=== PATIENT | male | born 1935 | race Caucasian/White ===

== ENCOUNTER 2017-12-16 18:15 | Emergency (ER) | payer MEDICARE, BC, SELFPAY ==
[2017-12-16 18:24] VITALS: BP 157/94; PULSE 76; RESP 20; TEMP 36.4; O2SAT 96
[2017-12-16 20:15] VITALS: BP 140/72; PULSE 54; RESP 10; O2SAT 100
[2017-12-16 22:24] VITALS: BP 151/73; PULSE 66; RESP 20; O2SAT 97
[2017-12-16] MEDS: IBUPROFEN 400 MG TABLET PO (22:24)
--- NOTE | 2017-12-17 04:07 | ED_ITS ---
HPI - Extremity Injury (Lower) General Chief Complaint: Extremity Injury, Lower Stated Complaint: HIP PAIN Time Seen by Provider: 12/16/17 18:38 Source: patient and family Mode of arrival: ambulatory Limitations: no limitations History of Present Illness HPI Narrative: Patient presents to the emergency department today with a chief complaint of some left flank pain since an aggressive workout session a few days ago. He is very active at home and with physical therapy in the aftermath of a stroke about a year ago. The patient says he over did it a few days ago and rather than resting he has continued to push through it. He did not tell his physical therapist of his pain and had a very intense workout which seems to potentially worsen things. He denies any fall or direct trauma. He denies any fever or chills. He denies nausea, vomiting or diarrhea. He denies dysuria. His left posterior ribs and musculature her with range of motion and improves with rest. He denies any history of the same. He has been taking muscle relaxers as prescribed by his primary care provider and has not been able to take anti-inflammatories given his use of Coumadin Related Data Home Medications Medication Instructions Recorded Confirmed clotrimazole 1 gm TOPICAL #0 12/14/16 Previous Rx's Medication Instructions Recorded amiodarone 1 tab PO AMCC #30 tab 01/04/17 atorvastatin 40 mg PO HS #30 tab 01/04/17 cholecalciferol (vitamin D3) 1 tab PO QDAY #30 tab 01/04/17 [Vitamin D3] baclofen 1 tab PO QHS #90 tab 01/12/17 diclofenac sodium [Voltaren] 1 jose alejandro TOPICAL QID #100 gm 03/13/17 Disabled Parking Permit ea #1 05/11/17 sertraline 50 mg PO QDAY #30 tab 08/02/17 warfarin [Coumadin] 0 PO SEE INSTRUCTIONS #250 tab 08/14/17 tamsulosin [Flomax] 0.4 mg PO QDAY #30 cap 09/04/17 tizanidine 2 - 4 mg PO HS #60 tab 09/04/17 lidocaine 1 patch TOP Q24H #15 each 12/16/17 Allergies Allergy/AdvReac Type Severity Reaction Status Date / Time No Known Drug Allergies Allergy Verified 12/16/17 18:24 Review of Systems Review of Systems All systems reviewed & are unremarkable except as noted in HPI and below Constitutional Denies chills, Denies fever(s), Denies lethargy and Denies weakness Eyes Denies change in vision, Denies eye discharge, Denies irritation and Denies loss of vision ENT Ears, Nose, Mouth, and Throat: Denies change in voice, Denies neck pain and Denies sore throat Cardiovascular Denies chest pain, Denies irregular heart rhythm, Denies lightheadedness, Denies palpitations, Denies dyspnea, Denies dyspnea on exertion and Denies orthopnea Respiratory Denies cough, Denies dyspnea, Denies dyspnea on exertion and Denies wheezing Gastrointestinal Gastrointestinal: Denies abdominal pain, Denies change in bowel habits, Denies diarrhea, Denies nausea and Denies vomiting Genitourinary Denies hematuria, Denies flank pain, Denies urinary incontinence and Denies urinary urgency Musculoskeletal Reports limited range of motion, Reports muscle cramps, Denies neck pain and Reports stiffness Integumentary/Breasts Denies pruritus, Denies erythema, Denies rash and Denies wounds Neurologic Denies confusion, Denies loss of vision and Denies weakness Psychiatric Denies anxiety, Denies confusion, Denies depression, Denies homicidal ideation and Denies suicidal ideation Endocrine Denies palpitations Hematologic/Lymphatic Denies easy bruising Allergic/Immunologic Denies wheezing PFSH Family History Father Family history of diabetes mellitus (DM) Family hx of lung cancer Mother Colon cancer Exam Narrative Exam Narrative: Pleasant 82-year-old male obviously uncomfortable the sitting in a wheelchair with his at his side Initial Vital Signs Initial Vital Signs: Vital Signs Temperature 97.6 F 12/16/17 18:24 Pulse Rate 76 12/16/17 18:24 Respiratory Rate 20 12/16/17 18:24 Blood Pressure 157/94 H 12/16/17 18:24 Pulse Oximetry 96 12/16/17 18:24 Const General: cooperative and well developed Nutritional Appearance: well nourished Orientation: alert, awake, oriented x3 and not confused HENMT Head: normocephalic and atraumatic Ears: external ears normal and TM's normal bilaterally Nose: external nose normal and No nasal discharge Face and sinus: sinuses nontender, face symmetric, no sinus tenderness and No dry mucous membranes Mouth: oral mucosae normal and moist mucous membranes Teeth and gingiva: dentition normal Throat: tonsils normal and uvula midline Eyes General: appearance normal, both eyes and all related structures Eyelids: eyelids normal Conjunctivae: conjunctivae normal Sclera: sclerae normal Pupils: PERRL EOM: EOM intact bilaterally Neck Neck: normal visual inspection, trachea midline, No lymphadenopathy, No midline deformity and No JVD Lymphatic: No lymphedema Resp Effort & Inspection: normal respiratory effort, able to speak in complete sentences, no respiratory distress and no use of accessory muscles Auscultation: clear to auscultation bilaterally, no rales, no rhonchi and no wheezes Cardio Rate: regular rate Rhythm: regular rhythm Heart Sounds: no click, no gallops, no murmurs and no rubs Pulses: normal peripheral pulses Back/Spine/Pelvis Back: back tenderness, CVA tenderness, No Gaines-He sign present and No warmth Thoracic/Lumbar Spine: No thoracic and lumbar spine normal to inspection, No thoraco-lumbar ROM normal, thoraco-lumbar ROM limited and thoraco-lumbar spasm Skin General: no rashes or lesions noted, No jaundice and No petechiae Extrem General: full ROM, no clubbing, cyanosis or edema, no pedal edema and no calf tenderness Other: weakness of LUE is chronic since stroke Course Orders Ordered: Discontinued Medications Ibuprofen (Advil) 400 mg PO NOW ONE Stop: 12/16/17 21:52 Last Admin: 12/16/17 22:24 Dose: 400 mg Vital Signs - 8 hr 12/16/17 20:15 12/16/17 22:24 Pulse Rate 54 L 66 Respiratory Rate 10 L 20 Blood Pressure 151/73 H Blood Pressure [Right Arm] 140/72 H Pulse Oximetry 100 97 MDM - Extremity Injury (Lower) MDM Narrative Medical decision making narrative: Discharge Plan Departure Patient Disposition: Home, Self-Care Clinical Impression: Back pain Discharge Date/Time: 12/16/17 22:25 Interventions: ED Discharge Assessment Last Done: 12/16/17 22:24 Instructions: Back Pain (Alternative Therapy) Activity Restrictions/Additional Instructions: *You have been diagnosed with [ bank pain ] *What to do: *Take medications as directed, prescriptions have been electronically transmitted to [facility] in [place] as requested. Take over the counter Motrin 400mg by mouth every 8 hours for the next 5 days *Follow up with your primary care provider, call for an appointment. Motrin can affect your Pro Times, please ask Dr. Xiong to set up more frequent lab draws while taking motrin. *Return to ER if you should have [such as] [or] any new, worsening or concerning symptoms Prescriptions: New lidocaine 5 % adhesive patch,medicated 1 patch TOP Q24H Qty: 15 RF: 0 No Action clotrimazole 1 % cream 1 gm Topical Qty: 0 RF: 0 atorvastatin 40 MG tablet 40 mg PO HS Qty: 30 RF: 11 amiodarone 200 MG tablet 1 tab PO AMCC Qty: 30 RF: 11 cholecalciferol (vitamin D3) [Vitamin D3] 1,000 UNIT tablet 1 tab PO QDAY Qty: 30 RF: 11 baclofen 10 MG tablet 1 tab PO QHS Qty: 90 RF: 3 diclofenac sodium [Voltaren] 1 % gel 1 jose alejandro Topical QID Qty: 100 RF: 3 Disabled Parking Permit Qty: 1 RF: 0 sertraline 50 MG tablet 50 mg PO QDAY Qty: 30 RF: 6 warfarin [Coumadin] 1 MG tablet PO SEE INSTRUCTIONS Qty: 250 RF: 1 tamsulosin [Flomax] 0.4 MG capsule,extended release 24hr 0.4 mg PO QDAY Qty: 30 RF: 3 tizanidine 2 MG tablet 2 - 4 mg PO HS Qty: 60 RF: 3
== END 2017-12-16 22:25 | disposition home or self-care (01) ==
PROVIDERS: Emergency Provider Emergency Medicine; Family Provider Internal Medicine; PCP Internal Medicine
DX: M54.9 Dorsalgia, unspecified (principal)
CPT/HCPCS: 81003; 99282; 99283

== ENCOUNTER → 2018-02-15 12:18 | Outpatient (CLI) | payer MEDICARE, BC, SELFPAY ==
[2018-02-15 13:21] LABS: Add Manual Diff / Slide Review NO; Basophils Percent Auto 0.5 % (0-2); Eosinophils Percent Auto 1.9 % (2-4); Hematocrit 43.7 % (41-53); Hemoglobin 15.1 g/dL (13.5-17.5); Lymphocytes Percent Auto 35.4 % (25-40); Mean Corpuscular HGB Conc 34.5 % (30-36); Mean Corpuscular Hemoglobin 32.5 PG (26-34); Mean Corpuscular Volume 94.4 fL (80-100); Monocytes Percent Auto 12.3 % (3-14); Neutrophils Absolute Auto 2800 /uL (3000-5900); Neutrophils Percent Auto 49.9 % (50-75); Platelet Count 181 X10^3/uL (150-400); Red Blood Cell Count 4.63 X10^6/uL (4.5-5.9); Red Cell Distribution Width 14.1 % (11.6-14.8); White Blood Cell Count 5.6 X10^3/uL (4.5-11.0)
[2018-02-15 14:08] LABS: Alanine Aminotransferase 47 IU/L (21-72); Albumin 4.3 g/dL (3.5-5.0); Albumin Globulin Ratio 1.7 (1.0-2.8); Alkaline Phosphatase 65 U/L (38-126); Aspartate Aminotransferase 40 IU/L (17-59); BUN Creatinine Ratio 18.2 (6-22); Bilirubin Total 0.6 mg/dL (0.2-1.3); Blood Urea Nitrogen 20 mg/dL (9-20); Carbon Dioxide 31 mmol/L (22-32); Chloride 102 mmol/L (98-107); Estimated Glomerular Filt Rate > 60.0 mL/min (>60); Globulin 2.6 g/dL (1.7-4.1); Glucose 86 mg/dL (80-110); HEMOLYSIS < 15 (0-50); Potassium 4.3 mmol/L (3.4-5.1); Sodium 142 mmol/L (137-145); Total Protein 6.9 g/dL (6.3-8.2)
[2018-02-15 14:41] LABS: TSH w/ Reflex to FT4 1.31 uIU/mL (0.47-4.68)
== END ==
PROVIDERS: Family Provider Internal Medicine; PCP Internal Medicine; Visit Provider Internal Medicine
DX: I48.0 Paroxysmal atrial fibrillation (principal); I69.30 Unspecified sequelae of cerebral infarction; Z79.01 Long term (current) use of anticoagulants
CPT/HCPCS: 36415; 80053; 84443; 85025

== ENCOUNTER 2018-02-18 10:57 | Emergency (ER) | payer MEDICARE, BC, SELFPAY ==
--- NOTE | 2018-02-18 11:03 | DI.CT.S_ITS ---
PROCEDURE: CT HEAD/BRAIN WO CON INDICATIONS: Fall, hit head on coumadin. TECHNIQUE: Noncontrast 4.5 mm thick angled axial sections acquired from the foramen magnum to the vertex, with coronal and sagittal reformats. For radiation dose reduction, the following was used: automated exposure control, adjustment of mA and/or kV according to patient size. COMPARISON: [facility], CT, HEAD WITHOUT CONTRAST, 11/03/2016, 14:51. FINDINGS: Image quality: Excellent. CSF spaces: Basal cisterns are patent. No extra-axial fluid collections. The ventricles are symmetric in size and shape. Brain: No intracranial bleeds or masses. There is a new chronic infarct within the right posterior vargas radiata. Small chronic left medial occipital lobe infarct is unchanged. Small chronic infarct within the anterior limb of the left internal capsule is unchanged. There is cerebral volume loss for age, with resultant ventricular and sulcal prominence. There are periventricular and deep white matter chronic small vessel ischemic changes. There is intracranial internal carotid artery atherosclerosis. Skull and face: Calvarium and visualized facial bones appear intact, without suspicious lesions. Sinuses: Visualized sinuses and mastoids are clear. IMPRESSION: 1. No acute intracranial abnormality. 2. Volume loss and small vessels disease. 3. Multifocal chronic infarcts as above. Dictated by: eCcilia Kidd M.D. on 02/18/2018 at 11:25 Approved by: Cecilia Kidd M.D. on 02/18/2018 at 11:26
[2018-02-18 11:06] VITALS: BP 146/68; PULSE 65; RESP 16; TEMP 36.8; O2SAT 96
--- NOTE | 2018-02-18 11:08 | DI.RAD.S_ITS ---
PROCEDURE: XR HIP W PEL IF DONE LT 2V INDICATIONS: ground level fall with left hip pain TECHNIQUE: AP pelvis with lateral view(s) of the left hip(s). COMPARISON: None. FINDINGS: Bones: No fractures or dislocations. Pelvic ring appears intact. No suspicious bony lesions. Moderate hip joint narrowing and periarticular osteophyte formation bilaterally. Soft tissues: The visualized bowel gas pattern is normal. No suspicious soft tissue calcifications. IMPRESSION: Bilateral hip osteoarthritis. No acute fracture. No osseous lesion. If symptoms and/or clinical suspicion for pathology persist, further assessment with repeat, or advanced imaging (e.g., CT, MRI, or bone scan) may be helpful for further assessment. Dictated by: Cecilia Kidd M.D. on 02/18/2018 at 11:24 Approved by: Cecilia Kidd M.D. on 02/18/2018 at 11:24
[2018-02-18 11:14] VITALS: BP 146/68; PULSE 65; RESP 16; TEMP 36.8; O2SAT 96
[2018-02-18 11:26] LABS: Hemoglobin 14.6 g/dL (13.5-17.5); Mean Corpuscular HGB Conc 33.9 % (30-36); Mean Corpuscular Hemoglobin 32.2 PG (26-34); Mean Corpuscular Volume 95.1 fL (80-100); Platelet Count 177 X10^3/uL (150-400); Red Blood Cell Count 4.52 X10^6/uL (4.5-5.9); White Blood Cell Count 5.1 X10^3/uL (4.5-11.0)
--- NOTE | 2018-02-18 11:26 | PC.NURSE ---
patient back from CT and hooked back up to the monitor.
[2018-02-18 11:28] LABS: INR 2.4 (0.9-1.3); Prothrombin Time 26.5 SECONDS (10.1-12.7)
[2018-02-18 11:39] LABS: Alanine Aminotransferase 43 IU/L (21-72); Albumin Globulin Ratio 1.7 (1.0-2.8); Alkaline Phosphatase 58 U/L (38-126); Aspartate Aminotransferase 29 IU/L (17-59); BUN Creatinine Ratio 21.1 (6-22); Bilirubin Total 0.8 mg/dL (0.2-1.3); Blood Urea Nitrogen 19 mg/dL (9-20); Calcium 8.8 mg/dL (8.4-10.2); Carbon Dioxide 32 mmol/L (22-32); Chloride 104 mmol/L (98-107); Estimated Glomerular Filt Rate > 60.0 mL/min (>60); Globulin 2.4 g/dL (1.7-4.1); Glucose 105 mg/dL (80-110); HEMOLYSIS < 15 (0-50); Sodium 141 mmol/L (137-145); Total Protein 6.4 g/dL (6.3-8.2)
[2018-02-18 11:49] LABS: Neutrophils Absolute Manual 2499 /uL (3000-5900); RBC Morphology Normal Morphology; Total Cells Counted 100
--- NOTE | 2018-02-18 12:15 | ED_ITS ---
HPI - Fall General Chief Complaint: Fall Stated Complaint: Fell Time Seen by Provider: 02/18/18 11:08 History of Present Illness HPI Narrative: HPI 82-year-old male with a CVA with left side deficit and paroxysmal atrial fibrillation on warfarin presents for evaluation after apparently losing his balance and falling onto his left side, patient struck his head on the step without LOC and struck his left hip on the ground. Patient denied preceding chest pain, shortness breath, abdominal pain, believes he lost his balance but is not entirely sure. Patient denies further injuries. M/S/F/SocHx notable for: Paroxysmal atrial fibrillation, CVA, or lung nodule, long-term use of warfarin; remainder reviewed with patient and in chart. ROS: Negative constitutional, eye, cardiovascular, pulmonary, GI, , MSK, skin , neurologic, psychiatric, endocrine unless noted in the HPI. Exam General: Pleasant, non-toxic appearing, resting comfortably. HENT: superficial abrasion on right superior occiput, otherwise no evidence of facial or head trauma, TTP of orbits, TTP of midface, malocclusion, or septal hematoma. OP clear and moist, dentition intact. Eyes: EOMI, PERRL. Neck: Tracheal midline. No visible skin defects, no step-offs, c-spine TTP, stridor, or JVD. Cardiac: RRR with no M/R/G. Chest: No crepitus, visual evidence of trauma, equal chest rise, TTP. Pulm: CTAB effort WNL w/o accessory muscle usage. Abd: Soft, NT, ND, no guarding or visual evidence of trauma. Back: No spinous process TTP, no step-offs or visible injury. Pelvis: Stable, no TTP. 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 LUE: extremity contracted with decreased RM, hand warm and well perfused with sensation intact to touch, no visible injuries. RLE: Dorsiflexion 5/5, foot warm and well perfused with sensation intact to touch, no visible injuries. LLE: extremity contracted with decreased RM, foot warm and well perfused with sensation intact to touch, no visible injuries. Orthostatics: negative symptomatic orthostatics upon sitting up rapidly. Neuro: AOx3, CN VII intact Skin: Warm and dry (focal injuries noted above). Psych: Normal affect and judgement. Labs / Imaging (pertinent): WBC 5.1, HB 14.6, PT/INR 2.4, sodium 141, potassium 4.0 XR L hip with pelvis: bilateral hip osteoarthritis. No acute fracture. No osseous lesion. CT head: no acute intracranial abnormality. EK BPM, NSR with no ST-segment elevations or depressions, T-wave inversions or new LBBB. ND interval 118 msec, QTc 475 msec, no delta waves, epsilon waves, coved or saddle ST-segment changes in leads V1-3, preseptal or inferior lead Q-waves, biphasic P-waves, or T-wave inversions; no LVH. MDM Previous chart, nursing note, and vitals reviewed. A: 82-year-old male with a CVA with left side deficit and paroxysmal atrial fibrillation on warfarin presents for evaluation after apparently losing his balance and falling onto his left side, patient struck his head on the step without LOC and struck his left hip on the ground. DDx and evaluation: Trauma - no clinically significant traumatic abnormalities appreciated on history, exam, or imaging. Fall Etiology: * Anemia - H&H clinically WNL. * Hypotension (hypovolemia vs vasovagal vs autonomic instability) - SBP clinically WNL. No symptomatic changes with orthostatic maneuvers. * Cardiac - EKG, labs, and history without evidence of AV-block, history highly atypical for ACS, further evaluation presently indicated. Heart sounds WNL on exam, no evidence of clinically significant valvular abnormalities by history or auscultation. * Obstructive - doubt PE, tamponade, and pulmonary hypertension based upon lack of risk factors on history and exam. * Vertebrobasilar insufficiency - No identifiable risk factors on history ( injury risk factors, vertiginous symptoms, diplopia, vision changes, TIA risk factors or prior similar events). * Electrolyte - electrolytes clinically WNL. * Mechanical - suspect mechanical as the patient fell leftwards, has chronic left sided weakness, and the relative exclusion of alternate etiologies. Disposition: discharge with PCP follow-up as needed. Impression: fall (please reference below for remainder of encounter information) Related Data Home Medications Medication Instructions Recorded Confirmed clotrimazole 1 gm TOPICAL #0 12/14/16 02/14/18 Disabled Parking Permit 1 ea MISCELLANEOUS DIRECTED 02/18/18 02/18/18 Previous Rx's Medication Instructions Recorded cholecalciferol (vitamin D3) 1 tab PO QDAY #30 tab 01/04/17 [Vitamin D3] diclofenac sodium [Voltaren] 1 jose alejandro TOPICAL QID #100 gm 03/13/17 warfarin [Coumadin] 0 PO SEE INSTRUCTIONS #250 tab 08/14/17 lidocaine 1 patch TOP Q24H #15 each 12/16/17 amiodarone 1 tab PO AMCC #30 tab 12/28/17 atorvastatin 40 mg PO HS #30 tab 12/31/17 tamsulosin [Flomax] 0.4 mg PO QDAY #30 cap 12/31/17 baclofen 10 mg tablet 5 mg PO TID PRN #90 tab 01/15/18 sertraline 50 mg PO QDAY #30 tab 02/18/18 Allergies Allergy/AdvReac Type Severity Reaction Status Date / Time No Known Drug Allergies Allergy Verified 02/18/18 11:10 Exam Initial Vital Signs Initial Vital Signs: Vital Signs Temperature 98.3 F 02/18/18 11:06 Pulse Rate 65 02/18/18 11:06 Respiratory Rate 16 02/18/18 11:06 Blood Pressure 146/68 H 02/18/18 11:06 Pulse Oximetry 96 02/18/18 11:06 PFSH Medical History Paroxysmal atrial fibrillation (Chronic 04/13/15) History of cerebrovascular accident (CVA) with residual deficit (Chronic ) Lung nodule (Chronic 11/27/13) [facility] current use of anticoagulant therapy (Chronic 12/14/16) Atrial fibrillation (Resolved) Pulmonary nodule (Resolved) Stroke (Resolved 10/2016) Family History Father Family history of diabetes mellitus (DM) Family hx of lung cancer Mother Colon cancer Social History marital status: number of children: 2 household members: spouse lives independently: Yes caregiver/support person: Yes housing: house pets and animals: No education level: other (PhD) 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 leisure activities: sports, fishing and other (Spending time with .) Smoking Status: Current every day smoker Tobacco: How many years used: 10 quit status: quit date established (1963) second hand exposure: No alcohol intake: current (A glass of wine at night.) substance use type: does not use Course Orders Ordered: ED Orders 02/18/18 11:03 CT head/brain wo con Stat 02/18/18 11:08 XR hip w pel if done LT 2V Stat 02/18/18 11:09 Complete Blood Count MAN DIFF Stat Comprehensive Metabolic Panel Stat Prothrombin Time INR Stat 02/18/18 11:33 EKG-12 Lead Stat Vital Signs - 8 hr 02/18/18 11:06 02/18/18 11:14 Temperature 98.3 F 98.3 F Pulse Rate 65 65 Respiratory Rate 16 16 Blood Pressure 146/68 H 146/68 H Pulse Oximetry 96 96 MDM - Fall Lab Data Result diagrams: 02/18/18 11:09 02/18/18 11:09 Lab Results 02/18/18 02/18/18 02/18/18 Range/Units 11:09 11:09 11:09 WBC 5.1 (4.5-11.0) X10^3/uL RBC 4.52 (4.5-5.9) X10^6/uL Hgb 14.6 (13.5-17.5) g/dL Hct 43.0 (41-53) % MCV 95.1 (80-100) fL MCH 32.2 (26-34) PG MCHC 33.9 (30-36) % RDW 14.0 (11.6-14.8) % Plt Count 177 (150-400) X10^3/uL Total Counted 100 Seg Neutrophils % 48.0 (38-70) % Band Neutrophils % 1.0 L (3-7) % Lymphocytes % (Manual) 36.0 (25-45) % Atypical Lymphs % 3.0 H ( - 0) % Monocytes % (Manual) 10.0 (2-11) % Eosinophils % (Manual) 2.0 (2-4) % Neutrophils # (Manual) 2499 L (4065-4852) /uL RBC Morphology Normal morphology PT 26.5 H (10.1-12.7) SECONDS INR 2.4 H (0.9-1.3) Sodium 141 (137-145) mmol/L Potassium 4.0 (3.4-5.1) mmol/L Chloride 104 (98-107) mmol/L Carbon Dioxide 32 (22-32) mmol/L BUN 19 (9-20) mg/dL Creatinine 0.90 (0.66-1.25) mg/dL Estimated GFR > 60.0 (>60) mL/min BUN/Creatinine Ratio 21.1 (6-22) Glucose 105 (80-110) mg/dL Calcium 8.8 (8.4-10.2) mg/dL Total Bilirubin 0.8 (0.2-1.3) mg/dL AST 29 (17-59) IU/L ALT 43 (21-72) IU/L Alkaline Phosphatase 58 (38-126) U/L Total Protein 6.4 (6.3-8.2) g/dL Albumin 4.0 (3.5-5.0) g/dL Globulin 2.4 (1.7-4.1) g/dL Albumin/Globulin Ratio 1.7 (1.0-2.8) Discharge Plan Departure Prescriptions: No Action clotrimazole 1 % cream 1 gm Topical Qty: 0 RF: 0 cholecalciferol (vitamin D3) [Vitamin D3] 1,000 UNIT tablet 1 tab PO QDAY Qty: 30 RF: 11 diclofenac sodium [Voltaren] 1 % gel 1 jose alejandro Topical QID Qty: 100 RF: 3 warfarin [Coumadin] 1 MG tablet PO SEE INSTRUCTIONS Qty: 250 RF: 1 amiodarone 200 mg tablet 1 tab PO AMCC Qty: 30 RF: 11 tamsulosin [Flomax] 0.4 mg capsule,extended release 24hr 0.4 mg PO QDAY Qty: 30 RF: 3 atorvastatin 40 mg tablet 40 mg PO HS Qty: 30 RF: 6 sertraline 50 mg tablet 50 mg PO QDAY Qty: 30 RF: 6 baclofen 10 mg tablet 5 mg PO TID PRN (Reason: spasm) Qty: 90 RF: 3 lidocaine 5 % adhesive patch,medicated 1 patch TOP Q24H Qty: 15 RF: 0 Disabled Parking Permit 1 ea miscellaneous DIRECTED RF: 0
[2018-02-18 12:43] VITALS: BP 137/69; PULSE 56; RESP 17; O2SAT 98
== END 2018-02-18 12:45 | disposition home or self-care (01) ==
PROVIDERS: Emergency Provider Emergency Medicine; Family Provider Internal Medicine; PCP Internal Medicine
DX: S09.90XA Unspecified injury of head, initial encounter (principal); W18.30XA Fall on same level, unspecified, initial encounter; I48.0 Paroxysmal atrial fibrillation
CPT/HCPCS: 36591; 70450; 73502; 80053; 85025; 85610; 93005; 93010; 99282; 99285; 99291; 99292

== ENCOUNTER 2018-05-22 12:30 | Outpatient (RCR) | payer MEDICARE, BC, SELFPAY ==
--- NOTE | 2017-11-15 11:21 | OT.OPPN ---
On November 13, 2017 our therapy services consisting of Speech, Occupational, and Physical therapy transitioned from [employer] electronic documentation system to a new [employer] electronic system. All documentation prior to November 13 can be found under [employer] saved data. From November 13 forward, all medical record documentation will be in [employer].
--- NOTE | 2017-11-30 11:46 | OT.OP.REEVAL ---
Visit Care Team Role Provider Type Mane Xiong MD Attending Provider Physician Family Provider Primary Care Provider Address: [address] [place] [address], [id number] Email: [email or web address] Outpatient OT Outpatient Treatment Note - Adult Start: 11/15/17 15:53 Freq: Status: Active Protocol: Document 11/29/17 03:30 AMS (Rec: 11/30/17 11:45 AMS [id number]) OT Outpatient Adult Treatment Note Session Time Visit Start Time 02:30 Visit Stop Time 03:18 Total Visit Minutes 48 Visit Information Visit Number 07/25 Plan of Care Dates 11/15/17-02/07/18 Insurance Information Medicare - G-codes Required Setting Treatment Setting Outpatient Care Visit Type Note Type Re-Evaluation General Information General Information 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 Pt is presenting w/ increasing tremors of the left upper extremity which is influencing balance and functional use of the left UE (e.g., object manipulation). - Subjective Identification Type Name Identification Reconciled With Medical Record Observations My called the neurologist after 6 weeks. He wanted to see me in 3 months but I think the tremors are getting worse per Javi. Patient/Caregiver Compliance with Home Good Exercise Program Comments w/ support. Tremors impacting functional use - Objective Objective Measurements (+) tremors noted of the left upper extremity. Discussed breaking down the motor plan to descrease tremors w/ effort against gravity. (+) frustration from tremors. Short Term Goals 1. Pt will demonstrate 0-20 degrees active left wrist ulnar deviation. *GOAL UPGRADED 2. Pt will demonstrate 0 to 120 degrees active left shoulder flexion. *GOAL UPGRADED 3. Pt will demonstrate 0 to 120 degrees active left shoulder abduction. *GOAL UPGRADED 4. Pt will be able to place 10 tokens through vertical slot of container positioned to left of body, w/ at least 45 degrees shoulder abduction, while seated w/ max verbal/ visual cues. 11/29/17= 25% of goal met. 5. Pt will be able to transfer 10 sticks from tabletop to vertically positioned container to the left of the body, utilizing the left hand, requiring max verbal/visual cues. 11/29/17= 25% of goal met . 6. Pt will be able to throw tennis ball towards therapist x 10 trials w/ left hand while seated at EOM, without use of compensatory strategies, requiring mod verbal/visual cues. 11/29/17= 25% of goal met . 7. Pt will be able to place 10 get-a-aircraft maintenance engineer clothespins on vertical board w/ left hand, w / thumb on bottom of clothespin, w/ min verbal/ visual cues. 11/29/17= 25% of goal met. *GOAL MET Pt demonstrated 0- 110 degrees active left shoulder flexion. *MET 11/15/17 *GOAL MET Pt demonstrated 0-15 degrees active left wrist radial deviation. *MET 11/29/17 *GOAL MET Pt demonstrated 0- 110 degrees active left shoulder abduction. *MET *GOAL MET Pt demonstrated 0-15 degrees active left wrist ulnar deviation. *MET 11/29/17 Penitentiary Goals 1. Based on verbal self-report , pt will be able to manage zipper w/ left upper extremity , w/ mod I w/ increased time on daily basis. 11/29/17= unable 2. Pt will average 40# of force w/ left aircraft maintenance engineer dynamometer II testing. 11/15/17= 25# of force avg 3. Pt will be mod I w/ HEP utilizing provided written and visual instructions. 11/29/17= initiated use of wrist weight - Treatment 2 Descriptor Motor Planning Complexity Reduced 1 Descriptor Object manipulation Trialed use of weight w/ functional task completion (+) influence on balance w/ gait (w/ use of wrist weight) Education completed for proximal stabilization and support Complexity Reduced Exercises 2 Descriptor Functional AROM Shoulder flexion Shoulder abduction Functional reach Side Left Body Position Seated/Standing Sets 1 (per exercise) Repetitions 10 (per exercise) 1 Descriptor Tone Management Body Position Sitting; Standing - Assessment Patient Response to Treatment Fair Rehab Potential Fair Impairments Identified ADLs Attention Balance Coordination/Dexterity Functional Activities Motor Function Weakness Posture Range of Motion Recreational Activities Meaningful Activities Spasticity Stiffness Tremors Motor Planning Eye-Hand Coordination Comment Declining in functional progress due to tremors. Improving ROM. Assessment of Overall Progress Declining Assessment of Improvement Declining due to increasing intensity and frequency of tremors with functional task completion. Decreased spontaneous use of left UE in daily life. Education completed to encourage maintaining available ROM and using the hand for stabilizing in all functional mobility positions. Provided education on use of wrist weight ( between 1 to 2# w/ PT support) for ambulation in the home due to impact of tremors on balance; provided education on use of wrist weight w/ functional tasks. Negatively impacted performance w/ wall ( light) manipulation; however, would likely positively influence seated work w/ arm supported. Education re: need to increase strength of UE to support use of wrist weight. It is important to note however, pt is demonstrating improving active range of motion of left upper extremity (wrist and shoulder). This is evidenced by pt meeting goals in this area. By improving active range of motion, functional activities will likely maintain and/or decrease effort required from caregiver, as well as maintain pt's current g/h functional independence (ruthy garcia). Home Exercise Program See above Reviewed with Patient/Caregiver Goals Progress Being Made Home Exercise Program Patient/Caregiver Understanding Good - Plan Therapy Recommendations Other Additional Therapy Recommendations Will adjust POC per neurologist's recommendations Comment 12 weeks; ongoing; change in medical presentation - increasing L UE tremors Comment 1 x every other week Treatment Emphasis Next Session Functional activities Therapeutic Contents Active Range of Motion Adaptive Equipment Education Client Education Cognitive Skills Development Functional Activities Home Exercise Program Manual Therapy Education Neuromuscular Re-Education Orthotic Fitting & Training Self-Care Stretching/Flexibility Activities Therapeutic Activities Therapeutic Exercises Modalities As Needed As Described Please Sign and Return: I have reviewed this Plan of Care and certify that the skilled therapy services above are required to meet the patient???s needs. Physician Signature Date Printed Name and Credentials
--- NOTE | 2017-12-14 09:23 | OT.OP.TRT ---
Visit Care Team Role Provider Type Mane Xiong MD Attending Provider Physician Family Provider Primary Care Provider Specialty: Internal Medicine Address: [address] [place] [address], [address] Email: [email or web address] Occupational Therapy Treatment Note OT Outpatient Treatment Note - Adult Start: 11/15/17 15:53 Freq: Status: Active Protocol: Document 12/13/17 15:28 AMS (Rec: 12/13/17 15:30 AMS [id number]) OT Outpatient Adult Treatment Note Session Time Visit Start Time 02:30 Visit Stop Time 03:20 Total Visit Minutes 50 Visit Information Visit Number 08/25 Plan of Care Dates 11/15/17-02/07/18 Insurance Information Medicare - G-codes Required Setting Treatment Setting Outpatient Care Visit Type Note Type Treatment Note General Information General Information 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 Pt is presenting w/ increasing tremors of the left upper extremity which is influencing balance and functional use of the left UE (e.g., object manipulation). - Subjective Identification Type Name Identification Reconciled With Medical Record Observations I think I am seeing the neurologist again in 2 weeks before I see you again. It is affecting my balance and my sleep. I wake up and this arm is shaking per Leeroy. Patient/Caregiver Compliance with Home Good Exercise Program Comments w/ support. Tremors impacting functional use - Objective Objective Measurements Declining due to increasing intensity and frequency of tremors with functional task completion. Decreased spontaneous use of left UE in daily life. Per pt, pt to follow-up w/ neurologist prior to next treatment session. Pt did demonstrate increased tolerance for weight bearing on vertical surface w/ left hand; thus, new HEP focused on isometric holds w/ intent on progressing to increased ER and sh abd. Pt also demonstrated increased tolerance for modified s-s w/ focus on decent w/ isometric hold. Therapist also re-initiated seated rowing use w/ (+) response from pt. Recommend continuing w/ exercise at time of next treatment session. Short Term Goals 1. Pt will demonstrate 0-20 degrees active left wrist ulnar deviation. *GOAL UPGRADED 2. Pt will demonstrate 0 to 120 degrees active left shoulder flexion. *GOAL UPGRADED 3. Pt will demonstrate 0 to 120 degrees active left shoulder abduction. *GOAL UPGRADED 4. Pt will be able to place 10 tokens through vertical slot of container positioned to left of body, w/ at least 45 degrees shoulder abduction, while seated w/ max verbal/ visual cues. 11/29/17= 25% of goal met. 5. Pt will be able to transfer 10 sticks from tabletop to vertically positioned container to the left of the body, utilizing the left hand, requiring max verbal/visual cues. 11/29/17= 25% of goal met . 6. Pt will be able to throw tennis ball towards therapist x 10 trials w/ left hand while seated at EOM, without use of compensatory strategies, requiring mod verbal/visual cues. 11/29/17= 25% of goal met . 7. Pt will be able to place 10 get-a-labor commissioner clothespins on vertical board w/ left hand, w / thumb on bottom of clothespin, w/ min verbal/ visual cues. 11/29/17= 25% of goal met. *GOAL MET Pt demonstrated 0- 110 degrees active left shoulder flexion. *MET 11/15/17 *GOAL MET Pt demonstrated 0-15 degrees active left wrist radial deviation. *MET 11/29/17 *GOAL MET Pt demonstrated 0- 110 degrees active left shoulder abduction. *MET *GOAL MET Pt demonstrated 0-15 degrees active left wrist ulnar deviation. *MET 11/29/17 Correction Goals 1. Based on verbal self-report , pt will be able to manage zipper w/ left upper extremity , w/ mod I w/ increased time on daily basis. 11/29/17= unable 2. Pt will average 40# of force w/ left labor commissioner dynamometer II testing. 11/15/17= 25# of force avg 3. Pt will be mod I w/ HEP utilizing provided written and visual instructions. 12/13/17= upgraded - Treatment 2 Descriptor Motor Planning Tolerance Fair Complexity No Change 1 Descriptor Object manipulation Complexity No Change Exercises 4 Descriptor Modified [id number] Hold w/ return to seat w/ weight bearing as tolerated - x 3 sec hold Sets 1 Repetitions 5 Tolerance Fair Modifications Required Yes Complexity Upgraded 3 Descriptor Rowing machine Body Position Sitting Resistance 1 Time 3 Tolerance Fair Modifications Required Yes Complexity Upgraded 2 Descriptor Functional AROM Shoulder flexion Shoulder abduction Functional reach Side Left Body Position Seated/Standing Sets 1 (per exercise) Repetitions 10 (per exercise) Tolerance Fair Modifications Required Yes Complexity No Change 1 Descriptor Tone Management Seated wall use (isometric hold for 3 seconds w/ sticky note x 5 reps in front and to the side) Body Position Sitting; Standing Tolerance Fair Modifications Required Yes Complexity Upgraded - Assessment Patient Response to Treatment Fair Rehab Potential Fair Impairments Identified ADLs Attention Balance Coordination/Dexterity Functional Activities Motor Function Weakness Posture Range of Motion Recreational Activities Meaningful Activities Spasticity Stiffness Tremors Motor Planning Eye-Hand Coordination Comment Tremors impacting function. Improving WB tolerance wall/s- s Assessment of Improvement Declining due to increasing intensity and frequency of tremors with functional task completion. Decreased spontaneous use of left UE in daily life. Per pt, pt to follow-up w/ neurologist prior to next treatment session. Pt did demonstrate increased tolerance for weight bearing on vertical surface w/ left hand; thus, new HEP focused on isometric holds w/ intent on progressing to increased ER and sh abd. Pt also demonstrated increased tolerance for modified s-s w/ focus on decent w/ isometric hold. Therapist also re-initiated seated rowing use w/ (+) response from pt. Recommend continuing w/ exercise at time of next treatment session. Home Exercise Program Please see above. Reviewed with Patient/Caregiver Goals Progress Being Made Home Exercise Program Patient/Caregiver Understanding Good - Plan Therapy Recommendations Continue with Current Program Advance per Rehabilitation Protocol Additional Therapy Recommendations Consult w/ PT Please Sign and Return: I have reviewed this Plan of Care and certify that the skilled therapy services above are required to meet the patient?s needs. Physician Signature Date Printed Name and Credentials Clinical Instructor Signature Printed Name and Credentials
--- NOTE | 2017-12-27 15:36 | OT.OP.TRT ---
Visit Care Team Role Provider Type Mane Xiong MD Attending Provider Physician Family Provider Primary Care Provider Specialty: Internal Medicine Address: [address] [place] [address], [id number] Email: [email or web address] Occupational Therapy Treatment Note OT Outpatient Treatment Note - Adult Start: 11/15/17 15:53 Freq: Status: Active Protocol: Document 12/27/17 15:25 AMS (Rec: 12/27/17 15:36 AMS [id number]) OT Outpatient Adult Treatment Note Session Time Visit Start Time 02:30 Visit Stop Time 03:15 Total Visit Minutes 45 Visit Information Visit Number 09/22 Plan of Care Dates 11/15/17-02/07/18 Insurance Information Medicare - G-codes Required Setting Treatment Setting Outpatient Care Visit Type Note Type Treatment Note General Information General Information 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 Pt is presenting w/ increasing tremors of the left upper extremity which is influencing balance and functional use of the left UE (e.g., object manipulation). - Subjective Identification Type Name Identification Reconciled With Medical Record Observations The neurologist took me off the muscle relaxer. I had to go into the ER about 10 days ago because of the pain. He said I have a muscle spasm going on this side per patient. Patient/Caregiver Compliance with Home Fair Exercise Program Comments w/ support. Tremors impacting functional use - Objective Objective Measurements Decreased tolerance for treatment. (+) modifications to exercises/activities to prevent pain symptoms related to right side of trunk. Discussed methods to modify current HEP. Short Term Goals 1. Pt will demonstrate 0-20 degrees active left wrist ulnar deviation. *GOAL UPGRADED 2. Pt will demonstrate 0 to 120 degrees active left shoulder flexion. *GOAL UPGRADED 3. Pt will demonstrate 0 to 120 degrees active left shoulder abduction. *GOAL UPGRADED 4. Pt will be able to place 10 tokens through vertical slot of container positioned to left of body, w/ at least 45 degrees shoulder abduction, while seated w/ max verbal/ visual cues. 11/29/17= 25% of goal met. 5. Pt will be able to transfer 10 sticks from tabletop to vertically positioned container to the left of the body, utilizing the left hand, requiring max verbal/visual cues. 11/29/17= 25% of goal met . 6. Pt will be able to throw tennis ball towards therapist x 10 trials w/ left hand while seated at EOM, without use of compensatory strategies, requiring mod verbal/visual cues. 11/29/17= 25% of goal met . 7. Pt will be able to place 10 get-a-script developer clothespins on vertical board w/ left hand, w / thumb on bottom of clothespin, w/ min verbal/ visual cues. 11/29/17= 25% of goal met. *GOAL MET Pt demonstrated 0- 110 degrees active left shoulder flexion. *MET 11/15/17 *GOAL MET Pt demonstrated 0-15 degrees active left wrist radial deviation. *MET 11/29/17 *GOAL MET Pt demonstrated 0- 110 degrees active left shoulder abduction. *MET *GOAL MET Pt demonstrated 0-15 degrees active left wrist ulnar deviation. *MET 11/29/17 [facility] Goals 1. Based on verbal self-report , pt will be able to manage zipper w/ left upper extremity , w/ mod I w/ increased time on daily basis. 11/29/17= unable 2. Pt will average 40# of force w/ left script developer dynamometer II testing. 11/15/17= 25# of force avg 3. Pt will be mod I w/ HEP utilizing provided written and visual instructions. 12/13/17= upgraded - Treatment 2 Descriptor Motor Planning Symmetrical motor planning of UEs w/ object manipulation Tolerance Fair Complexity Upgraded Exercises 5 Descriptor Home Exercise Program Modified due to new pain symptoms 4 Descriptor Modified [id number] Hold w/ return to seat w/ weight bearing as tolerated - x 3 sec hold Sets 1 Repetitions 5 Tolerance Fair Modifications Required Yes Complexity Upgraded 2 Descriptor ALL EXERCISES MODIFIED Functional AROM Shoulder flexion Shoulder abduction Functional reach Side Left Body Position Seated Sets 1 (per exercise) Repetitions 10 (per exercise) Tolerance Fair Modifications Required Yes Complexity No Change - Assessment Patient Response to Treatment Fair Rehab Potential Fair Impairments Identified ADLs Attention Balance Coordination/Dexterity Functional Activities Motor Function Weakness Posture Range of Motion Recreational Activities Meaningful Activities Spasticity Stiffness Tremors Motor Planning Eye-Hand Coordination Comment Tremors impacting function. Improving WB tolerance wall/s- s Assessment of Improvement Declining due to increasing intensity and frequency of tremors with functional task completion. Decreased spontaneous use of left UE in daily life. Decline since previous treatment session secondary to 'muscle spasm' and 'inability to use the arm' without having pain. All exercises/activities modified to prevent exacerbation of pain symptoms. Home Exercise Program Modifications to HEP w/ focus on symmetrical functional motor planning Reviewed with Patient/Caregiver Goals Progress Being Made Home Exercise Program Patient/Caregiver Understanding Good - Plan Therapy Recommendations Other Additional Therapy Recommendations Consult w/ PT Please Sign and Return: I have reviewed this Plan of Care and certify that the skilled therapy services above are required to meet the patient?s needs. Physician Signature Date Printed Name and Credentials Clinical Instructor Signature Printed Name and Credentials
--- NOTE | 2018-01-11 11:29 | OT.OP.TRT ---
Visit Care Team Role Provider Type Mane Xiong MD Attending Provider Physician Family Provider Primary Care Provider Specialty: Internal Medicine Address: [address] [place] [address], [address] Email: [email or web address] Occupational Therapy Treatment Note OT Outpatient Treatment Note - Adult Start: 11/15/17 15:53 Freq: Status: Active Protocol: Document 01/10/18 03:30 [facility] (Rec: 01/11/18 11:29 [facility] [id number]) OT Outpatient Adult Treatment Note Session Time Visit Start Time 02:40 Visit Stop Time 03:23 Total Visit Minutes 43 Visit Information Visit Number 10/23 Plan of Care Dates 11/15/17-02/07/18 Insurance Information Medicare - G-codes Required Setting Treatment Setting Outpatient Care Visit Type Note Type Treatment Note General Information General Information 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 Pt is presenting w/ increasing tremors of the left upper extremity which is influencing balance and functional use of the left UE (e.g., object manipulation). - Subjective Identification Type Name Identification Reconciled With Medical Record Observations My back is still not a 100%. I have to be careful with everything I do. I am going to see Mane Xiong, my doctor, in a few days about my back just to make sure nothing else is going on. Patient/Caregiver Compliance with Home Fair Exercise Program Comments w/ support. Tremors impacting pt's perception of functional use of UE - Objective Objective Measurements Decreased activity tolerance. (+) guarding of UE movement due to concern re: exacerbating back pain symptoms. Increased concentration w/ UE ROM and strengthening. Impaired sitting posture w/ L-sided shoulder depression at rest. Recommend resuming isometric UE exercises as patient is able. Short Term Goals 1. Pt will demonstrate 0-20 degrees active left wrist ulnar deviation. 01/10/18= 25% met 2. Pt will demonstrate 0 to 120 degrees active left shoulder flexion. 01/10/18= 25% met 3. Pt will demonstrate 0 to 120 degrees active left shoulder abduction. 01/10/18= 25% met 4. Pt will be able to place 10 tokens through vertical slot of container positioned to left of body, w/ at least 45 degrees shoulder abduction, while seated w/ max verbal/ visual cues. 01/10/18= 25% of goal met. 5. Pt will be able to transfer 10 sticks from tabletop to vertically positioned container to the left of the body, utilizing the left hand, requiring max verbal/visual cues. 01/10/18= 25% of goal met . 6. Pt will be able to throw tennis ball towards therapist x 10 trials w/ left hand while seated at EOM, without use of compensatory strategies, requiring mod verbal/visual cues. 01/10/18= 25% of goal met . 7. Pt will be able to place 10 get-a-equipment sterilizer clothespins on vertical board w/ left hand, w / thumb on bottom of clothespin, w/ min verbal/ visual cues. 01/10/18= 25% of goal met. *GOALS MET Pt demonstrated 0-110 degrees active left shoulder flexion. *MET 11/15/17 Pt demonstrated 0-15 degrees active left wrist radial deviation. *MET 11/29/17 Pt demonstrated 0-110 degrees active left shoulder abduction . *MET 11/29/17 Pt demonstrated 0-15 degrees active left wrist ulnar deviation. *MET 11/29/17 Business Analyst Manager Goals 1. Based on verbal self-report , pt will be able to manage zipper w/ left upper extremity , w/ mod I w/ increased time on daily basis. 01/10/18= unable 2. Pt will average 40# of force w/ left equipment sterilizer dynamometer II testing. 01/10/18= 25# of force avg 3. Pt will be mod I w/ HEP utilizing provided written and visual instructions. 01/10/18= modifications - Treatment 2 Descriptor Motor Planning Rowing machine (modified) Tolerance Fair Complexity No Change Exercises 6 Descriptor UE strengthening Shoulder flex Shoulder abd Punches Side Left Body Position Sitting Sets 1 Repetitions 10 Resistance 2# DB 5 Descriptor Home Exercise Program Modifications 2 Descriptor Functional AROM Shoulder flexion Shoulder abduction Functional reach Side Left Body Position Seated Sets 1 (per exercise) Repetitions 10 (per exercise) Tolerance Fair Modifications Required Yes Complexity No Change - Assessment Patient Response to Treatment Fair Rehab Potential Fair Impairments Identified ADLs Attention Balance Coordination/Dexterity Functional Activities Motor Function Weakness Posture Range of Motion Recreational Activities Meaningful Activities Spasticity Stiffness Tremors Motor Planning Eye-Hand Coordination Comment Tremors impacting pt's perceived fxn use of UE Assessment of Improvement Decreased spontaneous use of left UE in daily life. Decreased activity tolerance; guarding of left upper extremity movement due to ongoing back pain. Re- initiated dumbbell use in movement patterns that did not increase back pain symptoms. Home Exercise Program Modifications to HEP based on continued presentation of pain /discomfort in back. Reviewed with Patient/Caregiver Goals Progress Being Made Home Exercise Program Patient/Caregiver Understanding Good - Plan Therapy Recommendations Continue with Current Program Advance per Rehabilitation Protocol Other Additional Therapy Recommendations Consult w/ PT
--- NOTE | 2018-01-24 10:18 | OT.OP.TRT ---
Visit Care Team Role Provider Type Mane Xiong MD Attending Provider Physician Family Provider Primary Care Provider Specialty: Internal Medicine Address: [address] [place] [address], [id number] Email: [email or web address] Occupational Therapy Treatment Note OT Outpatient Treatment Note - Adult Start: 11/15/17 15:53 Freq: Status: Active Protocol: Document 01/23/18 15:30 AMS (Rec: 01/24/18 10:18 AMS [id number]) OT Outpatient Adult Treatment Note Session Time Visit Start Time 02:38 Visit Stop Time 15:18 Total Visit Minutes 40 Visit Information Visit Number 11/22 Plan of Care Dates 11/15/17-02/07/18 Insurance Information Medicare - G-codes Required Setting Treatment Setting Outpatient Care Visit Type Note Type Treatment Note General Information General Information 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 Pt is presenting w/ increasing tremors of the left upper extremity which is influencing balance and functional use of the left UE (e.g., object manipulation). - Subjective Identification Type Name Identification Reconciled With Medical Record Observations I feel that my back is still not a 100%. I can tell that I am favoring this side. Brenda used heat and ultrasound on my back last week and it felt good for 3 days after that. I am hoping that she will do it again today. Mey doesn't think my tremors are getting worse but I think they are in this arm. Patient/Caregiver Compliance with Home Fair Exercise Program Comments w/ support. Tremors impacting pt's perception of functional use of UE - Objective Objective Measurements Decreased activity tolerance. (+) guarding of UE movement due to concern re: exacerbating back pain symptoms. Decreased sitting and standing posture. Increased ability to motor plan w/ left hand w/ opposition utilizing compensatory patterns; able to touch all finger pads x 5 trials w/ forearm supination and wrist in flexion w/ visual feedback and forearm resting on surface. Unable to replicate w/ active wrist extension and/or supported wrist ext by contralateral hand w/ forearm supported on TT. Upgraded resistance. Max difficulty executing shoulder elevation and backwards shoulder shrugs in sitting; consulted w/ PT. Short Term Goals 1. Pt will demonstrate 0-20 degrees active left wrist ulnar deviation. 01/10/18= 25% met 2. Pt will demonstrate 0 to 120 degrees active left shoulder flexion. 01/10/18= 25% met 3. Pt will demonstrate 0 to 120 degrees active left shoulder abduction. 01/10/18= 25% met 4. Pt will be able to place 10 tokens through vertical slot of container positioned to left of body, w/ at least 45 degrees shoulder abduction, while seated w/ max verbal/ visual cues. 01/10/18= 25% of goal met. 5. Pt will be able to transfer 10 sticks from tabletop to vertically positioned container to the left of the body, utilizing the left hand, requiring max verbal/visual cues. 01/10/18= 25% of goal met . 6. Pt will be able to throw tennis ball towards therapist x 10 trials w/ left hand while seated at EOM, without use of compensatory strategies, requiring mod verbal/visual cues. 01/10/18= 25% of goal met . 7. Pt will be able to place 10 get-a-coverage analyst clothespins on vertical board w/ left hand, w / thumb on bottom of clothespin, w/ min verbal/ visual cues. 01/10/18= 25% of goal met. 8. Pt will be able to execute opposition x 5 cycles with the left hand with active wrist extension and forearm supported on tabletop requiring contact guard physical assistance, and maximum verbal and visual cues . 01/23/18= 25% met *GOALS MET Pt demonstrated 0-110 degrees active left shoulder flexion. *MET 11/15/17 Pt demonstrated 0-15 degrees active left wrist radial deviation. *MET 11/29/17 Pt demonstrated 0-110 degrees active left shoulder abduction . *MET 11/29/17 Pt demonstrated 0-15 degrees active left wrist ulnar deviation. *MET 11/29/17 [facility] Goals 1. Based on verbal self-report , pt will be able to manage zipper w/ left upper extremity , w/ mod I w/ increased time on daily basis. 01/10/18= unable 2. Pt will average 40# of force w/ left coverage analyst dynamometer II testing. 01/10/18= 25# of force avg 3. Pt will be mod I w/ HEP utilizing provided written and visual instructions. 01/10/18= modifications - Treatment 3 Descriptor Tone management Complexity No Change 1 Descriptor Motor planning - Hand/wrist Complexity Upgraded Exercises 7 Descriptor Elbow strengthening Elbow extension Forearm supination - elbow supported/elbow extended by side Side Left Body Position Sitting Sets 1 Repetitions 10 Complexity Upgraded 6 Descriptor Shoulder strengthening Shoulder flex Shoulder abd Shoulder ext ER Seated row Side Left Body Position Sitting Sets 1 Repetitions 10 Resistance 3# DB Complexity Upgraded 5 Descriptor Home Exercise Program Upgraded - wrist ext with finger opposition; passive wrist extension with forearm in different positions 2 Descriptor Functional AROM Functional reach PNF UE patterns Horizontal ab Shoulder circles Side Left Body Position Seated Sets 1 Repetitions 10 Tolerance Fair Modifications Required Yes Complexity No Change - Assessment Patient Response to Treatment Fair Rehab Potential Fair Impairments Identified ADLs Attention Balance Coordination/Dexterity Functional Activities Motor Function Weakness Posture Range of Motion Recreational Activities Meaningful Activities Spasticity Stiffness Tremors Motor Planning Eye-Hand Coordination Comment Tremors impacting pt's perceived fxn use of UE Assessment of Improvement Decreased spontaneous use of left UE in daily life. Decreased activity tolerance. Continued guarding of UE movement due to concern re: exacerbating back pain symptoms. Decreased sitting and standing posture. Increased ability to motor plan w/ left hand w/ opposition utilizing compensatory patterns. Maximum difficulty executing shoulder elevation and backwards shoulder shrugs in sitting. Upgraded resistance on this date/HEP. Home Exercise Program Upgraded. Recommended focus on wrist ext with finger opposition due to ability to touch all digit pads with the left thumb w/ wrist in flexion and forearm supination. Recommended passive wrist extension with forearm in different positions, including forearm pronation due to decreased tolerance for WB at wall at this time. Reviewed with Patient/Caregiver Goals Progress Being Made Home Exercise Program Patient/Caregiver Understanding Good - Plan Therapy Recommendations Continue with Current Program Advance per Rehabilitation Protocol Other Additional Therapy Recommendations Consult w/ PT
--- NOTE | 2018-02-08 12:49 | OT.OP.REEVAL ---
Visit Care Team Role Provider Type Mane Xiong MD Attending Provider Physician Family Provider Primary Care Provider Address: [address] [place] [address], [id number] Email: [email or web address] Outpatient OT Outpatient Treatment Note - Adult Start: 11/15/17 15:53 Freq: Status: Active Protocol: Document 02/07/18 15:35 AMS (Rec: 02/08/18 12:49 AMS [id number]) OT Outpatient Adult Treatment Note Session Time Visit Start Time 02:42 Visit Stop Time 03:15 Total Visit Minutes 33 Visit Information Visit Number 07/25 Plan of Care Dates 02/07/18-04/04/18 Insurance Information Medicare - G-codes Required Setting Treatment Setting Outpatient Care Visit Type Note Type Re-Evaluation General Information General Information 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 Pt is presenting w/ increasing tremors of the left upper extremity which is influencing balance and functional use of the left UE (e.g., object manipulation). - Subjective Identification Type Name Identification Reconciled With Medical Record Observations I re-injured my back again. I need for my back to get together per Javi. Patient/Caregiver Compliance with Home Fair Exercise Program Comments w/ support. Tremors impacting pt's perception of functional use of UE - Objective Objective Measurements Decreased activity tolerance. (+) guarding of UE movement due to concern re: exacerbating back pain symptoms; reported recent exacerbation of back pain/ discomfort. Impaired sitting and standing posture. Decreased rotation and movement. Short Term Goals 1. Pt will demonstrate 0-20 degrees active left wrist ulnar deviation. 02/07/18= 25% met 2. Pt will demonstrate 0 to 120 degrees active left shoulder flexion. 02/07/18= 25% met 3. Pt will demonstrate 0 to 120 degrees active left shoulder abduction. 02/07/18= 25% met 4. Pt will be able to place 10 tokens through vertical slot of container positioned to left of body, w/ at least 45 degrees shoulder abduction, while seated w/ max verbal/ visual cues. 02/07/18= 25% of goal met. 5. Pt will be able to transfer 10 sticks from tabletop to vertically positioned container to the left of the body, utilizing the left hand, requiring max verbal/visual cues. 02/07/18= 25% of goal met . 6. Pt will be able to throw tennis ball towards therapist x 10 trials w/ left hand while seated at EOM, without use of compensatory strategies, requiring mod verbal/visual cues. 02/07/18= 25% of goal met . 7. Pt will be able to place 10 get-a-surveillance operator clothespins on vertical board w/ left hand, w / thumb on bottom of clothespin, w/ min verbal/ visual cues. 02/07/18= 25% of goal met. 8. Pt will be able to execute opposition x 5 cycles with the left hand with active wrist extension and forearm supported on tabletop requiring contact guard physical assistance, and maximum verbal and visual cues . 02/07/18= 25% met *GOALS MET Pt demonstrated 0-110 degrees active left shoulder flexion. *MET 11/15/17 Pt demonstrated 0-15 degrees active left wrist radial deviation. *MET 11/29/17 Pt demonstrated 0-110 degrees active left shoulder abduction . *MET 11/29/17 Pt demonstrated 0-15 degrees active left wrist ulnar deviation. *MET 11/29/17 Trench Digger Goals 1. Based on verbal self-report , pt will be able to manage zipper w/ left upper extremity , w/ mod I w/ increased time on daily basis. 02/07/18= unable 2. Pt will average 40# of force w/ left surveillance operator dynamometer II testing. 01/10/18= 25# of force avg 3. Pt will be mod I w/ HEP utilizing provided written and visual instructions. 02/07/18= 25% met - Treatment 3 Descriptor Tone management Complexity No Change 1 Descriptor Motor planning - Hand/wrist Complexity No Change Exercises 7 Descriptor *Not completed 02/07/18 Elbow strengthening Elbow extension Forearm supination - elbow supported/elbow extended by side Side Left Body Position Sitting Sets 1 Repetitions 10 Time 3# DB Complexity No Change 6 Descriptor *Not completed 02/07/18 Shoulder strengthening Shoulder flex Shoulder abd Shoulder ext ER Seated row Side Left Body Position Sitting Sets 1 Repetitions 10 Resistance 3# DB Complexity No Change 5 Descriptor Home Exercise Program 2 Descriptor Functional AROM Functional reach PNF UE patterns Horizontal ab Shoulder circles Side Left Body Position Seated Sets 1 Repetitions 10 Tolerance Fair Modifications Required Yes Complexity No Change - Assessment Patient Response to Treatment Fair Rehab Potential Fair Impairments Identified ADLs Attention Balance Coordination/Dexterity Functional Activities Motor Function Weakness Posture Range of Motion Recreational Activities Meaningful Activities Spasticity Stiffness Tremors Motor Planning Eye-Hand Coordination Comment Tremors impacting pt's perceived fxn use of UE Assessment of Improvement Decreased spontaneous use of left UE in daily life. Decreased activity tolerance. Guarding of UE movement due to recent reinjuring of 'back'. Impaired sitting and standing posture. Upper extremity function has been impacted over this last certification period by patient injurying and then re-injurying his back . Patient is demonstrating decreased rotation and orientation to midline due to 'protecting' back. Recommend re-transitioning to supine and /or sidelying UE exercises to attempt to improve willingness to actively move UE through available ROM. Home Exercise Program No changes given that Javi has recently re-injured his back. Reviewed importance of moving L UE to maintain available AROM. Reviewed with Patient/Caregiver Goals Progress Being Made Home Exercise Program Patient/Caregiver Understanding Good - Plan Therapy Recommendations Continue with Current Program Advance per Rehabilitation Protocol Other Additional Therapy Recommendations Consult w/ PT Comment 12 weeks; ongoing; change in medical presentation - increasing L UE tremors Comment 1 x every other week Treatment Emphasis Next Session Functional activities Therapeutic Contents Active Range of Motion Adaptive Equipment Education Client Education Cognitive Skills Development Functional Activities Home Exercise Program Manual Therapy Education Neuromuscular Re-Education Orthotic Fitting & Training Self-Care Stretching/Flexibility Activities Therapeutic Activities Therapeutic Exercises Modalities As Needed As Prescribed
--- NOTE | 2018-03-22 14:14 | OT.OP.TRT ---
Visit Care Team Role Provider Type Mane Xiong MD Attending Provider Physician Family Provider Primary Care Provider Specialty: Internal Medicine Address: [address] [place] [address], [id number] Email: [email or web address] Occupational Therapy Treatment Note OT Outpatient Treatment Note - Adult Start: 11/15/17 15:53 Freq: Status: Active Protocol: Document 03/21/18 03:30 AMS (Rec: 03/22/18 14:13 AMS [id number]) OT Outpatient Adult Treatment Note Session Time Visit Start Time 13:45 Visit Stop Time 14:30 Total Visit Minutes 45 Visit Information Visit Number 08/25 Plan of Care Dates 02/07/18-04/04/18 Insurance Information Medicare - G-codes Required Setting Treatment Setting Outpatient Care Visit Type Note Type Treatment Note General Information General Information 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 Pt is presenting w/ increasing tremors of the left upper extremity which is influencing balance and functional use of the left UE (e.g., object manipulation). - Subjective Identification Type Name Identification Reconciled With Medical Record Observations My back is starting to feel better. It is a little bit better. I am still not back to the exercises I was doing though. This arm is really stiff per Javi. Patient/Caregiver Compliance with Home Fair Exercise Program Comments w/ support. Tremors impacting pt's perception of functional use of UE - Objective Objective Measurements Decreased activity tolerance. (+) guarding of UE movement due to concern re: exacerbating back pain symptoms. Impaired sitting and standing posture. Decreased rotation with movement. Initiated use of heat; increased manual and passive treatment on this date. (+) pt response; decreased guarding of UE, improved scapular mobility, decreased L sh elevation, and improved active range of motion following treatment. Recommend continued use of this approach to treatment at this time given back pain/fear of falls impacting spontaneous movement of UE and trunk rotation. Short Term Goals 1. Pt will demonstrate 0-20 degrees active left wrist ulnar deviation. 02/07/18= 25% met 2. Pt will demonstrate 0 to 120 degrees active left shoulder flexion. 02/07/18= 25% met 3. Pt will demonstrate 0 to 120 degrees active left shoulder abduction. 02/07/18= 25% met 4. Pt will be able to place 10 tokens through vertical slot of container positioned to left of body, w/ at least 45 degrees shoulder abduction, while seated w/ max verbal/ visual cues. 02/07/18= 25% of goal met. 5. Pt will be able to transfer 10 sticks from tabletop to vertically positioned container to the left of the body, utilizing the left hand, requiring max verbal/visual cues. 02/07/18= 25% of goal met . 6. Pt will be able to throw tennis ball towards therapist x 10 trials w/ left hand while seated at EOM, without use of compensatory strategies, requiring mod verbal/visual cues. 02/07/18= 25% of goal met . 7. Pt will be able to place 10 get-a-multiskill operator clothespins on vertical board w/ left hand, w / thumb on bottom of clothespin, w/ min verbal/ visual cues. 02/07/18= 25% of goal met. 8. Pt will be able to execute opposition x 5 cycles with the left hand with active wrist extension and forearm supported on tabletop requiring contact guard physical assistance, and maximum verbal and visual cues . 02/07/18= 25% met *GOALS MET Pt demonstrated 0-110 degrees active left shoulder flexion. *MET 11/15/17 Pt demonstrated 0-15 degrees active left wrist radial deviation. *MET 11/29/17 Pt demonstrated 0-110 degrees active left shoulder abduction . *MET 11/29/17 Pt demonstrated 0-15 degrees active left wrist ulnar deviation. *MET 11/29/17 Retirement Goals 1. Based on verbal self-report , pt will be able to manage zipper w/ left upper extremity , w/ mod I w/ increased time on daily basis. 02/07/18= unable 2. Pt will average 40# of force w/ left multiskill operator dynamometer II testing. 01/10/18= 25# of force avg 3. Pt will be mod I w/ HEP utilizing provided written and visual instructions. 02/07/18= 25% met - Treatment 3 Descriptor Tone management Complexity No Change Exercises 5 Descriptor Home Exercise Program Modified Manual Therapy Manual Therapy Manual therapy while seated in chair. Heat applied to posterior left shoulder/upper back and lower back. Skin intact pre- and post- treatment. Scapular mobility. Sh depression. Sh flex, abd, elbow extension, wrist ext/ flex/RD/UD. - Assessment Patient Response to Treatment Fair Rehab Potential Fair Impairments Identified ADLs Attention Balance Coordination/Dexterity Functional Activities Motor Function Weakness Posture Range of Motion Recreational Activities Meaningful Activities Spasticity Stiffness Tremors Motor Planning Eye-Hand Coordination Assessment of Improvement Decreased spontaneous use of left UE in daily life. Decreased activity tolerance. Guarding of UE movement. Decreased activity tolerance. (+) guarding of UE movement due to concern re: exacerbating back pain symptoms. Impaired sitting and standing posture. Decreased rotation with movement. Initiated use of heat; increased manual and passive treatment on this date. (+) pt response; decreased guarding of UE, improved scapular mobility, decreased L sh elevation, and improved active range of motion following treatment. Recommend continued use of this approach to treatment at this time given back pain/fear of falls impacting spontaneous movement of UE and trunk rotation. Home Exercise Program Education re: use of heat prior to completion of exercises. Reviewed with Patient/Caregiver Goals Progress Being Made Home Exercise Program Patient/Caregiver Understanding Good - Plan Therapy Recommendations Continue with Current Program Advance per Rehabilitation Protocol Other Additional Therapy Recommendations Consult w/ PT
--- NOTE | 2018-04-25 12:07 | OT.OP.REEVAL ---
Visit Care Team Role Provider Type Mane Xiong MD Attending Provider Physician Family Provider Primary Care Provider Address: [address] [place] [address], [id number] Email: [email or web address] Outpatient OT Outpatient Treatment Note - Adult Start: 11/15/17 15:53 Freq: Status: Active Protocol: Document 04/24/18 13:30 [facility] (Rec: 04/25/18 11:44 [facility] [email or web address]) OT Outpatient Adult Treatment Note Session Time Visit Start Time 12:30 Visit Stop Time 13:18 Total Visit Minutes 48 Visit Information Visit Number 07/25 Plan of Care Dates 04/04/18-06/27/18 Insurance Information Medicare - G-codes Required Setting Treatment Setting Outpatient Care Visit Type Note Type Re-Evaluation General Information General Information 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 Pt is presenting w/ increasing tremors of the left upper extremity which is influencing balance and functional use of the left UE (e.g., object manipulation). - Subjective Identification Type Name Identification Reconciled With Medical Record Observations I have been to the same neuro doctor 2 times. He hasn't been able to tell me anything . The tremors seem to be getting worse. Patient/Caregiver Compliance with Home Fair Exercise Program Comments w/ support. Tremors impacting pt's perception of functional use of UE - Objective Objective Measurements Decreased activity tolerance. Impaired sitting and standing posture. (+) use of heat to L UE (shoulder, distal UE w/ ranging out of typical noelle pattern). Positive patient response to manual range of motion and tone management; decreased guarding of UE, improved scapular mobility, decreased L sh elevation, and improved active range of motion following treatment. Increasing tremors observed in UE w/ movement; (+) loss of balance w/ support to self- correct w/ use of SPC. Pt reported tremors impacting balance. Decreased tremors noted when UE positioned away from body out of elbow flexion ; (+) tremors w/ volitional elbow extension in preparation for motor planning and/or functional object manipulation w/ the L hand. No improvement w/ use of weights; PT recommended FWW use. Recommend focusing on maintaining elbow ext to support AE use. Short Term Goals 1. Pt will demonstrate 0-20 degrees active left wrist ulnar deviation. 04/24/18= 25% met 2. Pt will demonstrate 0 to 120 degrees active left shoulder flexion. 04/24/18= 25 % met 3. Pt will demonstrate 0 to 120 degrees active left shoulder abduction. 04/24/18= 25% met 4. Pt will be able to place 10 tokens through vertical slot of container positioned to left of body, w/ at least 45 degrees shoulder abduction, while seated w/ max verbal/ visual cues. 04/24/18= 25% met . NOT A FOCUS 5. Pt will be able to transfer 10 sticks from tabletop to vertically positioned container to the left of the body, utilizing the left hand, requiring max verbal/visual cues. 04/24/18= 25% met; NOT A FOCUS 6. Pt will be able to throw tennis ball towards therapist x 10 trials w/ left hand while seated at EOM, without use of compensatory strategies, requiring mod verbal/visual cues. 04/24/18= 25% met; NOT A FOCUS 7. 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 04/24/18= 25% met . NOT A FOCUS 8. Pt will be able to execute opposition x 5 cycles with the left hand with active wrist extension and forearm supported on tabletop requiring contact guard physical assistance, and maximum verbal and visual cues . 04/24/18= 25% met NOT A FOCUS *GOALS MET Pt demonstrated 0-110 degrees active left shoulder flexion. *MET 11/15/17 Pt demonstrated 0-15 degrees active left wrist radial deviation. *MET 11/29/17 Pt demonstrated 0-110 degrees active left shoulder abduction . *MET 11/29/17 Pt demonstrated 0-15 degrees active left wrist ulnar deviation. *MET 11/29/17 Care Home Goals 1. Based on verbal self-report , pt will be able to manage zipper w/ left upper extremity , w/ mod I w/ increased time on daily basis. 04/24/18= unable; NOT A FOCUS 2. Pt will average 40# of force w/ left wool hat sanding machine operator dynamometer II testing. 01/10/18= 25# of force avg 3. Pt will be mod I w/ HEP utilizing provided written and visual instructions. 04/24/18 = 25% met; diff focus - Treatment 3 Descriptor Tone management Complexity No Change Exercises 5 Descriptor Home Exercise Program Modified Manual Therapy Manual Therapy Manual therapy while seated in chair. Heat applied to L shoulder; distal L UE. Skin intact pre- and post- treatment. Scapular mobility. Sh depression. Sh flex, abd, elbow extension, wrist ext/ flex/RD/UD. - Assessment Patient Response to Treatment Fair Rehab Potential Fair Impairments Identified ADLs Attention Balance Coordination/Dexterity Functional Activities Motor Function Weakness Posture Range of Motion Recreational Activities Meaningful Activities Spasticity Stiffness Tremors Motor Planning Eye-Hand Coordination Assessment of Improvement Decreased spontaneous use of left UE in daily life. Decreased activity tolerance. Guarding of UE movement. Decreased activity tolerance. Impaired sitting and standing posture. Decreased rotation with movement. Decreased progress towards meeting established OT goals likely due to break between treatment sessions and reported increasing severity of tremors of L UE which are impacting balance w/ functional gait. Patient demonstrates increased tremors in L UE when actively attempting to extend elbow away from body; patient has denied reduction of tremors w/ use of weight, positioning of UE at side/on stomach, and/or w/ object in hand. Patient has decreased ability maintaining elbow extension w/ movement; continued outpatient OT is recommended to address ability to maintain elbow extension to support success w/ use of mobility AE (FWW). Home Exercise Program Education re: use of heat prior to completion of exercises. Recommended daily movement of UE to maintain available ROM and address stiffness of UE. Reviewed with Patient/Caregiver Goals Progress Being Made Home Exercise Program Patient/Caregiver Understanding Good - Plan Therapy Recommendations Continue with Current Program Advance per Rehabilitation Protocol Other Additional Therapy Recommendations Consult w/ PT Comment 12 weeks Comment 1 x every other week Treatment Emphasis Next Session Functional activities Therapeutic Contents Active Range of Motion Adaptive Equipment Education Client Education Cognitive Skills Development Functional Activities Home Exercise Program Manual Therapy Education Neuromuscular Re-Education Orthotic Fitting & Training Self-Care Stretching/Flexibility Activities Therapeutic Activities Therapeutic Exercises Modalities As Needed As Prescribed Types of Modalities E-Stim T.E.N. Stimulation Ultrasound Additional Types of Modalities Heat/Ice
--- NOTE | 2018-05-08 14:15 | OT.OP.TRT ---
Visit Care Team Role Provider Type Mane Xiong MD Attending Provider Physician Family Provider Primary Care Provider Specialty: Internal Medicine Address: [address] [place] [address], [id number] Email: [email or web address] Occupational Therapy Treatment Note OT Outpatient Treatment Note - Adult Start: 11/15/17 15:53 Freq: Status: Active Protocol: Document 05/08/18 14:05 AMS (Rec: 05/08/18 14:14 AMS [id number]) OT Outpatient Adult Treatment Note Session Time Visit Start Time 12:30 Visit Stop Time 13:18 Total Visit Minutes 48 Visit Information Visit Number 08/25 Plan of Care Dates 04/04/18-06/27/18 Insurance Information Medicare - G-codes Required Setting Treatment Setting Outpatient Care Visit Type Note Type Treatment Note General Information General Information 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 Pt is presenting w/ increasing tremors of the left upper extremity which is influencing balance and functional use of the left UE (e.g., object manipulation). - Subjective Identification Type Name Identification Reconciled With Medical Record Observations I try and balance out the PT and OT exercises at home per Javi. Patient/Caregiver Compliance with Home Fair Exercise Program Comments w/ support. Tremors impacting pt's perception of functional use of UE - Objective Objective Measurements Decreased activity tolerance. Impaired sitting and standing posture. (+) use of heat to L UE (shoulder, distal UE w/ ranging out of typical noelle pattern). (+) patient response to manual range of motion and tone management; decreased guarding of UE, improved scapular mobility, decreased L sh elevation, and improved active range of motion following treatment. Decreased trunk rotation. Short Term Goals 1. Pt will demonstrate 0-20 degrees active left wrist ulnar deviation. 04/24/18= 25% met 2. Pt will demonstrate 0 to 120 degrees active left shoulder flexion. 04/24/18= 25 % met 3. Pt will demonstrate 0 to 120 degrees active left shoulder abduction. 04/24/18= 25% met 4. Pt will be able to place 10 tokens through vertical slot of container positioned to left of body, w/ at least 45 degrees shoulder abduction, while seated w/ max verbal/ visual cues. 04/24/18= 25% met . NOT A FOCUS 5. Pt will be able to transfer 10 sticks from tabletop to vertically positioned container to the left of the body, utilizing the left hand, requiring max verbal/visual cues. 04/24/18= 25% met; NOT A FOCUS 6. Pt will be able to throw tennis ball towards therapist x 10 trials w/ left hand while seated at EOM, without use of compensatory strategies, requiring mod verbal/visual cues. 04/24/18= 25% met; NOT A FOCUS 7. Pt will be able to place 10 get-a-graduation coach clothespins on vertical board w/ left hand, w / thumb on bottom of clothespin, w/ min verbal/ visual cues. 04/24/18= 25% met . NOT A FOCUS 8. Pt will be able to execute opposition x 5 cycles with the left hand with active wrist extension and forearm supported on tabletop requiring contact guard physical assistance, and maximum verbal and visual cues . 04/24/18= 25% met NOT A FOCUS *GOALS MET Pt demonstrated 0-110 degrees active left shoulder flexion. *MET 11/15/17 Pt demonstrated 0-15 degrees active left wrist radial deviation. *MET 11/29/17 Pt demonstrated 0-110 degrees active left shoulder abduction . *MET 11/29/17 Pt demonstrated 0-15 degrees active left wrist ulnar deviation. *MET 11/29/17 Jail Goals 1. Based on verbal self-report , pt will be able to manage zipper w/ left upper extremity , w/ mod I w/ increased time on daily basis. 04/24/18= unable; NOT A FOCUS 2. Pt will average 40# of force w/ left graduation coach dynamometer II testing. 01/10/18= 25# of force avg 3. Pt will be mod I w/ HEP utilizing provided written and visual instructions. 04/24/18 = 25% met; diff focus - Treatment 3 Descriptor Tone management Horizontal bar - L hand WB -> s-s; trunk rotation EOM Complexity Upgraded Exercises 6 Descriptor Scapular retraction, B sh extension Complexity Upgraded 5 Descriptor Home Exercise Program Modified - use of bar - stretch, s-s, opening of chest Manual Therapy Manual Therapy Manual therapy while seated in chair. Heat applied to L shoulder; distal L UE. Skin intact pre- and post- treatment. Scapular mobility. Sh depression. Sh flex, abd, elbow extension, wrist ext/ flex/RD/UD. - Assessment Patient Response to Treatment Fair Rehab Potential Fair Impairments Identified ADLs Attention Balance Coordination/Dexterity Functional Activities Motor Function Weakness Posture Range of Motion Recreational Activities Meaningful Activities Spasticity Stiffness Tremors Motor Planning Eye-Hand Coordination Assessment of Improvement Impaired sitting/standing posture. Decreased self- directed tone management; increased tone of the UE w/ functional mobility due to increased focus. Decreased spontaneous functional incorporation of UE in daily life. (+) frustration re: abilities of UE d/t presentation of tremors. Home Exercise Program Please refer to treatment section of note for specific details. Reviewed with Patient/Caregiver Goals Progress Being Made Home Exercise Program Patient/Caregiver Understanding Good - Plan Therapy Recommendations Continue with Current Program Advance per Rehabilitation Protocol Other Additional Therapy Recommendations Consult w/ PT
--- NOTE | 2018-05-27 14:23 | OT.OP.TRT ---
Visit Care Team Role Provider Type Mane Xiong MD Attending Provider Physician Family Provider Primary Care Provider Specialty: Internal Medicine Address: [address] [place] [address], [id number] Email: [email or web address] Occupational Therapy Treatment Note OT Outpatient Treatment Note - Adult Start: 11/15/17 15:53 Freq: Status: Active Protocol: Document 05/22/18 14:15 AMS (Rec: 05/27/18 14:23 [facility] [email or web address]) OT Outpatient Adult Treatment Note Session Time Visit Start Time 12:30 Visit Stop Time 13:18 Total Visit Minutes 48 Visit Information Visit Number 09/22 Plan of Care Dates 04/04/18-06/27/18 Insurance Information Medicare - G-codes Required Setting Treatment Setting Outpatient Care Visit Type Note Type Treatment Note General Information General Information 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 Pt is presenting w/ increasing tremors of the left upper extremity which is influencing balance and functional use of the left UE (e.g., object manipulation). - Subjective Identification Type Name Identification Reconciled With Medical Record Observations I am going to be getting a second opinion per Javi in re: L UE function. Patient/Caregiver Compliance with Home Fair Exercise Program Comments w/ support. Tremors impacting pt's perception of functional use of UE - Objective Objective Measurements Decreased activity tolerance. Impaired sitting and standing posture. (+) use of heat to L UE (shoulder, distal UE w/ ranging out of typical noelle pattern). (+) patient response to manual range of motion and tone management; decreased guarding of UE, improved scapular mobility, decreased L sh elevation, and improved active range of motion following treatment. Decreased trunk rotation. Decreased UB/ LB dissociation. Short Term Goals 1. Pt will demonstrate 0-20 degrees active left wrist ulnar deviation. 04/24/18= 25% met 2. Pt will demonstrate 0 to 120 degrees active left shoulder flexion. 04/24/18= 25 % met 3. Pt will demonstrate 0 to 120 degrees active left shoulder abduction. 04/24/18= 25% met 4. Pt will be able to place 10 tokens through vertical slot of container positioned to left of body, w/ at least 45 degrees shoulder abduction, while seated w/ max verbal/ visual cues. 04/24/18= 25% met . NOT A FOCUS 5. Pt will be able to transfer 10 sticks from tabletop to vertically positioned container to the left of the body, utilizing the left hand, requiring max verbal/visual cues. 04/24/18= 25% met; NOT A FOCUS 6. Pt will be able to throw tennis ball towards therapist x 10 trials w/ left hand while seated at EOM, without use of compensatory strategies, requiring mod verbal/visual cues. 04/24/18= 25% met; NOT A FOCUS 7. Pt will be able to place 10 get-a-brewmaster clothespins on vertical board w/ left hand, w / thumb on bottom of clothespin, w/ min verbal/ visual cues. 04/24/18= 25% met . NOT A FOCUS 8. Pt will be able to execute opposition x 5 cycles with the left hand with active wrist extension and forearm supported on tabletop requiring contact guard physical assistance, and maximum verbal and visual cues . 04/24/18= 25% met NOT A FOCUS *GOALS MET Pt demonstrated 0-110 degrees active left shoulder flexion. *MET 11/15/17 Pt demonstrated 0-15 degrees active left wrist radial deviation. *MET 11/29/17 Pt demonstrated 0-110 degrees active left shoulder abduction . *MET 11/29/17 Pt demonstrated 0-15 degrees active left wrist ulnar deviation. *MET 11/29/17 Snf Goals 1. Based on verbal self-report , pt will be able to manage zipper w/ left upper extremity , w/ mod I w/ increased time on daily basis. 04/24/18= unable; NOT A FOCUS 2. Pt will average 40# of force w/ left brewmaster dynamometer II testing. 01/10/18= 25# of force avg 3. Pt will be mod I w/ HEP utilizing provided written and visual instructions. 04/24/18 = 25% met; diff focus - Treatment 3 Descriptor Tone management Complexity Upgraded 2 Descriptor UB/LB dissociation WB at TT w/ movement Complexity Upgraded Exercises 6 Descriptor Scapular retraction, B sh extension Complexity No Change 5 Descriptor HEP. TT weight bearing w/ marches; address UB/LB dissociation w/ movement in standing. Practiced in treatment session; patient denied questions. Complexity Upgraded Manual Therapy Manual Therapy Manual therapy while seated in chair. Heat applied to L shoulder; distal L UE. Skin intact pre- and post- treatment. Scapular mobility. Sh depression. Sh flex, abd, elbow extension, wrist ext/ flex/RD/UD. - Assessment Patient Response to Treatment Fair Rehab Potential Fair Impairments Identified ADLs Attention Balance Coordination/Dexterity Functional Activities Motor Function Weakness Posture Range of Motion Recreational Activities Meaningful Activities Spasticity Stiffness Tremors Motor Planning Eye-Hand Coordination Assessment of Improvement Impaired sitting/standing posture. Impaired dissociation between upper and lower body; difficulty maintaining L hand w/ near full elbow extension on TT w/ marching activity. Compensatory patterns w/ movement observed w/ posturing of the L UE. Impaired orientation to midline w/ impaired balance w/ movement. Decreased functional abilities of the L UE/hand. Recommend adjusting POC as needed/as appropriate based on recommendations from neuro; recommend working on dissociation w/ movement as tolerated. Home Exercise Program Please refer to treatment section of note for specific details. Reviewed with Patient/Caregiver Goals Progress Being Made Home Exercise Program Patient/Caregiver Understanding Good - Plan Therapy Recommendations Continue with Current Program Advance per Rehabilitation Protocol Other Additional Therapy Recommendations Consult w/ PT
--- NOTE | 2018-07-15 07:47 | OT.OP.DC ---
Visit Care Team Role Provider Type Mane Xiong MD Attending Provider Physician Family Provider Primary Care Provider Address: [address] [place] [address], [id number] Email: [email or web address] Outpatient OT Outpatient Treatment Note - Adult Start: 11/15/17 15:53 Freq: Status: Active Protocol: Document 07/15/18 07:45 AMS (Rec: 07/15/18 07:47 AMS [id number]) OT Outpatient Adult Treatment Note Visit Information Visit Number 3 Plan of Care Dates 04/04/18-06/27/18 Insurance Information Medicare - G-codes Required Setting Treatment Setting Outpatient Care Visit Type Note Type Treatment Note General Information General Information 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 Pt is presenting w/ increasing tremors of the left upper extremity which is influencing balance and functional use of the left UE (e.g., object manipulation). - Subjective Observations Patient has not been seen by outpatient OT since 05/22/18. Thus, patient to be discharged at this time. Therapist to re -evaluate as deemed appropriate by PCP w/ new orders. - Objective Short Term Goals ALL GOALS DISCHARGED OF 1. Pt will demonstrate 0-20 degrees active left wrist ulnar deviation. 04/24/18= 25% met 2. Pt will demonstrate 0 to 120 degrees active left shoulder flexion. 04/24/18= 25 % met 3. Pt will demonstrate 0 to 120 degrees active left shoulder abduction. 04/24/18= 25% met 4. Pt will be able to place 10 tokens through vertical slot of container positioned to left of body, w/ at least 45 degrees shoulder abduction, while seated w/ max verbal/ visual cues. 04/24/18= 25% met . NOT A FOCUS 5. Pt will be able to transfer 10 sticks from tabletop to vertically positioned container to the left of the body, utilizing the left hand, requiring max verbal/visual cues. 04/24/18= 25% met; NOT A FOCUS 6. Pt will be able to throw tennis ball towards therapist x 10 trials w/ left hand while seated at EOM, without use of compensatory strategies, requiring mod verbal/visual cues. 04/24/18= 25% met; NOT A FOCUS 7. Pt will be able to place 10 get-a-canal boat operator clothespins on vertical board w/ left hand, w / thumb on bottom of clothespin, w/ min verbal/ visual cues. 04/24/18= 25% met . NOT A FOCUS 8. Pt will be able to execute opposition x 5 cycles with the left hand with active wrist extension and forearm supported on tabletop requiring contact guard physical assistance, and maximum verbal and visual cues . 04/24/18= 25% met NOT A FOCUS *GOALS MET Pt demonstrated 0-110 degrees active left shoulder flexion. *MET 11/15/17 Pt demonstrated 0-15 degrees active left wrist radial deviation. *MET 11/29/17 Pt demonstrated 0-110 degrees active left shoulder abduction . *MET 11/29/17 Pt demonstrated 0-15 degrees active left wrist ulnar deviation. *MET 11/29/17 Tellers Supervisor Goals ALL GOALS DISCHARGED OF 1. Based on verbal self-report , pt will be able to manage zipper w/ left upper extremity , w/ mod I w/ increased time on daily basis. 04/24/18= unable; NOT A FOCUS 2. Pt will average 40# of force w/ left canal boat operator dynamometer II testing. 01/10/18= 25# of force avg 3. Pt will be mod I w/ HEP utilizing provided written and visual instructions. 04/24/18 = 25% met; diff focus - - Assessment Patient Response to Treatment Fair Rehab Potential Fair Impairments Identified ADLs Attention Balance Coordination/Dexterity Functional Activities Motor Function Weakness Posture Range of Motion Recreational Activities Meaningful Activities Spasticity Stiffness Tremors Motor Planning Eye-Hand Coordination Assessment of Improvement Patient has not been seen by outpatient OT since 05/22/18. Thus, patient to be discharged at this time. Therapist to re -evaluate as deemed appropriate by PCP w/ new orders. - Plan Therapy Recommendations Discharge from Occupational Therapy
== END 2018-09-11 12:27 ==
LOC: OT 12:30
PROVIDERS: Family Provider Internal Medicine; PCP Internal Medicine; Visit Provider Internal Medicine
DX: I63.511 Cerebral infarction due to unspecified occlusion or stenosis of right middle cerebral artery (principal); G81.90 Hemiplegia, unspecified affecting unspecified side; Z74.1 Need for assistance with personal care; R53.1 Weakness; R27.8 Other lack of coordination
CPT/HCPCS: 97110; 97112; 97140; 97530

== ENCOUNTER → 2018-09-04 14:03 | Outpatient (CLI) | payer MEDICARE, BC, SELFPAY ==
[2018-09-04 15:00] LABS: Alanine Aminotransferase 44 IU/L (21-72); Albumin 3.9 g/dL (3.5-5.0); Albumin Globulin Ratio 1.6 (1.0-2.8); Alkaline Phosphatase 66 U/L (38-126); Aspartate Aminotransferase 33 IU/L (17-59); Bilirubin Total 0.5 mg/dL (0.2-1.3); Blood Urea Nitrogen 17 mg/dL (9-20); Calcium 8.6 mg/dL (8.4-10.2); Carbon Dioxide 28 mmol/L (22-32); Chloride 104 mmol/L (98-107); Estimated Glomerular Filt Rate > 60.0 mL/min (>60); Globulin 2.5 g/dL (1.7-4.1); Glucose 103 mg/dL (80-110); HEMOLYSIS < 15 (0-50); Sodium 141 mmol/L (137-145); Total Protein 6.4 g/dL (6.3-8.2)
== END ==
PROVIDERS: PCP Internal Medicine; Visit Provider Psychiatry & Neurology Neurology
DX: Z51.81 Encounter for therapeutic drug level monitoring (principal)
CPT/HCPCS: 36415; 80053

== ENCOUNTER 2018-09-11 15:15 | Outpatient (RCR) | payer MEDICARE, BC, SELFPAY ==
--- NOTE | 2017-11-15 11:48 | PT.OTN ---
Current Diagnoses Hemiplegia, unspecified affecting unspecified side (11/15/17) Cerebral infarction due to unspecified occlusion or stenosis of right middle cerebral artery (11/15/17) Difficulty in walking, not elsewhere classified (11/15/17) Other abnormalities of gait and mobility (11/15/17) Weakness (11/15/17) Transition note: On November 13, 2017 our therapy services consisting of Speech, Occupational, and Physical Therapy transitioned from the [employer] electronic documentation system to a new [employer] electronic documentation system.?? All documentation prior to November 13 can be found under [employer] saved data. From November 13 forward all medical record documentation will be in [employer].
--- NOTE | 2017-11-18 17:39 | PT.OTRE ---
Current Diagnoses Hemiplegia, unspecified affecting unspecified side (11/15/17) Cerebral infarction due to unspecified occlusion or stenosis of right middle cerebral artery (11/15/17) Difficulty in walking, not elsewhere classified (11/15/17) Other abnormalities of gait and mobility (11/15/17) Weakness (11/15/17) Physical Therapy Re-Evaluation PT-OP-A Visit Information Start: 11/15/17 08:11 Freq: Status: Active Protocol: Activity Type Activity Date Activity User E-Sign Co-Sign Detail Recorded Client Recorded Date Recorded By Document 11/15/17 16:39 [facility] [id number] 11/15/17 17:14 [facility] 11/15/17 16:39 Out-Patient Physical Therapy Visit Information [Visit Information] -Visit Type Re-Evaluation -Visit Start Time 13:45 -Visit Stop Time 14:32 -Total Visit Minutes 47 -Visit Number 18 -Number of [employer] Visits 0 [Evaluation Information] -Evaluation Date 12/12/16 PT-OP-C Subjective Start: 11/15/17 08:11 Freq: Status: Active Protocol: Activity Type Activity Date Activity User E-Sign Co-Sign Detail Recorded Client Recorded Date Recorded By Document 11/15/17 16:39 [facility] [id number] 11/15/17 17:14 [facility] 11/15/17 16:39 OP-PT Subjective [Patient Comments] -Patient Comments Reports he fell backward at home while stepping backward and has some soreness but no injury. States he has lost confidence after falling. Patient Questionnaires [ABC- Activity Specific Balance Confidence Scale] -ABC Score 21 -ABC Functional Impairment 60 to <80% Impaired (Score 21-40) PT-OP-D Balance Start: 11/15/17 08:11 Freq: Status: Active Protocol: Activity Type Activity Date Activity User E-Sign Co-Sign Detail Recorded Client Recorded Date Recorded By Document 11/15/17 16:39 [facility] [id number] 11/15/17 17:14 [facility] 11/15/17 16:39 Brown Balance Assessment [Total Score] -Brown Impairment Rating 20 to 39% Impaired (Score 34-44) Tinetti Balance Assessment [Scoring and Interpretation] -Interpretation of Scores At risk for falls (19-24) -Tinetti Impairment Rating from 20 to <40% Composite Score Impaired (Score 17-22) PT-OP-E Functional Tests Start: 11/15/17 08:11 Freq: Status: Active Protocol: Activity Type Activity Date Activity User E-Sign Co-Sign Detail Recorded Client Recorded Date Recorded By Document 11/15/17 16:39 [facility] [id number] 11/15/17 17:14 [facility] 11/15/17 16:39 Functional Tests [Dynamic Gait Index (DGI)] -Score 13 -DGI Impairment Rating 40 to <60% Impaired (Score 10-14) [Five Times Sit to Stand Test] -Score 16 sec -Comments using hands [Timed Up and Go (TUG)] -Score 18 sec -Comments no cane -TUG Impairment Rating 80 to <100% Impaired (Score 18-19) [Tinetti Balance and Gait Assessment] -Balance Score 14 -Gait Score 6 -Composite Score Impairment Rating 20 to <40% Impaired (Score 17-22) PT-OP-G Mobility & Gait Start: 11/15/17 08:11 Freq: Status: Active Protocol: Activity Type Activity Date Activity User E-Sign Co-Sign Detail Recorded Client Recorded Date Recorded By Document 11/15/17 16:39 [facility] [id number] 11/15/17 17:14 [facility] 11/15/17 16:39 OP Gait Assessment [Gait] -Gait Assistance Required: Independent [Assistive Devices] -Assistive Device Straight Cane -Orthotic/Prosthetic Devices or Brace: No [Gait Deviations] -General Gait Pattern Decreased Stride Length Decreased Feet Clearance Wide Based Gait [Factors Limiting Gait Function] -Factors Limiting Gait Function Abnormal Tonal Influences Decreased Strength Poor Balance Stair Climbing Evaluation [Evaluation] -Level of Assist On Stairs Independent [Devices] -Stair Climbing Assistive Devices Right Railing [Technique/Endurance] -Stair Climbing Direction Ascend and Descend -Stair Climbing Technique Step Over Step Step to Step [Comments] -Stair Climbing Comments alternating pattern to ascend, step-to to descend PT-OP-Q Treatments Start: 11/15/17 08:11 Freq: Status: Active Protocol: Activity Type Activity Date Activity User E-Sign Co-Sign Detail Recorded Client Recorded Date Recorded By Document 11/15/17 16:39 [facility] [id number] 11/15/17 17:14 [facility] 11/15/17 16:39 Cardio Equipment [Recumbent Elliptical (Biodex)] -Duration (Minutes) 5 -Resistance 1 Therapeutic Activity [Therapeutic Activity] 1 -Name Reassessment of gait and balance -Reps/Minutes 47 -Comments entire treatment PT-OP-T Assessment and Plan Start: 11/15/17 16:38 Freq: Status: Active Protocol: Activity Type Activity Date Activity User E-Sign Co-Sign Detail Recorded Client Recorded Date Recorded By Document 11/15/17 16:39 [facility] [id number] 11/15/17 17:14 [facility] 11/15/17 16:39 Physical Therapy Assessment [Impairments] -Impairments Activity Tolerance Balance Functional Activities Functional Mobility Gait Strength Tone [Other Concerns] -Barriers to Rehabilitation abnormal tone and tremor left UE is large distraction for patient with his mobility. Patient had been making progress with his gait and mobility recently, though today's reassessment does not represent that due to fall a few days ago with patient exhibiting more guarded mobility and fear of falling which is reflected in his functional test scores. [Goals] Six -Impairment Gait and Balance -Student Assistant Goal (LTG) Improve Dynamic Gait Index score to 22 to improve safety of mobility in the home and community -LTG Duration 2 months Five -Impairment Balance -Student Assistant Goal (LTG) Imrpve Brown Balance Score to 42 to improve safety of mobility in the home and community -LTG Duration 2 months Four -Impairment Balance and gait -Assisted Goal (LTG) Improve Tinetti gait and balance score to 24/28 to improve safety of mobility at home and in the community -LTG Duration 2 months Three -Student Assistant Goal (LTG) Functional mobility: Five times sit to stand; improve to 12 seconds without UE use -LTG Duration 2 months Two -Impairment Strength -Assisted Goal (LTG) Improve left LE strength to 4/ 5 -LTG Duration 2 months One -Impairment gait; stair negotiation -Assisted Goal (LTG) Gait on stairs with unilateral rail safely and independently for safe household mobility -LTG Duration 2 months [Progress Towards Goals] -Progress Towards Goals Slow Progress - Other -Progress Comments Due to several falls, patient experienced a significant decrease in his confidence, with decreased comfort level in challenging his balance and overall decline in mobility. Aquatic therapy was tried, but at this time feel land-based PT for this patient is most beneficial. After a decline in his function related to the above issues, patient had started making progress toward his goals until another fall just a few days ago. He remains highly motivated and compliant with HEP. Recommend further PT. [Assessment Summary] -Assessment Patient is highly motivated and until fall earlier this week patient had been making progress toward goals. Feel he would benefit from further PT for progression of functional mobility and safety, balance and gait training, strengthening. Physical Therapy Plan [Frequency and Duration] -Frequency of Treatment 1x/Week -Duration of Treatment 2 months -Plan of Care Start Date 11/18/17 -Plan of Care End Date 01/13/18 [Therapeutic Interventions] -Therapeutic Interventions Balance Training Gait Training Home Exercise Program Neuromuscular Re-education Patient/ Caregiver Education Self-Care/Home Management Therapeutic Activities Therapeutic Exercises [Next Visit Focus/Plan] -Next Visit Plan continue to progress HEP, balance, gait, functional strength and mobility
--- NOTE | 2017-11-22 17:17 | PT.OTN ---
Current Diagnoses Hemiplegia, unspecified affecting unspecified side (11/22/17) Cerebral infarction due to unspecified occlusion or stenosis of right middle cerebral artery (11/22/17) Difficulty in walking, not elsewhere classified (11/22/17) Other abnormalities of gait and mobility (11/22/17) Weakness (11/22/17) Physical Therapy Treatment Note PT-OP-A Visit Information Start: 11/15/17 08:11 Freq: Status: Active Protocol: Document 11/22/17 17:09 [facility] (Rec: 11/22/17 17:17 [facility] [id number]) Out-Patient Physical Therapy Visit Information Visit Information Visit Type Treatment Note Visit Start Time 13:45 Visit Stop Time 14:35 Total Visit Minutes 50 Visit Number 19 Number of REGISTRY RN Visits 0 Evaluation Information Evaluation Date 12/12/16 PT-OP-C Subjective Start: 11/15/17 08:11 Freq: Status: Active Protocol: Document 11/22/17 17:09 [facility]AK (Rec: 11/22/17 17:17 [facility]AK [id number]) OP-PT Subjective Patient Comments Patient Comments No new c/o. Tremors in hand continue to be bothersome PT-OP-D Balance Start: 11/15/17 08:11 Freq: Status: Active Protocol: Document 11/15/17 16:39 [facility]AK (Rec: 11/15/17 17:14 SAK [id number]) Brown Balance Assessment Total Score Brown Impairment Rating 20 to 39% Impaired (Score 34- 44) Tinetti Balance Assessment Scoring and Interpretation Interpretation of Scores At risk for falls (19-24) Tinetti Impairment Rating from Composite 20 to <40% Impaired (Score 17- Score 22) PT-OP-E Functional Tests Start: 11/15/17 08:11 Freq: Status: Active Protocol: Document 11/15/17 16:39 [facility] (Rec: 11/15/17 17:14 [facility]AK [id number]) Functional Tests Dynamic Gait Index (DGI) Score 13 DGI Impairment Rating 40 to <60% Impaired (Score 10- 14) Five Times Sit to Stand Test Score 16 sec Comments using hands Timed Up and Go (TUG) Score 18 sec Comments no cane TUG Impairment Rating 80 to <100% Impaired (Score 18 -19) Tinetti Balance and Gait Assessment Balance Score 14 Gait Score 6 Composite Score Impairment Rating 20 to <40% Impaired (Score 17- 22) PT-OP-G Mobility & Gait Start: 11/15/17 08:11 Freq: Status: Active Protocol: Document 11/15/17 16:39 [facility] (Rec: 11/15/17 17:14 [facility] [id number]) OP Gait Assessment Gait Gait Assistance Required: Independent Assistive Devices Assistive Device Straight Cane Orthotic/Prosthetic Devices or Brace: No Gait Deviations General Gait Pattern Decreased Stride Length Decreased Feet Clearance Wide Based Gait Factors Limiting Gait Function Factors Limiting Gait Function Abnormal Tonal Influences Decreased Strength Poor Balance Stair Climbing Evaluation Evaluation Level of Assist On Stairs Independent Devices Stair Climbing Assistive Devices Right Railing Technique/Endurance Stair Climbing Direction Ascend and Descend Stair Climbing Technique Step Over Step Step to Step Comments Stair Climbing Comments alternating pattern to ascend, step-to to descend PT-OP-Q Treatments Start: 11/15/17 08:11 Freq: Status: Active Protocol: Document 11/22/17 17:09 [facility] (Rec: 11/22/17 17:17 [facility] [id number]) Gym Equipment Sport Cord 1 Exercise Details forward, backward, side Cord/Resistance 2 Reps/Duration 12 min Therapeutic Exercises Sitting Exercises 1 Sitting Exercise Name hamstring stretch Reps/Minutes 2x Gait Training Gait Activity 3 Description gait on stairs Device Used railing on right Level of Assistance CG to min assist Treatment Focus alternating pattern, decreased UE use 2 Description backward gait Device Used none Level of Assistance CG to mod assist for balance Treatment Focus balance while moving backward due to all falls occuring backward 1 Description Gait drills for increased step length Device Used none Level of Assistance CG to mod assist for balance, verbal cues PT-OP-T Assessment and Plan Start: 11/15/17 16:38 Freq: Status: Active Protocol: Document 11/22/17 17:09 [facility] (Rec: 11/22/17 17:17 [facility] [id number]) Physical Therapy Assessment Impairments Impairments Activity Tolerance Balance Functional Activities Functional Mobility Gait Strength Tone Other Concerns Fall Risk moderate fall risk Assessment Summary Assessment Patient has difficulty with ambulation backward and with distractions during gait causing him to lose his balance. left UE tremor is distracting and sometimes a cause of imbalance. Physical Therapy Plan Frequency and Duration Frequency of Treatment 1x/Week Duration of Treatment 2 months Plan of Care Start Date 11/18/17 Plan of Care End Date 01/13/18 Next Visit Focus/Plan Next Visit Plan Continue PT with emphasis on improving gait and balance safety for increased independence and quality of life.
--- NOTE | 2017-11-29 14:56 | PT.OTN ---
Current Diagnoses Hemiplegia, unspecified affecting unspecified side (11/29/17) Cerebral infarction due to unspecified occlusion or stenosis of right middle cerebral artery (11/29/17) Difficulty in walking, not elsewhere classified (11/29/17) Other abnormalities of gait and mobility (11/29/17) Weakness (11/29/17) Physical Therapy Treatment Note PT-OP-A Visit Information Start: 11/15/17 08:11 Freq: Status: Active Protocol: Document 11/29/17 13:40 [facility]AK (Rec: 11/29/17 14:45 [facility] [id number]) Out-Patient Physical Therapy Visit Information Visit Information Visit Type Treatment Note Visit Start Time 13:40 Visit Stop Time 14:25 Total Visit Minutes 50 Visit Number 20 Evaluation Information Evaluation Date 12/12/16 PT-OP-C Subjective Start: 11/15/17 08:11 Freq: Status: Active Protocol: Document 11/29/17 13:40 [facility] (Rec: 11/29/17 14:45 [facility] [id number]) OP-PT Subjective Patient Comments Patient Comments UE tremors worsening, states it distracts him with gait and balance PT-OP-D Balance Start: 11/15/17 08:11 Freq: Status: Active Protocol: Document 11/15/17 16:39 [facility] (Rec: 11/15/17 17:14 [facility]AK [id number]) Brown Balance Assessment Total Score Brown Impairment Rating 20 to 39% Impaired (Score 34- 44) Tinetti Balance Assessment Scoring and Interpretation Interpretation of Scores At risk for falls (19-24) Tinetti Impairment Rating from Composite 20 to <40% Impaired (Score 17- Score 22) PT-OP-E Functional Tests Start: 11/15/17 08:11 Freq: Status: Active Protocol: Document 11/15/17 16:39 [facility] (Rec: 11/15/17 17:14 [facility]AK [id number]) Functional Tests Dynamic Gait Index (DGI) Score 13 DGI Impairment Rating 40 to <60% Impaired (Score 10- 14) Five Times Sit to Stand Test Score 16 sec Comments using hands Timed Up and Go (TUG) Score 18 sec Comments no cane TUG Impairment Rating 80 to <100% Impaired (Score 18 -19) Tinetti Balance and Gait Assessment Balance Score 14 Gait Score 6 Composite Score Impairment Rating 20 to <40% Impaired (Score 17- 22) PT-OP-G Mobility & Gait Start: 11/15/17 08:11 Freq: Status: Active Protocol: Document 11/15/17 16:39 [facility] (Rec: 11/15/17 17:14 [facility] [id number]) OP Gait Assessment Gait Gait Assistance Required: Independent Assistive Devices Assistive Device Straight Cane Orthotic/Prosthetic Devices or Brace: No Gait Deviations General Gait Pattern Decreased Stride Length Decreased Feet Clearance Wide Based Gait Factors Limiting Gait Function Factors Limiting Gait Function Abnormal Tonal Influences Decreased Strength Poor Balance Stair Climbing Evaluation Evaluation Level of Assist On Stairs Independent Devices Stair Climbing Assistive Devices Right Railing Technique/Endurance Stair Climbing Direction Ascend and Descend Stair Climbing Technique Step Over Step Step to Step Comments Stair Climbing Comments alternating pattern to ascend, step-to to descend PT-OP-Q Treatments Start: 11/15/17 08:11 Freq: Status: Active Protocol: Document 11/29/17 13:40 [facility] (Rec: 11/29/17 14:45 [facility] [id number]) Therapeutic Exercises Sitting Exercises 1 Sitting Exercise Name hamstring stretch Reps/Minutes 2x Standing Exercises 2 Standing Exercise Name lateral step-outs, lunges Side bilateral Reps/Minutes 10 x each side 1 Standing Exercise Name SLS Side bilateral Reps/Minutes 4x Comments mod+ assist Other Exercises 1 Other Exercise Name walking, squat to continuous pickling line pickler cones Reps/Minutes 6 cones Gait Training Gait Activity 3 Description gait on stairs Device Used railing on right Level of Assistance CG to min assist Treatment Focus alternating pattern, decreased UE use 1 Description Gait drills for increased step length Device Used gait belt Level of Assistance CG to mod assist for balance, verbal cues PT-OP-T Assessment and Plan Start: 11/15/17 16:38 Freq: Status: Active Protocol: Document 11/29/17 13:40 [facility] (Rec: 11/29/17 14:54 [facility] [id number]) Physical Therapy Assessment Other Concerns Barriers to Rehabilitation tremor left UE distracts patient with all functional mobility skills, affects his balance, is very frustrating for him; sees neurologist in 6 wks. Assessment Summary Assessment Patient able to lengthen his stride with visual goal of decreasing step length in 10ft length of walking; throughout practice decreased from 18 steps to 13 to go 10ft. Also highly challenged withs step- ups/downs on 4 box without UE support needed mod assist of 2. Physical Therapy Plan Frequency and Duration Frequency of Treatment 1x/Week Duration of Treatment 2 months Plan of Care Start Date 11/18/17 Plan of Care End Date 01/13/18 Therapeutic Interventions Therapeutic Interventions Balance Training Gait Training Home Exercise Program Neuromuscular Re-education Patient/Caregiver Education Self-Care/Home Management Therapeutic Activities Therapeutic Exercises Next Visit Focus/Plan Next Visit Plan Increased balance and gait challenge to improve patients function in the home and community.
--- NOTE | 2017-12-06 16:25 | PT.OTN ---
Current Diagnoses Hemiplegia, unspecified affecting unspecified side (12/06/17) Cerebral infarction due to unspecified occlusion or stenosis of right middle cerebral artery (12/06/17) Difficulty in walking, not elsewhere classified (12/06/17) Other abnormalities of gait and mobility (12/06/17) Weakness (12/06/17) Physical Therapy Treatment Note PT-OP-A Visit Information Start: 11/15/17 08:11 Freq: Status: Active Protocol: Document 12/06/17 13:45 SAK (Rec: 12/06/17 16:25 SAK [id number]) Out-Patient Physical Therapy Visit Information Visit Information Visit Type Treatment Note Visit Start Time 13:40 Visit Stop Time 14:25 Total Visit Minutes 50 Visit Number 21 Evaluation Information Evaluation Date 12/12/16 PT-OP-C Subjective Start: 11/15/17 08:11 Freq: Status: Active Protocol: Document 12/06/17 13:45 SAK (Rec: 12/06/17 16:25 SAK [id number]) OP-PT Subjective Patient Comments Patient Comments No change in tremors, continues to distract patient with mobility and causes balance difficulty PT-OP-D Balance Start: 11/15/17 08:11 Freq: Status: Active Protocol: Document 11/15/17 16:39 SAK (Rec: 11/15/17 17:14 SAK [id number]) Brown Balance Assessment Total Score Brown Impairment Rating 20 to 39% Impaired (Score 34- 44) Tinetti Balance Assessment Scoring and Interpretation Interpretation of Scores At risk for falls (19-24) Tinetti Impairment Rating from Composite 20 to <40% Impaired (Score 17- Score 22) PT-OP-E Functional Tests Start: 11/15/17 08:11 Freq: Status: Active Protocol: Document 11/15/17 16:39 SAK (Rec: 11/15/17 17:14 SAK [id number]) Functional Tests Dynamic Gait Index (DGI) Score 13 DGI Impairment Rating 40 to <60% Impaired (Score 10- 14) Five Times Sit to Stand Test Score 16 sec Comments using hands Timed Up and Go (TUG) Score 18 sec Comments no cane TUG Impairment Rating 80 to <100% Impaired (Score 18 -19) Tinetti Balance and Gait Assessment Balance Score 14 Gait Score 6 Composite Score Impairment Rating 20 to <40% Impaired (Score 17- 22) PT-OP-G Mobility & Gait Start: 11/15/17 08:11 Freq: Status: Active Protocol: Document 11/15/17 16:39 [facility] (Rec: 11/15/17 17:14 [facility] [id number]) OP Gait Assessment Gait Gait Assistance Required: Independent Assistive Devices Assistive Device Straight Cane Orthotic/Prosthetic Devices or Brace: No Gait Deviations General Gait Pattern Decreased Stride Length Decreased Feet Clearance Wide Based Gait Factors Limiting Gait Function Factors Limiting Gait Function Abnormal Tonal Influences Decreased Strength Poor Balance Stair Climbing Evaluation Evaluation Level of Assist On Stairs Independent Devices Stair Climbing Assistive Devices Right Railing Technique/Endurance Stair Climbing Direction Ascend and Descend Stair Climbing Technique Step Over Step Step to Step Comments Stair Climbing Comments alternating pattern to ascend, step-to to descend PT-OP-Q Treatments Start: 11/15/17 08:11 Freq: Status: Active Protocol: Document 12/06/17 13:45 [facility] (Rec: 12/06/17 16:25 [facility] [id number]) Therapeutic Exercises Sitting Exercises 1 Sitting Exercise Name hamstring stretch Reps/Minutes 2x Standing Exercises 3 Standing Exercise Name step-up/down 4 box, no UE spport Reps/Minutes 2 x ascend/descend Comments mod+ assist for balance 2 Standing Exercise Name lateral step-outs, lunges, star lunges Side bilateral Reps/Minutes 15 min 1 Standing Exercise Name SLS Side bilateral Reps/Minutes 4x Comments mod+ assist Gait Training Gait Activity 3 Description gait on stairs Device Used railing on right Level of Assistance CG to min assist Treatment Focus alternating pattern, decreased UE use 2 Description backward gait Device Used none Level of Assistance CG to mod assist for balance Treatment Focus balance while moving backward due to all falls occuring backward 1 Description Gait drills for increased step length Device Used gait belt Level of Assistance CG to mod assist for balance, verbal cues PT-OP-T Assessment and Plan Start: 11/15/17 16:38 Freq: Status: Active Protocol: Document 12/06/17 13:45 [facility] (Rec: 12/06/17 16:25 [facility] [id number]) Physical Therapy Assessment Impairments Impairments Activity Tolerance Balance Functional Activities Functional Mobility Gait Strength Tone Other Concerns Fall Risk moderate fall risk Barriers to Rehabilitation tremor left UE distracts patient with all functional mobility skills, affects his balance, is very frustrating for him; sees neurologist in 5 wks. Assessment Summary Assessment With cues and encouragement patient able to lengthen his stride and challenge his balance more with all therapy activities but has high fear of falling. Tends to lean forward to offset his tendency to fall backwards. Will benefit from continued PT for strengthening, balance training, functional mobility challenges to decrease his fall risk and improve his safety with mobility. Physical Therapy Plan Frequency and Duration Frequency of Treatment 1x/Week Duration of Treatment 2 months Plan of Care Start Date 11/18/17 Plan of Care End Date 01/13/18 Therapeutic Interventions Therapeutic Interventions Balance Training Gait Training Home Exercise Program Neuromuscular Re-education Patient/Caregiver Education Self-Care/Home Management Therapeutic Activities Therapeutic Exercises Next Visit Focus/Plan Next Visit Plan Resume shuttle balance machine training, progress ther ex as tolerated. Please Sign and Return: I have reviewed this Plan of Care and certify that the skilled therapy services above are required to meet the patient???s needs. Physician Signature Date Printed Name and Credentials Clinical Instructor Signature Printed Name and Credentials
--- NOTE | 2017-12-14 14:43 | PT.OTN ---
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 (12/13/17) Difficulty in walking, not elsewhere classified (12/13/17) Other abnormalities of gait and mobility (12/13/17) Weakness (12/13/17) Physical Therapy Treatment Note PT-OP-A Visit Information Start: 11/15/17 08:11 Freq: Status: Active Protocol: Document 12/13/17 13:45 SAK (Rec: 12/14/17 14:43 SAK [id number]) Out-Patient Physical Therapy Visit Information Visit Information Visit Type Treatment Note Visit Start Time 13:45 Visit Stop Time 14:30 Total Visit Minutes 45 Visit Number 22 Number of EDGE WORKER Visits 0 Evaluation Information Evaluation Date 12/12/16 PT-OP-C Subjective Start: 11/15/17 08:11 Freq: Status: Active Protocol: Document 12/13/17 13:45 SAK (Rec: 12/14/17 14:43 SAK [id number]) OP-PT Subjective Patient Comments Patient Comments Sees neurologist about the tremors in his left UE. No recent falls. compliant with HEP PT-OP-D Balance Start: 11/15/17 08:11 Freq: Status: Active Protocol: Document 11/15/17 16:39 SAK (Rec: 11/15/17 17:14 SAK [id number]) Brown Balance Assessment Total Score Brown Impairment Rating 20 to 39% Impaired (Score 34- 44) Tinetti Balance Assessment Scoring and Interpretation Interpretation of Scores At risk for falls (19-24) Tinetti Impairment Rating from Composite 20 to <40% Impaired (Score 17- Score 22) PT-OP-E Functional Tests Start: 11/15/17 08:11 Freq: Status: Active Protocol: Document 11/15/17 16:39 SAK (Rec: 11/15/17 17:14 SAK [id number]) Functional Tests Dynamic Gait Index (DGI) Score 13 DGI Impairment Rating 40 to <60% Impaired (Score 10- 14) Five Times Sit to Stand Test Score 16 sec Comments using hands Timed Up and Go (TUG) Score 18 sec Comments no cane TUG Impairment Rating 80 to <100% Impaired (Score 18 -19) Tinetti Balance and Gait Assessment Balance Score 14 Gait Score 6 Composite Score Impairment Rating 20 to <40% Impaired (Score 17- 22) PT-OP-G Mobility & Gait Start: 11/15/17 08:11 Freq: Status: Active Protocol: Document 11/15/17 16:39 [facility] (Rec: 11/15/17 17:14 [facility] [id number]) OP Gait Assessment Gait Gait Assistance Required: Independent Assistive Devices Assistive Device Straight Cane Orthotic/Prosthetic Devices or Brace: No Gait Deviations General Gait Pattern Decreased Stride Length Decreased Feet Clearance Wide Based Gait Factors Limiting Gait Function Factors Limiting Gait Function Abnormal Tonal Influences Decreased Strength Poor Balance Stair Climbing Evaluation Evaluation Level of Assist On Stairs Independent Devices Stair Climbing Assistive Devices Right Railing Technique/Endurance Stair Climbing Direction Ascend and Descend Stair Climbing Technique Step Over Step Step to Step Comments Stair Climbing Comments alternating pattern to ascend, step-to to descend PT-OP-Q Treatments Start: 11/15/17 08:11 Freq: Status: Active Protocol: Document 12/13/17 13:45 [facility] (Rec: 12/14/17 14:43 [facility] [id number]) Gym Equipment Shuttle Balance 1 Details chains red; bal fwd/bck, side/ side Reps/Duration 10 min Therapeutic Exercises Sitting Exercises 1 Sitting Exercise Name hamstring stretch Reps/Minutes 2x Standing Exercises 3 Standing Exercise Name step-up/down 4 box, no UE spport Reps/Minutes 2 x ascend/descend Comments mod+ assist for balance 1 Standing Exercise Name SLS Side bilateral Reps/Minutes 4x Comments mod+ assist Gait Training Gait Activity 3 Description gait on stairs Device Used railing on right Level of Assistance CG to min assist Treatment Focus alternating pattern, decreased UE use 2 Description backward gait Device Used none Level of Assistance CG to mod assist for balance Treatment Focus balance while moving backward due to all falls occuring backward 1 Description Gait drills for increased step length Device Used gait belt Level of Assistance CG to mod assist for balance, verbal cues PT-OP-T Assessment and Plan Start: 11/15/17 16:38 Freq: Status: Active Protocol: Document 12/13/17 13:45 [facility] (Rec: 12/14/17 14:43 [facility] [id number]) Physical Therapy Assessment Impairments Impairments Activity Tolerance Balance Functional Activities Functional Mobility Gait Strength Tone Other Concerns Fall Risk moderate fall risk Barriers to Rehabilitation Patient continues to be distracted by tremors left UE, highly impacts his balance and gait ability. Assessment Summary Assessment Feel patient would benefit from actual recumbent exercise bike at home vs exercise machine that he has which is used on table for UE's and ground for LE's; an exercise bike would allow for reciprocal work on LE's with larger amplitude of movement. Physical Therapy Plan Frequency and Duration Frequency of Treatment 1x/Week Duration of Treatment 2 months Plan of Care Start Date 11/18/17 Plan of Care End Date 01/13/18 Therapeutic Interventions Therapeutic Interventions Balance Training Gait Training Home Exercise Program Neuromuscular Re-education Patient/Caregiver Education Self-Care/Home Management Therapeutic Activities Therapeutic Exercises Next Visit Focus/Plan Next Visit Plan continue to progress HEP, balance, gait, functional strength and mobility Please Sign and Return: I have reviewed this Plan of Care and certify that the skilled therapy services above are required to meet the patient?s needs. Physician Signature Date Printed Name and Credentials Clinical Instructor Signature Printed Name and Credentials
--- NOTE | 2017-12-27 16:38 | PT.OTN ---
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 (12/27/17) Difficulty in walking, not elsewhere classified (12/27/17) Other abnormalities of gait and mobility (12/27/17) Weakness (12/27/17) Physical Therapy Treatment Note PT-OP-A Visit Information Start: 11/15/17 08:11 Freq: Status: Active Protocol: Document 12/27/17 16:22 [facility] (Rec: 12/27/17 16:38 [facility] [id number]) Out-Patient Physical Therapy Visit Information Visit Information Visit Type Treatment Note Visit Note 09/22 G code Visit Start Time 15:15 Visit Stop Time 16:00 Total Visit Minutes 45 Visit Number 23 Number of NOTCHED BLADE LOADER Visits 0 PT-OP-C Subjective Start: 11/15/17 08:11 Freq: Status: Active Protocol: Document 12/27/17 16:22 [facility] (Rec: 12/27/17 16:38 [facility] [id number]) OP-PT Subjective Patient Comments Patient Comments Neurologist took him off his mm relaxors 2 days ago d/t concern re: falls and no change with tremors. Pt was encouraged to carry pen in L hand. Pt reports he went to the ER 6/6 d/t back/L side spasms. PT-OP-D Balance Start: 11/15/17 08:11 Freq: Status: Active Protocol: Document 11/15/17 16:39 [facility] (Rec: 11/15/17 17:14 [facility] [id number]) Brown Balance Assessment Total Score Borwn Impairment Rating 20 to 39% Impaired (Score 34- 44) Tinetti Balance Assessment Scoring and Interpretation Interpretation of Scores At risk for falls (19-24) Tinetti Impairment Rating from Composite 20 to <40% Impaired (Score 17- Score 22) PT-OP-E Functional Tests Start: 11/15/17 08:11 Freq: Status: Active Protocol: Document 11/15/17 16:39 [facility] (Rec: 11/15/17 17:14 [facility] [id number]) Functional Tests Dynamic Gait Index (DGI) Score 13 DGI Impairment Rating 40 to <60% Impaired (Score 10- 14) Five Times Sit to Stand Test Score 16 sec Comments using hands Timed Up and Go (TUG) Score 18 sec Comments no cane TUG Impairment Rating 80 to <100% Impaired (Score 18 -19) Tinetti Balance and Gait Assessment Balance Score 14 Gait Score 6 Composite Score Impairment Rating 20 to <40% Impaired (Score 17- 22) PT-OP-G Mobility & Gait Start: 11/15/17 08:11 Freq: Status: Active Protocol: Document 11/15/17 16:39 [facility] (Rec: 11/15/17 17:14 SAK [id number]) OP Gait Assessment Gait Gait Assistance Required: Independent Assistive Devices Assistive Device Straight Cane Orthotic/Prosthetic Devices or Brace: No Gait Deviations General Gait Pattern Decreased Stride Length Decreased Feet Clearance Wide Based Gait Factors Limiting Gait Function Factors Limiting Gait Function Abnormal Tonal Influences Decreased Strength Poor Balance Stair Climbing Evaluation Evaluation Level of Assist On Stairs Independent Devices Stair Climbing Assistive Devices Right Railing Technique/Endurance Stair Climbing Direction Ascend and Descend Stair Climbing Technique Step Over Step Step to Step Comments Stair Climbing Comments alternating pattern to ascend, step-to to descend PT-OP-Q Treatments Start: 11/15/17 08:11 Freq: Status: Active Protocol: Document 12/27/17 16:22 [facility] (Rec: 12/27/17 16:38 [facility] [id number]) Therapeutic Activity Therapeutic Activity 3 Name seated stretches to R 2 Name mod A for supine<>sit & rolling 1 Name posture edu & importance of neutral Gait Training Gait Activity 2 Description backward gait Device Used rail Level of Assistance CGA Treatment Focus balance while moving backward due to all falls occuring backward 1 Description Gait drills for increased step length Device Used gait belt Level of Assistance CGA at bar then with cane Manual Therapy Treatment Soft Tissue Mobilization 1 Body Location QL Mobilization Type Rolling Intensity/Depth Moderate PT-OP-T Assessment and Plan Start: 11/15/17 16:38 Freq: Status: Active Protocol: Document 12/27/17 16:22 [facility] (Rec: 12/27/17 16:38 [facility] [id number]) Physical Therapy Assessment Assessment Summary Assessment Pt felt better with STM & with gentle stretching & elogation exercises with gait. Encouraged to cont at home. Pt had significant tightness in L side and was able to amb with improved stride after STM Physical Therapy Plan Frequency and Duration Frequency of Treatment 1x/Week Duration of Treatment 2 months Plan of Care Start Date 11/18/17 Plan of Care End Date 01/13/18 Next Visit Focus/Plan Next Note Type Treatment Note Next Visit Plan Resume gait & balance drills and treat for L hip/back spasm Please Sign and Return: I have reviewed this Plan of Care and certify that the skilled therapy services above are required to meet the patient?s needs. Physician Signature Date Printed Name and Credentials Clinical Instructor Signature Printed Name and Credentials
--- NOTE | 2018-01-02 15:41 | PT.OTN ---
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 (12/27/17) Difficulty in walking, not elsewhere classified (12/27/17) Other abnormalities of gait and mobility (12/27/17) Weakness (12/27/17) Physical Therapy Treatment Note PT-OP-A Visit Information Start: 11/15/17 08:11 Freq: Status: Active Protocol: Document 01/02/18 13:49 [facility] (Rec: 01/02/18 15:41 [facility] [id number]) Out-Patient Physical Therapy Visit Information Visit Information Visit Type Treatment Note Visit Note 10/23 G code Visit Start Time 13:45 Visit Stop Time 14:30 Total Visit Minutes 45 Visit Number 24 Number of PICCOLO MECHANIC Visits 0 PT-OP-C Subjective Start: 11/15/17 08:11 Freq: Status: Active Protocol: Document 01/02/18 13:49 [facility] (Rec: 01/02/18 15:41 [facility] [id number]) OP-PT Subjective Patient Comments Patient Comments Reports feeling better with STM last session. Still pain in side and LB. PT-OP-D Balance Start: 11/15/17 08:11 Freq: Status: Active Protocol: Document 11/15/17 16:39 [facility] (Rec: 11/15/17 17:14 [facility] [id number]) Brown Balance Assessment Total Score Brown Impairment Rating 20 to 39% Impaired (Score 34- 44) Tinetti Balance Assessment Scoring and Interpretation Interpretation of Scores At risk for falls (19-24) Tinetti Impairment Rating from Composite 20 to <40% Impaired (Score 17- Score 22) PT-OP-E Functional Tests Start: 11/15/17 08:11 Freq: Status: Active Protocol: Document 11/15/17 16:39 [facility] (Rec: 11/15/17 17:14 [facility] [id number]) Functional Tests Dynamic Gait Index (DGI) Score 13 DGI Impairment Rating 40 to <60% Impaired (Score 10- 14) Five Times Sit to Stand Test Score 16 sec Comments using hands Timed Up and Go (TUG) Score 18 sec Comments no cane TUG Impairment Rating 80 to <100% Impaired (Score 18 -19) Tinetti Balance and Gait Assessment Balance Score 14 Gait Score 6 Composite Score Impairment Rating 20 to <40% Impaired (Score 17- 22) PT-OP-G Mobility & Gait Start: 11/15/17 08:11 Freq: Status: Active Protocol: Document 11/15/17 16:39 [facility] (Rec: 11/15/17 17:14 [facility] [id number]) OP Gait Assessment Gait Gait Assistance Required: Independent Assistive Devices Assistive Device Straight Cane Orthotic/Prosthetic Devices or Brace: No Gait Deviations General Gait Pattern Decreased Stride Length Decreased Feet Clearance Wide Based Gait Factors Limiting Gait Function Factors Limiting Gait Function Abnormal Tonal Influences Decreased Strength Poor Balance Stair Climbing Evaluation Evaluation Level of Assist On Stairs Independent Devices Stair Climbing Assistive Devices Right Railing Technique/Endurance Stair Climbing Direction Ascend and Descend Stair Climbing Technique Step Over Step Step to Step Comments Stair Climbing Comments alternating pattern to ascend, step-to to descend PT-OP-Q Treatments Start: 11/15/17 08:11 Freq: Status: Active Protocol: Document 01/02/18 13:49 [facility] (Rec: 01/02/18 15:41 [facility] [id number]) Therapeutic Exercises Supine Exercises 3 Supine Exercise Name bridge 2 Supine Exercise Name LTR 1 Supine Exercise Name SLR & knee ext Comments w/focus on core Standing Exercises 4 Standing Exercise Name hip abd & ext, knee flex, mini squats B Reps/Minutes 10 Comments focus on core & painfree range Gait Training Gait Activity 4 Description Amb w/cane Comments cueing to dec trunk lean & inc RLE step & extend L knee during stance 1 Description Gait drills for increased step length Device Used gait belt Level of Assistance CGA at bar then with cane Manual Therapy Treatment Soft Tissue Mobilization 1 Body Location QL Mobilization Type Rolling Intensity/Depth Moderate PT-OP-T Assessment and Plan Start: 11/15/17 16:38 Freq: Status: Active Protocol: Document 01/02/18 13:49 [facility] (Rec: 01/02/18 15:41 [facility] [id number]) Physical Therapy Assessment Assessment Summary Assessment Pt cont to improve with returning to improved gait pattern, but still has difficulty with step length w/ RLE. Cueing required for core during exercises. Can return to exercises except single leg squats and bridges. Physical Therapy Plan Frequency and Duration Frequency of Treatment 1x/Week Duration of Treatment 2 months Plan of Care Start Date 11/18/17 Plan of Care End Date 01/13/18 Next Visit Focus/Plan Next Note Type Treatment Note Next Visit Plan Resume gait & balance drills and treat for L hip/back spasm
--- NOTE | 2018-01-20 09:11 | PT.OTN ---
Current Diagnoses Hemiplegia, unspecified affecting unspecified side (01/17/18) Cerebral infarction due to unspecified occlusion or stenosis of right middle cerebral artery (01/17/18) Difficulty in walking, not elsewhere classified (01/17/18) Other abnormalities of gait and mobility (01/17/18) Weakness (01/17/18) Physical Therapy Treatment Note PT-OP-A Visit Information Start: 11/15/17 08:11 Freq: Status: Active Protocol: Document 01/17/18 13:45 [facility] (Rec: 01/17/18 16:36 [facility] [id number]) Out-Patient Physical Therapy Visit Information Visit Information Visit Type Treatment Note Visit Note 11/22 Visit Start Time 13:45 Visit Stop Time 14:30 Total Visit Minutes 45 Visit Number 25 Number of WELDING MACHINE OPERATOR ARC Visits 0 PT-OP-C Subjective Start: 11/15/17 08:11 Freq: Status: Active Protocol: Document 01/17/18 13:45 [facility] (Rec: 01/17/18 14:50 [facility] [id number]) OP-PT Subjective Patient Comments Patient Comments Back pain continues to limit his function severely; left lumbar spine and side. States the pain increases with all mobility, low tolerance for exercises, finds himself leaning more because of the pain. Patient Reported Progress Same OP-PT Pain Assessment Pain Behaviors Pain Behaviors Facial Grimacing Guarding Wincing PT-OP-D Balance Start: 11/15/17 08:11 Freq: Status: Active Protocol: Document 11/15/17 16:39 [facility] (Rec: 11/15/17 17:14 [facility] [id number]) Brown Balance Assessment Total Score Brown Impairment Rating 20 to 39% Impaired (Score 34- 44) Tinetti Balance Assessment Scoring and Interpretation Interpretation of Scores At risk for falls (19-24) Tinetti Impairment Rating from Composite 20 to <40% Impaired (Score 17- Score 22) PT-OP-E Functional Tests Start: 11/15/17 08:11 Freq: Status: Active Protocol: Document 11/15/17 16:39 [facility] (Rec: 11/15/17 17:14 [facility] [id number]) Functional Tests Dynamic Gait Index (DGI) Score 13 DGI Impairment Rating 40 to <60% Impaired (Score 10- 14) Five Times Sit to Stand Test Score 16 sec Comments using hands Timed Up and Go (TUG) Score 18 sec Comments no cane TUG Impairment Rating 80 to <100% Impaired (Score 18 -19) Tinetti Balance and Gait Assessment Balance Score 14 Gait Score 6 Composite Score Impairment Rating 20 to <40% Impaired (Score 17- 22) PT-OP-G Mobility & Gait Start: 11/15/17 08:11 Freq: Status: Active Protocol: Document 11/15/17 16:39 [facility] (Rec: 11/15/17 17:14 [facility] [id number]) OP Gait Assessment Gait Gait Assistance Required: Independent Assistive Devices Assistive Device Straight Cane Orthotic/Prosthetic Devices or Brace: No Gait Deviations General Gait Pattern Decreased Stride Length Decreased Feet Clearance Wide Based Gait Factors Limiting Gait Function Factors Limiting Gait Function Abnormal Tonal Influences Decreased Strength Poor Balance Stair Climbing Evaluation Evaluation Level of Assist On Stairs Independent Devices Stair Climbing Assistive Devices Right Railing Technique/Endurance Stair Climbing Direction Ascend and Descend Stair Climbing Technique Step Over Step Step to Step Comments Stair Climbing Comments alternating pattern to ascend, step-to to descend PT-OP-Q Treatments Start: 11/15/17 08:11 Freq: Status: Active Protocol: Document 01/17/18 13:45 [facility] (Rec: 01/17/18 16:36 [facility] [id number]) Therapeutic Exercises Supine Exercises 5 Supine Exercise Name shoulder extension Side bilateral Resistance wand, L1 TB Comments core emphasis 4 Supine Exercise Name TA with isometric hip add, hip ab/ER with L1 TB Side bilateral 3 Supine Exercise Name bridge Comments poorly tolerated 2 Supine Exercise Name LTR Comments poorly tolerated Therapeutic Activity Therapeutic Activity 3 Name bed mobility Comments core emphasis with logroll Gait Training Gait Activity 4 Description Amb w/cane Comments cueing to dec trunk lean & inc RLE step & extend L knee during stance Manual Therapy Treatment Soft Tissue Mobilization 1 Body Location QL, paraspinals left Mobilization Type Rolling Intensity/Depth Moderate Body Position Sidelying right Self-Care/Home Management Treatment Education Other Education use heat in AM for pain in l/s and side PT-OP-R Modalities Start: 11/15/17 08:11 Freq: Status: Active Protocol: Document 01/17/18 13:45 [facility] (Rec: 01/17/18 16:36 [facility] [id number]) Ultrasound Therapy Treatment Left Lower Back Treatment Duration (minutes) 8 Patient Position Sidelying Frequency Setting (mHz) 1 Duty Cycle 100% Intensity Setting (w/cm2) 1.5 PT-OP-T Assessment and Plan Start: 11/15/17 16:38 Freq: Status: Active Protocol: Document 01/17/18 13:45 [facility] (Rec: 01/17/18 16:36 [facility] [id number]) Physical Therapy Assessment Impairments Impairments Activity Tolerance Balance Functional Activities Functional Mobility Gait Pain Posture Strength Tone Other Concerns Barriers to Rehabilitation pain, tremors Goals Seven Impairment pain Gravity Flow Irrigator Goal (LTG) decrease pain to 1-2/10 to allow patient to return to usual activities LTG Duration 2 months Six Impairment Gait and Balance Gravity Flow Irrigator Goal (LTG) Improve Dynamic Gait Index score to 22 to improve safety of mobility in the home and community LTG Duration 2 months Five Impairment Balance Longterm Goal (LTG) Imrpve Brown Balance Score to 42 to improve safety of mobility in the home and community LTG Duration 2 months Four Impairment Balance and gait Longterm Goal (LTG) Improve Tinetti gait and balance score to 24/28 to improve safety of mobility at home and in the community LTG Duration 2 months Three Gravity Flow Irrigator Goal (LTG) Functional mobility: Five times sit to stand; improve to 12 seconds without UE use LTG Duration 2 months Two Impairment Strength Longterm Goal (LTG) Improve left LE strength to 4/ 5 LTG Duration 2 months One Impairment gait; stair negotiation Gravity Flow Irrigator Goal (LTG) Gait on stairs with unilateral rail safely and independently for safe household mobility LTG Duration 2 months Progress Towards Goals Progress Towards Goals Slow Progress due to Medical Issues Progress Comments Decline in progress recently due to persistent tremors left UE and pain in left low back and side limiting his activity tolerance including ability to do exercises at home and in the PT clinic. Patient is highly motivated but frustrated with these medical complications. Physical Therapy Plan Frequency and Duration Frequency of Treatment 1x/Week Duration of Treatment 2 months Plan of Care Start Date 01/17/18 Plan of Care End Date 03/20/18 Therapeutic Interventions Therapeutic Interventions Balance Training Gait Training Home Exercise Program Neuromuscular Re-education Patient/Caregiver Education Self-Care/Home Management Therapeutic Activities Therapeutic Exercises Modalities Cold Pack/Ice Massage Electric Stimulation Hot Packs Ultrasound Next Visit Focus/Plan Next Note Type Treatment Note Next Visit Plan Assess response to last treatment which had increased focus on pain management. Progress back to gait training and functional mobility, strengthening
--- NOTE | 2018-01-20 09:11 | PT.OPPOC ---
Current Diagnoses Hemiplegia, unspecified affecting unspecified side (01/17/18) Cerebral infarction due to unspecified occlusion or stenosis of right middle cerebral artery (01/17/18) Difficulty in walking, not elsewhere classified (01/17/18) Other abnormalities of gait and mobility (01/17/18) Weakness (01/17/18) Provider Visit Care Team Role Provider Type Mane Xiong MD Attending Provider Physician Family Provider Primary Care Provider Specialty: Internal Medicine Address: [address] [place] [address], [address] Email: [email or web address] Plan Of Care PT-OP-T Assessment and Plan Start: 11/15/17 16:38 Freq: Status: Active Protocol: Document 01/17/18 13:45 [facility] (Rec: 01/17/18 16:36 [facility] [id number]) Physical Therapy Assessment Impairments Impairments Activity Tolerance Balance Functional Activities Functional Mobility Gait Pain Posture Strength Tone Other Concerns Barriers to Rehabilitation pain, tremors Goals Seven Impairment pain Fuel Cell Builder Goal (LTG) decrease pain to 1-2/10 to allow patient to return to usual activities LTG Duration 2 months Six Impairment Gait and Balance Fuel Cell Builder Goal (LTG) Improve Dynamic Gait Index score to 22 to improve safety of mobility in the home and community LTG Duration 2 months Five Impairment Balance Fpc Goal (LTG) Imrpve Brown Balance Score to 42 to improve safety of mobility in the home and community LTG Duration 2 months Four Impairment Balance and gait Fpc Goal (LTG) Improve Tinetti gait and balance score to 24/28 to improve safety of mobility at home and in the community LTG Duration 2 months Three Fuel Cell Builder Goal (LTG) Functional mobility: Five times sit to stand; improve to 12 seconds without UE use LTG Duration 2 months Two Impairment Strength Fuel Cell Builder Goal (LTG) Improve left LE strength to 4/ 5 LTG Duration 2 months One Impairment gait; stair negotiation Fuel Cell Builder Goal (LTG) Gait on stairs with unilateral rail safely and independently for safe household mobility LTG Duration 2 months Progress Towards Goals Progress Towards Goals Slow Progress due to Medical Issues Progress Comments Decline in progress recently due to persistent tremors left UE and pain in left low back and side limiting his activity tolerance including ability to do exercises at home and in the PT clinic. Patient is highly motivated but frustrated with these medical complications. Physical Therapy Plan Frequency and Duration Frequency of Treatment 1x/Week Duration of Treatment 2 months Plan of Care Start Date 01/17/18 Plan of Care End Date 03/20/18 Therapeutic Interventions Therapeutic Interventions Balance Training Gait Training Home Exercise Program Neuromuscular Re-education Patient/Caregiver Education Self-Care/Home Management Therapeutic Activities Therapeutic Exercises Modalities Cold Pack/Ice Massage Electric Stimulation Hot Packs Ultrasound Next Visit Focus/Plan Next Note Type Treatment Note Next Visit Plan Assess response to last treatment which had increased focus on pain management. Progress back to gait training and functional mobility, strengthening Plan of Care Dates Plan of Care Start Date 01/17/18 Plan of Care End Date 03/20/18 Please Sign and Return: I have reviewed this Plan of Care and certify that the skilled therapy services above are required to meet the patient?s needs. Physician Signature Date Printed Name and Credentials Clinical Instructor Signature Printed Name and Credentials
--- NOTE | 2018-01-20 09:13 | PT.OPPOC ---
Current Diagnoses Hemiplegia, unspecified affecting unspecified side (01/17/18) Cerebral infarction due to unspecified occlusion or stenosis of right middle cerebral artery (01/17/18) Difficulty in walking, not elsewhere classified (01/17/18) Other abnormalities of gait and mobility (01/17/18) Weakness (01/17/18) Provider Visit Care Team Role Provider Type Mane Xiong MD Attending Provider Physician Family Provider Primary Care Provider Specialty: Internal Medicine Address: [address] [place] [address], [address] Email: [email or web address] Plan Of Care PT-OP-T Assessment and Plan Start: 11/15/17 16:38 Freq: Status: Active Protocol: Document 01/17/18 13:45 [facility] (Rec: 01/17/18 16:36 [facility] [id number]) Physical Therapy Assessment Impairments Impairments Activity Tolerance Balance Functional Activities Functional Mobility Gait Pain Posture Strength Tone Other Concerns Barriers to Rehabilitation pain, tremors Goals Seven Impairment pain Vacuum System Tester Goal (LTG) decrease pain to 1-2/10 to allow patient to return to usual activities LTG Duration 2 months Six Impairment Gait and Balance Vacuum System Tester Goal (LTG) Improve Dynamic Gait Index score to 22 to improve safety of mobility in the home and community LTG Duration 2 months Five Impairment Balance Correction Goal (LTG) Imrpve Brown Balance Score to 42 to improve safety of mobility in the home and community LTG Duration 2 months Four Impairment Balance and gait Correction Goal (LTG) Improve Tinetti gait and balance score to 24/28 to improve safety of mobility at home and in the community LTG Duration 2 months Three Vacuum System Tester Goal (LTG) Functional mobility: Five times sit to stand; improve to 12 seconds without UE use LTG Duration 2 months Two Impairment Strength Vacuum System Tester Goal (LTG) Improve left LE strength to 4/ 5 LTG Duration 2 months One Impairment gait; stair negotiation Vacuum System Tester Goal (LTG) Gait on stairs with unilateral rail safely and independently for safe household mobility LTG Duration 2 months Progress Towards Goals Progress Towards Goals Slow Progress due to Medical Issues Progress Comments Decline in progress recently due to persistent tremors left UE and pain in left low back and side limiting his activity tolerance including ability to do exercises at home and in the PT clinic. Patient is highly motivated but frustrated with these medical complications. Physical Therapy Plan Frequency and Duration Frequency of Treatment 1x/Week Duration of Treatment 2 months Plan of Care Start Date 01/17/18 Plan of Care End Date 03/20/18 Therapeutic Interventions Therapeutic Interventions Balance Training Gait Training Home Exercise Program Neuromuscular Re-education Patient/Caregiver Education Self-Care/Home Management Therapeutic Activities Therapeutic Exercises Modalities Cold Pack/Ice Massage Electric Stimulation Hot Packs Ultrasound Next Visit Focus/Plan Next Note Type Treatment Note Next Visit Plan Assess response to last treatment which had increased focus on pain management. Progress back to gait training and functional mobility, strengthening Plan of Care Dates Plan of Care Start Date 01/17/18 Plan of Care End Date 03/20/18 Please Sign and Return: I have reviewed this Plan of Care and certify that the skilled therapy services above are required to meet the patient?s needs. Physician Signature Date Printed Name and Credentials Clinical Instructor Signature Printed Name and Credentials
--- NOTE | 2018-01-23 16:34 | PT.OTN ---
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 (01/23/18) Difficulty in walking, not elsewhere classified (01/23/18) Other abnormalities of gait and mobility (01/23/18) Weakness (01/23/18) Physical Therapy Treatment Note PT-OP-A Visit Information Start: 11/15/17 08:11 Freq: Status: Active Protocol: Document 01/23/18 15:15 SAK (Rec: 01/23/18 16:33 [facility] [id number]) Out-Patient Physical Therapy Visit Information Visit Information Visit Type Treatment Note Visit Note 11/22 G code Visit Start Time 13:45 Visit Stop Time 14:30 Total Visit Minutes 60 Visit Number 26 Number of [employer] C DEVELOPER Visits 0 PT-OP-C Subjective Start: 11/15/17 08:11 Freq: Status: Active Protocol: Document 01/23/18 15:15 SAK (Rec: 01/23/18 16:33 SAK [id number]) OP-PT Subjective Patient Comments Patient Comments Reports decreased pain for at least 3 days after last treatment. OP-PT Pain Assessment Pain Behaviors Pain Behaviors Facial Grimacing Guarding Wincing PT-OP-D Balance Start: 11/15/17 08:11 Freq: Status: Active Protocol: Document 11/15/17 16:39 SAK (Rec: 11/15/17 17:14 SAK [id number]) Brown Balance Assessment Total Score Brown Impairment Rating 20 to 39% Impaired (Score 34- 44) Tinetti Balance Assessment Scoring and Interpretation Interpretation of Scores At risk for falls (19-24) Tinetti Impairment Rating from Composite 20 to <40% Impaired (Score 17- Score 22) PT-OP-E Functional Tests Start: 11/15/17 08:11 Freq: Status: Active Protocol: Document 11/15/17 16:39 SAK (Rec: 11/15/17 17:14 SAK [id number]) Functional Tests Dynamic Gait Index (DGI) Score 13 DGI Impairment Rating 40 to <60% Impaired (Score 10- 14) Five Times Sit to Stand Test Score 16 sec Comments using hands Timed Up and Go (TUG) Score 18 sec Comments no cane TUG Impairment Rating 80 to <100% Impaired (Score 18 -19) Tinetti Balance and Gait Assessment Balance Score 14 Gait Score 6 Composite Score Impairment Rating 20 to <40% Impaired (Score 17- 22) PT-OP-G Mobility & Gait Start: 11/15/17 08:11 Freq: Status: Active Protocol: Document 11/15/17 16:39 [facility] (Rec: 11/15/17 17:14 [facility] [id number]) OP Gait Assessment Gait Gait Assistance Required: Independent Assistive Devices Assistive Device Straight Cane Orthotic/Prosthetic Devices or Brace: No Gait Deviations General Gait Pattern Decreased Stride Length Decreased Feet Clearance Wide Based Gait Factors Limiting Gait Function Factors Limiting Gait Function Abnormal Tonal Influences Decreased Strength Poor Balance Stair Climbing Evaluation Evaluation Level of Assist On Stairs Independent Devices Stair Climbing Assistive Devices Right Railing Technique/Endurance Stair Climbing Direction Ascend and Descend Stair Climbing Technique Step Over Step Step to Step Comments Stair Climbing Comments alternating pattern to ascend, step-to to descend PT-OP-Q Treatments Start: 11/15/17 08:11 Freq: Status: Active Protocol: Document 01/23/18 15:15 [facility] (Rec: 01/23/18 16:33 [facility] [id number]) Gym Equipment Sport Cord 1 Exercise Details backward gait Cord/Resistance green Reps/Duration 10 Gait Training Gait Activity 4 Description Amb w/cane Comments cueing to dec trunk lean & inc RLE step & extend L knee during stance 1 Description Gait drills for increased step length Device Used gait belt Level of Assistance CG to min assist at mirror for visual feedback Manual Therapy Treatment Soft Tissue Mobilization 1 Body Location QL, paraspinals left Mobilization Type Rolling Intensity/Depth Moderate Body Position Sidelying right Self-Care/Home Management Treatment Activities Self-Care/Home Management Activities Consider use of scooter to allow for increased community mobility tolerance including walks with . PT-OP-R Modalities Start: 11/15/17 08:11 Freq: Status: Active Protocol: Document 01/23/18 15:15 [facility] (Rec: 01/23/18 16:33 [facility] [id number]) Ultrasound Therapy Treatment Left Lower Back Treatment Duration (minutes) 8 Patient Position Sidelying Frequency Setting (mHz) 1 Duty Cycle 100% Intensity Setting (w/cm2) 1.5 PT-OP-T Assessment and Plan Start: 11/15/17 16:38 Freq: Status: Active Protocol: Document 01/23/18 15:15 [facility] (Rec: 01/23/18 16:33 SAK [id number]) Physical Therapy Assessment Impairments Impairments Activity Tolerance Balance Functional Activities Functional Mobility Gait Pain Posture Strength Tone Other Concerns Fall Risk moderate fall risk Barriers to Rehabilitation pain, tremors Goals Seven Impairment pain Gas Welder Apprentice Goal (LTG) decrease pain to 1-2/10 to allow patient to return to usual activities LTG Duration 2 months Six Impairment Gait and Balance Shelter Goal (LTG) Improve Dynamic Gait Index score to 22 to improve safety of mobility in the home and community LTG Duration 2 months Five Impairment Balance Shelter Goal (LTG) Imrpve Brown Balance Score to 42 to improve safety of mobility in the home and community LTG Duration 2 months Four Impairment Balance and gait Shelter Goal (LTG) Improve Tinetti gait and balance score to 24/28 to improve safety of mobility at home and in the community LTG Duration 2 months Three Shelter Goal (LTG) Functional mobility: Five times sit to stand; improve to 12 seconds without UE use LTG Duration 2 months Two Impairment Strength Gas Welder Apprentice Goal (LTG) Improve left LE strength to 4/ 5 LTG Duration 2 months One Impairment gait; stair negotiation Shelter Goal (LTG) Gait on stairs with unilateral rail safely and independently for safe household mobility LTG Duration 2 months Progress Towards Goals Progress Towards Goals Slow Progress due to Medical Issues Assessment Summary Assessment Improved activity/ther ex tolerance. Benefits highly from modalities and manual therapy for pain management of left sided back pain. Physical Therapy Plan Frequency and Duration Frequency of Treatment 1x/Week Duration of Treatment 2 months Plan of Care Start Date 01/17/18 Plan of Care End Date 03/20/18 Therapeutic Interventions Therapeutic Interventions Balance Training Gait Training Home Exercise Program Neuromuscular Re-education Patient/Caregiver Education Self-Care/Home Management Therapeutic Activities Therapeutic Exercises Modalities Cold Pack/Ice Massage Electric Stimulation Hot Packs Ultrasound Next Visit Focus/Plan Next Note Type Treatment Note Next Visit Plan Pain management as needed, progress therapeutic exercise and activities for strengthening, balance, gait training, neur re-ed. Potential further discussion regarding benefits of scooter for community mobility.
--- NOTE | 2018-02-01 16:15 | PT.OTN ---
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 (Rec: 02/01/18 16:15 [facility] [id number]) Out-Patient Physical Therapy Visit Information Visit Information Visit Type Treatment Note Visit Note 12/23 G code Visit Start Time 13:00 Visit Stop Time 14:00 Total Visit Minutes 60 Visit Number 27 Number of EXPERT WITNESS Visits 0 PT-OP-C Subjective Start: 11/15/17 08:11 Freq: Status: Active Protocol: Document 02/01/18 16:10 [facility] (Rec: 02/01/18 16:15 [facility] [id number]) OP-PT Subjective Patient Comments Patient Comments Reports he felt like the US & heat really helped last session. He wants to work on his gait, because he feels like his stability has dec since his back started hurting & has noticed inc tone. PT-OP-D Balance Start: 11/15/17 08:11 Freq: Status: Active Protocol: Document 11/15/17 16:39 SAK (Rec: 11/15/17 17:14 [facility] [id number]) Brown Balance Assessment Total Score Brown Impairment Rating 20 to 39% Impaired (Score 34- 44) Tinetti Balance Assessment Scoring and Interpretation Interpretation of Scores At risk for falls (19-24) Tinetti Impairment Rating from Composite 20 to <40% Impaired (Score 17- Score 22) PT-OP-E Functional Tests Start: 11/15/17 08:11 Freq: Status: Active Protocol: Document 11/15/17 16:39 SAK (Rec: 11/15/17 17:14 SAK [id number]) Functional Tests Dynamic Gait Index (DGI) Score 13 DGI Impairment Rating 40 to <60% Impaired (Score 10- 14) Five Times Sit to Stand Test Score 16 sec Comments using hands Timed Up and Go (TUG) Score 18 sec Comments no cane TUG Impairment Rating 80 to <100% Impaired (Score 18 -19) Tinetti Balance and Gait Assessment Balance Score 14 Gait Score 6 Composite Score Impairment Rating 20 to <40% Impaired (Score 17- 22) PT-OP-G Mobility & Gait Start: 11/15/17 08:11 Freq: Status: Active Protocol: Document 11/15/17 16:39 [facility] (Rec: 11/15/17 17:14 [facility] [id number]) OP Gait Assessment Gait Gait Assistance Required: Independent Assistive Devices Assistive Device Straight Cane Orthotic/Prosthetic Devices or Brace: No Gait Deviations General Gait Pattern Decreased Stride Length Decreased Feet Clearance Wide Based Gait Factors Limiting Gait Function Factors Limiting Gait Function Abnormal Tonal Influences Decreased Strength Poor Balance Stair Climbing Evaluation Evaluation Level of Assist On Stairs Independent Devices Stair Climbing Assistive Devices Right Railing Technique/Endurance Stair Climbing Direction Ascend and Descend Stair Climbing Technique Step Over Step Step to Step Comments Stair Climbing Comments alternating pattern to ascend, step-to to descend PT-OP-Q Treatments Start: 11/15/17 08:11 Freq: Status: Active Protocol: Document 02/01/18 16:10 [facility] (Rec: 02/01/18 16:15 [facility] [id number]) Gait Training Gait Activity 4 Description Amb w/cane Comments cueing to dec trunk lean & inc RLE step & extend L knee during stance indoor & outdoor 3 Description up/down curb Device Used cane Level of Assistance min A 1 Description Gait drills for increased step length Device Used gait belt Level of Assistance CG to min assist at mirror for visual feedback PT-OP-R Modalities Start: 11/15/17 08:11 Freq: Status: Active Protocol: Document 02/01/18 16:10 [facility] (Rec: 02/01/18 16:15 [facility] [id number]) Hot Pack/Cold Pack Treatment Hot Pack Location Lumbar/L side Patient Position Sidelying Treatment Duration (minutes) 15 Ultrasound Therapy Treatment Left Lower Back Treatment Duration (minutes) 8 Patient Position Sidelying Frequency Setting (mHz) 1 Duty Cycle 100% Intensity Setting (w/cm2) 1.2 PT-OP-T Assessment and Plan Start: 11/15/17 16:38 Freq: Status: Active Protocol: Document 02/01/18 16:10 [facility] (Rec: 02/01/18 16:15 [facility] [id number]) Physical Therapy Assessment Goals Seven Impairment pain Shelter Goal (LTG) decrease pain to 1-2/10 to allow patient to return to usual activities LTG Duration 2 months Six Impairment Gait and Balance Auto Damage Trainee Goal (LTG) Improve Dynamic Gait Index score to 22 to improve safety of mobility in the home and community LTG Duration 2 months Five Impairment Balance Shelter Goal (LTG) Imrpve Brown Balance Score to 42 to improve safety of mobility in the home and community LTG Duration 2 months Four Impairment Balance and gait Shelter Goal (LTG) Improve Tinetti gait and balance score to 24/28 to improve safety of mobility at home and in the community LTG Duration 2 months Three Auto Damage Trainee Goal (LTG) Functional mobility: Five times sit to stand; improve to 12 seconds without UE use LTG Duration 2 months Two Impairment Strength Auto Damage Trainee Goal (LTG) Improve left LE strength to 4/ 5 LTG Duration 2 months One Impairment gait; stair negotiation Auto Damage Trainee Goal (LTG) Gait on stairs with unilateral rail safely and independently for safe household mobility LTG Duration 2 months Assessment Summary Assessment Pt is improving since mm spasm in L LB region,b ut cont to be limited by this pain. He does have good improvement with pain after US & MHP. Physical Therapy Plan Frequency and Duration Frequency of Treatment 1x/Week Duration of Treatment 2 months Plan of Care Start Date 01/17/18 Plan of Care End Date 03/20/18 Next Visit Focus/Plan Next Note Type Treatment Note Next Visit Plan Advance pain management & cont to progress amb & balance as tolerated
--- NOTE | 2018-02-10 12:08 | PT.OTN ---
Current Diagnoses Hemiplegia, unspecified affecting unspecified side (02/07/18) Cerebral infarction due to unspecified occlusion or stenosis of right middle cerebral artery (02/07/18) Difficulty in walking, not elsewhere classified (02/07/18) Other abnormalities of gait and mobility (02/07/18) Weakness (02/07/18) Physical Therapy Treatment Note PT-OP-A Visit Information Start: 11/15/17 08:11 Freq: Status: Active Protocol: Document 02/07/18 13:45 SAK (Rec: 02/10/18 12:08 [facility] [id number]) Out-Patient Physical Therapy Visit Information Visit Information Visit Type Treatment Note Visit Note 01/22 G code Visit Start Time 13:45 Visit Stop Time 14:45 Total Visit Minutes 60 Visit Number 28 Number of LAB COORDINATOR Visits 0 PT-OP-C Subjective Start: 11/15/17 08:11 Freq: Status: Active Protocol: Document 02/07/18 13:45 SAK (Rec: 02/10/18 12:08 [facility] [id number]) OP-PT Subjective Patient Comments Patient Comments Reports he felt better again after ultrasound and moist heat after last session, but then pain increased again especially with doing more because he was feeling better. OP-PT Pain Assessment Pain Behaviors Pain Behaviors Facial Grimacing Guarding Wincing PT-OP-D Balance Start: 11/15/17 08:11 Freq: Status: Active Protocol: Document 11/15/17 16:39 SAK (Rec: 11/15/17 17:14 [facility] [id number]) Brown Balance Assessment Total Score Brown Impairment Rating 20 to 39% Impaired (Score 34- 44) Tinetti Balance Assessment Scoring and Interpretation Interpretation of Scores At risk for falls (19-24) Tinetti Impairment Rating from Composite 20 to <40% Impaired (Score 17- Score 22) PT-OP-E Functional Tests Start: 11/15/17 08:11 Freq: Status: Active Protocol: Document 11/15/17 16:39 SAK (Rec: 11/15/17 17:14 [facility] [id number]) Functional Tests Dynamic Gait Index (DGI) Score 13 DGI Impairment Rating 40 to <60% Impaired (Score 10- 14) Five Times Sit to Stand Test Score 16 sec Comments using hands Timed Up and Go (TUG) Score 18 sec Comments no cane TUG Impairment Rating 80 to <100% Impaired (Score 18 -19) Tinetti Balance and Gait Assessment Balance Score 14 Gait Score 6 Composite Score Impairment Rating 20 to <40% Impaired (Score 17- 22) PT-OP-G Mobility & Gait Start: 11/15/17 08:11 Freq: Status: Active Protocol: Document 11/15/17 16:39 [facility] (Rec: 11/15/17 17:14 [facility] [id number]) OP Gait Assessment Gait Gait Assistance Required: Independent Assistive Devices Assistive Device Straight Cane Orthotic/Prosthetic Devices or Brace: No Gait Deviations General Gait Pattern Decreased Stride Length Decreased Feet Clearance Wide Based Gait Factors Limiting Gait Function Factors Limiting Gait Function Abnormal Tonal Influences Decreased Strength Poor Balance Stair Climbing Evaluation Evaluation Level of Assist On Stairs Independent Devices Stair Climbing Assistive Devices Right Railing Technique/Endurance Stair Climbing Direction Ascend and Descend Stair Climbing Technique Step Over Step Step to Step Comments Stair Climbing Comments alternating pattern to ascend, step-to to descend PT-OP-Q Treatments Start: 11/15/17 08:11 Freq: Status: Active Protocol: Document 02/07/18 13:45 [facility] (Rec: 02/10/18 12:08 [facility] [id number]) Cardio Equipment Recumbent Stepper (Sci-Fit) Duration (Minutes) 5 Resistance 1 Other for reciprocal LE and UE movement Therapeutic Exercises Supine Exercises 4 Supine Exercise Name TA with isometric hip add, hip ab/ER with L1 TB Side bilateral Gait Training Gait Activity 4 Description gait without device Surface SB to CGA, cues Comments cueing to dec trunk lean & inc RLE step & extend L knee during stance 1 Description Gait drills for increased step length Device Used gait belt Level of Assistance CG to min assist at mirror for visual feedback Manual Therapy Treatment Soft Tissue Mobilization 1 Body Location QL, paraspinals left Mobilization Type Rolling Intensity/Depth Moderate Body Position Sidelying right PT-OP-R Modalities Start: 11/15/17 08:11 Freq: Status: Active Protocol: Document 02/07/18 13:45 [facility] (Rec: 02/10/18 12:08 [facility] [id number]) Hot Pack/Cold Pack Treatment Hot Pack Location Lumbar/L side Patient Position Sidelying Treatment Duration (minutes) 15 PT-OP-T Assessment and Plan Start: 11/15/17 16:38 Freq: Status: Active Protocol: Document 02/07/18 13:45 NATHANIEL (Rec: 02/10/18 12:08 NATHANIEL [id number]) Physical Therapy Assessment Assessment Summary Assessment Patient continues to benefit from modalities and manual treatment for his pain but pain is easily exacerbated and patient is reluctanct to do much activity or exercise due to the pain resulting in a decline in his gait and balance Physical Therapy Plan Frequency and Duration Frequency of Treatment 1x/Week Duration of Treatment 2 months Plan of Care Start Date 01/17/18 Plan of Care End Date 03/20/18 Therapeutic Interventions Therapeutic Interventions Balance Training Gait Training Home Exercise Program Neuromuscular Re-education Patient/Caregiver Education Self-Care/Home Management Therapeutic Activities Therapeutic Exercises Modalities Cold Pack/Ice Massage Electric Stimulation Hot Packs Ultrasound Next Visit Focus/Plan Next Note Type Treatment Note Next Visit Plan Advance pain management & cont to progress amb & balance as tolerated
--- NOTE | 2018-02-27 14:04 | PT.OTN ---
Current Diagnoses Hemiplegia, unspecified affecting unspecified side (02/27/18) Cerebral infarction due to unspecified occlusion or stenosis of right middle cerebral artery (02/27/18) Difficulty in walking, not elsewhere classified (02/27/18) Other abnormalities of gait and mobility (02/27/18) Weakness (02/27/18) Physical Therapy Treatment Note PT-OP-A Visit Information Start: 11/15/17 08:11 Freq: Status: Active Protocol: Document 02/27/18 13:58 [facility] (Rec: 02/27/18 14:04 [facility] [id number]) Out-Patient Physical Therapy Visit Information Visit Information Visit Type Treatment Note Visit Note 29 total vists Visit Start Time 13:00 Visit Stop Time 13:55 Total Visit Minutes 55 Visit Number 02/22 Number of CAD DESIGN ENGINEER Visits 0 PT-OP-C Subjective Start: 11/15/17 08:11 Freq: Status: Active Protocol: Document 02/27/18 13:58 [facility] (Rec: 02/27/18 14:04 [facility] [id number]) OP-PT Subjective Patient Comments Patient Comments Pt reports he fell again last Sunday when stepping down into living room. thinks he did not get a proper base of support when he stepped down and he fell back and hit his head. He went to ER where they cleared him of head injury or back fx. PT-OP-D Balance Start: 11/15/17 08:11 Freq: Status: Active Protocol: Document 11/15/17 16:39 [facility] (Rec: 11/15/17 17:14 [facility] [id number]) Brown Balance Assessment Total Score Brown Impairment Rating 20 to 39% Impaired (Score 34- 44) Tinetti Balance Assessment Scoring and Interpretation Interpretation of Scores At risk for falls (19-24) Tinetti Impairment Rating from Composite 20 to <40% Impaired (Score 17- Score 22) PT-OP-E Functional Tests Start: 11/15/17 08:11 Freq: Status: Active Protocol: Document 11/15/17 16:39 [facility] (Rec: 11/15/17 17:14 [facility] [id number]) Functional Tests Dynamic Gait Index (DGI) Score 13 DGI Impairment Rating 40 to <60% Impaired (Score 10- 14) Five Times Sit to Stand Test Score 16 sec Comments using hands Timed Up and Go (TUG) Score 18 sec Comments no cane TUG Impairment Rating 80 to <100% Impaired (Score 18 -19) Tinetti Balance and Gait Assessment Balance Score 14 Gait Score 6 Composite Score Impairment Rating 20 to <40% Impaired (Score 17- 22) PT-OP-G Mobility & Gait Start: 11/15/17 08:11 Freq: Status: Active Protocol: Document 11/15/17 16:39 [facility] (Rec: 11/15/17 17:14 [facility] [id number]) OP Gait Assessment Gait Gait Assistance Required: Independent Assistive Devices Assistive Device Straight Cane Orthotic/Prosthetic Devices or Brace: No Gait Deviations General Gait Pattern Decreased Stride Length Decreased Feet Clearance Wide Based Gait Factors Limiting Gait Function Factors Limiting Gait Function Abnormal Tonal Influences Decreased Strength Poor Balance Stair Climbing Evaluation Evaluation Level of Assist On Stairs Independent Devices Stair Climbing Assistive Devices Right Railing Technique/Endurance Stair Climbing Direction Ascend and Descend Stair Climbing Technique Step Over Step Step to Step Comments Stair Climbing Comments alternating pattern to ascend, step-to to descend PT-OP-Q Treatments Start: 11/15/17 08:11 Freq: Status: Active Protocol: Document 02/27/18 13:58 [facility] (Rec: 02/27/18 14:04 [facility] [id number]) Gait Training Gait Activity 4 Description Amb w/cane Surface SB to CGA, cues Comments cueing to dec trunk lean & inc RLE step & extend L knee during stance indoor 2 Description fwd/back along rail Comments focus on large steps 1 Description Gait drills for increased step length Device Used gait belt Level of Assistance CG to min assist at mirror for visual feedback Manual Therapy Treatment Soft Tissue Mobilization 1 Body Location QL, paraspinals left Mobilization Type Rolling Intensity/Depth Moderate Body Position Sidelying right PT-OP-R Modalities Start: 11/15/17 08:11 Freq: Status: Active Protocol: Document 02/27/18 13:58 [facility] (Rec: 02/27/18 14:04 [facility] [id number]) Hot Pack/Cold Pack Treatment Hot Pack Location Lumbar/L side Patient Position Sidelying Treatment Duration (minutes) 5 Comments d/t time constraint PT-OP-T Assessment and Plan Start: 11/15/17 16:38 Freq: Status: Active Protocol: Document 02/27/18 13:58 [facility] (Rec: 02/27/18 14:04 [facility] [id number]) Physical Therapy Assessment Goals Seven Impairment pain Penitentiary Goal (LTG) decrease pain to 1-2/10 to allow patient to return to usual activities LTG Duration 2 months Six Impairment Gait and Balance Electric Utility Lineworker Goal (LTG) Improve Dynamic Gait Index score to 22 to improve safety of mobility in the home and community LTG Duration 2 months Five Impairment Balance Electric Utility Lineworker Goal (LTG) Imrpve Brown Balance Score to 42 to improve safety of mobility in the home and community LTG Duration 2 months Four Impairment Balance and gait Penitentiary Goal (LTG) Improve Tinetti gait and balance score to 24/28 to improve safety of mobility at home and in the community LTG Duration 2 months Two Impairment Strength Electric Utility Lineworker Goal (LTG) Improve left LE strength to 4/ 5 LTG Duration 2 months One Impairment gait; stair negotiation Electric Utility Lineworker Goal (LTG) Gait on stairs with unilateral rail safely and independently for safe household mobility LTG Duration 2 months Assessment Summary Assessment Pt had progressed further, but after fall, pt has had dec balance & dec stride length with gait d/t pain. Pain cont to be a larger limitor of his mobility at this time. Physical Therapy Plan Frequency and Duration Frequency of Treatment 1x/Week Duration of Treatment 2 months Plan of Care Start Date 01/17/18 Plan of Care End Date 03/20/18 Next Visit Focus/Plan Next Note Type Treatment Note Next Visit Plan Advance pain management & cont to progress amb & balance as tolerated
--- NOTE | 2018-03-07 16:02 | PT.OTN ---
Current Diagnoses Hemiplegia, unspecified affecting unspecified side (03/07/18) Cerebral infarction due to unspecified occlusion or stenosis of right middle cerebral artery (03/07/18) Difficulty in walking, not elsewhere classified (03/07/18) Other abnormalities of gait and mobility (03/07/18) Weakness (03/07/18) Physical Therapy Treatment Note PT-OP-A Visit Information Start: 11/15/17 08:11 Freq: Status: Active Protocol: Document 03/07/18 15:23 [facility] (Rec: 03/07/18 16:02 [facility] [id number]) Out-Patient Physical Therapy Visit Information Visit Information Visit Type Treatment Note Visit Note 30 total vists Visit Start Time 13:45 Visit Stop Time 14:40 Total Visit Minutes 55 Visit Number 03/25 Number of RESTAURANT SHIFT LEADER Visits 0 PT-OP-C Subjective Start: 11/15/17 08:11 Freq: Status: Active Protocol: Document 03/07/18 15:23 [facility] (Rec: 03/07/18 16:02 [facility] [id number]) OP-PT Subjective Patient Comments Patient Comments reports pt seems to be doing a little better. Pt reports he feels best right after therapy. PT-OP-D Balance Start: 11/15/17 08:11 Freq: Status: Active Protocol: Document 11/15/17 16:39 [facility] (Rec: 11/15/17 17:14 [facility] [id number]) Brown Balance Assessment Total Score Brown Impairment Rating 20 to 39% Impaired (Score 34- 44) Tinetti Balance Assessment Scoring and Interpretation Interpretation of Scores At risk for falls (19-24) Tinetti Impairment Rating from Composite 20 to <40% Impaired (Score 17- Score 22) PT-OP-E Functional Tests Start: 11/15/17 08:11 Freq: Status: Active Protocol: Document 11/15/17 16:39 [facility] (Rec: 11/15/17 17:14 [facility] [id number]) Functional Tests Dynamic Gait Index (DGI) Score 13 DGI Impairment Rating 40 to <60% Impaired (Score 10- 14) Five Times Sit to Stand Test Score 16 sec Comments using hands Timed Up and Go (TUG) Score 18 sec Comments no cane TUG Impairment Rating 80 to <100% Impaired (Score 18 -19) Tinetti Balance and Gait Assessment Balance Score 14 Gait Score 6 Composite Score Impairment Rating 20 to <40% Impaired (Score 17- 22) PT-OP-G Mobility & Gait Start: 11/15/17 08:11 Freq: Status: Active Protocol: Document 11/15/17 16:39 [facility] (Rec: 11/15/17 17:14 [facility] [id number]) OP Gait Assessment Gait Gait Assistance Required: Independent Assistive Devices Assistive Device Straight Cane Orthotic/Prosthetic Devices or Brace: No Gait Deviations General Gait Pattern Decreased Stride Length Decreased Feet Clearance Wide Based Gait Factors Limiting Gait Function Factors Limiting Gait Function Abnormal Tonal Influences Decreased Strength Poor Balance Stair Climbing Evaluation Evaluation Level of Assist On Stairs Independent Devices Stair Climbing Assistive Devices Right Railing Technique/Endurance Stair Climbing Direction Ascend and Descend Stair Climbing Technique Step Over Step Step to Step Comments Stair Climbing Comments alternating pattern to ascend, step-to to descend PT-OP-Q Treatments Start: 11/15/17 08:11 Freq: Status: Active Protocol: Document 03/07/18 15:23 [facility] (Rec: 03/07/18 16:02 [facility] [id number]) Gait Training Gait Activity 4 Description Amb w/cane Surface SB to CGA, cues Comments cueing to dec trunk lean & inc RLE step & extend L knee during stance indoor Neuro Re-Education Treatment Balance Activities 1 Details balance board Comments balancing fwd & side on board & wt shifting fwd/back & side/ side PT-OP-R Modalities Start: 11/15/17 08:11 Freq: Status: Active Protocol: Document 03/07/18 15:23 [facility] (Rec: 03/07/18 16:02 [facility] [id number]) Hot Pack/Cold Pack Treatment Hot Pack Location Lumbar/L side Patient Position Sidelying Treatment Duration (minutes) 15 Ultrasound Therapy Treatment Left Lower Back Treatment Duration (minutes) 8 Patient Position Sidelying Frequency Setting (mHz) 1 Duty Cycle 100% Intensity Setting (w/cm2) 1.2 PT-OP-T Assessment and Plan Start: 11/15/17 16:38 Freq: Status: Active Protocol: Document 03/07/18 15:23 [facility] (Rec: 03/07/18 16:02 [facility] [id number]) Physical Therapy Assessment Goals Seven Impairment pain Retirement Goal (LTG) decrease pain to 1-2/10 to allow patient to return to usual activities LTG Duration 2 months Six Impairment Gait and Balance Woodwind Reeds Cutter Goal (LTG) Improve Dynamic Gait Index score to 22 to improve safety of mobility in the home and community LTG Duration 2 months Five Impairment Balance Woodwind Reeds Cutter Goal (LTG) Imrpve Brown Balance Score to 42 to improve safety of mobility in the home and community LTG Duration 2 months Four Impairment Balance and gait Retirement Goal (LTG) Improve Tinetti gait and balance score to 24/28 to improve safety of mobility at home and in the community LTG Duration 2 months Two Impairment Strength Woodwind Reeds Cutter Goal (LTG) Improve left LE strength to 4/ 5 LTG Duration 2 months One Impairment gait; stair negotiation Retirement Goal (LTG) Gait on stairs with unilateral rail safely and independently for safe household mobility LTG Duration 2 months Assessment Summary Assessment Pt progressed with gait today and was able to tolerate more balance tasks today. Physical Therapy Plan Frequency and Duration Frequency of Treatment 1x/Week Duration of Treatment 2 months Plan of Care Start Date 01/17/18 Plan of Care End Date 03/20/18 Next Visit Focus/Plan Next Note Type Progress Note Next Visit Plan Advance pain management & cont to progress amb & balance as tolerated
--- NOTE | 2018-03-14 16:14 | PT.OTN ---
Current Diagnoses Hemiplegia, unspecified affecting unspecified side (03/14/18) Cerebral infarction due to unspecified occlusion or stenosis of right middle cerebral artery (03/14/18) Difficulty in walking, not elsewhere classified (03/14/18) Other abnormalities of gait and mobility (03/14/18) Weakness (03/14/18) Physical Therapy Treatment Note PT-OP-A Visit Information Start: 11/15/17 08:11 Freq: Status: Active Protocol: Document 03/14/18 15:57 [facility] (Rec: 03/14/18 16:14 [facility] [email or web address]) Out-Patient Physical Therapy Visit Information Visit Information Visit Type Treatment Note Visit Note 31 total vists Visit Start Time 13:45 Visit Stop Time 14:40 Total Visit Minutes 55 Visit Number 07/25 Number of CHIEF ACCOUNTANT Visits 0 PT-OP-C Subjective Start: 11/15/17 08:11 Freq: Status: Active Protocol: Document 03/14/18 15:57 [facility] (Rec: 03/14/18 16:14 [facility] [id number]) OP-PT Subjective Patient Comments Patient Comments Pain to 2-09/22 PT-OP-D Balance Start: 11/15/17 08:11 Freq: Status: Active Protocol: Document 03/14/18 15:57 [facility] (Rec: 03/14/18 16:14 [facility] [email or web address]) Balance Tests Brown Balance Test Brown Balance Test Score 42 Brown Impairment Rating 20 to 39% Impaired (Score 34- 44) PT-OP-E Functional Tests Start: 11/15/17 08:11 Freq: Status: Active Protocol: Document 03/14/18 15:57 [facility] (Rec: 03/14/18 16:14 [facility] [id number]) Functional Tests Timed Up and Go (TUG) Score 40 sec Tinetti Balance and Gait Assessment Balance Score 14 Gait Score 5 Composite Score 19 Composite Score Impairment Rating 20 to <40% Impaired (Score 17- 22) PT-OP-G Mobility & Gait Start: 11/15/17 08:11 Freq: Status: Active Protocol: Document 03/14/18 15:57 [facility] (Rec: 03/14/18 16:14 [facility] [id number]) OP Mobility Evaluation Bed Mobility Supine to and from Sit Supine to sit min A Sit to supine indep PT-OP-Q Treatments Start: 05/03/18 08:11 Freq: Status: Active Protocol: Document 03/14/18 15:57 [facility] (Rec: 03/14/18 16:14 [facility] [email or web address]) Gait Training Gait Activity 4 Description gait without device Surface SB to CGA, cues Comments cueing to dec trunk lean & inc RLE step & extend L knee during stance Neuro Re-Education Treatment Balance Activities 1 Details balance board Comments balancing fwd & side on board & wt shifting fwd/back & side/ side PT-OP-R Modalities Start: 11/15/17 08:11 Freq: Status: Active Protocol: Document 03/14/18 15:57 [facility] (Rec: 03/14/18 16:14 [facility] [email or web address]) Hot Pack/Cold Pack Treatment Hot Pack Location Lumbar/L side Patient Position Sidelying Treatment Duration (minutes) 15 Ultrasound Therapy Treatment Left Lower Back Treatment Duration (minutes) 8 Patient Position Sidelying Frequency Setting (mHz) 1 Duty Cycle 100% Intensity Setting (w/cm2) 1.2 PT-OP-T Assessment and Plan Start: 11/15/17 16:38 Freq: Status: Active Protocol: Document 03/14/18 15:57 [facility] (Rec: 03/14/18 16:14 [facility] [id number]) Physical Therapy Assessment Goals Seven Impairment pain Cushion Installer Goal (LTG) decrease pain to 1-2/10 to allow patient to return to usual activities LTG Duration 04/14/18-significant improvement Six Impairment Gait and Balance Cushion Installer Goal (LTG) Improve Dynamic Gait Index score to 22 to improve safety of mobility in the home and community LTG Duration 05/14/18 Five Impairment Balance Cushion Installer Goal (LTG) Imrpve Brown Balance Score to 42 to improve safety of mobility in the home and community LTG Duration achieved Four Impairment Balance and gait Cushion Installer Goal (LTG) Improve Tinetti gait and balance score to 24/28 to improve safety of mobility at home and in the community LTG Duration 05/14/18-improving since back pain Three Cushion Installer Goal (LTG) Functional mobility: Five times sit to stand; improve to 12 seconds without UE use LTG Duration 05/14/18-improving (18 sec without UE) Two Impairment Strength Retirement Goal (LTG) Improve left LE strength to 4/ 5 LTG Duration 05/14/18 One Impairment gait; stair negotiation Cushion Installer Goal (LTG) Gait on stairs with unilateral rail safely and independently for safe household mobility LTG Duration 05/14/18-SBA Assessment Summary Assessment Pt is improving with balance and strength tasks since his most recent fall that caused LBP, which has been limiting his mobility & ability to exercise. Pt is improving again with balance and pain is decreasing, allowing him to start to return to daily tasks . He was able to go from seated to s/l without assistance today, which in the past since LB injury, he has required min-mod A. Very min A required for s/l to sit. Pt would benefit from cont PT to cont to advance balance & dec LBP. Physical Therapy Plan Frequency and Duration Frequency of Treatment 1x/Week Duration of Treatment 2 months Plan of Care Start Date 03/14/18 Plan of Care End Date 05/14/18 Therapeutic Interventions Therapeutic Interventions Balance Training Gait Training Home Exercise Program Neuromuscular Re-education Patient/Caregiver Education Self-Care/Home Management Therapeutic Activities Therapeutic Exercises Modalities Cold Pack/Ice Massage Electric Stimulation Hot Packs Ultrasound Next Visit Focus/Plan Next Note Type Treatment Note Next Visit Plan Advance pain management & cont to progress amb & balance as tolerated
--- NOTE | 2018-03-14 16:14 | PT.OPPOC ---
Current Diagnoses Hemiplegia, unspecified affecting unspecified side (03/14/18) Cerebral infarction due to unspecified occlusion or stenosis of right middle cerebral artery (03/14/18) Difficulty in walking, not elsewhere classified (03/14/18) Other abnormalities of gait and mobility (03/14/18) Weakness (03/14/18) Provider Visit Care Team Role Provider Type Mane Xiong MD Attending Provider Physician Family Provider Primary Care Provider Specialty: Internal Medicine Address: [address] [place] [address], [id number] Email: [email or web address] Plan Of Care PT-OP-T Assessment and Plan Start: 11/15/17 16:38 Freq: Status: Active Protocol: Document 03/14/18 15:57 [facility] (Rec: 03/14/18 16:14 [facility] [id number]) Physical Therapy Assessment Goals Seven Impairment pain Accounts Officer Goal (LTG) decrease pain to 1-2/10 to allow patient to return to usual activities LTG Duration 04/14/18-significant improvement Six Impairment Gait and Balance Accounts Officer Goal (LTG) Improve Dynamic Gait Index score to 22 to improve safety of mobility in the home and community LTG Duration 05/14/18 Five Impairment Balance Accounts Officer Goal (LTG) Imrpve Brown Balance Score to 42 to improve safety of mobility in the home and community LTG Duration achieved Four Impairment Balance and gait Accounts Officer Goal (LTG) Improve Tinetti gait and balance score to 24/28 to improve safety of mobility at home and in the community LTG Duration 05/14/18-improving since back pain Three Accounts Officer Goal (LTG) Functional mobility: Five times sit to stand; improve to 12 seconds without UE use LTG Duration 05/14/18-improving (18 sec without UE) Two Impairment Strength Accounts Officer Goal (LTG) Improve left LE strength to 4/ 5 LTG Duration 05/14/18 One Impairment gait; stair negotiation Accounts Officer Goal (LTG) Gait on stairs with unilateral rail safely and independently for safe household mobility LTG Duration 05/14/18-SBA Assessment Summary Assessment Pt is improving with balance and strength tasks since his most recent fall that caused LBP, which has been limiting his mobility & ability to exercise. Pt is improving again with balance and pain is decreasing, allowing him to start to return to daily tasks . He was able to go from seated to s/l without assistance today, which in the past since LB injury, he has required min-mod A. Very min A required for s/l to sit. Pt would benefit from cont PT to cont to advance balance & dec LBP. Physical Therapy Plan Frequency and Duration Frequency of Treatment 1x/Week Duration of Treatment 2 months Plan of Care Start Date 03/14/18 Plan of Care End Date 05/14/18 Therapeutic Interventions Therapeutic Interventions Balance Training Gait Training Home Exercise Program Neuromuscular Re-education Patient/Caregiver Education Self-Care/Home Management Therapeutic Activities Therapeutic Exercises Modalities Cold Pack/Ice Massage Electric Stimulation Hot Packs Ultrasound Next Visit Focus/Plan Next Note Type Treatment Note Next Visit Plan Advance pain management & cont to progress amb & balance as tolerated Plan of Care Dates Plan of Care Start Date 03/14/18 Plan of Care End Date 05/14/18 Please Sign and Return: I have reviewed this Plan of Care and certify that the skilled therapy services above are required to meet the patient?s needs. Physician Signature Date Printed Name and Credentials Clinical Instructor Signature Printed Name and Credentials
--- NOTE | 2018-03-24 13:05 | PT.OTN ---
Current Diagnoses Hemiplegia, unspecified affecting unspecified side (03/21/18) Cerebral infarction due to unspecified occlusion or stenosis of right middle cerebral artery (03/21/18) Difficulty in walking, not elsewhere classified (03/21/18) Other abnormalities of gait and mobility (03/21/18) Weakness (03/21/18) Physical Therapy Treatment Note PT-OP-A Visit Information Start: 11/15/17 08:11 Freq: Status: Active Protocol: Document 03/21/18 14:30 SAK (Rec: 03/24/18 13:05 [facility] [id number]) Out-Patient Physical Therapy Visit Information Visit Information Visit Type Treatment Note Visit Note 32 total vists Visit Start Time 14:30 Visit Stop Time 15:23 Total Visit Minutes 53 Visit Number 08/25 Number of AUTOMOBILE BODY REPAIR CHIEF Visits 0 PT-OP-C Subjective Start: 11/15/17 08:11 Freq: Status: Active Protocol: Document 03/21/18 14:30 SAK (Rec: 03/24/18 13:05 SAK [id number]) OP-PT Subjective Patient Comments Patient Comments Reports PT treatments are helping to decrease his pain. Wants to get back to being more active and get his confidence back. PT-OP-D Balance Start: 11/15/17 08:11 Freq: Status: Active Protocol: Document 03/14/18 15:57 [facility] (Rec: 03/14/18 16:14 [facility] [id number]) Balance Tests Brown Balance Test Brown Balance Test Score 42 Brown Impairment Rating 20 to 39% Impaired (Score 34- 44) PT-OP-E Functional Tests Start: 11/15/17 08:11 Freq: Status: Active Protocol: Document 03/14/18 15:57 [facility] (Rec: 03/14/18 16:14 [facility] [id number]) Functional Tests Timed Up and Go (TUG) Score 40 sec Tinetti Balance and Gait Assessment Balance Score 14 Gait Score 5 Composite Score 19 Composite Score Impairment Rating 20 to <40% Impaired (Score 17- 22) PT-OP-G Mobility & Gait Start: 11/15/17 08:11 Freq: Status: Active Protocol: Document 03/14/18 15:57 [facility] (Rec: 03/14/18 16:14 [facility] [id number]) OP Mobility Evaluation Bed Mobility Supine to and from Sit Supine to sit min A Sit to supine indep PT-OP-Q Treatments Start: 11/15/17 08:11 Freq: Status: Active Protocol: Document 03/21/18 14:30 [facility] (Rec: 03/24/18 13:05 [facility] [id number]) Gait Training Gait Activity 4 Description gait without device Surface SB to CGA, cues Comments cueing to dec trunk lean & inc RLE step & extend L knee during stance 2 Description fwd/back along rail Comments focus on large steps 1 Description Gait drills for increased step length Device Used gait belt Level of Assistance CG to min assist at mirror for visual feedback Manual Therapy Treatment Soft Tissue Mobilization 1 Body Location QL, paraspinals left Mobilization Type Rolling Intensity/Depth Moderate Body Position Sidelying right Neuro Re-Education Treatment Balance Activities 1 Details balance board Comments balancing fwd & side on board & wt shifting fwd/back & side/ side PT-OP-R Modalities Start: 11/15/17 08:11 Freq: Status: Active Protocol: Document 03/21/18 14:30 [facility] (Rec: 03/24/18 13:05 [facility] [id number]) Hot Pack/Cold Pack Treatment Hot Pack Location Lumbar/L side Patient Position Sidelying Treatment Duration (minutes) 15 Ultrasound Therapy Treatment Left Lower Back Treatment Duration (minutes) 8 Patient Position Sidelying Frequency Setting (mHz) 1 Duty Cycle 100% Intensity Setting (w/cm2) 1.2 PT-OP-T Assessment and Plan Start: 11/15/17 16:38 Freq: Status: Active Protocol: Document 03/21/18 14:30 [facility] (Rec: 03/24/18 13:05 [facility] [id number]) Physical Therapy Assessment Goals Seven Impairment pain Jail Goal (LTG) decrease pain to 1-2/10 to allow patient to return to usual activities LTG Duration 04/14/18-significant improvement Six Impairment Gait and Balance Manufacturing Team Member Goal (LTG) Improve Dynamic Gait Index score to 22 to improve safety of mobility in the home and community LTG Duration 05/14/18 Five Impairment Balance Manufacturing Team Member Goal (LTG) Imrpve Brown Balance Score to 42 to improve safety of mobility in the home and community LTG Duration achieved Four Impairment Balance and gait Manufacturing Team Member Goal (LTG) Improve Tinetti gait and balance score to 24/28 to improve safety of mobility at home and in the community LTG Duration 05/14/18-improving since back pain Three Jail Goal (LTG) Functional mobility: Five times sit to stand; improve to 12 seconds without UE use LTG Duration 05/14/18-improving (18 sec without UE) Two Impairment Strength Manufacturing Team Member Goal (LTG) Improve left LE strength to 4/ 5 LTG Duration 05/14/18 One Impairment gait; stair negotiation Manufacturing Team Member Goal (LTG) Gait on stairs with unilateral rail safely and independently for safe household mobility LTG Duration 05/14/18-SBA Assessment Summary Assessment Decreased pain with treatment, needs much cuing and encouragement for challenging gait and balance activities due to high fear of falling. Physical Therapy Plan Frequency and Duration Frequency of Treatment 1x/Week Duration of Treatment 2 months Plan of Care Start Date 03/14/18 Plan of Care End Date 05/14/18 Therapeutic Interventions Therapeutic Interventions Balance Training Gait Training Home Exercise Program Neuromuscular Re-education Patient/Caregiver Education Self-Care/Home Management Therapeutic Activities Therapeutic Exercises Modalities Cold Pack/Ice Massage Electric Stimulation Hot Packs Ultrasound Next Visit Focus/Plan Next Note Type Treatment Note Next Visit Plan Continue to progress PT activities for balance, gait, strengthening, and pain management as indicated.
--- NOTE | 2018-03-27 16:25 | PT.OTN ---
Current Diagnoses Hemiplegia, unspecified affecting unspecified side (03/27/18) Cerebral infarction due to unspecified occlusion or stenosis of right middle cerebral artery (03/27/18) Difficulty in walking, not elsewhere classified (03/27/18) Other abnormalities of gait and mobility (03/27/18) Weakness (03/27/18) Physical Therapy Treatment Note PT-OP-A Visit Information Start: 11/15/17 08:11 Freq: Status: Active Protocol: Document 03/27/18 16:15 SAK (Rec: 03/27/18 16:25 SAK [id number]) Out-Patient Physical Therapy Visit Information Visit Information Visit Type Treatment Note Visit Note 33 total visits Visit Start Time 15:15 Visit Stop Time 16:10 Total Visit Minutes 58 Visit Number 09/22 PT-OP-C Subjective Start: 11/15/17 08:11 Freq: Status: Active Protocol: Document 03/27/18 16:15 SAK (Rec: 03/27/18 16:25 SAK [id number]) OP-PT Subjective Patient Comments Patient Comments Back pain improving with treatment. PT-OP-D Balance Start: 11/15/17 08:11 Freq: Status: Active Protocol: Document 03/14/18 15:57 [facility] (Rec: 03/14/18 16:14 [facility] [email or web address]) Balance Tests Brown Balance Test Brown Balance Test Score 42 Brown Impairment Rating 20 to 39% Impaired (Score 34- 44) PT-OP-E Functional Tests Start: 11/15/17 08:11 Freq: Status: Active Protocol: Document 03/14/18 15:57 [facility] (Rec: 03/14/18 16:14 [facility] [id number]) Functional Tests Timed Up and Go (TUG) Score 40 sec Tinetti Balance and Gait Assessment Balance Score 14 Gait Score 5 Composite Score 19 Composite Score Impairment Rating 20 to <40% Impaired (Score 17- 22) PT-OP-G Mobility & Gait Start: 11/15/17 08:11 Freq: Status: Active Protocol: Document 03/14/18 15:57 [facility] (Rec: 03/14/18 16:14 [facility] [id number]) OP Mobility Evaluation Bed Mobility Supine to and from Sit Supine to sit min A Sit to supine indep PT-OP-Q Treatments Start: 11/15/17 08:11 Freq: Status: Active Protocol: Document 03/27/18 16:15 [facility] (Rec: 03/27/18 16:25 [facility] [id number]) Cardio Equipment Recumbent Elliptical (Biodex) Duration (Minutes) 5 Resistance 1 Recumbent Stepper (Sci-Fit) Other for reciprocal LE and UE movement Gym Equipment Shuttle Balance 1 Details chains red; bal fwd/bck, side/ side Reps/Duration 10 min Comments bal and weight shifts; mod UE support Therapeutic Exercises Sitting Exercises hamstrsing stretch Comments manual hamstring stretch Standing Exercises 5 Standing Exercise Name hip ext Reps/Minutes 10x Comments UE support on bar Gait Training Gait Activity 4 Description gait without device Surface SB to CGA, cues Comments cueing to dec trunk lean & inc RLE step & extend L knee during stance 2 Description backward gait Distance/Duration 4 min Manual Therapy Treatment Soft Tissue Mobilization 1 Body Location QL, paraspinals left Mobilization Type Rolling Intensity/Depth Moderate Body Position Sidelying right PT-OP-R Modalities Start: 11/15/17 08:11 Freq: Status: Active Protocol: Document 03/27/18 16:15 [facility] (Rec: 03/27/18 16:25 [facility] [id number]) Hot Pack/Cold Pack Treatment Hot Pack Location Lumbar/L side Patient Position Sitting Treatment Duration (minutes) 15 Ultrasound Therapy Treatment Left Lower Back Treatment Duration (minutes) 8 Patient Position Sidelying Frequency Setting (mHz) 1 Duty Cycle 100% Intensity Setting (w/cm2) 1.2 PT-OP-T Assessment and Plan Start: 11/15/17 16:38 Freq: Status: Active Protocol: Document 03/27/18 16:15 [facility] (Rec: 03/27/18 16:25 [facility] [id number]) Physical Therapy Assessment Goals Seven Impairment pain Fpc Goal (LTG) decrease pain to 1-2/10 to allow patient to return to usual activities LTG Duration 04/14/18-significant improvement Six Impairment Gait and Balance Fpc Goal (LTG) Improve Dynamic Gait Index score to 22 to improve safety of mobility in the home and community LTG Duration 05/14/18 Five Impairment Balance Fpc Goal (LTG) Imrpve Brown Balance Score to 42 to improve safety of mobility in the home and community LTG Duration achieved Four Impairment Balance and gait Cloud Operations Engineer Goal (LTG) Improve Tinetti gait and balance score to 24/28 to improve safety of mobility at home and in the community LTG Duration 05/14/18-improving since back pain Three Cloud Operations Engineer Goal (LTG) Functional mobility: Five times sit to stand; improve to 12 seconds without UE use LTG Duration 05/14/18-improving (18 sec without UE) Two Impairment Strength Fpc Goal (LTG) Improve left LE strength to 4/ 5 LTG Duration 05/14/18 One Impairment gait; stair negotiation Cloud Operations Engineer Goal (LTG) Gait on stairs with unilateral rail safely and independently for safe household mobility LTG Duration 05/14/18-SBA Assessment Summary Assessment Improved tolerance for ther ex today, improved backward gait after standing hip extension ex. Physical Therapy Plan Frequency and Duration Frequency of Treatment 1x/Week Duration of Treatment 2 months Plan of Care Start Date 03/14/18 Plan of Care End Date 05/14/18 Therapeutic Interventions Therapeutic Interventions Balance Training Gait Training Home Exercise Program Neuromuscular Re-education Patient/Caregiver Education Self-Care/Home Management Therapeutic Activities Therapeutic Exercises Modalities Cold Pack/Ice Massage Electric Stimulation Hot Packs Ultrasound Next Visit Focus/Plan Next Note Type Treatment Note Next Visit Plan Continue to progress PT activities for balance, gait, strengthening, and pain management as indicated.
--- NOTE | 2018-04-02 15:50 | PT.OTN ---
Current Diagnoses Hemiplegia, unspecified affecting unspecified side (04/02/18) Cerebral infarction due to unspecified occlusion or stenosis of right middle cerebral artery (04/02/18) Difficulty in walking, not elsewhere classified (04/02/18) Other abnormalities of gait and mobility (04/02/18) Weakness (04/02/18) Physical Therapy Treatment Note PT-OP-A Visit Information Start: 11/15/17 08:11 Freq: Status: Active Protocol: Document 04/02/18 15:34 SAK (Rec: 04/02/18 15:50 SAK [id number]) Out-Patient Physical Therapy Visit Information Visit Information Total Visit Minutes 58 Evaluation Information Evaluation Date 12/12/16 PT-OP-C Subjective Start: 11/15/17 08:11 Freq: Status: Active Protocol: Document 04/02/18 15:34 SAK (Rec: 04/02/18 15:50 SAK [id number]) OP-PT Subjective Patient Comments Patient Comments Reports his back was feeling better then he tweaked it again getting out of bed OP-PT Pain Assessment Pain Behaviors Pain Behaviors Facial Grimacing Guarding Wincing PT-OP-D Balance Start: 11/15/17 08:11 Freq: Status: Active Protocol: Document 03/14/18 15:57 [facility] (Rec: 03/14/18 16:14 [facility] [email or web address]) Balance Tests Brown Balance Test Brown Balance Test Score 42 Brown Impairment Rating 20 to 39% Impaired (Score 34- 44) PT-OP-E Functional Tests Start: 11/15/17 08:11 Freq: Status: Active Protocol: Document 03/14/18 15:57 [facility] (Rec: 03/14/18 16:14 [facility] [email or web address]) Functional Tests Timed Up and Go (TUG) Score 40 sec Tinetti Balance and Gait Assessment Balance Score 14 Gait Score 5 Composite Score 19 Composite Score Impairment Rating 20 to <40% Impaired (Score 17- 22) PT-OP-G Mobility & Gait Start: 11/15/17 08:11 Freq: Status: Active Protocol: Document 03/14/18 15:57 [facility] (Rec: 03/14/18 16:14 [facility] [id number]) OP Mobility Evaluation Bed Mobility Supine to and from Sit Supine to sit min A Sit to supine indep PT-OP-Q Treatments Start: 11/15/17 08:11 Freq: Status: Active Protocol: Document 04/02/18 15:34 [facility] (Rec: 04/02/18 15:50 [facility] [id number]) Cardio Equipment Recumbent Elliptical (Biodex) Duration (Minutes) 5 Resistance 1 Recumbent Stepper (Sci-Fit) Duration (Minutes) 5 Resistance 1 Gym Equipment Shuttle Balance 1 Details chains red; bal fwd/bck, side/ side Reps/Duration 10 min Comments bal and weight shifts; mod UE support Therapeutic Exercises Supine Exercises 2 Supine Exercise Name LTR Reps/Minutes 10x Sitting Exercises hamstrsing stretch Comments manual hamstring stretch Therapeutic Activity Therapeutic Activity 3 Name bed mobility Comments core emphasis with logroll Gait Training Gait Activity 4 Description gait without device Surface SB to CGA, cues Comments cueing to dec trunk lean & inc RLE step & extend L knee during stance 2 Description backward gait Distance/Duration 4 min 1 Description Gait drills for increased step length Device Used gait belt Level of Assistance CG to min assist at mirror for visual feedback Manual Therapy Treatment Soft Tissue Mobilization 1 Body Location QL, paraspinals left Mobilization Type Rolling Intensity/Depth Moderate Body Position Sidelying right Self-Care/Home Management Treatment Activities Self-Care/Home Management Activities Consider use of 4WW for gait in community to decrease reliance on , increase confidence and independence PT-OP-R Modalities Start: 11/15/17 08:11 Freq: Status: Active Protocol: Document 04/02/18 15:34 [facility] (Rec: 04/02/18 15:50 [facility] [id number]) Hot Pack/Cold Pack Treatment Hot Pack Location Lumbar/L side Patient Position Sitting Treatment Duration (minutes) 15 Ultrasound Therapy Treatment Left Lower Back Treatment Duration (minutes) 8 Patient Position Sidelying Frequency Setting (mHz) 1 Duty Cycle 100% Intensity Setting (w/cm2) 1.2 PT-OP-T Assessment and Plan Start: 11/15/17 16:38 Freq: Status: Active Protocol: Document 04/02/18 15:34 [facility] (Rec: 04/02/18 15:50 [facility] [id number]) Physical Therapy Assessment Impairments Impairments Activity Tolerance Balance Functional Activities Functional Mobility Gait Pain Posture Strength Tone Other Concerns Fall Risk moderate fall risk Barriers to Rehabilitation pain, tremors Goals Seven Impairment pain Care Home Goal (LTG) decrease pain to 1-2/10 to allow patient to return to usual activities LTG Duration 04/14/18-significant improvement Six Impairment Gait and Balance Care Home Goal (LTG) Improve Dynamic Gait Index score to 22 to improve safety of mobility in the home and community LTG Duration 05/14/18 Five Impairment Balance Care Home Goal (LTG) Imrpve Brown Balance Score to 42 to improve safety of mobility in the home and community LTG Duration achieved Four Impairment Balance and gait Tape Cutting Machine Operator Goal (LTG) Improve Tinetti gait and balance score to 24/28 to improve safety of mobility at home and in the community LTG Duration 05/14/18-improving since back pain Three Tape Cutting Machine Operator Goal (LTG) Functional mobility: Five times sit to stand; improve to 12 seconds without UE use LTG Duration 05/14/18-improving (18 sec without UE) Two Impairment Strength Care Home Goal (LTG) Improve left LE strength to 4/ 5 LTG Duration 05/14/18 One Impairment gait; stair negotiation Care Home Goal (LTG) Gait on stairs with unilateral rail safely and independently for safe household mobility LTG Duration 05/14/18-SBA Progress Towards Goals Progress Towards Goals Slow Progress due to Medical Issues Assessment Summary Assessment Improved step length right LE after hamstring stretching, gait drills. Decreased back pain after treatment. Physical Therapy Plan Frequency and Duration Frequency of Treatment 1x/Week Duration of Treatment 2 months Plan of Care Start Date 03/14/18 Plan of Care End Date 05/14/18 Therapeutic Interventions Therapeutic Interventions Balance Training Gait Training Home Exercise Program Neuromuscular Re-education Patient/Caregiver Education Self-Care/Home Management Therapeutic Activities Therapeutic Exercises Modalities Cold Pack/Ice Massage Electric Stimulation Hot Packs Ultrasound Next Visit Focus/Plan Next Note Type Treatment Note Next Visit Plan Progression of ther ex and gait training as tolerated. Emphasis on core strengthening , flexibility. Gait training with 4WW.
--- NOTE | 2018-04-17 14:32 | PT.OTN ---
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 (04/17/18) Difficulty in walking, not elsewhere classified (04/17/18) Other abnormalities of gait and mobility (04/17/18) Weakness (04/17/18) Physical Therapy Treatment Note PT-OP-A Visit Information Start: 11/15/17 08:11 Freq: Status: Active Protocol: Document 04/17/18 14:02 [facility] (Rec: 04/17/18 14:30 [facility] [id number]) Out-Patient Physical Therapy Visit Information Visit Information Visit Type Treatment Note Visit Note 35 total visits Visit Start Time 13:00 Visit Stop Time 14:00 Total Visit Minutes 60 Visit Number 11/22 PT-OP-C Subjective Start: 11/15/17 08:11 Freq: Status: Active Protocol: Document 04/17/18 14:02 [facility] (Rec: 04/17/18 14:30 [facility] [id number]) OP-PT Subjective Patient Comments Patient Comments Reports back is feeling better PT-OP-D Balance Start: 11/15/17 08:11 Freq: Status: Active Protocol: Document 03/14/18 15:57 [facility] (Rec: 03/14/18 16:14 [facility] [email or web address]) Balance Tests Brown Balance Test Brown Balance Test Score 42 Brown Impairment Rating 20 to 39% Impaired (Score 34- 44) PT-OP-E Functional Tests Start: 11/15/17 08:11 Freq: Status: Active Protocol: Document 03/14/18 15:57 [facility] (Rec: 03/14/18 16:14 [facility] [email or web address]) Functional Tests Timed Up and Go (TUG) Score 40 sec Tinetti Balance and Gait Assessment Balance Score 14 Gait Score 5 Composite Score 19 Composite Score Impairment Rating 20 to <40% Impaired (Score 17- 22) PT-OP-G Mobility & Gait Start: 11/15/17 08:11 Freq: Status: Active Protocol: Document 03/14/18 15:57 [facility] (Rec: 03/14/18 16:14 [facility] [email or web address]) OP Mobility Evaluation Bed Mobility Supine to and from Sit Supine to sit min A Sit to supine indep PT-OP-Q Treatments Start: 11/15/17 08:11 Freq: Status: Active Protocol: Document 04/17/18 14:02 [facility] (Rec: 04/17/18 14:30 [facility] [id number]) Gym Equipment Shuttle Balance 1 Details chains red; bal fwd/bck, side/ side Reps/Duration 10 min Comments bal and weight shifts; mod UE support Gait Training Gait Activity 4 Description gait without device Surface SB to CGA, cues Comments cueing to dec trunk lean & inc RLE step & extend L knee during stance 3 Description gait w/FWW Level of Assistance SBA to CGA Comments cueing to dec trunk lean & inc RLE step & extend L knee during stance 1 Description Gait drills for increased step length Device Used gait belt Level of Assistance CG to min assist at mirror for visual feedback PT-OP-R Modalities Start: 11/15/17 08:11 Freq: Status: Active Protocol: Document 04/17/18 14:02 [facility] (Rec: 04/17/18 14:30 [facility] [id number]) Hot Pack/Cold Pack Treatment Hot Pack Location Lumbar/L side Patient Position Sitting Treatment Duration (minutes) 15 Ultrasound Therapy Treatment Left Lower Back Treatment Duration (minutes) 8 Patient Position Sidelying Frequency Setting (mHz) 1 Duty Cycle 100% Intensity Setting (w/cm2) 1.2 PT-OP-T Assessment and Plan Start: 11/15/17 16:38 Freq: Status: Active Protocol: Document 04/17/18 14:02 [facility] (Rec: 04/17/18 14:30 [facility] [id number]) Physical Therapy Assessment Goals Seven Impairment pain Fpc Goal (LTG) decrease pain to 1-2/10 to allow patient to return to usual activities LTG Duration 04/14/18-significant improvement Six Impairment Gait and Balance [employer] Goal (LTG) Improve Dynamic Gait Index score to 22 to improve safety of mobility in the home and community LTG Duration 05/14/18 Five Impairment Balance [employer] Goal (LTG) Imrpve Borwn Balance Score to 42 to improve safety of mobility in the home and community LTG Duration achieved Four Impairment Balance and gait Fpc Goal (LTG) Improve Tinetti gait and balance score to 24/28 to improve safety of mobility at home and in the community LTG Duration 05/14/18-improving since back pain Three [employer] Goal (LTG) Functional mobility: Five times sit to stand; improve to 12 seconds without UE use LTG Duration 05/14/18-improving (18 sec without UE) Two Impairment Strength [employer] Goal (LTG) Improve left LE strength to 4/ 5 LTG Duration 05/14/18 One Impairment gait; stair negotiation Fpc Goal (LTG) Gait on stairs with unilateral rail safely and independently for safe household mobility LTG Duration 05/14/18-SBA Assessment Summary Assessment Pt had improved step length after step length exercises. Improved gait mechanics with cueing and work on step length . Physical Therapy Plan Frequency and Duration Frequency of Treatment 1x/Week Duration of Treatment 2 months Plan of Care Start Date 03/14/18 Plan of Care End Date 05/14/18 Next Visit Focus/Plan Next Note Type Treatment Note Next Visit Plan Progression of ther ex and gait training as tolerated. Emphasis on core strengthening , flexibility. Gait training with FWW
--- NOTE | 2018-04-24 15:03 | PT.OTN ---
Current Diagnoses Hemiplegia, unspecified affecting unspecified side (04/24/18) Cerebral infarction due to unspecified occlusion or stenosis of right middle cerebral artery (04/24/18) Difficulty in walking, not elsewhere classified (04/24/18) Other abnormalities of gait and mobility (04/24/18) Weakness (04/24/18) Physical Therapy Treatment Note PT-OP-A Visit Information Start: 11/15/17 08:11 Freq: Status: Active Protocol: Document 04/24/18 14:41 [facility] (Rec: 04/24/18 15:03 [facility] [id number]) Out-Patient Physical Therapy Visit Information Visit Information Visit Type Treatment Note Visit Note 36 total visits Visit Start Time 13:45 Visit Stop Time 14:30 Total Visit Minutes 45 Visit Number 12/23 PT-OP-C Subjective Start: 11/15/17 08:11 Freq: Status: Active Protocol: Document 04/24/18 14:41 [facility] (Rec: 04/24/18 15:03 [facility] [email or web address]) OP-PT Subjective Patient Comments Patient Comments Pt reports he has pain with bridges (encouraged to stop that exercise). PT-OP-D Balance Start: 11/15/17 08:11 Freq: Status: Active Protocol: Document 03/14/18 15:57 [facility] (Rec: 03/14/18 16:14 [facility] [email or web address]) Balance Tests Brown Balance Test Brown Balance Test Score 42 Brown Impairment Rating 20 to 39% Impaired (Score 34- 44) PT-OP-E Functional Tests Start: 11/15/17 08:11 Freq: Status: Active Protocol: Document 03/14/18 15:57 [facility] (Rec: 03/14/18 16:14 [facility] [email or web address]) Functional Tests Timed Up and Go (TUG) Score 40 sec Tinetti Balance and Gait Assessment Balance Score 14 Gait Score 5 Composite Score 19 Composite Score Impairment Rating 20 to <40% Impaired (Score 17- 22) PT-OP-G Mobility & Gait Start: 11/15/17 08:11 Freq: Status: Active Protocol: Document 03/14/18 15:57 [facility] (Rec: 03/14/18 16:14 [facility] [email or web address]) OP Mobility Evaluation Bed Mobility Supine to and from Sit Supine to sit min A Sit to supine indep PT-OP-Q Treatments Start: 11/15/17 08:11 Freq: Status: Active Protocol: Document 04/24/18 14:41 [facility] (Rec: 04/24/18 15:03 [facility] [email or web address]) Gym Equipment Shuttle Balance 1 Details chains red; bal fwd/bck, side/ side Reps/Duration 5 min Comments bal and weight shifts; mod UE support Gait Training Gait Activity 5 Description up/down stairs Device Used rail & SBA Comments step to up/down stairs 4 Description gait without device & cane Surface SB to CGA, cues Comments cueing to dec trunk lean & inc RLE step & extend L knee during stance 3 Description gait w/FWW Level of Assistance SBA to CGA Comments cueing to dec trunk lean & inc RLE step & extend L knee during stance 1 Description Gait drills for increased step length Device Used gait belt & SPC then no device Level of Assistance CG to min assist at mirror for visual feedback Comments Stepping over lines 1 foot apart Neuro Re-Education Treatment Balance Activities 1 Details kicking ball RLE>LLE Self-Care/Home Management Treatment Activities Self-Care/Home Management Activities Discussed use of FWW for home to dec stumbles and chance of fall and to help with LUE tremor. PT-OP-R Modalities Start: 11/15/17 08:11 Freq: Status: Active Protocol: Document 04/17/18 14:02 [facility] (Rec: 04/17/18 14:30 [facility] [id number]) Hot Pack/Cold Pack Treatment Hot Pack Location Lumbar/L side Patient Position Sitting Treatment Duration (minutes) 15 Ultrasound Therapy Treatment Left Lower Back Treatment Duration (minutes) 8 Patient Position Sidelying Frequency Setting (mHz) 1 Duty Cycle 100% Intensity Setting (w/cm2) 1.2 PT-OP-T Assessment and Plan Start: 11/15/17 16:38 Freq: Status: Active Protocol: Document 04/24/18 14:41 [facility] (Rec: 04/24/18 15:03 [facility] [email or web address]) Physical Therapy Assessment Goals Seven Impairment pain Correction Goal (LTG) decrease pain to 1-2/10 to allow patient to return to usual activities LTG Duration 04/14/18-significant improvement Six Impairment Gait and Balance Correction Goal (LTG) Improve Dynamic Gait Index score to 22 to improve safety of mobility in the home and community LTG Duration 05/14/18 Five Impairment Balance Correction Goal (LTG) Imrpve Brown Balance Score to 42 to improve safety of mobility in the home and community LTG Duration achieved Four Impairment Balance and gait [employer] Goal (LTG) Improve Tinetti gait and balance score to 24/28 to improve safety of mobility at home and in the community LTG Duration 05/14/18-improving since back pain Three [employer] Goal (LTG) Functional mobility: Five times sit to stand; improve to 12 seconds without UE use LTG Duration 05/14/18-improving (18 sec without UE) Two Impairment Strength Correction Goal (LTG) Improve left LE strength to 4/ 5 LTG Duration 05/14/18 One Impairment gait; stair negotiation [employer] Goal (LTG) Gait on stairs with unilateral rail safely and independently for safe household mobility LTG Duration 05/14/18-SBA Assessment Summary Assessment Pt improves with step length with further drills and cueing and had improved stability with FWW today. Encouraged to use at home d/t LOB that occur daily at home and that had occured with OT today. Physical Therapy Plan Frequency and Duration Frequency of Treatment 1x/Week Duration of Treatment 2 months Plan of Care Start Date 03/14/18 Plan of Care End Date 05/14/18 Next Visit Focus/Plan Next Note Type Treatment Note Next Visit Plan Cont to emphasize LLE stability & core stability
--- NOTE | 2018-05-01 17:52 | PT.OTN ---
Current Diagnoses Hemiplegia, unspecified affecting unspecified side (05/01/18) Cerebral infarction due to unspecified occlusion or stenosis of right middle cerebral artery (05/01/18) Difficulty in walking, not elsewhere classified (05/01/18) Other abnormalities of gait and mobility (05/01/18) Weakness (05/01/18) Physical Therapy Treatment Note PT-OP-A Visit Information Start: 11/15/17 08:11 Freq: Status: Active Protocol: Document 05/01/18 16:18 [facility] (Rec: 05/01/18 17:52 [facility] [id number]) Out-Patient Physical Therapy Visit Information Visit Information Visit Type Treatment Note Visit Note 37 total visits Visit Start Time 13:45 Visit Stop Time 14:30 Total Visit Minutes 45 Visit Number 01/22 PT-OP-C Subjective Start: 11/15/17 08:11 Freq: Status: Active Protocol: Document 05/01/18 16:18 [facility] (Rec: 05/01/18 17:52 [facility] [id number]) OP-PT Subjective Patient Comments Patient Comments Pt reports he is did his supine exercises this AM. PT-OP-D Balance Start: 11/15/17 08:11 Freq: Status: Active Protocol: Document 03/14/18 15:57 [facility] (Rec: 03/14/18 16:14 [facility] [email or web address]) Balance Tests Brown Balance Test Brown Balance Test Score 42 Brown Impairment Rating 20 to 39% Impaired (Score 34- 44) PT-OP-E Functional Tests Start: 11/15/17 08:11 Freq: Status: Active Protocol: Document 03/14/18 15:57 [facility] (Rec: 03/14/18 16:14 [facility] [email or web address]) Functional Tests Timed Up and Go (TUG) Score 40 sec Tinetti Balance and Gait Assessment Balance Score 14 Gait Score 5 Composite Score 19 Composite Score Impairment Rating 20 to <40% Impaired (Score 17- 22) PT-OP-G Mobility & Gait Start: 11/15/17 08:11 Freq: Status: Active Protocol: Document 03/14/18 15:57 [facility] (Rec: 03/14/18 16:14 [facility] [email or web address]) OP Mobility Evaluation Bed Mobility Supine to and from Sit Supine to sit min A Sit to supine indep PT-OP-Q Treatments Start: 05/03/18 08:11 Freq: Status: Active Protocol: Document 05/01/18 16:18 [facility] (Rec: 05/01/18 17:52 [facility] [id number]) Gait Training Gait Activity 4 Description gait without device & cane Surface SB to CGA, cues Comments cueing to dec trunk lean & inc RLE step & extend L knee during stance 1 Description Gait drills for increased step length Device Used gait belt & SPC then no device Level of Assistance CG to min assist at mirror for visual feedback Comments Stepping over lines 1 foot apart Neuro Re-Education Treatment Balance Activities wt shifts Details balance board side to side 1 Details kicking ball RLE>LLE Other Activities ant elevation/post depression Details ant elevation/post depression COI Comments progressed to straight leg post depression throught LLE Self-Care/Home Management Treatment Activities Self-Care/Home Management Activities edu for trying ice in elbow straight position to dec tone PT-OP-R Modalities Start: 11/15/17 08:11 Freq: Status: Active Protocol: Document 04/17/18 14:02 [facility] (Rec: 04/17/18 14:30 [facility] [id number]) Hot Pack/Cold Pack Treatment Hot Pack Location Lumbar/L side Patient Position Sitting Treatment Duration (minutes) 15 Ultrasound Therapy Treatment Left Lower Back Treatment Duration (minutes) 8 Patient Position Sidelying Frequency Setting (mHz) 1 Duty Cycle 100% Intensity Setting (w/cm2) 1.2 PT-OP-T Assessment and Plan Start: 11/15/17 16:38 Freq: Status: Active Protocol: Document 05/01/18 16:18 [facility] (Rec: 05/01/18 17:52 [facility] [id number]) Physical Therapy Assessment Goals Seven Impairment pain Care Home Goal (LTG) decrease pain to 1-2/10 to allow patient to return to usual activities LTG Duration 04/14/18-significant improvement Six Impairment Gait and Balance Care Home Goal (LTG) Improve Dynamic Gait Index score to 22 to improve safety of mobility in the home and community LTG Duration 05/14/18 Five Impairment Balance Field Specialist Goal (LTG) Imrpve Brown Balance Score to 42 to improve safety of mobility in the home and community LTG Duration achieved Four Impairment Balance and gait Field Specialist Goal (LTG) Improve Tinetti gait and balance score to 24/28 to improve safety of mobility at home and in the community LTG Duration 05/14/18-improving since back pain Three Field Specialist Goal (LTG) Functional mobility: Five times sit to stand; improve to 12 seconds without UE use LTG Duration 05/14/18-improving (18 sec without UE) Two Impairment Strength Field Specialist Goal (LTG) Improve left LE strength to 4/ 5 LTG Duration 05/14/18 One Impairment gait; stair negotiation Field Specialist Goal (LTG) Gait on stairs with unilateral rail safely and independently for safe household mobility LTG Duration 05/14/18-SBA Assessment Summary Assessment Pt had significant improvement in gait and step length after s/l PNF work. Improved ability to weight shift on balance board. Physical Therapy Plan Frequency and Duration Frequency of Treatment 1x/Week Duration of Treatment 2 months Plan of Care Start Date 03/14/18 Plan of Care End Date 05/14/18 Next Visit Focus/Plan Next Note Type Progress Note Next Visit Plan Resisted gait & progress LLE stance
--- NOTE | 2018-05-08 18:25 | PT.OTN ---
Current Diagnoses Hemiplegia, unspecified affecting unspecified side (05/08/18) Cerebral infarction due to unspecified occlusion or stenosis of right middle cerebral artery (05/08/18) Difficulty in walking, not elsewhere classified (05/08/18) Other abnormalities of gait and mobility (05/08/18) Weakness (05/08/18) Physical Therapy Treatment Note PT-OP-A Visit Information Start: 11/15/17 08:11 Freq: Status: Active Protocol: Document 05/08/18 18:07 ML (Rec: 05/08/18 18:24 ML [id number]) Out-Patient Physical Therapy Visit Information Visit Information Visit Type Progress Note Visit Note 38 total visits Visit Start Time 13:45 Visit Stop Time 14:30 Total Visit Minutes 45 Visit Number 07/25 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 PT-OP-D Balance Start: 11/15/17 08:11 Freq: Status: Active Protocol: Document 05/08/18 18:07 ML (Rec: 05/08/18 18:24 ML [id number]) Balance Tests Chamberlain Balance Test Chamberlain Balance Test Score 46/56 Chamberlain Impairment Rating 1 to 19% Impaired (Score 45-55 ) Other Other Balance Tests Performed Tinetti / Chamberlain Balance Assessment Total Score Chamberlain Impairment Rating 1 to 19% Impaired (Score 45-55 ) Tinetti Balance Assessment Scoring and Interpretation Interpretation of Scores At risk for falls (19-24) Tinetti Impairment Rating from Composite 20 to <40% Impaired (Score 17- Score 22) PT-OP-E Functional Tests Start: 11/15/17 08:11 Freq: Status: Active Protocol: Document 03/14/18 15:57 [facility] (Rec: 03/14/18 16:14 [facility] [email or web address]) Functional Tests Timed Up and Go (TUG) Score 40 sec Tinetti Balance and Gait Assessment Balance Score 14 Gait Score 5 Composite Score 19 Composite Score Impairment Rating 20 to <40% Impaired (Score 17- 22) PT-OP-G Mobility & Gait Start: 11/15/17 08:11 Freq: Status: Active Protocol: Document 03/14/18 15:57 LR (Rec: 03/14/18 16:14 [facility] [email or web address]) OP Mobility Evaluation Bed Mobility Supine to and from Sit Supine to sit min A Sit to supine indep PT-OP-Q Treatments Start: 11/15/17 08:11 Freq: Status: Active Protocol: Document 05/08/18 18:07 ML (Rec: 05/08/18 18:24 ML [id number]) Neuro Re-Education Treatment Other Activities ant elevation/post depression Details ant elevation/post depression COI PT-OP-R Modalities Start: 11/15/17 08:11 Freq: Status: Active Protocol: Document 04/17/18 14:02 [facility] (Rec: 04/17/18 14:30 [facility] [id number]) Hot Pack/Cold Pack Treatment Hot Pack Location Lumbar/L side Patient Position Sitting Treatment Duration (minutes) 15 Ultrasound Therapy Treatment Left Lower Back Treatment Duration (minutes) 8 Patient Position Sidelying Frequency Setting (mHz) 1 Duty Cycle 100% Intensity Setting (w/cm2) 1.2 PT-OP-T Assessment and Plan Start: 11/15/17 16:38 Freq: Status: Active Protocol: Document 05/08/18 18:07 ML (Rec: 05/08/18 18:24 ML [id number]) Physical Therapy Assessment Goals Seven Impairment pain Edger Technician Goal (LTG) decrease pain to 1-2/10 to allow patient to return to usual activities LTG Duration 05/08/18 - Achieved; pt reported no pain Six Impairment Gait and Balance Edger Technician Goal (LTG) Improve Dynamic Gait Index score to 22 to improve safety of mobility in the home and community LTG Duration 07/08/18 Five Impairment Balance Senior Care Goal (LTG) Imrpve Chamberlain Balance Score to 42 to improve safety of mobility in the home and community LTG Duration achieved; 05/08/18 scored 46/ 56 Four Impairment Balance and gait Senior Care Goal (LTG) Improve Tinetti gait and balance score to 24/28 to improve safety of mobility at home and in the community LTG Duration 07/08/18-improving since back pain Three Edger Technician Goal (LTG) Functional mobility: Five times sit to stand; improve to 12 seconds without UE use LTG Duration 07/08/18-improving (18 sec without UE) Two Impairment Strength Edger Technician Goal (LTG) Improve left LE strength to 4/ 5 LTG Duration 07/08/18 One Impairment gait; stair negotiation Senior Care Goal (LTG) Gait on stairs with unilateral rail safely and independently for safe household mobility LTG Duration 07/08/18-SBA Assessment Summary Assessment Pt showed improvement on his CHAMBERLAIN balance test and has recovered from his lumbar strain which was causing pain achieving his goal of returning to functional activities without pain. Therapy will now be able to focus more on his balance to narrow in on achieving those other goals. Physical Therapy Plan Frequency and Duration Frequency of Treatment 1x/Week Duration of Treatment 2 months Plan of Care Start Date 05/08/18 Plan of Care End Date 07/08/18 Therapeutic Interventions Therapeutic Interventions Balance Training Gait Training Home Exercise Program Neuromuscular Re-education Patient/Caregiver Education Self-Care/Home Management Therapeutic Activities Therapeutic Exercises Modalities Cold Pack/Ice Massage Electric Stimulation Hot Packs Ultrasound Next Visit Focus/Plan Next Note Type Treatment Note Next Visit Plan balance; shuttle balance or hurdles; big walking; obstacle course (uneven surfaces, hurdles, steps, picking up object from ground); LE strength for Sit to stands
--- NOTE | 2018-05-08 18:25 | PT.OPPOC ---
Current Diagnoses Hemiplegia, unspecified affecting unspecified side (05/08/18) Cerebral infarction due to unspecified occlusion or stenosis of right middle cerebral artery (05/08/18) Difficulty in walking, not elsewhere classified (05/08/18) Other abnormalities of gait and mobility (05/08/18) Weakness (05/08/18) Provider Visit Care Team Role Provider Type Mane Xiong MD Attending Provider Physician Family Provider Primary Care Provider Specialty: Internal Medicine Address: [address] [place] [address], [address] Email: [email or web address] Plan Of Care PT-OP-T Assessment and Plan Start: 11/15/17 16:38 Freq: Status: Active Protocol: Document 05/08/18 18:07 ML (Rec: 05/08/18 18:24 ML [id number]) Physical Therapy Assessment Goals Seven Impairment pain Automotive Salesperson Goal (LTG) decrease pain to 1-2/10 to allow patient to return to usual activities LTG Duration 05/08/18 - Achieved; pt reported no pain Six Impairment Gait and Balance Automotive Salesperson Goal (LTG) Improve Dynamic Gait Index score to 22 to improve safety of mobility in the home and community LTG Duration 07/08/18 Five Impairment Balance Retirement Goal (LTG) Imrpve Chamberlain Balance Score to 42 to improve safety of mobility in the home and community LTG Duration achieved; 05/08/18 scored 46/ 56 Four Impairment Balance and gait Automotive Salesperson Goal (LTG) Improve Tinetti gait and balance score to 24/28 to improve safety of mobility at home and in the community LTG Duration 07/08/18-improving since back pain Three Retirement Goal (LTG) Functional mobility: Five times sit to stand; improve to 12 seconds without UE use LTG Duration 07/08/18-improving (18 sec without UE) Two Impairment Strength Automotive Salesperson Goal (LTG) Improve left LE strength to 4/ 5 LTG Duration 07/08/18 One Impairment gait; stair negotiation Automotive Salesperson Goal (LTG) Gait on stairs with unilateral rail safely and independently for safe household mobility LTG Duration 07/08/18-SBA Assessment Summary Assessment Pt showed improvement on his CHAMBERLAIN balance test and has recovered from his lumbar strain which was causing pain achieving his goal of returning to functional activities without pain. Therapy will now be able to focus more on his balance to narrow in on achieving those other goals. Physical Therapy Plan Frequency and Duration Frequency of Treatment 1x/Week Duration of Treatment 2 months Plan of Care Start Date 05/08/18 Plan of Care End Date 07/08/18 Therapeutic Interventions Therapeutic Interventions Balance Training Gait Training Home Exercise Program Neuromuscular Re-education Patient/Caregiver Education Self-Care/Home Management Therapeutic Activities Therapeutic Exercises Modalities Cold Pack/Ice Massage Electric Stimulation Hot Packs Ultrasound Next Visit Focus/Plan Next Note Type Treatment Note Next Visit Plan balance; shuttle balance or hurdles; big walking; obstacle course (uneven surfaces, hurdles, steps, picking up object from ground); LE strength for Sit to stands Plan of Care Dates Plan of Care Start Date 05/08/18 Plan of Care End Date 07/08/18 Please Sign and Return: I have reviewed this Plan of Care and certify that the skilled therapy services above are required to meet the patient?s needs. Physician Signature Date Printed Name and Credentials Clinical Instructor Signature Printed Name and Credentials
--- NOTE | 2018-05-14 17:13 | PT.OTN ---
Current Diagnoses Hemiplegia, unspecified affecting unspecified side (05/14/18) Cerebral infarction due to unspecified occlusion or stenosis of right middle cerebral artery (05/14/18) Difficulty in walking, not elsewhere classified (05/14/18) Other abnormalities of gait and mobility (05/14/18) Weakness (05/14/18) Physical Therapy Treatment Note PT-OP-A Visit Information Start: 11/15/17 08:11 Freq: Status: Active Protocol: Document 05/14/18 16:05 ML (Rec: 05/14/18 16:13 ML [email or web address]) Out-Patient Physical Therapy Visit Information Visit Information Visit Type Treatment Note Visit Note 39 total visits Visit Start Time 13:45 Visit Stop Time 14:30 Total Visit Minutes 45 Visit Number 08/25 PT-OP-C Subjective Start: 11/15/17 08:11 Freq: Status: Active Protocol: Document 05/14/18 16:05 ML (Rec: 05/14/18 16:13 ML [email or web address]) OP-PT Subjective Patient Comments Patient Comments Pt reports that he is doing well today and that the post pelvic depression treatment really seems to help him. PT-OP-D Balance Start: 11/15/17 08:11 Freq: Status: Active Protocol: Document 05/08/18 18:07 ML (Rec: 05/08/18 18:24 ML [id number]) Balance Tests Brown Balance Test Brown Balance Test Score 46/56 Brown Impairment Rating 1 to 19% Impaired (Score 45-55 ) Other Other Balance Tests Performed Tinetti 19/ Brown Balance Assessment Total Score Brown Impairment Rating 1 to 19% Impaired (Score 45-55 ) Tinetti Balance Assessment Scoring and Interpretation Interpretation of Scores At risk for falls (19-24) Tinetti Impairment Rating from Composite 20 to <40% Impaired (Score 17- Score 22) PT-OP-E Functional Tests Start: 11/15/17 08:11 Freq: Status: Active Protocol: Document 03/14/18 15:57 [facility] (Rec: 03/14/18 16:14 [facility] [email or web address]) Functional Tests Timed Up and Go (TUG) Score 40 sec Tinetti Balance and Gait Assessment Balance Score 14 Gait Score 5 Composite Score 19 Composite Score Impairment Rating 20 to <40% Impaired (Score 17- 22) PT-OP-G Mobility & Gait Start: 11/15/17 08:11 Freq: Status: Active Protocol: Document 03/14/18 15:57 LR (Rec: 03/14/18 16:14 [facility] [email or web address]) OP Mobility Evaluation Bed Mobility Supine to and from Sit Supine to sit min A Sit to supine indep PT-OP-Q Treatments Start: 11/15/17 08:11 Freq: Status: Active Protocol: Document 05/14/18 16:05 ML (Rec: 05/14/18 16:13 ML [email or web address]) Gym Equipment Shuttle Balance 1 Details chains red Reps/Duration 5 min Comments static; mod UE support Gait Training Gait Activity 4 Description gait without device & cane Surface SB to CGA, cues Comments cueing to inc RLE step length Neuro Re-Education Treatment Balance Activities 3 Details side stepping Equipment parallel bars 2 Details wt shift to SLS Equipment parallel bars Other Activities ant elevation/post depression Details ant elevation/post depression COI PT-OP-R Modalities Start: 11/15/17 08:11 Freq: Status: Active Protocol: Document 04/17/18 14:02 [facility] (Rec: 04/17/18 14:30 [facility] [id number]) Hot Pack/Cold Pack Treatment Hot Pack Location Lumbar/L side Patient Position Sitting Treatment Duration (minutes) 15 Ultrasound Therapy Treatment Left Lower Back Treatment Duration (minutes) 8 Patient Position Sidelying Frequency Setting (mHz) 1 Duty Cycle 100% Intensity Setting (w/cm2) 1.2 PT-OP-T Assessment and Plan Start: 11/15/17 16:38 Freq: Status: Active Protocol: Document 05/14/18 16:05 ML (Rec: 05/14/18 16:13 ML [email or web address]) Physical Therapy Assessment Goals Seven Impairment pain Check Grader Goal (LTG) decrease pain to 1-2/10 to allow patient to return to usual activities LTG Duration 05/08/18 - Achieved; pt reported no pain Six Impairment Gait and Balance Longterm Goal (LTG) Improve Dynamic Gait Index score to 22 to improve safety of mobility in the home and community LTG Duration 07/08/18 Five Impairment Balance Longterm Goal (LTG) Imrpve Brown Balance Score to 42 to improve safety of mobility in the home and community LTG Duration achieved; 05/08/18 scored 46/ 56 Four Impairment Balance and gait Longterm Goal (LTG) Improve Tinetti gait and balance score to 24/28 to improve safety of mobility at home and in the community LTG Duration 07/08/18-improving since back pain Three Check Grader Goal (LTG) Functional mobility: Five times sit to stand; improve to 12 seconds without UE use LTG Duration 07/08/18-improving (18 sec without UE) Two Impairment Strength Longterm Goal (LTG) Improve left LE strength to 4/ 5 LTG Duration 07/08/18 One Impairment gait; stair negotiation Check Grader Goal (LTG) Gait on stairs with unilateral rail safely and independently for safe household mobility LTG Duration 07/08/18-SBA Assessment Summary Assessment Pt has shown inc in his SLS through cueing and more repetition. Pt's gait has improved after post depression /ant elevation of pelvis. 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 Physical Therapy Plan Frequency and Duration Frequency of Treatment 1x/Week Duration of Treatment 2 months Plan of Care Start Date 05/08/18 Plan of Care End Date 07/08/18 Next Visit Focus/Plan Next Note Type Treatment Note Next Visit Plan balance, hurdles, marches, big walking, obstacle course ( uneven surfaces, hurdles, steps, picking up object from ground); LE strength for Sit to stands [ End ]
--- NOTE | 2018-05-22 14:39 | PT.OTN ---
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 (05/22/18) Difficulty in walking, not elsewhere classified (05/22/18) Other abnormalities of gait and mobility (05/22/18) Weakness (05/22/18) Physical Therapy Treatment Note PT-OP-A Visit Information Start: 11/15/17 08:11 Freq: Status: Active Protocol: Document 05/22/18 14:28 ML (Rec: 05/22/18 14:34 ML [id number]) Out-Patient Physical Therapy Visit Information Visit Information Visit Type Treatment Note Visit Note 40 total visits Visit Start Time 13:35 Visit Stop Time 14:20 Total Visit Minutes 45 Visit Number 3/ Number of DRUG ENFORCEMENT ADMINISTRATION AGENT Visits 0 PT-OP-C Subjective Start: 11/15/17 08:11 Freq: Status: Active Protocol: Document 05/22/18 14:28 ML (Rec: 05/22/18 14:34 ML [id number]) OP-PT Subjective Patient Comments Patient Comments Pt mentioned again that the re -education of his pelvis really feels good and helps him with his walking. PT-OP-D Balance Start: 11/15/17 08:11 Freq: Status: Active Protocol: Document 05/08/18 18:07 ML (Rec: 05/08/18 18:24 ML [id number]) Balance Tests Brown Balance Test Brown Balance Test Score 46/56 Brown Impairment Rating 1 to 19% Impaired (Score 45-55 ) Other Other Balance Tests Performed Tinetti Brown Balance Assessment Total Score Brown Impairment Rating 1 to 19% Impaired (Score 45-55 ) Tinetti Balance Assessment Scoring and Interpretation Interpretation of Scores At risk for falls (19-24) Tinetti Impairment Rating from Composite 20 to <40% Impaired (Score 17- Score 22) PT-OP-E Functional Tests Start: 11/15/17 08:11 Freq: Status: Active Protocol: Document 03/14/18 15:57 [facility] (Rec: 03/14/18 16:14 [facility] [email or web address]) Functional Tests Timed Up and Go (TUG) Score 40 sec Tinetti Balance and Gait Assessment Balance Score 14 Gait Score 5 Composite Score 19 Composite Score Impairment Rating 20 to <40% Impaired (Score 17- 22) PT-OP-G Mobility & Gait Start: 11/15/17 08:11 Freq: Status: Active Protocol: Document 03/14/18 15:57 [facility] (Rec: 03/14/18 16:14 [facility] [email or web address]) OP Mobility Evaluation Bed Mobility Supine to and from Sit Supine to sit min A Sit to supine indep PT-OP-Q Treatments Start: 11/15/17 08:11 Freq: Status: Active Protocol: Document 05/22/18 14:28 ML (Rec: 05/22/18 14:34 ML [id number]) Gait Training Gait Activity 6 Description gait w/device Comments verbal cues for big step with R Neuro Re-Education Treatment Balance Activities 4 Details obstacle course Comments bending down to picking supervisor cones, stepping up onto a stair, and hitting a balloon on uneven surfaces Other Activities ant elevation/post depression Details ant elevation/post depression COI Comments progressed to straight leg post depression throught LLE ( resisted hip ext and ER only) PT-OP-R Modalities Start: 11/15/17 08:11 Freq: Status: Active Protocol: Document 04/17/18 14:02 [facility] (Rec: 04/17/18 14:30 [facility] [id number]) Hot Pack/Cold Pack Treatment Hot Pack Location Lumbar/L side Patient Position Sitting Treatment Duration (minutes) 15 Ultrasound Therapy Treatment Left Lower Back Treatment Duration (minutes) 8 Patient Position Sidelying Frequency Setting (mHz) 1 Duty Cycle 100% Intensity Setting (w/cm2) 1.2 PT-OP-T Assessment and Plan Start: 11/15/17 16:38 Freq: Status: Active Protocol: Document 05/22/18 14:28 ML (Rec: 05/22/18 14:34 ML [id number]) Physical Therapy Assessment Goals Seven Impairment pain Shelter Goal (LTG) decrease pain to 1-2/10 to allow patient to return to usual activities LTG Duration 05/08/18 - Achieved; pt reported no pain Six Impairment Gait and Balance Care Coordination Manager Goal (LTG) Improve Dynamic Gait Index score to 22 to improve safety of mobility in the home and community LTG Duration 07/08/18 Five Impairment Balance Care Coordination Manager Goal (LTG) Imrpve Brown Balance Score to 42 to improve safety of mobility in the home and community LTG Duration achieved; 05/08/18 scored 46/ 56 Four Impairment Balance and gait Shelter Goal (LTG) Improve Tinetti gait and balance score to 24/28 to improve safety of mobility at home and in the community LTG Duration 07/08/18-improving since back pain Three Care Coordination Manager Goal (LTG) Functional mobility: Five times sit to stand; improve to 12 seconds without UE use LTG Duration 07/08/18-improving (18 sec without UE) Two Impairment Strength Care Coordination Manager Goal (LTG) Improve left LE strength to 4/ 5 LTG Duration 07/08/18 One Impairment gait; stair negotiation Care Coordination Manager Goal (LTG) Gait on stairs with unilateral rail safely and independently for safe household mobility LTG Duration 07/08/18-SBA Assessment Summary Assessment Pt improved in his step length through re-education of his pelvis. The pt was also able to improve his steps up onto object through cueing and repetition. The pt was able to achieve good wt bearing through his L LE when cued to picking supervisor object with L hand rather than R and it allowed him to perform a deeper squat. Physical Therapy Plan Frequency and Duration Frequency of Treatment 1x/Week Duration of Treatment 2 months Plan of Care Start Date 05/08/18 Plan of Care End Date 07/08/18 Next Visit Focus/Plan Next Note Type Treatment Note Next Visit Plan balance, hurdles, marches, big walking, PNF, obstacle course (uneven surfaces, hurdles, steps, picking up object from ground w/L hand); LE strength for Sit to stands [ End ]
--- NOTE | 2018-05-29 17:53 | PT.OTN ---
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 artery (05/29/18) Difficulty in walking, not elsewhere classified (05/29/18) Other abnormalities of gait and mobility (05/29/18) Weakness (05/29/18) Physical Therapy Treatment Note PT-OP-A Visit Information Start: 11/15/17 08:11 Freq: Status: Active Protocol: Document 05/29/18 13:50 ML (Rec: 05/29/18 14:39 ML [id number]) Out-Patient Physical Therapy Visit Information Visit Information Visit Type Treatment Note Visit Note 41 total visits Visit Start Time 13:47 Visit Stop Time 14:30 Total Visit Minutes 43 Visit Number 4 Number of PAN TANK WORKER Visits 0 PT-OP-C Subjective Start: 11/15/17 08:11 Freq: Status: Active Protocol: Document 05/29/18 13:50 ML (Rec: 05/29/18 14:39 ML [id number]) OP-PT Subjective Patient Comments Patient Comments Pt noted that he is walking better at home. PT-OP-D Balance Start: 11/15/17 08:11 Freq: Status: Active Protocol: Document 05/08/18 18:07 ML (Rec: 05/08/18 18:24 ML [id number]) Balance Tests Brown Balance Test Brown Balance Test Score 46/56 Brown Impairment Rating 1 to 19% Impaired (Score 45-55 ) Other Other Balance Tests Performed Tinetti 19/28 Brown Balance Assessment Total Score Brown Impairment Rating 1 to 19% Impaired (Score 45-55 ) Tinetti Balance Assessment Scoring and Interpretation Interpretation of Scores At risk for falls (19-24) Tinetti Impairment Rating from Composite 20 to <40% Impaired (Score 17- Score 22) PT-OP-E Functional Tests Start: 11/15/17 08:11 Freq: Status: Active Protocol: Document 03/14/18 15:57 [facility] (Rec: 03/14/18 16:14 [facility] [email or web address]) Functional Tests Timed Up and Go (TUG) Score 40 sec Tinetti Balance and Gait Assessment Balance Score 14 Gait Score 5 Composite Score 19 Composite Score Impairment Rating 20 to <40% Impaired (Score 17- 22) PT-OP-G Mobility & Gait Start: 11/15/17 08:11 Freq: Status: Active Protocol: Document 03/14/18 15:57 [facility] (Rec: 03/14/18 16:14 [facility] [id number]) OP Mobility Evaluation Bed Mobility Supine to and from Sit Supine to sit min A Sit to supine indep PT-OP-Q Treatments Start: 11/15/17 08:11 Freq: Status: Active Protocol: Document 05/29/18 13:50 ML (Rec: 05/29/18 14:39 ML [id number]) Therapeutic Exercises Standing Exercises 1 Standing Exercise Name squats at bar Equipment Used bar Comments cues for correct mechanics keeping knees behind toes Gait Training Gait Activity 3 Description gait with turns Device Used SPC Level of Assistance CGA w/gait belt Comments R and L turns with 90 and 180 degree turns; cues for foot position before stepping 2 Description big walking Device Used SPC Level of Assistance gait belt CGA Comments verbal cues for big step 1 Description Gait drills for increased step length Device Used gait belt & SPC then no device Level of Assistance CG to min assist at mirror for visual feedback Comments Stepping into 1 foot carpet squares Neuro Re-Education Treatment Other Activities ant elevation/post depression Details ant elevation/post depression COI Comments progressed to straight leg post depression throught LLE ( resisted hip ext and ER only) PT-OP-R Modalities Start: 11/15/17 08:11 Freq: Status: Active Protocol: Document 04/17/18 14:02 [facility] (Rec: 04/17/18 14:30 [facility] [id number]) Hot Pack/Cold Pack Treatment Hot Pack Location Lumbar/L side Patient Position Sitting Treatment Duration (minutes) 15 Ultrasound Therapy Treatment Left Lower Back Treatment Duration (minutes) 8 Patient Position Sidelying Frequency Setting (mHz) 1 Duty Cycle 100% Intensity Setting (w/cm2) 1.2 PT-OP-T Assessment and Plan Start: 11/15/17 16:38 Freq: Status: Active Protocol: Document 05/29/18 13:50 ML (Rec: 05/29/18 14:39 ML [id number]) Physical Therapy Assessment Goals Seven Impairment pain Gore Inserter Goal (LTG) decrease pain to 1-2/10 to allow patient to return to usual activities LTG Duration 05/08/18 - Achieved; pt reported no pain Six Impairment Gait and Balance Gore Inserter Goal (LTG) Improve Dynamic Gait Index score to 22 to improve safety of mobility in the home and community LTG Duration 07/08/18 Five Impairment Balance Skilled Nursing Goal (LTG) Imrpve Brown Balance Score to 42 to improve safety of mobility in the home and community LTG Duration achieved; 05/08/18 scored 46/ 56 Four Impairment Balance and gait Skilled Nursing Goal (LTG) Improve Tinetti gait and balance score to 24/28 to improve safety of mobility at home and in the community LTG Duration 07/08/18-improving since back pain Three Skilled Nursing Goal (LTG) Functional mobility: Five times sit to stand; improve to 12 seconds without UE use LTG Duration 07/08/18-improving (18 sec without UE) Two Impairment Strength Skilled Nursing Goal (LTG) Improve left LE strength to 4/ 5 LTG Duration 07/08/18 One Impairment gait; stair negotiation Gore Inserter Goal (LTG) Gait on stairs with unilateral rail safely and independently for safe household mobility LTG Duration 07/08/18-SBA Assessment Summary Assessment Pt really improved his step length through using the carpet squares as a reference. Pt is able to improve his gait after repetition and cueing, especially after neuro re-ed through his L pelvis. Pt is able to achieve a deep squat with correct mechanics after corrections. Physical Therapy Plan Frequency and Duration Frequency of Treatment 1x/Week Duration of Treatment 2 months Plan of Care Start Date 05/08/18 Plan of Care End Date 07/08/18 Next Visit Focus/Plan Next Note Type Treatment Note Next Visit Plan balance, hurdles, marches, big walking, PNF, obstacle course (uneven surfaces, hurdles, steps, picking up object from ground w/L hand); LE strength for Sit to stands [ End ]
--- NOTE | 2018-06-05 18:20 | PT.OTN ---
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 artery (06/05/18) Difficulty in walking, not elsewhere classified (06/05/18) Other abnormalities of gait and mobility (06/05/18) Weakness (06/05/18) Physical Therapy Treatment Note PT-OP-A Visit Information Start: 11/15/17 08:11 Freq: Status: Active Protocol: Document 06/05/18 15:19 ML (Rec: 06/05/18 15:21 ML [id number]) Out-Patient Physical Therapy Visit Information Visit Information Visit Type Treatment Note Visit Note 42 total visits Visit Start Time 13:45 Visit Stop Time 14:28 Total Visit Minutes 43 Visit Number 11/22 Number of DRAGLINE MECHANIC Visits 0 PT-OP-C Subjective Start: 11/15/17 08:11 Freq: Status: Active Protocol: Document 06/05/18 15:19 ML (Rec: 06/05/18 15:21 ML [id number]) OP-PT Subjective Patient Comments Patient Comments Pt mentioned that his L leg was a bit fatigued today. PT-OP-D Balance Start: 11/15/17 08:11 Freq: Status: Active Protocol: Document 05/08/18 18:07 ML (Rec: 05/08/18 18:24 ML [id number]) Balance Tests Brown Balance Test Brown Balance Test Score 46/56 Brown Impairment Rating 1 to 19% Impaired (Score 45-55 ) Other Other Balance Tests Performed Tinetti Brown Balance Assessment Total Score Brown Impairment Rating 1 to 19% Impaired (Score 45-55 ) Tinetti Balance Assessment Scoring and Interpretation Interpretation of Scores At risk for falls (19-24) Tinetti Impairment Rating from Composite 20 to <40% Impaired (Score 17- Score 22) PT-OP-E Functional Tests Start: 11/15/17 08:11 Freq: Status: Active Protocol: Document 03/14/18 15:57 [facility] (Rec: 03/14/18 16:14 [facility] [email or web address]) Functional Tests Timed Up and Go (TUG) Score 40 sec Tinetti Balance and Gait Assessment Balance Score 14 Gait Score 5 Composite Score 19 Composite Score Impairment Rating 20 to <40% Impaired (Score 17- 22) PT-OP-G Mobility & Gait Start: 11/15/17 08:11 Freq: Status: Active Protocol: Document 03/14/18 15:57 [facility] (Rec: 03/14/18 16:14 [facility] [email or web address]) OP Mobility Evaluation Bed Mobility Supine to and from Sit Supine to sit min A Sit to supine indep PT-OP-Q Treatments Start: 11/15/17 08:11 Freq: Status: Active Protocol: Document 06/05/18 15:19 ML (Rec: 06/05/18 15:21 ML [id number]) Gym Equipment Shuttle Balance 1 Details chains red Comments static; mod UE support; WBOS and NBOS Gait Training Gait Activity 4 Description gait without device & cane Surface SB to CGA, cues Comments cueing to inc RLE step length and to pull up each leg through pelvis motion Neuro Re-Education Treatment Balance Activities marching Details for gait pelvis mobility Equipment bar Comments training with tactile cueing and assistance for inc pevlis mobility through each step Other Activities ant elevation/post depression Details ant elevation/post depression COI Comments progressed to straight leg post depression throught LLE ( resisted hip ext and ER only) PT-OP-R Modalities Start: 11/15/17 08:11 Freq: Status: Active Protocol: Document 04/17/18 14:02 [facility] (Rec: 04/17/18 14:30 [facility] [id number]) Hot Pack/Cold Pack Treatment Hot Pack Location Lumbar/L side Patient Position Sitting Treatment Duration (minutes) 15 Ultrasound Therapy Treatment Left Lower Back Treatment Duration (minutes) 8 Patient Position Sidelying Frequency Setting (mHz) 1 Duty Cycle 100% Intensity Setting (w/cm2) 1.2 PT-OP-T Assessment and Plan Start: 11/15/17 16:38 Freq: Status: Active Protocol: Document 06/05/18 15:19 ML (Rec: 06/05/18 18:03 ML [id number]) Physical Therapy Assessment Goals Seven Impairment pain Plant Operator Control Room Operator Goal (LTG) decrease pain to 1-2/10 to allow patient to return to usual activities LTG Duration 05/08/18 - Achieved; pt reported no pain Six Impairment Gait and Balance Group Home Goal (LTG) Improve Dynamic Gait Index score to 22 to improve safety of mobility in the home and community LTG Duration 07/08/18 Five Impairment Balance Group Home Goal (LTG) Imrpve Brown Balance Score to 42 to improve safety of mobility in the home and community LTG Duration achieved; 05/08/18 scored 46/ 56 Four Impairment Balance and gait Group Home Goal (LTG) Improve Tinetti gait and balance score to 24 to improve safety of mobility at home and in the community LTG Duration 07/08/18-improving since back pain Three Plant Operator Control Room Operator Goal (LTG) Functional mobility: Five times sit to stand; improve to 12 seconds without UE use LTG Duration 07/08/18-improving (18 sec without UE) Two Impairment Strength Plant Operator Control Room Operator Goal (LTG) Improve left LE strength to 4/ 5 LTG Duration 07/08/18 One Impairment gait; stair negotiation Plant Operator Control Room Operator Goal (LTG) Gait on stairs with unilateral rail safely and independently for safe household mobility LTG Duration 07/08/18-SBA Assessment Summary Assessment Pt demonstrated inc post depression of pelvis on L through neuro re-ed for gait, although he cont to lack ant elevation despite improvement through each treatment. re-ed of R could also use improvement through future visits based on ability to tactile cue the mobility through exercises and gait. Pt showed improved mobility through gait after treatment and exercises. Pt was able to achieve NBOS balance today through activities which he has not been able to do much of in past treatments. Pt performed very well despite his L LE fatigue. Physical Therapy Plan Frequency and Duration Frequency of Treatment 1x/Week Duration of Treatment 2 months Plan of Care Start Date 05/08/18 Plan of Care End Date 07/08/18 Next Visit Focus/Plan Next Note Type Treatment Note Next Visit Plan balance, hurdles, marches, big walking, PNF bilat, obstacle course (uneven surfaces, hurdles, steps, picking up object from ground w/L hand); LE strength for Sit to stands [ End ]
--- NOTE | 2018-06-12 18:32 | PT.OTN ---
Current Diagnoses Hemiplegia, unspecified affecting unspecified side (06/12/18) Cerebral infarction due to unspecified occlusion or stenosis of right middle cerebral artery (06/12/18) Difficulty in walking, not elsewhere classified (06/12/18) Other abnormalities of gait and mobility (06/12/18) Weakness (06/12/18) Physical Therapy Treatment Note PT-OP-A Visit Information Start: 11/15/17 08:11 Freq: Status: Active Protocol: Document 06/12/18 18:26 ML (Rec: 06/12/18 18:31 ML [id number]) Out-Patient Physical Therapy Visit Information Visit Information Visit Type Treatment Note Visit Note 43 total visits Visit Start Time 13:45 Visit Stop Time 14:28 Total Visit Minutes 43 Visit Number 12/23 Number of TUBE BACKER Visits 0 PT-OP-C Subjective Start: 11/15/17 08:11 Freq: Status: Active Protocol: Document 06/12/18 18:26 ML (Rec: 06/12/18 18:31 ML [id number]) OP-PT Subjective Patient Comments Patient Comments Pt mentioned that after the pelvis mobility he feels like he can move so much better and that it really helps. PT-OP-D Balance Start: 11/15/17 08:11 Freq: Status: Active Protocol: Document 05/08/18 18:07 ML (Rec: 05/08/18 18:24 ML [id number]) Balance Tests Brown Balance Test Brown Balance Test Score 46/56 Brown Impairment Rating 1 to 19% Impaired (Score 45-55 ) Other Other Balance Tests Performed Tinetti Brown Balance Assessment Total Score Brown Impairment Rating 1 to 19% Impaired (Score 45-55 ) Tinetti Balance Assessment Scoring and Interpretation Interpretation of Scores At risk for falls (19-24) Tinetti Impairment Rating from Composite 20 to <40% Impaired (Score 17- Score 22) PT-OP-E Functional Tests Start: 11/15/17 08:11 Freq: Status: Active Protocol: Document 03/14/18 15:57 [facility] (Rec: 03/14/18 16:14 [facility] [email or web address]) Functional Tests Timed Up and Go (TUG) Score 40 sec Tinetti Balance and Gait Assessment Balance Score 14 Gait Score 5 Composite Score 19 Composite Score Impairment Rating 20 to <40% Impaired (Score 17- 22) PT-OP-G Mobility & Gait Start: 11/15/17 08:11 Freq: Status: Active Protocol: Document 03/14/18 15:57 [facility] (Rec: 03/14/18 16:14 [facility] [id number]) OP Mobility Evaluation Bed Mobility Supine to and from Sit Supine to sit min A Sit to supine indep PT-OP-Q Treatments Start: 11/15/17 08:11 Freq: Status: Active Protocol: Document 06/12/18 18:26 ML (Rec: 06/12/18 18:31 ML [id number]) Gait Training Gait Activity 2 Description big walking Level of Assistance gait belt CGA Comments verbal cues for big step Neuro Re-Education Treatment Balance Activities 4 Details obstacle course Comments w/ and w/o cane; bending down to lease picker cones,hurdles, stepping up onto a stair, uneven surfaces Other Activities ant elevation/post depression Details ant elevation/post depression COI Comments progressed to reciprocal holds PT-OP-R Modalities Start: 11/15/17 08:11 Freq: Status: Active Protocol: Document 04/17/18 14:02 [facility] (Rec: 04/17/18 14:30 [facility] [id number]) Hot Pack/Cold Pack Treatment Hot Pack Location Lumbar/L side Patient Position Sitting Treatment Duration (minutes) 15 Ultrasound Therapy Treatment Left Lower Back Treatment Duration (minutes) 8 Patient Position Sidelying Frequency Setting (mHz) 1 Duty Cycle 100% Intensity Setting (w/cm2) 1.2 PT-OP-T Assessment and Plan Start: 11/15/17 16:38 Freq: Status: Active Protocol: Document 06/12/18 18:26 ML (Rec: 06/12/18 18:31 ML [id number]) Physical Therapy Assessment Goals Seven Impairment pain Half-Way Goal (LTG) decrease pain to 1-2/10 to allow patient to return to usual activities LTG Duration 05/08/18 - Achieved; pt reported no pain Six Impairment Gait and Balance Half-Way Goal (LTG) Improve Dynamic Gait Index score to 22 to improve safety of mobility in the home and community LTG Duration 07/08/18 Five Impairment Balance Telegraph Service Rater Goal (LTG) Imrpve Brown Balance Score to 42 to improve safety of mobility in the home and community LTG Duration achieved; 05/08/18 scored 46/ 56 Four Impairment Balance and gait Telegraph Service Rater Goal (LTG) Improve Tinetti gait and balance score to 24/28 to improve safety of mobility at home and in the community LTG Duration 07/08/18-improving since back pain Three Telegraph Service Rater Goal (LTG) Functional mobility: Five times sit to stand; improve to 12 seconds without UE use LTG Duration 07/08/18-improving (18 sec without UE) Two Impairment Strength Telegraph Service Rater Goal (LTG) Improve left LE strength to 4/ 5 LTG Duration 07/08/18 One Impairment gait; stair negotiation Telegraph Service Rater Goal (LTG) Gait on stairs with unilateral rail safely and independently for safe household mobility LTG Duration 07/08/18-SBA Assessment Summary Assessment Pt demonstrated improvement of gait after pelvis PNF even more than usual, making his step length almost even between legs. Pt was really challenged on obstacle course and requried cueing for correct mechanics to acheive moving through obstacles safely and appropriately. Obstacle course was achieved with much greater ease with use of cane than without. Physical Therapy Plan Frequency and Duration Frequency of Treatment 1x/Week Duration of Treatment 2 months Plan of Care Start Date 05/08/18 Plan of Care End Date 07/08/18 Next Visit Focus/Plan Next Note Type Treatment Note Next Visit Plan balance, hurdles, marches, big walking, PNF bilat, obstacle course (uneven surfaces, hurdles, steps, picking up object from ground w/L hand); LE strength for Sit to stands [ End ]
--- NOTE | 2018-06-18 14:35 | PT.OTN ---
Current Diagnoses Hemiplegia, unspecified affecting unspecified side (06/18/18) Cerebral infarction due to unspecified occlusion or stenosis of right middle cerebral artery (06/18/18) Difficulty in walking, not elsewhere classified (06/18/18) Other abnormalities of gait and mobility (06/18/18) Weakness (06/18/18) Physical Therapy Treatment Note PT-OP-A Visit Information Start: 11/15/17 08:11 Freq: Status: Active Protocol: Document 06/18/18 14:30 [facility] (Rec: 06/18/18 14:32 [facility] [id number]) Out-Patient Physical Therapy Visit Information Visit Information Visit Type Treatment Note Visit Note 44 total visits Visit Start Time 13:45 Visit Stop Time 14:27 Total Visit Minutes 42 Visit Number 01/22 Number of DAIRY FEED WORKER Visits 0 PT-OP-C Subjective Start: 11/15/17 08:11 Freq: Status: Active Protocol: Document 06/18/18 14:30 [facility] (Rec: 06/18/18 14:32 [facility] [id number]) OP-PT Subjective Patient Comments Patient Comments feels like pt has been improving. PT-OP-D Balance Start: 11/15/17 08:11 Freq: Status: Active Protocol: Document 05/08/18 18:07 ML (Rec: 05/08/18 18:24 ML [id number]) Balance Tests Brown Balance Test Brown Balance Test Score 46/56 Brown Impairment Rating 1 to 19% Impaired (Score 45-55 ) Other Other Balance Tests Performed Tinetti / Brown Balance Assessment Total Score Brown Impairment Rating 1 to 19% Impaired (Score 45-55 ) Tinetti Balance Assessment Scoring and Interpretation Interpretation of Scores At risk for falls (19-24) Tinetti Impairment Rating from Composite 20 to <40% Impaired (Score 17- Score 22) PT-OP-E Functional Tests Start: 11/15/17 08:11 Freq: Status: Active Protocol: Document 03/14/18 15:57 [facility] (Rec: 03/14/18 16:14 [facility] [email or web address]) Functional Tests Timed Up and Go (TUG) Score 40 sec Tinetti Balance and Gait Assessment Balance Score 14 Gait Score 5 Composite Score 19 Composite Score Impairment Rating 20 to <40% Impaired (Score 17- 22) PT-OP-G Mobility & Gait Start: 11/15/17 08:11 Freq: Status: Active Protocol: Document 03/14/18 15:57 [facility] (Rec: 03/14/18 16:14 [facility] [id number]) OP Mobility Evaluation Bed Mobility Supine to and from Sit Supine to sit min A Sit to supine indep PT-OP-Q Treatments Start: 11/15/17 08:11 Freq: Status: Active Protocol: Document 06/18/18 14:30 [facility] (Rec: 06/19/18 08:01 [facility] [email or web address]) Gait Training Gait Activity 6 Description gait w/device Comments verbal cues for big step with R 4 Description gait without device & cane Surface SB to CGA, cues Comments cueing to inc RLE step length and to pull up each leg through pelvis motion 2 Description walking through 1 ft squares Device Used SPC & no device Level of Assistance gait belt CGA Comments verbal cues for big step Neuro Re-Education Treatment Balance Activities 3 Details hurdles Reps/Duration 6 Comments SPC use 2 Details kicking ball Comments w/BLEs -some out of FARRUKH Other Activities ant elevation/post depression Details ant elevation/post depression COI Comments reciprocal isotonics & post depression COI with LLE resistance PT-OP-R Modalities Start: 11/15/17 08:11 Freq: Status: Active Protocol: Document 04/17/18 14:02 [facility] (Rec: 04/17/18 14:30 [facility] [id number]) Hot Pack/Cold Pack Treatment Hot Pack Location Lumbar/L side Patient Position Sitting Treatment Duration (minutes) 15 Ultrasound Therapy Treatment Left Lower Back Treatment Duration (minutes) 8 Patient Position Sidelying Frequency Setting (mHz) 1 Duty Cycle 100% Intensity Setting (w/cm2) 1.2 PT-OP-T Assessment and Plan Start: 11/15/17 16:38 Freq: Status: Active Protocol: Document 06/18/18 14:30 [facility] (Rec: 06/18/18 14:32 [facility] [id number]) Physical Therapy Assessment Goals Six Impairment Gait and Balance Tube Builder Goal (LTG) Improve Dynamic Gait Index score to 22 to improve safety of mobility in the home and community LTG Duration 07/08/18 Five Impairment Balance Intermediate Goal (LTG) Imrpve Brown Balance Score to 42 to improve safety of mobility in the home and community LTG Duration achieved; 05/08/18 scored 46/ 56 Four Impairment Balance and gait Tube Builder Goal (LTG) Improve Tinetti gait and balance score to 24/ to improve safety of mobility at home and in the community LTG Duration 07/08/18-improving since back pain Three Intermediate Goal (LTG) Functional mobility: Five times sit to stand; improve to 12 seconds without UE use LTG Duration 07/08/18-improving (18 sec without UE) Two Impairment Strength Intermediate Goal (LTG) Improve left LE strength to 4/ 5 LTG Duration 07/08/18 One Impairment gait; stair negotiation Intermediate Goal (LTG) Gait on stairs with unilateral rail safely and independently for safe household mobility LTG Duration 07/08/18-SBA Assessment Summary Assessment Pt did an excellent job with gait today after post depression COI through LLE. He cont to improve with single leg balance with no major loss of balance with kicking a rolled ball. Cont difficulty with negoitiating hurdles. Physical Therapy Plan Frequency and Duration Frequency of Treatment 1x/Week Duration of Treatment 2 months Plan of Care Start Date 05/08/18 Plan of Care End Date 07/08/18 Next Visit Focus/Plan Next Note Type Treatment Note Next Visit Plan Cont to work LLE single leg balance
--- NOTE | 2018-06-28 15:43 | PT.OTN ---
Current Diagnoses Hemiplegia, unspecified affecting unspecified side (06/28/18) Cerebral infarction due to unspecified occlusion or stenosis of right middle cerebral artery (06/28/18) Difficulty in walking, not elsewhere classified (06/28/18) Other abnormalities of gait and mobility (06/28/18) Weakness (06/28/18) Physical Therapy Treatment Note PT-OP-A Visit Information Start: 11/15/17 08:11 Freq: Status: Active Protocol: Document 06/28/18 15:30 [facility] (Rec: 06/28/18 15:43 [facility] [id number]) Out-Patient Physical Therapy Visit Information Visit Information Visit Type Treatment Note Visit Note 45 total visits Visit Start Time 14:30 Visit Stop Time 15:12 Total Visit Minutes 42 Visit Number 02/22 Number of MUSIC INDUSTRY INTERNSHIP Visits 0 PT-OP-C Subjective Start: 11/15/17 08:11 Freq: Status: Active Protocol: Document 06/28/18 15:30 [facility] (Rec: 06/28/18 15:43 [facility] [id number]) OP-PT Subjective Patient Comments Patient Comments Reports trouble getting out of bed. PT-OP-D Balance Start: 11/15/17 08:11 Freq: Status: Active Protocol: Document 05/08/18 18:07 ML (Rec: 05/08/18 18:24 ML [id number]) Balance Tests Brown Balance Test Brown Balance Test Score 46/56 Brown Impairment Rating 1 to 19% Impaired (Score 45-55 ) Other Other Balance Tests Performed Tinetti 19/28 Brown Balance Assessment Total Score Brown Impairment Rating 1 to 19% Impaired (Score 45-55 ) Tinetti Balance Assessment Scoring and Interpretation Interpretation of Scores At risk for falls (19-24) Tinetti Impairment Rating from Composite 20 to <40% Impaired (Score 17- Score 22) PT-OP-E Functional Tests Start: 11/15/17 08:11 Freq: Status: Active Protocol: Document 03/14/18 15:57 [facility] (Rec: 03/14/18 16:14 [facility] [email or web address]) Functional Tests Timed Up and Go (TUG) Score 40 sec Tinetti Balance and Gait Assessment Balance Score 14 Gait Score 5 Composite Score 19 Composite Score Impairment Rating 20 to <40% Impaired (Score 17- 22) PT-OP-G Mobility & Gait Start: 11/15/17 08:11 Freq: Status: Active Protocol: Document 03/14/18 15:57 [facility] (Rec: 03/14/18 16:14 [facility] [email or web address]) OP Mobility Evaluation Bed Mobility Supine to and from Sit Supine to sit min A Sit to supine indep PT-OP-Q Treatments Start: 11/15/17 08:11 Freq: Status: Active Protocol: Document 06/28/18 15:30 [facility] (Rec: 06/28/18 15:43 [facility] [email or web address]) Therapeutic Activity Therapeutic Activity 3 Name supine to sit Comments cueing for UE use and rolling fwd further. Gait Training Gait Activity 6 Description gait w/device Comments verbal cues for big step with R 2 Description walking through 1 ft squares Device Used SPC & no device Level of Assistance gait belt CGA Comments verbal cues for big step Neuro Re-Education Treatment Other Activities ant elevation/post depression Details ant elevation/post depression COI Comments reciprocal isotonics & post depression COI with LLE resistance PT-OP-R Modalities Start: 11/15/17 08:11 Freq: Status: Active Protocol: Document 04/17/18 14:02 [facility] (Rec: 04/17/18 14:30 [facility] [id number]) Hot Pack/Cold Pack Treatment Hot Pack Location Lumbar/L side Patient Position Sitting Treatment Duration (minutes) 15 Ultrasound Therapy Treatment Left Lower Back Treatment Duration (minutes) 8 Patient Position Sidelying Frequency Setting (mHz) 1 Duty Cycle 100% Intensity Setting (w/cm2) 1.2 PT-OP-T Assessment and Plan Start: 11/15/17 16:38 Freq: Status: Active Protocol: Document 06/28/18 15:30 [facility] (Rec: 06/28/18 15:43 [facility] [email or web address]) Physical Therapy Assessment Goals Six Impairment Gait and Balance Long-Term Goal (LTG) Improve Dynamic Gait Index score to 22 to improve safety of mobility in the home and community LTG Duration 07/08/18 Five Impairment Balance Long-Term Goal (LTG) Imrpve Brown Balance Score to 42 to improve safety of mobility in the home and community LTG Duration achieved; 05/08/18 scored 46/ 56 Three Windows Architect Goal (LTG) Functional mobility: Five times sit to stand; improve to 12 seconds without UE use LTG Duration 07/08/18-improving (18 sec without UE) Two Impairment Strength Windows Architect Goal (LTG) Improve left LE strength to 4/ 5 LTG Duration 07/08/18 One Impairment gait; stair negotiation Long-Term Goal (LTG) Gait on stairs with unilateral rail safely and independently for safe household mobility LTG Duration 07/08/18-SBA Assessment Summary Assessment Pt was able to go from supine to s/l without difficulty and with cueing was able to go from R sidelying to seated without assistance about 6 times. Difficulty on last time after PNF. Physical Therapy Plan Frequency and Duration Frequency of Treatment 1x/Week Duration of Treatment 2 months Plan of Care Start Date 05/08/18 Plan of Care End Date 07/08/18 Next Visit Focus/Plan Next Note Type Treatment Note Next Visit Plan Cont to work LLE single leg balance & core control with supine to sit
--- NOTE | 2018-07-11 16:44 | PT.OTRE ---
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 (07/11/18) Difficulty in walking, not elsewhere classified (07/11/18) Other abnormalities of gait and mobility (07/11/18) Weakness (07/11/18) Past Medical History (Last Updated 01/15/18 @ 14:35 by Mane Xiong MD) Paroxysmal atrial fibrillation (Chronic 04/13/15) History of cerebrovascular accident (CVA) with residual deficit (Chronic 01/12/17) Lung nodule (Chronic 11/27/13) senior living current use of anticoagulant therapy (Chronic 12/14/16) Atrial fibrillation (Resolved) Pulmonary nodule (Resolved) Stroke (Resolved 10/2016) Provider Visit Care Team Role Provider Type Mane Xiong MD Attending Provider Physician Family Provider Primary Care Provider Specialty: Internal Medicine Address: [address] [place] [address] Email: [email or web address] Physical Therapy Re-Evaluation PT-OP-A Visit Information Start: 11/15/17 08:11 Freq: Status: Active Protocol: Document 07/11/18 15:15 [facility] (Rec: 07/11/18 16:44 [facility] [id number]) Out-Patient Physical Therapy Visit Information Visit Information Visit Type Treatment Note Visit Note 46 total visits Visit Start Time 15:15 Visit Stop Time 16:05 Total Visit Minutes 50 Visit Number 9/10 Number of CHILD WELFARE MANAGER Visits 0 PT-OP-C Subjective Start: 11/15/17 08:11 Freq: Status: Active Protocol: Document 07/11/18 15:15 [facility] (Rec: 07/11/18 16:44 [facility] [id number]) OP-PT Subjective Patient Comments Patient Comments Still having difficulty getting out of bed, reports mattress is very soft which makes mobility difficult, but his sleeps very well and he is reluctant to pursue getting a different mattress. PT-OP-D Balance Start: 11/15/17 08:11 Freq: Status: Active Protocol: Document 05/08/18 18:07 ML (Rec: 05/08/18 18:24 ML [id number]) Balance Tests Brown Balance Test Brown Balance Test Score 46/56 Brown Impairment Rating 1 to 19% Impaired (Score 45-55 ) Other Other Balance Tests Performed Tinetti 19/28 Brown Balance Assessment Total Score Brown Impairment Rating 1 to 19% Impaired (Score 45-55 ) Tinetti Balance Assessment Scoring and Interpretation Interpretation of Scores At risk for falls (19-24) Tinetti Impairment Rating from Composite 20 to <40% Impaired (Score 17- Score 22) PT-OP-E Functional Tests Start: 11/15/17 08:11 Freq: Status: Active Protocol: Document 03/14/18 15:57 [facility] (Rec: 03/14/18 16:14 [facility] [email or web address]) Functional Tests Timed Up and Go (TUG) Score 40 sec Tinetti Balance and Gait Assessment Balance Score 14 Gait Score 5 Composite Score 19 Composite Score Impairment Rating 20 to <40% Impaired (Score 17- 22) PT-OP-G Mobility & Gait Start: 11/15/17 08:11 Freq: Status: Active Protocol: Document 03/14/18 15:57 [facility] (Rec: 03/14/18 16:14 [facility] [id number]) OP Mobility Evaluation Bed Mobility Supine to and from Sit Supine to sit min A Sit to supine indep PT-OP-Q Treatments Start: 11/15/17 08:11 Freq: Status: Active Protocol: Document 07/11/18 15:15 [facility] (Rec: 07/11/18 16:44 [facility] [id number]) Therapeutic Exercises Supine Exercises 2 Supine Exercise Name LTR Resistance manual Reps/Minutes 10x Sidelying Exercises rhythmic stabilization for rolling Resistance manual Reps/Minutes 3 min Sitting Exercises seated crunch Reps/Minutes 6x Therapeutic Activity Therapeutic Activity 3 Name supine to sit Reps/Minutes 6x Comments cueing for UE use and rolling fwd further. Simulated softer mattress on mat by putting layer of pillows in middle of 4 yoga mats on hi-lo table. Gait Training Gait Activity 6 Description gait w/device Comments verbal cues for big step with R 2 Description walking through 1 ft squares Device Used SPC & no device Level of Assistance gait belt CGA Comments verbal cues for big step; fwd, sideways PT-OP-R Modalities Start: 11/15/17 08:11 Freq: Status: Active Protocol: Document 04/17/18 14:02 [facility] (Rec: 04/17/18 14:30 [facility] [id number]) Hot Pack/Cold Pack Treatment Hot Pack Location Lumbar/L side Patient Position Sitting Treatment Duration (minutes) 15 Ultrasound Therapy Treatment Left Lower Back Treatment Duration (minutes) 8 Patient Position Sidelying Frequency Setting (mHz) 1 Duty Cycle 100% Intensity Setting (w/cm2) 1.2 PT-OP-T Assessment and Plan Start: 11/15/17 16:38 Freq: Status: Active Protocol: Document 07/11/18 15:15 [facility] (Rec: 07/11/18 16:44 [facility] [id number]) Physical Therapy Assessment Goals Eight Impairment bed mobility Stripping Cutter And Winder Goal (LTG) Patient will be independent with all bed mobility to improve his functional independence and quality of life 07/11/18: requires min to mod assist LTG Duration 09/11/17 Six Impairment Gait and Balance Stripping Cutter And Winder Goal (LTG) Improve Dynamic Gait Index score to 22 to improve safety of mobility in the home and community 07/01/18: score 13/24 LTG Duration 09/11/18 Five Impairment Balance [facility]cf Goal (LTG) Imrpve Brown Balance Score to 42 to improve safety of mobility in the home and community. 07/11/18: 41/56 LTG Duration 09/11/18 Four Impairment Balance and gait Stripping Cutter And Winder Goal (LTG) Improve Tinetti gait and balance score to 24/28 to improve safety of mobility at home and in the community 07/11/18:18/20 LTG Duration 09/11/18 Three Stripping Cutter And Winder Goal (LTG) Functional mobility: Five times sit to stand; improve to 12 seconds without UE use 07/11/18: 18 sec without UE use LTG Duration 09/11/18 Two Impairment Strength Stripping Cutter And Winder Goal (LTG) Improve left LE strength to 4/ 5 LTG Duration 09/11/18 One Impairment gait; stair negotiation Stripping Cutter And Winder Goal (LTG) Gait on stairs with unilateral rail safely and independently for safe household mobility 07/11/18: SBA LTG Duration 09/11/18 Progress Towards Goals Progress Towards Goals Progressing Toward Goals Assessment Summary Assessment Pt. making progress toward goals after decline due to back pain. Would benefit from further PT to continue to progress his strengh, bed mobility, gait, balance,. Physical Therapy Plan Frequency and Duration Frequency of Treatment 1x/Week Duration of Treatment 2 months Plan of Care Start Date 07/11/18 Plan of Care End Date 09/11/18 Next Visit Focus/Plan Next Note Type Treatment Note Next Visit Plan Continue PT for gait, balance, bed mobility, strengthening
--- NOTE | 2018-07-11 16:45 | PT.OPPOC ---
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 (07/11/18) Difficulty in walking, not elsewhere classified (07/11/18) Other abnormalities of gait and mobility (07/11/18) Weakness (07/11/18) Provider Visit Care Team Role Provider Type Mane Xiong MD Attending Provider Physician Family Provider Primary Care Provider Specialty: Internal Medicine Address: [address] [place] [address], [facility] Email: [email or web address] Plan Of Care PT-OP-T Assessment and Plan Start: 11/15/17 16:38 Freq: Status: Active Protocol: Document 07/11/18 15:15 SAK (Rec: 07/11/18 16:44 SAK [id number]) Physical Therapy Assessment Goals Eight Impairment bed mobility Senior Living Goal (LTG) Patient will be independent with all bed mobility to improve his functional independence and quality of life 07/11/18: requires min to mod assist LTG Duration 09/11/17 Six Impairment Gait and Balance Application Integrator Goal (LTG) Improve Dynamic Gait Index score to 22 to improve safety of mobility in the home and community 07/01/18: score 13/24 LTG Duration 09/11/18 Five Impairment Balance Application Integrator Goal (LTG) Imrpve Brown Balance Score to 42 to improve safety of mobility in the home and community. 07/11/18: 41/56 LTG Duration 09/11/18 Four Impairment Balance and gait Application Integrator Goal (LTG) Improve Tinetti gait and balance score to 24/28 to improve safety of mobility at home and in the community 07/11/18:18/20 LTG Duration 09/11/18 Three Senior Living Goal (LTG) Functional mobility: Five times sit to stand; improve to 12 seconds without UE use 07/11/18: 18 sec without UE use LTG Duration 09/11/18 Two Impairment Strength Senior Living Goal (LTG) Improve left LE strength to 4/ 5 LTG Duration 09/11/18 One Impairment gait; stair negotiation Application Integrator Goal (LTG) Gait on stairs with unilateral rail safely and independently for safe household mobility 07/11/18: SBA LTG Duration 09/11/18 Progress Towards Goals Progress Towards Goals Progressing Toward Goals Assessment Summary Assessment Pt. making progress toward goals after decline due to back pain. Would benefit from further PT to continue to progress his strengh, bed mobility, gait, balance,. Physical Therapy Plan Frequency and Duration Frequency of Treatment 1x/Week Duration of Treatment 2 months Plan of Care Start Date 07/11/18 Plan of Care End Date 09/11/18 Next Visit Focus/Plan Next Note Type Treatment Note Next Visit Plan Continue PT for gait, balance, bed mobility, strengthening Plan of Care Dates Plan of Care Start Date 07/11/18 Plan of Care End Date 09/11/18 Please Sign and Return: I have reviewed this Plan of Care and certify that the skilled therapy services above are required to meet the patient?s needs. Physician Signature Date Printed Name and Credentials Clinical Instructor Signature Printed Name and Credentials
--- NOTE | 2018-07-17 15:14 | PT.OTN ---
Current Diagnoses Hemiplegia, unspecified affecting unspecified side (07/17/18) Cerebral infarction due to unspecified occlusion or stenosis of right middle cerebral artery (07/17/18) Difficulty in walking, not elsewhere classified (07/17/18) Other abnormalities of gait and mobility (07/17/18) Weakness (07/17/18) Physical Therapy Treatment Note PT-OP-A Visit Information Start: 11/15/17 08:11 Freq: Status: Active Protocol: Document 07/17/18 13:42 [facility] (Rec: 07/17/18 15:14 [facility] [id number]) Out-Patient Physical Therapy Visit Information Visit Information Visit Type Treatment Note Visit Note 1 visit 2019 Visit Start Time 13:45 Visit Stop Time 14:30 Total Visit Minutes 45 Visit Number 08/25 Number of DESIGN CHIEF Visits 0 PT-OP-C Subjective Start: 11/15/17 08:11 Freq: Status: Active Protocol: Document 07/17/18 13:42 [facility] (Rec: 07/17/18 15:14 [facility] [id number]) OP-PT Subjective Patient Comments Patient Comments Pt reports he has been doing his supine exercises. Reports he [place] [facility] [place] PT-OP-D Balance Start: 11/15/17 08:11 Freq: Status: Active Protocol: Document 05/08/18 18:07 ML (Rec: 05/08/18 18:24 ML [id number]) Balance Tests Brown Balance Test Brown Balance Test Score 46/56 Brown Impairment Rating 1 to 19% Impaired (Score 45-55 ) Other Other Balance Tests Performed Tinetti Brown Balance Assessment Total Score Brown Impairment Rating 1 to 19% Impaired (Score 45-55 ) Tinetti Balance Assessment Scoring and Interpretation Interpretation of Scores At risk for falls (19-24) Tinetti Impairment Rating from Composite 20 to <40% Impaired (Score 17- Score 22) PT-OP-E Functional Tests Start: 11/15/17 08:11 Freq: Status: Active Protocol: Document 03/14/18 15:57 [facility] (Rec: 03/14/18 16:14 [facility] [id number]) Functional Tests Timed Up and Go (TUG) Score 40 sec Tinetti Balance and Gait Assessment Balance Score 14 Gait Score 5 Composite Score 19 Composite Score Impairment Rating 20 to <40% Impaired (Score 17- 22) PT-OP-G Mobility & Gait Start: 11/15/17 08:11 Freq: Status: Active Protocol: Document 03/14/18 15:57 [facility] (Rec: 03/14/18 16:14 [facility] [id number]) OP Mobility Evaluation Bed Mobility Supine to and from Sit Supine to sit min A Sit to supine indep PT-OP-Q Treatments Start: 11/15/17 08:11 Freq: Status: Active Protocol: Document 07/17/18 13:42 [facility] (Rec: 07/17/18 15:14 [facility] [id number]) Therapeutic Exercises Supine Exercises 5 Supine Exercise Name SLR Comments focus on knee straight Sidelying Exercises abd Sidelying Exercise Name hip abd Therapeutic Activity Therapeutic Activity 3 Name supine to sit Reps/Minutes 6x Comments cueing for UE use and rolling fwd further. Gait Training Gait Activity 4 Description gait without device & cane Surface SB to CGA, cues Comments cueing to inc RLE step length and to pull up each leg through pelvis motion 2 Description walking through 1 ft squares Device Used SPC & no device Level of Assistance gait belt CGA Comments verbal cues for big step; fwd, sideways Neuro Re-Education Treatment Balance Activities 4 Details step outs Comments step into quadrants standing in middle of 4 squares. 3 Details hurdles Reps/Duration 6 Comments SPC use Other Activities ant elevation/post depression Details ant elevation/post depression COI Comments reciprocal isotonics & post depression COI with LLE resistance PT-OP-R Modalities Start: 11/15/17 08:11 Freq: Status: Active Protocol: Document 04/17/18 14:02 [facility] (Rec: 04/17/18 14:30 [facility] [id number]) Hot Pack/Cold Pack Treatment Hot Pack Location Lumbar/L side Patient Position Sitting Treatment Duration (minutes) 15 Ultrasound Therapy Treatment Left Lower Back Treatment Duration (minutes) 8 Patient Position Sidelying Frequency Setting (mHz) 1 Duty Cycle 100% Intensity Setting (w/cm2) 1.2 PT-OP-T Assessment and Plan Start: 11/15/17 16:38 Freq: Status: Active Protocol: Document 07/17/18 13:42 [facility] (Rec: 07/17/18 15:14 [facility] [id number]) Physical Therapy Assessment Goals Eight Impairment bed mobility Penitentiary Goal (LTG) Patient will be independent with all bed mobility to improve his functional independence and quality of life 07/11/18: requires min to mod assist LTG Duration 09/11/17 Six Impairment Gait and Balance Pantograph Machine Set Up Operator Goal (LTG) Improve Dynamic Gait Index score to 22 to improve safety of mobility in the home and community 07/01/18: score 13/24 LTG Duration 09/11/18 Five Impairment Balance Pantograph Machine Set Up Operator Goal (LTG) Imrpve Brown Balance Score to 42 to improve safety of mobility in the home and community. 07/11/18: 41/56 LTG Duration 09/11/18 Four Impairment Balance and gait Penitentiary Goal (LTG) Improve Tinetti gait and balance score to 24/28 to improve safety of mobility at home and in the community 07/11/18:18/20 LTG Duration 09/11/18 Three Pantograph Machine Set Up Operator Goal (LTG) Functional mobility: Five times sit to stand; improve to 12 seconds without UE use 07/11/18: 18 sec without UE use LTG Duration 09/11/18 Two Impairment Strength Penitentiary Goal (LTG) Improve left LE strength to 4/ 5 LTG Duration 09/11/18 One Impairment gait; stair negotiation Pantograph Machine Set Up Operator Goal (LTG) Gait on stairs with unilateral rail safely and independently for safe household mobility 07/11/18: SBA LTG Duration 09/11/18 Assessment Summary Assessment Pt was able to do supine<>sit with much greater ease today. Attempted to challenge him with uneven surfaces under his elbows and hand but he was able to do it well. Less LOB during gait today as compared to normal. Physical Therapy Plan Frequency and Duration Frequency of Treatment 1x/Week Duration of Treatment 2 months Plan of Care Start Date 07/11/18 Plan of Care End Date 09/11/18 Next Visit Focus/Plan Next Note Type Treatment Note Next Visit Plan cont to work on knee flex, work on balance & LLE wt acceptance
--- NOTE | 2018-07-24 15:59 | PT.OTN ---
Current Diagnoses Hemiplegia, unspecified affecting unspecified side (07/24/18) Cerebral infarction due to unspecified occlusion or stenosis of right middle cerebral artery (07/24/18) Difficulty in walking, not elsewhere classified (07/24/18) Other abnormalities of gait and mobility (07/24/18) Weakness (07/24/18) Physical Therapy Treatment Note PT-OP-A Visit Information Start: 11/15/17 08:11 Freq: Status: Active Protocol: Document 07/24/18 15:15 [facility] (Rec: 07/24/18 15:59 [facility] [id number]) Out-Patient Physical Therapy Visit Information Visit Information Visit Type Treatment Note Visit Note 2 visit 2019 Visit Start Time 15:15 Visit Stop Time 15:15 Total Visit Minutes 60 Visit Number 09/22 Number of CAR CHASER Visits 0 PT-OP-C Subjective Start: 11/15/17 08:11 Freq: Status: Active Protocol: Document 07/24/18 15:15 [facility] (Rec: 07/24/18 15:59 [facility] [id number]) OP-PT Subjective Patient Comments Patient Comments Reports botox injection is helping. Later in the night last sun he hurt his back when getting out of bed then did leg lifts which made it worse. PT-OP-D Balance Start: 11/15/17 08:11 Freq: Status: Active Protocol: Document 05/08/18 18:07 ML (Rec: 05/08/18 18:24 ML [id number]) Balance Tests Brown Balance Test Brown Balance Test Score 46/56 Brown Impairment Rating 1 to 19% Impaired (Score 45-55 ) Other Other Balance Tests Performed Tinetti Brown Balance Assessment Total Score Brown Impairment Rating 1 to 19% Impaired (Score 45-55 ) Tinetti Balance Assessment Scoring and Interpretation Interpretation of Scores At risk for falls (19-24) Tinetti Impairment Rating from Composite 20 to <40% Impaired (Score 17- Score 22) PT-OP-E Functional Tests Start: 11/15/17 08:11 Freq: Status: Active Protocol: Document 03/14/18 15:57 [facility] (Rec: 03/14/18 16:14 [facility] [id number]) Functional Tests Timed Up and Go (TUG) Score 40 sec Tinetti Balance and Gait Assessment Balance Score 14 Gait Score 5 Composite Score 19 Composite Score Impairment Rating 20 to <40% Impaired (Score 17- 22) PT-OP-G Mobility & Gait Start: 11/15/17 08:11 Freq: Status: Active Protocol: Document 03/14/18 15:57 [facility] (Rec: 03/14/18 16:14 [facility] [id number]) OP Mobility Evaluation Bed Mobility Supine to and from Sit Supine to sit min A Sit to supine indep PT-OP-Q Treatments Start: 11/15/17 08:11 Freq: Status: Active Protocol: Document 07/24/18 15:15 [facility] (Rec: 07/24/18 15:59 [facility] [id number]) Gait Training Gait Activity 6 Description gait w/device Comments verbal cues for big step with R 3 Description step drill for LLE in squares 2 Description walking through 1 ft squares Device Used SPC & no device Level of Assistance gait belt CGA Comments verbal cues for big step; fwd, sideways Manual Therapy Treatment Soft Tissue Mobilization 1 Body Location QL L Mobilization Type Rolling Neuro Re-Education Treatment Balance Activities marching Details toe taps on stairs Other Activities ant elevation/post depression Details ant elevation/post depression COI Comments reciprocal isotonics & post depression COI with LLE resistance PT-OP-R Modalities Start: 11/15/17 08:11 Freq: Status: Active Protocol: Document 07/24/18 15:15 [facility] (Rec: 07/24/18 15:59 [facility] [id number]) Hot Pack/Cold Pack Treatment Hot Pack Location Lumbar/L side Patient Position Sitting Treatment Duration (minutes) 15 PT-OP-T Assessment and Plan Start: 11/15/17 16:38 Freq: Status: Active Protocol: Document 07/24/18 15:15 [facility] (Rec: 07/24/18 15:59 [facility] [id number]) Physical Therapy Assessment Goals Eight Impairment bed mobility Voice Coach Goal (LTG) Patient will be independent with all bed mobility to improve his functional independence and quality of life 07/11/18: requires min to mod assist LTG Duration 09/11/17 Six Impairment Gait and Balance Voice Coach Goal (LTG) Improve Dynamic Gait Index score to 22 to improve safety of mobility in the home and community 07/01/18: score 13/24 LTG Duration 09/11/18 Five Impairment Balance Voice Coach Goal (LTG) Imrpve Brown Balance Score to 42 to improve safety of mobility in the home and community. 07/11/18: 41/56 LTG Duration 09/11/18 Four Impairment Balance and gait Voice Coach Goal (LTG) Improve Tinetti gait and balance score to 24/28 to improve safety of mobility at home and in the community 07/11/18:18/20 LTG Duration 09/11/18 Three Voice Coach Goal (LTG) Functional mobility: Five times sit to stand; improve to 12 seconds without UE use 07/11/18: 18 sec without UE use LTG Duration 09/11/18 Two Impairment Strength Voice Coach Goal (LTG) Improve left LE strength to 4/ 5 LTG Duration 09/11/18 One Impairment gait; stair negotiation Fpc Goal (LTG) Gait on stairs with unilateral rail safely and independently for safe household mobility 07/11/18: SBA LTG Duration 09/11/18 Assessment Summary Assessment Pt had difficulty with supine tosit again d/t paina nd not getting as close ot the edge of bed as needed. He improved steps with cueing and did better with step length into squares without cane today than last week. Physical Therapy Plan Frequency and Duration Frequency of Treatment 1x/Week Duration of Treatment 2 months Plan of Care Start Date 07/11/18 Plan of Care End Date 09/11/18 Next Visit Focus/Plan Next Note Type Treatment Note Next Visit Plan Work on elevation of LLE for step & post dep into L
--- NOTE | 2018-07-31 15:42 | PT.OTN ---
Current Diagnoses Hemiplegia, unspecified affecting unspecified side (07/31/18) Cerebral infarction due to unspecified occlusion or stenosis of right middle cerebral artery (07/31/18) Difficulty in walking, not elsewhere classified (07/31/18) Other abnormalities of gait and mobility (07/31/18) Weakness (07/31/18) Physical Therapy Treatment Note PT-OP-A Visit Information Start: 11/15/17 08:11 Freq: Status: Active Protocol: Document 07/31/18 15:34 [facility] (Rec: 07/31/18 15:42 [facility] [id number]) Out-Patient Physical Therapy Visit Information Visit Information Visit Type Treatment Note Visit Note 3 visit 2019 Visit Start Time 13:45 Visit Stop Time 14:25 Total Visit Minutes 40 Visit Number 4/ Number of BOTANY TEACHER Visits 0 PT-OP-C Subjective Start: 11/15/17 08:11 Freq: Status: Active Protocol: Document 07/31/18 15:34 [facility] (Rec: 07/31/18 15:42 [facility] [id number]) OP-PT Subjective Patient Comments Patient Comments Pt reports his L LB has been painful and limited his walking and ability to get in/ out of bed. PT-OP-D Balance Start: 11/15/17 08:11 Freq: Status: Active Protocol: Document 05/08/18 18:07 ML (Rec: 05/08/18 18:24 ML [id number]) Balance Tests Brown Balance Test Brown Balance Test Score 46/56 Brown Impairment Rating 1 to 19% Impaired (Score 45-55 ) Other Other Balance Tests Performed Tinetti Brown Balance Assessment Total Score Brown Impairment Rating 1 to 19% Impaired (Score 45-55 ) Tinetti Balance Assessment Scoring and Interpretation Interpretation of Scores At risk for falls (19-24) Tinetti Impairment Rating from Composite 20 to <40% Impaired (Score 17- Score 22) PT-OP-E Functional Tests Start: 11/15/17 08:11 Freq: Status: Active Protocol: Document 03/14/18 15:57 [facility] (Rec: 03/14/18 16:14 [facility] [email or web address]) Functional Tests Timed Up and Go (TUG) Score 40 sec Tinetti Balance and Gait Assessment Balance Score 14 Gait Score 5 Composite Score 19 Composite Score Impairment Rating 20 to <40% Impaired (Score 17- 22) PT-OP-G Mobility & Gait Start: 11/15/17 08:11 Freq: Status: Active Protocol: Document 03/14/18 15:57 [facility] (Rec: 03/14/18 16:14 [facility] [email or web address]) OP Mobility Evaluation Bed Mobility Supine to and from Sit Supine to sit min A Sit to supine indep PT-OP-Q Treatments Start: 11/15/17 08:11 Freq: Status: Active Protocol: Document 07/31/18 15:34 [facility] (Rec: 07/31/18 15:42 [facility] [email or web address]) Therapeutic Exercises Supine Exercises 1 Supine Exercise Name LTR Comments focus on slow controlled motion in painfree range Gait Training Gait Activity 6 Description gait w/device Comments verbal cues for big step with R 2 Description walking through 1 ft squares Device Used SPC & no device Level of Assistance gait belt CGA Comments verbal cues for big step; fwd Neuro Re-Education Treatment Other Activities UE ant depression Details ant depression LUE for irradiation to LE for rolling ant elevation/post depression Details ant elevation/post depression COI Comments rhythmic initiation PT-OP-R Modalities Start: 11/15/17 08:11 Freq: Status: Active Protocol: Document 07/31/18 15:34 [facility] (Rec: 07/31/18 15:42 [facility] [id number]) Ultrasound Therapy Treatment Left Lower Back Treatment Duration (minutes) 8 Patient Position Sidelying Coupling Medium Ultrasound Gel Applicator Size (cm2) 10 Mode Setting Continuous Duty Cycle 100% Intensity Setting (w/cm2) 1 PT-OP-T Assessment and Plan Start: 11/15/17 16:38 Freq: Status: Active Protocol: Document 07/31/18 15:34 [facility] (Rec: 07/31/18 15:42 [facility] [email or web address]) Physical Therapy Assessment Goals Eight Impairment bed mobility Dinkey Locomotive Operator Goal (LTG) Patient will be independent with all bed mobility to improve his functional independence and quality of life 07/11/18: requires min to mod assist LTG Duration 09/11/17 Six Impairment Gait and Balance Dinkey Locomotive Operator Goal (LTG) Improve Dynamic Gait Index score to 22 to improve safety of mobility in the home and community 07/01/18: score 13/24 LTG Duration 09/11/18 Five Impairment Balance Dinkey Locomotive Operator Goal (LTG) Imrpve Brown Balance Score to 42 to improve safety of mobility in the home and community. 07/11/18: 41/56 LTG Duration 09/11/18 Four Impairment Balance and gait Dinkey Locomotive Operator Goal (LTG) Improve Tinetti gait and balance score to 24/28 to improve safety of mobility at home and in the community 07/11/18:18/20 LTG Duration 09/11/18 Three Dinkey Locomotive Operator Goal (LTG) Functional mobility: Five times sit to stand; improve to 12 seconds without UE use 07/11/18: 18 sec without UE use LTG Duration 09/11/18 Two Impairment Strength Dinkey Locomotive Operator Goal (LTG) Improve left LE strength to 4/ 5 LTG Duration 09/11/18 One Impairment gait; stair negotiation [facility] Goal (LTG) Gait on stairs with unilateral rail safely and independently for safe household mobility 07/11/18: SBA LTG Duration 09/11/18 Assessment Summary Assessment pt was able to do supine to sit with about 5% assist after US and neuro re edu of UE for rolling. He was able to do more smooth and controlled steps in squares today. Physical Therapy Plan Frequency and Duration Frequency of Treatment 1x/Week Duration of Treatment 2 months Plan of Care Start Date 07/11/18 Plan of Care End Date 09/11/18 Next Visit Focus/Plan Next Note Type Treatment Note Next Visit Plan Work on elevation of LLE for step & post dep into L
--- NOTE | 2018-08-07 16:01 | PT.OTN ---
Current Diagnoses Hemiplegia, unspecified affecting unspecified side (08/07/18) Cerebral infarction due to unspecified occlusion or stenosis of right middle cerebral artery (08/07/18) Difficulty in walking, not elsewhere classified (08/07/18) Other abnormalities of gait and mobility (08/07/18) Weakness (08/07/18) Physical Therapy Treatment Note PT-OP-A Visit Information Start: 11/15/17 08:11 Freq: Status: Active Protocol: Document 08/07/18 15:15 [facility] (Rec: 08/07/18 16:01 [facility] [id number]) Out-Patient Physical Therapy Visit Information Visit Information Visit Type Treatment Note Visit Note 4 visit 2019 Visit Start Time 15:15 Visit Stop Time 16:05 Total Visit Minutes 50 Visit Number 11/22 Number of PRESS WORKER HELPER Visits 0 PT-OP-C Subjective Start: 11/15/17 08:11 Freq: Status: Active Protocol: Document 08/07/18 15:15 [facility] (Rec: 08/07/18 16:01 [facility] [id number]) OP-PT Subjective Patient Comments Patient Comments Reports he was doing well for 2 days after last session then was sore. PT-OP-D Balance Start: 11/15/17 08:11 Freq: Status: Active Protocol: Document 05/08/18 18:07 ML (Rec: 05/08/18 18:24 ML [id number]) Balance Tests Brown Balance Test Brown Balance Test Score 46/56 Brown Impairment Rating 1 to 19% Impaired (Score 45-55 ) Other Other Balance Tests Performed Tinetti / Brown Balance Assessment Total Score Brown Impairment Rating 1 to 19% Impaired (Score 45-55 ) Tinetti Balance Assessment Scoring and Interpretation Interpretation of Scores At risk for falls (19-24) Tinetti Impairment Rating from Composite 20 to <40% Impaired (Score 17- Score 22) PT-OP-E Functional Tests Start: 11/15/17 08:11 Freq: Status: Active Protocol: Document 03/14/18 15:57 [facility] (Rec: 03/14/18 16:14 [facility] [id number]) Functional Tests Timed Up and Go (TUG) Score 40 sec Tinetti Balance and Gait Assessment Balance Score 14 Gait Score 5 Composite Score 19 Composite Score Impairment Rating 20 to <40% Impaired (Score 17- 22) PT-OP-G Mobility & Gait Start: 11/15/17 08:11 Freq: Status: Active Protocol: Document 03/14/18 15:57 [facility] (Rec: 03/14/18 16:14 [facility] [id number]) OP Mobility Evaluation Bed Mobility Supine to and from Sit Supine to sit min A Sit to supine indep PT-OP-Q Treatments Start: 11/15/17 08:11 Freq: Status: Active Protocol: Document 08/07/18 15:15 [facility] (Rec: 08/07/18 16:01 [facility] [id number]) Gait Training Gait Activity 6 Description gait w/device Device Used SPC Comments verbal cues for big step with R 5 Description marching with LLE to focus on elevation 2 Description walking through 1 ft squares Device Used SPC Level of Assistance gait belt CGA Comments verbal cues for big step; fwd 1 Description hurdles Comments over 2 hurdles 5 ft apart x6 Neuro Re-Education Treatment Other Activities ant elevation/post depression Details ant elevation/post depression COI Comments rhythmic initiation to COI and sustained isometrics PT-OP-R Modalities Start: 11/15/17 08:11 Freq: Status: Active Protocol: Document 08/07/18 15:15 [facility] (Rec: 08/07/18 16:01 [facility] [id number]) Hot Pack/Cold Pack Treatment Hot Pack Location Lumbar/L side Patient Position Sitting Treatment Duration (minutes) 10 Ultrasound Therapy Treatment Left Lower Back Treatment Duration (minutes) 8 Patient Position Sidelying Coupling Medium Ultrasound Gel Applicator Size (cm2) 10 Mode Setting Continuous Duty Cycle 100% Intensity Setting (w/cm2) 1 PT-OP-T Assessment and Plan Start: 11/15/17 16:38 Freq: Status: Active Protocol: Document 08/07/18 15:15 [facility] (Rec: 08/07/18 16:01 [facility] [id number]) Physical Therapy Assessment Goals Eight Impairment bed mobility Detention Goal (LTG) Patient will be independent with all bed mobility to improve his functional independence and quality of life 07/11/18: requires min to mod assist LTG Duration 09/11/17 Six Impairment Gait and Balance Vertical Punch Operator Goal (LTG) Improve Dynamic Gait Index score to 22 to improve safety of mobility in the home and community 07/01/18: score 13/24 LTG Duration 09/11/18 Five Impairment Balance Detention Goal (LTG) Imrpve Brown Balance Score to 42 to improve safety of mobility in the home and community. 07/11/18: 41/56 LTG Duration 09/11/18 Four Impairment Balance and gait Detention Goal (LTG) Improve Tinetti gait and balance score to 24/28 to improve safety of mobility at home and in the community 07/11/18:18/20 LTG Duration 09/11/18 Three Detention Goal (LTG) Functional mobility: Five times sit to stand; improve to 12 seconds without UE use 07/11/18: 18 sec without UE use LTG Duration 09/11/18 Two Impairment Strength Detention Goal (LTG) Improve left LE strength to 4/ 5 LTG Duration 09/11/18 One Impairment gait; stair negotiation Detention Goal (LTG) Gait on stairs with unilateral rail safely and independently for safe household mobility 07/11/18: SBA LTG Duration 09/11/18 Assessment Summary Assessment Pt had improved steps today with almost full step length past other leg. Pt cont to be limited by back but improves gait with PNF & US. Physical Therapy Plan Frequency and Duration Frequency of Treatment 1x/Week Duration of Treatment 2 months Plan of Care Start Date 07/11/18 Plan of Care End Date 09/11/18 Next Visit Focus/Plan Next Note Type Treatment Note Next Visit Plan cont to work gait safer gait & balance as tolerated
--- NOTE | 2018-08-21 16:02 | PT.OTN ---
Current Diagnoses Hemiplegia, unspecified affecting unspecified side (08/21/18) Cerebral infarction due to unspecified occlusion or stenosis of right middle cerebral artery (08/21/18) Difficulty in walking, not elsewhere classified (08/21/18) Other abnormalities of gait and mobility (08/21/18) Weakness (08/21/18) Physical Therapy Treatment Note PT-OP-A Visit Information Start: 11/15/17 08:11 Freq: Status: Active Protocol: Document 08/21/18 15:28 [facility] (Rec: 08/21/18 16:02 [facility] [id number]) Out-Patient Physical Therapy Visit Information Visit Information Visit Type Treatment Note Visit Note 5 visit 2019 Visit Start Time 15:15 Visit Stop Time 16:00 Total Visit Minutes 45 Visit Number 6 Number of LAY HEALTH ADVOCATE Visits 0 PT-OP-C Subjective Start: 11/15/17 08:11 Freq: Status: Active Protocol: Document 08/21/18 15:28 [facility] (Rec: 08/21/18 16:02 [facility] [id number]) OP-PT Subjective Patient Comments Patient Comments reports last week back was very painful w/WB but is doing better this week. PT-OP-D Balance Start: 11/15/17 08:11 Freq: Status: Active Protocol: Document 05/08/18 18:07 ML (Rec: 05/08/18 18:24 ML [id number]) Balance Tests Brown Balance Test Brown Balance Test Score 46/56 Brown Impairment Rating 1 to 19% Impaired (Score 45-55 ) Other Other Balance Tests Performed Tinetti Brown Balance Assessment Total Score Brown Impairment Rating 1 to 19% Impaired (Score 45-55 ) Tinetti Balance Assessment Scoring and Interpretation Interpretation of Scores At risk for falls (19-24) Tinetti Impairment Rating from Composite 20 to <40% Impaired (Score 17- Score 22) PT-OP-E Functional Tests Start: 11/15/17 08:11 Freq: Status: Active Protocol: Document 03/14/18 15:57 [facility] (Rec: 03/14/18 16:14 [facility] [id number]) Functional Tests Timed Up and Go (TUG) Score 40 sec Tinetti Balance and Gait Assessment Balance Score 14 Gait Score 5 Composite Score 19 Composite Score Impairment Rating 20 to <40% Impaired (Score 17- 22) PT-OP-G Mobility & Gait Start: 11/15/17 08:11 Freq: Status: Active Protocol: Document 03/14/18 15:57 [facility] (Rec: 03/14/18 16:14 [facility] [id number]) OP Mobility Evaluation Bed Mobility Supine to and from Sit Supine to sit min A Sit to supine indep PT-OP-Q Treatments Start: 11/15/17 08:11 Freq: Status: Active Protocol: Document 08/21/18 15:28 [facility] (Rec: 08/21/18 16:02 [facility] [id number]) Gait Training Gait Activity 6 Description gait w/device Device Used SPC Comments verbal cues for core engagement 2 Description walking through 1 ft squares Device Used SPC Level of Assistance gait belt CGA Comments verbal cues for big step; fwd Manual Therapy Treatment Soft Tissue Mobilization 1 Body Location QL L Mobilization Type Rolling PT-OP-R Modalities Start: 11/15/17 08:11 Freq: Status: Active Protocol: Document 08/21/18 15:28 [facility] (Rec: 08/21/18 16:02 [facility] [id number]) Hot Pack/Cold Pack Treatment Hot Pack Location Lumbar/L side Patient Position Sitting Treatment Duration (minutes) 7 Ultrasound Therapy Treatment Left Lower Back Treatment Duration (minutes) 8 Patient Position Sidelying Coupling Medium Ultrasound Gel Applicator Size (cm2) 10 Mode Setting Continuous Duty Cycle 100% Intensity Setting (w/cm2) 1 PT-OP-T Assessment and Plan Start: 11/15/17 16:38 Freq: Status: Active Protocol: Document 08/21/18 15:28 [facility] (Rec: 08/21/18 16:02 [facility] [id number]) Physical Therapy Assessment Goals Eight Impairment bed mobility Senior Living Goal (LTG) Patient will be independent with all bed mobility to improve his functional independence and quality of life 07/11/18: requires min to mod assist LTG Duration 09/11/17 Six Impairment Gait and Balance Applications Project Manager Goal (LTG) Improve Dynamic Gait Index score to 22 to improve safety of mobility in the home and community 07/01/18: score 13/24 LTG Duration 09/11/18 Five Impairment Balance Applications Project Manager Goal (LTG) Imrpve Brown Balance Score to 42 to improve safety of mobility in the home and community. 07/11/18: 41/56 LTG Duration 09/11/18 Four Impairment Balance and gait Senior Living Goal (LTG) Improve Tinetti gait and balance score to 24/28 to improve safety of mobility at home and in the community 07/11/18:18/20 LTG Duration 09/11/18 Three Applications Project Manager Goal (LTG) Functional mobility: Five times sit to stand; improve to 12 seconds without UE use 07/11/18: 18 sec without UE use LTG Duration 09/11/18 Two Impairment Strength Applications Project Manager Goal (LTG) Improve left LE strength to 4/ 5 LTG Duration 09/11/18 One Impairment gait; stair negotiation Applications Project Manager Goal (LTG) Gait on stairs with unilateral rail safely and independently for safe household mobility 07/11/18: SBA LTG Duration 09/11/18 Assessment Summary Assessment Pt is improving with his step length as compared to last week. He was able to take full step through with LLE and RLE steps were about 1/2 of full step through. Improved with cueing for core activation. Physical Therapy Plan Frequency and Duration Frequency of Treatment 1x/Week Duration of Treatment 2 months Plan of Care Start Date 07/11/18 Plan of Care End Date 09/11/18 Next Visit Focus/Plan Next Note Type Treatment Note Next Visit Plan cont to work gait safer gait & balance as tolerated
--- NOTE | 2018-08-28 17:39 | PT.OTN ---
Current Diagnoses Hemiplegia, unspecified affecting unspecified side (08/28/18) Cerebral infarction due to unspecified occlusion or stenosis of right middle cerebral artery (08/28/18) Difficulty in walking, not elsewhere classified (08/28/18) Other abnormalities of gait and mobility (08/28/18) Weakness (08/28/18) Physical Therapy Treatment Note PT-OP-A Visit Information Start: 11/15/17 08:11 Freq: Status: Active Protocol: Document 08/28/18 17:36 [facility] (Rec: 08/28/18 17:39 [facility] [id number]) Out-Patient Physical Therapy Visit Information Visit Information Visit Type Treatment Note Visit Start Time 14:35 Visit Stop Time 15:15 Total Visit Minutes 40 Visit Number 01/22 Number of STRATEGIC PLANNING MANAGER Visits 0 PT-OP-C Subjective Start: 11/15/17 08:11 Freq: Status: Active Protocol: Document 08/28/18 17:36 [facility] (Rec: 08/28/18 17:39 [facility] [id number]) OP-PT Subjective Patient Comments Patient Comments Pt reports his back is still sore PT-OP-D Balance Start: 11/15/17 08:11 Freq: Status: Active Protocol: Document 05/08/18 18:07 ML (Rec: 05/08/18 18:24 ML [id number]) Balance Tests Brown Balance Test Brown Balance Test Score 46/56 Brown Impairment Rating 1 to 19% Impaired (Score 45-55 ) Other Other Balance Tests Performed Tinetti / Brown Balance Assessment Total Score Brown Impairment Rating 1 to 19% Impaired (Score 45-55 ) Tinetti Balance Assessment Scoring and Interpretation Interpretation of Scores At risk for falls (19-24) Tinetti Impairment Rating from Composite 20 to <40% Impaired (Score 17- Score 22) PT-OP-E Functional Tests Start: 11/15/17 08:11 Freq: Status: Active Protocol: Document 03/14/18 15:57 [facility] (Rec: 03/14/18 16:14 [facility] [id number]) Functional Tests Timed Up and Go (TUG) Score 40 sec Tinetti Balance and Gait Assessment Balance Score 14 Gait Score 5 Composite Score 19 Composite Score Impairment Rating 20 to <40% Impaired (Score 17- 22) PT-OP-G Mobility & Gait Start: 11/15/17 08:11 Freq: Status: Active Protocol: Document 03/14/18 15:57 [facility] (Rec: 03/14/18 16:14 [facility] [id number]) OP Mobility Evaluation Bed Mobility Supine to and from Sit Supine to sit min A Sit to supine indep PT-OP-Q Treatments Start: 11/15/17 08:11 Freq: Status: Active Protocol: Document 08/28/18 17:36 [facility] (Rec: 08/28/18 17:39 [facility] [id number]) Gait Training Gait Activity 6 Description gait w/device Device Used SPC Comments verbal cues for core engagement 2 Description walking through 1 ft squares Device Used SPC Level of Assistance gait belt CGA Comments verbal cues for big step; fwd Neuro Re-Education Treatment Balance Activities wt shifts Details & balance on tilt board fwd & side Other Activities ant elevation/post depression Details ant elevation/post depression COI Comments rhythmic initiation to COI and sustained isometrics PT-OP-R Modalities Start: 11/15/17 08:11 Freq: Status: Active Protocol: Document 08/28/18 17:36 [facility] (Rec: 08/28/18 17:39 [facility] [id number]) Ultrasound Therapy Treatment Left Lower Back Treatment Duration (minutes) 8 Patient Position Sidelying Coupling Medium Ultrasound Gel Applicator Size (cm2) 10 Mode Setting Continuous Duty Cycle 100% Intensity Setting (w/cm2) 1.2 PT-OP-T Assessment and Plan Start: 11/15/17 16:38 Freq: Status: Active Protocol: Document 08/28/18 17:36 [facility] (Rec: 08/28/18 17:39 [facility] [id number]) Physical Therapy Assessment Goals Eight Impairment bed mobility Rn Security Goal (LTG) Patient will be independent with all bed mobility to improve his functional independence and quality of life 07/11/18: requires min to mod assist LTG Duration 09/11/17 Six Impairment Gait and Balance Rn Security Goal (LTG) Improve Dynamic Gait Index score to 22 to improve safety of mobility in the home and community 07/01/18: score 13/24 LTG Duration 09/11/18 Five Impairment Balance Rn Security Goal (LTG) Imrpve Brown Balance Score to 42 to improve safety of mobility in the home and community. 07/11/18: 41/56 LTG Duration 09/11/18 Four Impairment Balance and gait Rn Security Goal (LTG) Improve Tinetti gait and balance score to 24/28 to improve safety of mobility at home and in the community 07/11/18:18/20 LTG Duration 09/11/18 Three Rn Security Goal (LTG) Functional mobility: Five times sit to stand; improve to 12 seconds without UE use 07/11/18: 18 sec without UE use LTG Duration 09/11/18 Two Impairment Strength Long-Term Goal (LTG) Improve left LE strength to 4/ 5 LTG Duration 09/11/18 One Impairment gait; stair negotiation Rn Security Goal (LTG) Gait on stairs with unilateral rail safely and independently for safe household mobility 07/11/18: SBA LTG Duration 09/11/18 Assessment Summary Assessment Pt cont to improve with ability to take steps and today was able to tolerate more aggressive pelvic patterns. Physical Therapy Plan Frequency and Duration Frequency of Treatment 1x/Week Duration of Treatment 2 months Plan of Care Start Date 07/11/18 Plan of Care End Date 09/11/18 Next Visit Focus/Plan Next Note Type Progress Note Next Visit Plan assess progress and d/c if no further progress
--- NOTE | 2018-09-04 18:47 | PT.OTN ---
Current Diagnoses Hemiplegia, unspecified affecting unspecified side (09/04/18) Cerebral infarction due to unspecified occlusion or stenosis of right middle cerebral artery (09/04/18) Difficulty in walking, not elsewhere classified (09/04/18) Other abnormalities of gait and mobility (09/04/18) Weakness (09/04/18) Physical Therapy Treatment Note PT-OP-A Visit Information Start: 11/15/17 08:11 Freq: Status: Active Protocol: Document 09/04/18 18:44 [facility] (Rec: 09/04/18 18:47 [facility] [email or web address]) Out-Patient Physical Therapy Visit Information Visit Information Visit Type Treatment Note Visit Start Time 14:35 Visit Stop Time 15:15 Total Visit Minutes 40 Visit Number 8/ Number of INVENTORY COORDINATOR Visits 0 PT-OP-C Subjective Start: 11/15/17 08:11 Freq: Status: Active Protocol: Document 09/04/18 18:44 [facility] (Rec: 09/04/18 18:47 [facility] [email or web address]) OP-PT Subjective Patient Comments Patient Comments Pt got botox in L leg and had difficulty getting up from bed at MD office and sat up fwd and hurt his back more and his back has been worse. PT-OP-D Balance Start: 11/15/17 08:11 Freq: Status: Active Protocol: Document 05/08/18 18:07 ML (Rec: 05/08/18 18:24 ML [id number]) Balance Tests Brown Balance Test Brown Balance Test Score 46/56 Brown Impairment Rating 1 to 19% Impaired (Score 45-55 ) Other Other Balance Tests Performed Tinetti Brown Balance Assessment Total Score Brown Impairment Rating 1 to 19% Impaired (Score 45-55 ) Tinetti Balance Assessment Scoring and Interpretation Interpretation of Scores At risk for falls (19-24) Tinetti Impairment Rating from Composite 20 to <40% Impaired (Score 17- Score 22) PT-OP-E Functional Tests Start: 11/15/17 08:11 Freq: Status: Active Protocol: Document 03/14/18 15:57 [facility] (Rec: 03/14/18 16:14 [facility] [email or web address]) Functional Tests Timed Up and Go (TUG) Score 40 sec Tinetti Balance and Gait Assessment Balance Score 14 Gait Score 5 Composite Score 19 Composite Score Impairment Rating 20 to <40% Impaired (Score 17- 22) PT-OP-G Mobility & Gait Start: 11/15/17 08:11 Freq: Status: Active Protocol: Document 03/14/18 15:57 [facility] (Rec: 03/14/18 16:14 [facility] [email or web address]) OP Mobility Evaluation Bed Mobility Supine to and from Sit Supine to sit min A Sit to supine indep PT-OP-Q Treatments Start: 11/15/17 08:11 Freq: Status: Active Protocol: Document 09/04/18 18:44 [facility] (Rec: 09/04/18 18:47 [facility] [email or web address]) Gait Training Gait Activity 6 Description gait w/device Device Used SPC Comments verbal cues for core engagement 3 Description wt shifts Comments focus on wt shift & straightening L knee Neuro Re-Education Treatment Other Activities ant elevation/post depression Details ant elevation/post depression COI Comments rhythmic initiation to COI and sustained isometrics PT-OP-R Modalities Start: 11/15/17 08:11 Freq: Status: Active Protocol: Document 09/04/18 18:44 [facility] (Rec: 09/04/18 18:47 [facility] [email or web address]) Hot Pack/Cold Pack Treatment Hot Pack Location Lumbar/L side Patient Position Sitting Treatment Duration (minutes) 8 Ultrasound Therapy Treatment Left Lower Back Treatment Duration (minutes) 8 Patient Position Sidelying Coupling Medium Ultrasound Gel Applicator Size (cm2) 10 Mode Setting Continuous Duty Cycle 100% Intensity Setting (w/cm2) 1.2 PT-OP-T Assessment and Plan Start: 11/15/17 16:38 Freq: Status: Active Protocol: Document 09/04/18 18:44 [facility] (Rec: 09/04/18 18:47 [facility] [email or web address]) Physical Therapy Assessment Goals Eight Impairment bed mobility Field Ring Assembler Goal (LTG) Patient will be independent with all bed mobility to improve his functional independence and quality of life 07/11/18: requires min to mod assist LTG Duration 09/11/17 Six Impairment Gait and Balance Fpc Goal (LTG) Improve Dynamic Gait Index score to 22 to improve safety of mobility in the home and community 07/01/18: score 13/24 LTG Duration 09/11/18 Five Impairment Balance Fpc Goal (LTG) Imrpve Brown Balance Score to 42 to improve safety of mobility in the home and community. 07/11/18: 41/56 LTG Duration 09/11/18 Four Impairment Balance and gait Field Ring Assembler Goal (LTG) Improve Tinetti gait and balance score to 24/28 to improve safety of mobility at home and in the community 07/11/18: LTG Duration 09/11/18 Three Field Ring Assembler Goal (LTG) Functional mobility: Five times sit to stand; improve to 12 seconds without UE use 07/11/18: 18 sec without UE use LTG Duration 09/11/18 Two Impairment Strength Fpc Goal (LTG) Improve left LE strength to 4/ 5 LTG Duration 09/11/18 One Impairment gait; stair negotiation Fpc Goal (LTG) Gait on stairs with unilateral rail safely and independently for safe household mobility 07/11/18: SBA LTG Duration 09/11/18 Assessment Summary Assessment Pt had dec pain resulting in improved gait pattern after US & PNF. He cont to be limited by his LBP and require cueing for stance on LLE> Physical Therapy Plan Frequency and Duration Frequency of Treatment 1x/Week Duration of Treatment 2 months Plan of Care Start Date 07/11/18 Plan of Care End Date 09/11/18 Next Visit Focus/Plan Next Note Type Discharge Summary Next Visit Plan assess progress and d/c if no further progress; review HEP, US, PNF
--- NOTE | 2018-09-11 16:27 | PT.OTN ---
Current Diagnoses Hemiplegia, unspecified affecting unspecified side (09/11/18) Cerebral infarction due to unspecified occlusion or stenosis of right middle cerebral artery (09/11/18) Difficulty in walking, not elsewhere classified (09/11/18) Other abnormalities of gait and mobility (09/11/18) Weakness (09/11/18) Physical Therapy Treatment Note PT-OP-A Visit Information Start: 11/15/17 08:11 Freq: Status: Active Protocol: Document 09/11/18 15:15 [facility] (Rec: 09/11/18 16:27 [facility] [id number]) Out-Patient Physical Therapy Visit Information Visit Information Visit Type Treatment Note Visit Start Time 14:35 Visit Stop Time 15:15 Total Visit Minutes 40 Visit Number 9/ Number of ENGINEERING MODEL MAKER Visits 0 PT-OP-C Subjective Start: 11/15/17 08:11 Freq: Status: Active Protocol: Document 09/11/18 15:15 [facility] (Rec: 09/11/18 16:27 [facility] [id number]) OP-PT Subjective Patient Comments Patient Comments Patient reports back pain continues to limit his mobility and tolerance to activity. States he will continue to work on healing his back and doing his HEP. Agreeable to discharge from PT today due to plateau in progress. PT-OP-D Balance Start: 11/15/17 08:11 Freq: Status: Active Protocol: Document 05/08/18 18:07 ML (Rec: 05/08/18 18:24 ML [id number]) Balance Tests Brown Balance Test Brown Balance Test Score 46/56 Brown Impairment Rating 1 to 19% Impaired (Score 45-55 ) Other Other Balance Tests Performed Tinetti Brown Balance Assessment Total Score Brown Impairment Rating 1 to 19% Impaired (Score 45-55 ) Tinetti Balance Assessment Scoring and Interpretation Interpretation of Scores At risk for falls (19-24) Tinetti Impairment Rating from Composite 20 to <40% Impaired (Score 17- Score 22) PT-OP-E Functional Tests Start: 11/15/17 08:11 Freq: Status: Active Protocol: Document 03/14/18 15:57 [facility] (Rec: 03/14/18 16:14 [facility] [email or web address]) Functional Tests Timed Up and Go (TUG) Score 40 sec Tinetti Balance and Gait Assessment Balance Score 14 Gait Score 5 Composite Score 19 Composite Score Impairment Rating 20 to <40% Impaired (Score 17- 22) PT-OP-G Mobility & Gait Start: 11/15/17 08:11 Freq: Status: Active Protocol: Document 03/14/18 15:57 [facility] (Rec: 03/14/18 16:14 [facility] [email or web address]) OP Mobility Evaluation Bed Mobility Supine to and from Sit Supine to sit min A Sit to supine indep PT-OP-Q Treatments Start: 11/15/17 08:11 Freq: Status: Active Protocol: Document 09/11/18 15:15 [facility] (Rec: 09/11/18 16:27 [facility] [id number]) Gait Training Gait Activity 6 Description gait w/device Device Used SPC Comments verbal cues for core engagement Manual Therapy Treatment Soft Tissue Mobilization 1 Body Location QL, lumbar paraspinals L Mobilization Type Rolling PT-OP-R Modalities Start: 11/15/17 08:11 Freq: Status: Active Protocol: Document 09/11/18 15:15 [facility] (Rec: 09/11/18 16:27 [facility] [id number]) Hot Pack/Cold Pack Treatment Hot Pack Location Lumbar/L side Patient Position Sitting Treatment Duration (minutes) 10 Ultrasound Therapy Treatment Left Lower Back Treatment Duration (minutes) 8 Patient Position Sidelying Coupling Medium Ultrasound Gel Applicator Size (cm2) 10 Mode Setting Continuous Duty Cycle 100% Intensity Setting (w/cm2) 1.2 PT-OP-T Assessment and Plan Start: 11/15/17 16:38 Freq: Status: Active Protocol: Document 09/11/18 15:15 [facility] (Rec: 09/11/18 16:27 [facility] [id number]) Physical Therapy Assessment Goals Eight Impairment bed mobility Long-Term Goal (LTG) Patient will be independent with all bed mobility to improve his functional independence and quality of life 07/11/18: requires min to mod assist 09/11/18: stand-by to mod assist, limited currently by pain LTG Duration 09/11/18 Six Impairment Gait and Balance Long-Term Goal (LTG) Improve Dynamic Gait Index score to 22 to improve safety of mobility in the home and community 07/01/18: score 13/24 09/11/18: refused testing due to back pain LTG Duration 09/11/18 Five Impairment Balance Long-Term Goal (LTG) Imrpve Brown Balance Score to 42 to improve safety of mobility in the home and community. 07/11/18: 41/56 09/01/18: refused testing due to back pain LTG Duration 09/11/18 Four Impairment Balance and gait Entry Level Business Analyst Goal (LTG) Improve Tinetti gait and balance score to 24/28 to improve safety of mobility at home and in the community 07/11/18:18/20 09/01/18: refused testing due to pain LTG Duration 09/11/18 Three Entry Level Business Analyst Goal (LTG) Functional mobility: Five times sit to stand; improve to 12 seconds without UE use 07/11/18: 18 sec without UE use 09/01/18: refused testing due to back pain LTG Duration 09/11/18 Two Impairment Strength Entry Level Business Analyst Goal (LTG) Improve left LE strength to 4/ 5 09/11/18: refused testing due to back pain LTG Duration 09/11/18 One Impairment gait; stair negotiation Entry Level Business Analyst Goal (LTG) Gait on stairs with unilateral rail safely and independently for safe household mobility 07/11/18: SBA 09/11/18: SBA to min assist LTG Duration 09/11/18 Assessment Summary Assessment Patient progress has plateaued . He is independent and compliant with his HEP. He will continue to use heat at home for his back and consult his physician with anyworsening. He may benefit from further PT in the future but at this time will be discharged. Physical Therapy Plan Discharge Physical Therapy Discharge Reasons Plateau in Progress
== END 2018-09-12 12:05 ==
LOC: PHYS 15:15
PROVIDERS: Family Provider Internal Medicine; PCP Internal Medicine; Visit Provider Internal Medicine
DX: I63.511 Cerebral infarction due to unspecified occlusion or stenosis of right middle cerebral artery (principal); G81.90 Hemiplegia, unspecified affecting unspecified side; R26.2 Difficulty in walking, not elsewhere classified; R53.1 Weakness; R26.89 Other abnormalities of gait and mobility
CPT/HCPCS: 97010; 97035; 97110; 97112; 97116; 97140; 97530

== ENCOUNTER → 2019-03-12 11:55 | Outpatient (CLI) | payer MEDICARE, BC, SELFPAY ==
[2019-03-12 12:20] LABS: Add Manual Diff / Slide Review NO; Basophils Absolute Auto 100 /uL (0-100); Basophils Percent Auto 0.9 % (0-2); Eosinophils Absolute Auto 300 /uL (0-450); Eosinophils Percent Auto 4.1 % (2-4); Hematocrit 42.1 % (41-53); Hemoglobin 14.1 g/dL (13.5-17.5); Lymphocytes Absolute Auto 1500 /uL (1100-4500); Lymphocytes Percent Auto 23.6 % (25-40); Mean Corpuscular HGB Conc 33.6 % (30-36); Mean Corpuscular Hemoglobin 31.5 PG (26-34); Mean Corpuscular Volume 93.5 fL (80-100); Monocytes Absolute Auto 800 /uL (0-900); Monocytes Percent Auto 12.4 % (3-14); Neutrophils Absolute Auto 3700 /uL (1500-7000); Platelet Count 194 X10^3/uL (150-400); Red Cell Distribution Width 13.7 % (11.6-14.8); White Blood Cell Count 6.2 X10^3/uL (4.5-11.0)
[2019-03-12 13:48] LABS: Alanine Aminotransferase 36 IU/L (21-72); Albumin 3.6 g/dL (3.5-5.0); Albumin Globulin Ratio 1.4 (1.0-2.8); Alkaline Phosphatase 99 U/L (38-126); Aspartate Aminotransferase 37 IU/L (17-59); Bilirubin Total 0.5 mg/dL (0.2-1.3); Blood Urea Nitrogen 16 mg/dL (9-20); Calcium 8.8 mg/dL (8.4-10.2); Carbon Dioxide 25 mmol/L (22-32); Chloride 105 mmol/L (98-107); Estimated Glomerular Filt Rate > 60.0 mL/min (>60); Globulin 2.6 g/dL (1.7-4.1); Glucose 90 mg/dL (80-110); HEMOLYSIS < 15 (0-50); Potassium 4.3 mmol/L (3.4-5.1); Sodium 140 mmol/L (137-145); Total Protein 6.2 g/dL (6.3-8.2)
[2019-03-12 13:49] LABS: Free T4, Direct Thyroxine 1.57 ng/dL (0.78-2.19)
[2019-03-12 14:03] LABS: Thyroid Stimulating Hormone 1.17 uIU/mL (0.47-4.68)
== END ==
PROVIDERS: PCP Internal Medicine; Visit Provider Internal Medicine
DX: I48.0 Paroxysmal atrial fibrillation (principal); I69.30 Unspecified sequelae of cerebral infarction; R91.1 Solitary pulmonary nodule; Z79.01 Long term (current) use of anticoagulants
CPT/HCPCS: 36415; 80053; 84439; 84443; 85025

== ENCOUNTER → 2020-07-14 11:47 | Outpatient (CLI) | payer MEDICARE, BC, SELFPAY ==
[2020-07-14 13:29] LABS: COVID19 -Nasal RAPID Negative (Negative)
== END ==
PROVIDERS: PCP Internal Medicine; Visit Provider Nurse Practitioner
DX: Z20.828 Contact with and (suspected) exposure to other viral communicable diseases (principal); R05 Cough
CPT/HCPCS: 87635

== ENCOUNTER → 2020-08-06 14:34 | Outpatient (CLI) | payer MEDICARE, BC, SELFPAY ==
--- NOTE | 2020-08-06 14:37 | DI.RAD.S_ITS ---
PROCEDURE: XR CHEST 2V INDICATIONS: cough TECHNIQUE: 2 views of the chest were acquired. COMPARISON: [facility], CHEST 1 VIEW, 11/03/2016, 14:39. [facility], CHEST 2 VIEW, 08/20/2012, 16:50. FINDINGS: Surgical changes and devices: None. Lungs and pleura: Lungs are clear. No pleural effusions or pneumothorax. Mediastinum: Mediastinal contours are normal. Heart size is normal. Bones and chest wall: No suspicious bony abnormalities. Soft tissues appear unremarkable. IMPRESSION: Normal for age, source of current cough symptoms is not seen. Dictated by: Brian Nevarez M.D. on 08/06/2020 at 15:54 Approved by: Brian Nevarez M.D. on 08/06/2020 at 15:54
[2020-08-06 14:51] LABS: Add Manual Diff / Slide Review NO; Basophils Absolute Auto 0 /uL (0-100); Basophils Percent Auto 0.7 % (0-2); Eosinophils Absolute Auto 100 /uL (0-450); Eosinophils Percent Auto 1.6 % (2-4); Hematocrit 45.3 % (41-53); Lymphocytes Absolute Auto 2300 /uL (1100-4500); Lymphocytes Percent Auto 37.4 % (25-40); Mean Corpuscular HGB Conc 33.3 % (30-36); Mean Corpuscular Volume 96.2 fL (80-100); Monocytes Absolute Auto 700 /uL (0-900); Monocytes Percent Auto 10.8 % (3-14); Neutrophils Absolute Auto 3100 /uL (1500-7000); Neutrophils Percent Auto 49.5 % (50-75); Platelet Count 162 X10^3/uL (150-400); Red Blood Cell Count 4.71 X10^6/uL (4.5-5.9); Red Cell Distribution Width 13.5 % (11.6-14.8); White Blood Cell Count 6.2 X10^3/uL (4.5-11.0)
[2020-08-06 15:17] LABS: Alanine Aminotransferase 22 IU/L (<50); Albumin Globulin Ratio 1.7 (1.0-2.8); Alkaline Phosphatase 67 U/L (38-126); Aspartate Aminotransferase 26 IU/L (17-59); BUN Creatinine Ratio 15.1 (6-22); Bilirubin Total 0.4 mg/dL (0.2-1.3); Blood Urea Nitrogen 16 mg/dL (9-20); Calcium 8.9 mg/dL (8.4-10.2); Carbon Dioxide 33 mmol/L (22-32); Chloride 104 mmol/L (98-107); Estimated Glomerular Filt Rate > 60.0 mL/min (>60); Globulin 2.4 g/dL (1.7-4.1); Glucose 126 mg/dL (80-110); HEMOLYSIS < 15 (0-50); Potassium 4.5 mmol/L (3.4-5.1); Sodium 139 mmol/L (137-145); Total Protein 6.4 g/dL (6.3-8.2)
[2020-08-06 16:02] LABS: TSH w/ Reflex to FT4 1.13 uIU/mL (0.47-4.68)
== END ==
PROVIDERS: PCP Internal Medicine; Referring Provider Internal Medicine; Visit Provider Internal Medicine
DX: I48.0 Paroxysmal atrial fibrillation (principal); R05 Cough; R91.1 Solitary pulmonary nodule
CPT/HCPCS: 36415; 71046; 80053; 84443; 85025

== ENCOUNTER → 2021-11-04 16:26 | Outpatient (CLI) | payer MEDICARE, BC, SELFPAY ==
[2021-11-04 17:45] LABS: Add Manual Diff / Slide Review NO; Basophils Absolute Auto 0 /uL (0-100); Basophils Percent Auto 0.5 % (0-2); Eosinophils Absolute Auto 200 /uL (0-450); Eosinophils Percent Auto 2.9 % (2-4); Hematocrit 41.7 % (41-53); Hemoglobin 14.2 g/dL (13.5-17.5); Lymphocytes Absolute Auto 1900 /uL (1100-4500); Lymphocytes Percent Auto 33.7 % (25-40); Mean Corpuscular HGB Conc 34.1 % (30-36); Mean Corpuscular Hemoglobin 32.8 PG (26-34); Mean Corpuscular Volume 96.1 fL (80-100); Monocytes Absolute Auto 600 /uL (0-900); Monocytes Percent Auto 11.4 % (3-14); Neutrophils Absolute Auto 2900 /uL (1500-7000); Neutrophils Percent Auto 51.5 % (50-75); Platelet Count 173 X10^3/uL (150-400); Red Blood Cell Count 4.34 X10^6/uL (4.5-5.9); Red Cell Distribution Width 13.7 % (11.6-14.8); White Blood Cell Count 5.6 X10^3/uL (4.5-11.0)
[2021-11-04 18:08] LABS: Alanine Aminotransferase 23 IU/L (<50); Albumin Globulin Ratio 1.7 (1.0-2.8); Alkaline Phosphatase 55 U/L (38-126); Aspartate Aminotransferase 25 IU/L (17-59); BUN Creatinine Ratio 15.9 (6-22); Bilirubin Total 0.4 mg/dL (0.2-1.3); Blood Urea Nitrogen 17 mg/dL (9-20); Calcium 8.5 mg/dL (8.4-10.2); Carbon Dioxide 30 mmol/L (22-32); Chloride 106 mmol/L (98-107); Estimated Glomerular Filt Rate > 60 mL/min (>60); Globulin 2.4 g/dL (1.7-4.1); Glucose 127 mg/dL (80-110); HEMOLYSIS < 15 (0-50); Potassium 4.1 mmol/L (3.4-5.1); Sodium 142 mmol/L (137-145); Total Protein 6.4 g/dL (6.3-8.2)
== END ==
PROVIDERS: PCP Internal Medicine; Referring Provider Internal Medicine; Visit Provider Internal Medicine
DX: I48.0 Paroxysmal atrial fibrillation (principal); N13.8 Other obstructive and reflux uropathy; N39.41 Urge incontinence; N40.1 Benign prostatic hyperplasia with lower urinary tract symptoms; N52.9 Male erectile dysfunction, unspecified; Z79.01 Long term (current) use of anticoagulants
CPT/HCPCS: 36415; 80053; 85025

== ENCOUNTER 2022-06-15 08:06 | Emergency (ER) | payer MEDICARE, BC, SELFPAY ==
[2022-06-15] VITALS (16 sets, daily range): BP systolic 129–166; BP diastolic 60–83; PULSE 69–78; RESP 18; TEMP 36.3; O2SAT 93–98; BMI 31.7
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
--- NOTE | 2022-06-15 08:54 | DI.CT.S_ITS ---
PROCEDURE: CT HEAD/BRAIN WO CON INDICATIONS: bumped head, ecchymosis, on coumadin TECHNIQUE: Noncontrast 4.5 mm thick angled axial sections acquired from the foramen magnum to the vertex, with coronal and sagittal reformats. For radiation dose reduction, the following was used: automated exposure control, adjustment of mA and/or kV according to patient size. COMPARISON: [facility], CT, CT HEAD/BRAIN WO CON, 02/18/2018, 11:06. FINDINGS: Image quality: Excellent. CSF spaces: Basal cisterns are patent. No extra-axial fluid collections. The ventricles are symmetric in size and shape. Brain: No evidence of acute intracranial hemorrhage, mass effect, or midline shift. There is cerebral volume loss for age, with resultant ventricular and sulcal prominence. There are periventricular and deep white matter chronic small vessel ischemic changes. Multiple small chronic infarcts are unchanged from prior study. Skull and face: Calvarium and visualized facial bones appear intact, without suspicious lesions. Sinuses: Visualized sinuses and mastoids are clear. IMPRESSION: No acute intracranial finding. Dictated by: Eduardo Arango M.D. on 06/15/2022 at 9:41 Approved by: Eduardo Arango M.D. on 06/15/2022 at 9:42
--- NOTE | 2022-06-15 08:54 | DI.RAD.S_ITS ---
PROCEDURE: XR RIBS RT MIN 3V W CXR 1V INDICATIONS: right rib pain, fall and pain when picked up. TECHNIQUE: 3 views of the right ribs were acquired, along with a single view chest. COMPARISON: None. FINDINGS: Surgical changes and devices: None. Bones and chest wall: No fractures or dislocations. No suspicious bony lesions. Overlying soft tissues appear unremarkable. Lungs and pleura: Diffuse appearance of increased pulmonary vascularity. Mediastinum: Mediastinal contours appear normal. Heart size is enlarged. IMPRESSION: No visualized acute fracture or dislocation. However, if clinical concern and/or pain persist, short interval imaging followup in 7-10 days is recommended, as occult injury cannot be definitively excluded. Diffuse increased vascularity suggestive of edema. Dictated by: Danita Moreno M.D. on 06/15/2022 at 9:18 Approved by: Danita Moreno M.D. on 06/15/2022 at 9:19
[2022-06-15 09:02] LABS: Add Manual Diff / Slide Review NO; Basophils Absolute Auto 0 /uL (0-100); Basophils Percent Auto 0.2 % (0-2); Eosinophils Absolute Auto 100 /uL (0-450); Eosinophils Percent Auto 0.7 % (2-4); Hematocrit 43.2 % (41-53); Hemoglobin 14.2 g/dL (13.5-17.5); Lymphocytes Absolute Auto 1000 /uL (1100-4500); Lymphocytes Percent Auto 12.7 % (25-40); Mean Corpuscular HGB Conc 32.8 % (30-36); Mean Corpuscular Hemoglobin 31.6 PG (26-34); Mean Corpuscular Volume 96.3 fL (80-100); Monocytes Absolute Auto 1000 /uL (0-900); Neutrophils Absolute Auto 6100 /uL (1500-7000); Neutrophils Percent Auto 74.4 % (50-75); Platelet Count 165 X10^3/uL (150-400); Red Blood Cell Count 4.49 X10^6/uL (4.5-5.9); Red Cell Distribution Width 13.6 % (11.6-14.8); White Blood Cell Count 8.2 X10^3/uL (4.5-11.0)
[2022-06-15 09:04] LABS: INR 1.8 (0.9-1.3); Prothrombin Time 20.8 SECONDS (10.1-12.7)
[2022-06-15 09:07] LABS: Alanine Aminotransferase 32 IU/L (<50); Albumin 3.9 g/dL (3.5-5.0); Albumin Globulin Ratio 1.3 (1.0-2.8); Alkaline Phosphatase 85 U/L (38-126); Aspartate Aminotransferase 31 IU/L (17-59); Bilirubin Total 0.7 mg/dL (0.2-1.3); Blood Urea Nitrogen 17 mg/dL (9-20); Calcium 8.4 mg/dL (8.4-10.2); Carbon Dioxide 30 mmol/L (22-32); Chloride 104 mmol/L (98-107); Estimated Glomerular Filt Rate > 60 mL/min (>60); Globulin 2.9 g/dL (1.7-4.1); Glucose 130 mg/dL (80-110); HEMOLYSIS < 15 (0-50); Lipase 88 U/L (23-300); PTT Partial Thromboplastin Tim 35 SECONDS (26-36); Potassium 4.3 mmol/L (3.4-5.1); Sodium 139 mmol/L (137-145); Total Protein 6.8 g/dL (6.3-8.2)
[2022-06-15] MEDS: ACETAMINOPHEN 325 MG TABLET 975 MG PO (09:09)
[2022-06-15 09:59] LABS: COVID-19 CEPHEID 4-PLEX PCR Negative (Negative); Influenza A - CEPHEID Flu A NEGATIVE (NEGATIVE); Influenza B - CEPHEID Flu B NEGATIVE (NEGATIVE); Respiratory Syncytial Virus Negative (Negative)
--- NOTE | 2022-06-15 10:26 | DI.CT.S_ITS ---
PROCEDURE: CT CHEST W CON INDICATIONS: fall, coughing up blood-new, cough x 1 year TECHNIQUE: After the administration of intravenous contrast, 5 mm thick sections acquired from the pulmonary apices to the posterior costophrenic angles. 1 mm axial lung, 5 mm thick coronal and sagittal reformats and 7 mm axial MIP were acquired. For radiation dose reduction, the following was used: automated exposure control, adjustment of mA and/or kV according to patient size. COMPARISON: [facility], CR, XR RIBS RT MIN 3V W CXR 1V, 06/15/2022, 8:57. CT chest 10/25/2006. FINDINGS: Image quality: Adequate Lungs and pleura: Patchy ground-glass and micronodular opacities present in both lungs, predominantly in a peribronchovascular distribution, some areas of tree in bud micro nodularity also present. Some interlobular septal thickening present at the lung bases. A few small nodules are also present, for example a 5 mm right lower lobe nodule (3/242). No pleural effusion or pneumothorax. Mediastinum: Coronary artery calcifications are present. No pericardial effusion. No mediastinal or hilar adenopathy by size criteria. Thoracic aorta and central pulmonary arteries are normal in size. Esophagus is normal in caliber. Bones and chest wall: No acute displaced rib fracture identified. Multilevel degenerative change of the visualized spine. Remote appearing minimal superior endplate compression deformity of T12. Abdomen: Visualized upper abdominal solid organs appear unremarkable. IMPRESSION: 1. No acute displaced rib fracture identified. No pneumothorax. 2. Nonspecific ground-glass and micronodular opacities are present in both lungs. These could represent sequela of edema or hemorrhage, given provided history of hemoptysis. An infectious etiology is also possible, including but not limited to bronchopneumonia or viral/atypical etiologies. 3. A few small pulmonary nodules are present. If the patient is considered low risk, imaging follow-up is not necessary per Fleischner society guidelines. If the patient is considered high risk, optional 12 month follow-up CT could be considered. Dictated by: Ben Aden M.D. on 06/15/2022 at 10:37 Approved by: Ben Aden M.D. on 06/15/2022 at 10:51
== END 2022-06-15 12:52 | disposition home or self-care (01) ==
PROVIDERS: Emergency Provider Emergency Medicine; Family Provider Internal Medicine; PCP Internal Medicine
DX: S00.83XA Contusion of other part of head, initial encounter (principal); J18.9 Pneumonia, unspecified organism; W18.30XA Fall on same level, unspecified, initial encounter; Z86.79 Personal history of other diseases of the circulatory system; I48.0 Paroxysmal atrial fibrillation; Z79.01 Long term (current) use of anticoagulants; R07.81 Pleurodynia
CPT/HCPCS: 0241U; 70450; 71101; 71260; 80053; 83690; 85025; 85610; 85730; 99284

== ENCOUNTER 2022-06-17 21:21 | Inpatient (IN) | payer MEDICARE, BC, SELFPAY ==
[2022-06-17] VITALS (9 sets, daily range): BP systolic 164–185; BP diastolic 73–86; PULSE 80–85; RESP 20–33; TEMP 37; O2SAT 91–98; BMI 25.8
--- NOTE | 2022-06-17 21:50 | DI.RAD.S_ITS ---
PROCEDURE: XR CHEST 1V INDICATIONS: Shortness of breath TECHNIQUE: One view of the chest was acquired. COMPARISON: [facility], [place], XR CHEST 2V, 08/06/2020, 14:48. [facility], [place], CHEST 1 VIEW, 11/03/2016, 14:39. FINDINGS: Surgical changes and devices: None. Lungs and pleura: Lungs are abnormal with a chronic interstitial prominence somewhat accentuated by reduced inspiratory volume.. No pleural effusions or pneumothorax. Mediastinum: Mediastinal contours appear normal. Heart size is normal. Bones and chest wall: No suspicious bony lesions. Overlying soft tissues appear unremarkable. IMPRESSION: A definite consolidative pneumonia is not found but there is chronic interstitial prominence which is accentuated by mildly reduced inspiratory volume. Dictated by: Brian Nevarez M.D. on 06/17/2022 at 22:12 Approved by: Brian Nevarez M.D. on 06/17/2022 at 22:13
[2022-06-17] MEDS: ALBUTEROL/IPRATROPIUM 3 ML AMPUL INH (22:15)
--- NOTE | 2022-06-17 22:19 | ED_ITS ---
HPI - SOB/Dyspnea General Chief Complaint: Shortness of Breath/Dyspnea Stated Complaint: SOB Time Seen by Provider: 06/17/22 22:13 Mode of arrival: EMS History of Present Illness HPI Narrative: Patient is an 86-year-old male history of stroke with left-sided weakness him to coagulated on Coumadin for atrial fibrillation presenting today with shortness of breath and cough. He was seen and evaluated here 2 days ago after all fall started on Augmentin and azithromycin. Presents today with increasing shortness of breath fever and weakness. He is 91 and 92% on room air not normally on oxygen. Generally feels worse. He was nauseous and vomited once today. Minimal abdominal pain. Denies any new or worsening lower extremity edema Related Data Home Medications Medication Instructions Recorded Confirmed Disabled Parking Permit 1 ea miscellaneous DIRECTED 02/18/18 11/04/21 Previous Rx's Medication Instructions Recorded cholecalciferol (vitamin D3) 25 1 tab PO QDAY #30 tabs 01/04/17 mcg (1,000 unit) tablet (Vitamin D3) prazosin 2 mg capsule 4 mg PO BEDTIME #60 caps 05/29/19 sertraline 50 mg tablet 50 mg PO QDAY #90 tabs 09/08/19 alfuzosin 10 mg tablet,extended 10 mg PO DAILY #90 tabs 01/21/20 release 24 hr clotrimazole 1 % topical cream 1 applictn topical BID PRN Rash or 04/09/20 Itching. #30 grams diclofenac sodium 1 % topical gel 2 gram topical TID PRN joint pain 04/12/20 (Voltaren) #100 grams warfarin 1 mg tablet See Rx Instructions .Route 11/07/21 .COMPLEX #200 tabs atorvastatin 40 mg tablet 40 mg PO HS #90 tabs 03/13/22 Disabled Parking Permit: Permanent #1 ea 03/16/22 amiodarone 200 mg tablet 200 mg PO AMCC #90 tabs 03/24/22 amoxicillin 875 mg-potassium 1 tab PO BID #20 tabs 06/15/22 clavulanate 125 mg tablet azithromycin 250 mg tablet See Rx Instructions PO .COMPLEX #6 06/15/22 tabs Allergies Allergy/AdvReac Type Severity Reaction Status Date / Time No Known Drug Allergies Allergy Verified 11/04/21 15:57 Review of Systems Review of Systems Narrative: GENERAL: See HPI HEENT: Denies sinus pain, ear pain, sore throat, difficulty swallowing, neck pain RESPIRATORY: See HPI CARDIOVASCULAR: Denies chest pain, palpitations, orthopnea, edema GASTROINTESTINAL: See HPI : Denies dysuria, frequency, incontinence, hematuria, urinary retention, flank pain. MUSCULOSKELETAL: Denies weakness, joint pain, or bony pain SKIN: No rash, no erythema, no pruritus NEUROLOGIC: Denies weakness, dizziness, headache, numbness, change in speech, confusion PSYCHIATRIC: No concerning psychosocial issues. 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 (12/14/16) Lung nodule (11/27/13) Paroxysmal atrial fibrillation (04/13/15) Pulmonary nodule Stroke (10/2016) Surgical History H/O vasectomy Family History Father Family history of diabetes mellitus (DM) Family hx of lung cancer Mother Colon cancer Social History marital status: number of children: 2 household members: spouse lives independently: Yes caregiver/support person: Yes housing: house pets and animals: No education level: other occupational status: other 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: [employer] leisure activities: sports, fishing and other Smoking Status: Former smoker Tobacco: How many years used: 10 Smokeless tobacco user: other quit status: quit date established second hand exposure: No alcohol intake: current substance use type: does not use Smoking Status: Former smoker Substance Use Type: does not use Exam Initial Vital Signs Initial Vital Signs: Vital Signs Temperature 98.6 F 06/17/22 21:24 Pulse Rate 80 06/17/22 21:24 Respiratory Rate 20 06/17/22 21:24 Blood Pressure 168/77 H 06/17/22 21:24 Pulse Oximetry 91 06/17/22 21:24 Oxygen Delivery Method 06/17/22 21:24 GENERAL: Alert pleasant 86-year-old male appears weak HEENT: Head atraumatic,EOMI, pupils reactive, face symmetric, [moist] mucous membranes CARDIOVASCULAR: Regular rate and rhythm without murmurs, rubs or gallops. RESPIRATORY: Crackles bilaterally worse at bases worse on the right side ABDOMEN: Soft, nontender. Normoactive bowel sounds all 4 quadrants. No guarding or rebound. EXTREMITIES: Normal range of motion, no clubbing or edema. Neurovascularly intact NEUROLOGICAL: Alert and oriented x4 left-sided weakness at baseline per family and patient SKIN: Warm, dry, no laceration, no petechiae, no rashes or lesions. Course Orders Ordered: ED Orders 06/17/22 21:50 XR chest 1V Stat EKG-12 Lead Stat Measure peak expiratory flow ONCE RT Consult Eval and Treat NOW 06/17/22 22:05 Complete Blood Count AUTO DIFF Stat Comprehensive Metabolic Panel Stat Covid-19 + FLU A/B + RSV - PCR Stat Lactate (Lactic Acid) Stat NT-proBNP (BNP-Adult 18+) Stat Procalcitonin Stat Prothrombin Time INR Stat Troponin I Stat Sodium Chloride (Normal Saline 0.9%) 1,000 mls @ 125 mls/hr IV CONT DEMETRIO Last Admin: 06/18/22 01:25 Dose: 125 mls/hr Documented By: HUY Discontinued Medications Acetaminophen (Acetaminophen 325 Mg Tablet) 975 mg PO NOW ONE Stop: 06/18/22 00:32 Last Admin: 06/18/22 00:43 Dose: 975 mg Documented By: HUY Albuterol/Ipratropium (Albuterol/Ipratropium 3 Ml Ampul) 3 ml INH NOW ONE Stop: 06/17/22 22:14 Last Admin: 06/17/22 22:15 Dose: 3 ml Documented By: BEBE Ceftriaxone Sodium 2,000 mg/ (Sodium Chloride) 100 mls @ 200 mls/hr IV NOW ONE Stop: 06/17/22 23:15 Last Infusion: 06/18/22 00:27 Dose: 200 mls/hr Documented By: Admin: 06/17/22 23:33 Dose: 200 mls/hr Documented By: HUY Azithromycin 500 mg/ Dextrose 250 mls @ 250 mls/hr IV NOW ONE Stop: 06/17/22 23:15 Last Infusion: 06/18/22 01:15 Dose: 0 mls/hr Documented By: Admin: 06/18/22 00:08 Dose: 250 mls/hr Documented By: HUY Vital Signs Vital signs: Vital Signs - 8 hr 06/17/22 21:24 06/17/22 22:15 Temperature 98.6 F Pulse Rate 80 82 Respiratory Rate 20 22 Blood Pressure 168/77 H Pulse Oximetry 91 94 Oxygen Delivery Method Room Air Nasal Cannula Oxygen Flow Rate 4 Fraction of Inspired Oxygen 36 MDM - SOB/Dyspnea Lab Data Result diagrams: 06/17/22 22:05 06/17/22 22:05 Labs: Lab Results 06/17/22 06/17/22 06/17/22 Range/Units 22:05 22:05 22:05 WBC 6.1 (4.5-11.0) X10^3/uL RBC 4.22 L (4.5-5.9) X10^6/uL Hgb 13.6 (13.5-17.5) g/dL Hct 40.4 L (41-53) % MCV 95.7 (80-100) fL MCH 32.3 (26-34) PG MCHC 33.8 (30-36) % RDW 13.7 (11.6-14.8) % Plt Count 158 (150-400) X10^3/uL Neut % (Auto) 74.7 (50-75) % Lymph % (Auto) 12.3 L (25-40) % [place] % (Auto) 11.9 (3-14) % Eos % (Auto) 0.8 L (2-4) % Baso % (Auto) 0.3 (0-2) % Neut # (Auto) 4500 (4057-7066) /uL Lymph # (Auto) 700 L (9339-6174) /uL [place] # (Auto) 700 (0-900) /uL Eos # (Auto) 0 (0-450) /uL Baso # (Auto) 0 (0-100) /uL PT 19.4 H (10.1-12.7) SECONDS INR 1.7 H (0.9-1.3) Sodium (137-145) mmol/L Potassium (3.4-5.1) mmol/L Chloride (98-107) mmol/L Carbon Dioxide (22-32) mmol/L BUN (9-20) mg/dL Creatinine (0.66-1.25) mg/dL Estimated GFR (>60) mL/min BUN/Creatinine Ratio (6-22) Glucose (80-110) mg/dL Lactate (0.7-2.1) mmol/L Calcium (8.4-10.2) mg/dL Total Bilirubin (0.2-1.3) mg/dL AST (17-59) IU/L ALT (<50) IU/L Alkaline Phosphatase (38-126) U/L Troponin I (0.01-0.034) ng/mL NT-Pro-B Natriuret Pep (<450) pg/mL Total Protein (6.3-8.2) g/dL Albumin (3.5-5.0) g/dL Globulin (1.7-4.1) g/dL Albumin/Globulin Ratio (1.0-2.8) Procalcitonin (<0.5) ng/mL SARS-CoV-2 (PCR) Negative (Negative) Influenza A (RT-PCR) Flu a negative (NEGATIVE) Influenza B (RT-PCR) Flu b negative (NEGATIVE) RSV (PCR) Positive A (Negative) 06/17/22 06/17/22 06/17/22 Range/Units 22:05 22:05 22:05 WBC (4.5-11.0) X10^3/uL RBC (4.5-5.9) X10^6/uL Hgb (13.5-17.5) g/dL Hct (41-53) % MCV (80-100) fL MCH (26-34) PG MCHC (30-36) % RDW (11.6-14.8) % Plt Count (150-400) X10^3/uL Neut % (Auto) (50-75) % Lymph % (Auto) (25-40) % [place] % (Auto) (3-14) % Eos % (Auto) (2-4) % Baso % (Auto) (0-2) % Neut # (Auto) (5709-4940) /uL Lymph # (Auto) (0743-6143) /uL [place] # (Auto) (0-900) /uL Eos # (Auto) (0-450) /uL Baso # (Auto) (0-100) /uL PT (10.1-12.7) SECONDS INR (0.9-1.3) Sodium 137 (137-145) mmol/L Potassium 4.0 (3.4-5.1) mmol/L Chloride 103 (98-107) mmol/L Carbon Dioxide 26 (22-32) mmol/L BUN 17 (9-20) mg/dL Creatinine 1.07 (0.66-1.25) mg/dL Estimated GFR > 60 (>60) mL/min BUN/Creatinine Ratio 15.9 (6-22) Glucose 142 H (80-110) mg/dL Lactate 1.5 (0.7-2.1) mmol/L Calcium 8.1 L (8.4-10.2) mg/dL Total Bilirubin 0.6 (0.2-1.3) mg/dL AST 49 (17-59) IU/L ALT 56 H (<50) IU/L Alkaline Phosphatase 67 (38-126) U/L Troponin I 0.014 (0.01-0.034) ng/mL NT-Pro-B Natriuret Pep 180 (<450) pg/mL Total Protein 6.9 (6.3-8.2) g/dL Albumin 3.9 (3.5-5.0) g/dL Globulin 3.0 (1.7-4.1) g/dL Albumin/Globulin Ratio 1.3 (1.0-2.8) Procalcitonin 0.21 (<0.5) ng/mL SARS-CoV-2 (PCR) (Negative) Influenza A (RT-PCR) (NEGATIVE) Influenza B (RT-PCR) (NEGATIVE) RSV (PCR) (Negative) Imaging Data Chest x-ray: Radiologist's Impression: Signed Patient: Javi Herrera MR#: [id number] : 1935 Acct:[id number] Age/Sex: 86 / M Date of Service: 06/17/22 Loc: ED Accession Number: [id number] ?? Procedure: XR chest 1V Ordering Provider: Juanita Durbin D.O. PROCEDURE:? XR CHEST 1V ? INDICATIONS:? Shortness of breath ? TECHNIQUE:? One view of the chest was acquired.? ? COMPARISON:? [facility], RUBI, XR CHEST 2V, 08/06/2020, 14:48.? [facility], CR, CHEST 1 VIEW, 11/03/2016, 14:39. ? FINDINGS:? ? Surgical changes and devices:? None.? ? Lungs and pleura:? Lungs are abnormal with a chronic interstitial prominence somewhat accentuated by reduced inspiratory volume..? No pleural effusions or pneumothorax.? ? Mediastinum:? Mediastinal contours appear normal.? Heart size is normal.? ? Bones and chest wall:? No suspicious bony lesions.? Overlying soft tissues appear unremarkable.? ? IMPRESSION:? A definite consolidative pneumonia is not found but there is chronic interstitial prominence which is accentuated by mildly reduced inspiratory volume. ? ? Dictated by: Brian Nevarez M.D. on 06/17/2022 at 22:12 ? ? Approved by: Brian Nevarez M.D. on 06/17/2022 at 22:13 ? ECG Data Interpretation: Sinus rhythm rate 80 p.r. interval 188 QRS [address] changes MDM Narrative Medical decision making narrative: Patient previously diagnosed with pneumonia over feeling worse. Blood work is surprisingly reassuring. However he is requiring about 1 L of oxygen. He is also now positive for RSV. At this time will need admission for hypoxia Dr. Pablo updated on patient's symptoms test results and kindly accepts patient. Discharge Plan Departure Patient Disposition: Admitted As Inpatient Clinical Impression: RSV infection, Pneumonia, Hypoxia Admit Date/Time: 06/17/22 23:38 Admit Provider: Eduardo Novak
[2022-06-17 22:22] LABS: Add Manual Diff / Slide Review NO; Basophils Absolute Auto 0 /uL (0-100); Basophils Percent Auto 0.3 % (0-2); Eosinophils Absolute Auto 0 /uL (0-450); Eosinophils Percent Auto 0.8 % (2-4); Hematocrit 40.4 % (41-53); Hemoglobin 13.6 g/dL (13.5-17.5); Lymphocytes Absolute Auto 700 /uL (1100-4500); Lymphocytes Percent Auto 12.3 % (25-40); Mean Corpuscular HGB Conc 33.8 % (30-36); Mean Corpuscular Hemoglobin 32.3 PG (26-34); Mean Corpuscular Volume 95.7 fL (80-100); Monocytes Absolute Auto 700 /uL (0-900); Monocytes Percent Auto 11.9 % (3-14); Neutrophils Absolute Auto 4500 /uL (1500-7000); Neutrophils Percent Auto 74.7 % (50-75); Platelet Count 158 X10^3/uL (150-400); Red Blood Cell Count 4.22 X10^6/uL (4.5-5.9); Red Cell Distribution Width 13.7 % (11.6-14.8); White Blood Cell Count 6.1 X10^3/uL (4.5-11.0)
[2022-06-17 22:25] LABS: INR 1.7 (0.9-1.3); Prothrombin Time 19.4 SECONDS (10.1-12.7)
[2022-06-17 22:29] LABS: Lactate (Lactic Acid) 1.5 mmol/L (0.7-2.1)
[2022-06-17 22:31] LABS: Alanine Aminotransferase 56 IU/L (<50); Albumin 3.9 g/dL (3.5-5.0); Albumin Globulin Ratio 1.3 (1.0-2.8); Alkaline Phosphatase 67 U/L (38-126); Aspartate Aminotransferase 49 IU/L (17-59); BUN Creatinine Ratio 15.9 (6-22); Bilirubin Total 0.6 mg/dL (0.2-1.3); Blood Urea Nitrogen 17 mg/dL (9-20); Calcium 8.1 mg/dL (8.4-10.2); Carbon Dioxide 26 mmol/L (22-32); Chloride 103 mmol/L (98-107); Estimated Glomerular Filt Rate > 60 mL/min (>60); Glucose 142 mg/dL (80-110); HEMOLYSIS 16 (0-50); Sodium 137 mmol/L (137-145); Total Protein 6.9 g/dL (6.3-8.2)
[2022-06-17 22:43] LABS: NT-proBNP (BNP-Adult 18+) 180 pg/mL (<450); Troponin I 0.014 ng/mL (0.01-0.034)
[2022-06-17 22:47] LABS: Procalcitonin 0.21 ng/mL (<0.5)
[2022-06-17 23:04] LABS: Influenza A - CEPHEID Flu A NEGATIVE (NEGATIVE); Influenza B - CEPHEID Flu B NEGATIVE (NEGATIVE); Respiratory Syncytial Virus POSITIVE (Negative)
[2022-06-17 23:10] LABS: COVID-19 CEPHEID 4-PLEX PCR Negative (Negative)
[2022-06-17] MEDS: cefTRIAXone 2,000 MG in SODIUM CHLORIDE 0.9% 100 ML 200 MG IV (23:33)
[2022-06-18] VITALS (32 sets, daily range): BP systolic 128–195; BP diastolic 60–98; PULSE 66–86; RESP 16–44; TEMP 36.5–39.1; O2SAT 92–98; BMI 25.8
[2022-06-18] MEDS: AZITHROMYCIN 500 MG in DEXTROSE 5% IN WATER 250 ML 250 MG IV ×2 (00:08→12:04)
[2022-06-18] MEDS: ACETAMINOPHEN 325 MG TABLET 975 MG PO (00:43)
[2022-06-18] MEDS: SODIUM CHLORIDE 0.9% 1,000 ML 125 ML IV (01:25)
[2022-06-18] MEDS: ACETAMINOPHEN 325 MG TABLET 650 MG PO ×3 (07:03→17:39)
--- NOTE | 2022-06-18 09:19 | PM.HP.1 ---
History of Present Illness History of Present Illness Date Patient Seen: 06/18/22 Time Patient Seen: 09:19 Chief complaint: SOB Narrative: 86-year-old male with a history of cerebrovascular accident paroxysmal atrial fibrillation on chronic anticoagulation BPH returns to the hospital with feeling weak and short of breath. Patient states that he is never felt this sick. He says he has been ill for about 1 week. Has aches headaches chills decreased appetite and very weak. He was seen and evaluated in the emergency department on 06/15/2022 diagnosed with pneumonia. He was discharged home and returned back to the emergency department. Says he was too weak to get out of bed and fell and had to have the ambulance come and help him get up. They had to lift him off of the floor. He was able to try to stay home and went back home. Worse and weaker now. He says his ribs hurt a little bit. Short of breath he is coughing. Has muscle aches and body aches. No complaints of headache he is had no complaints of chest pain. He says his bowel movements and urination are working well. He says he is had a few sips of fluid over the last week or so and has not had much appetite. 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 use of anticoagulant therapy (12/14/16) Lung nodule (11/27/13) Paroxysmal atrial fibrillation (04/13/15) Pulmonary nodule Stroke (10/2016) Surgical History H/O vasectomy Family & Social History Family History Father Family history of diabetes mellitus (DM) Family hx of lung cancer Mother Colon cancer Social History: household members spouse lives independently Yes caregiver/support person Yes Safety & Behavioral: Feels Safe in Current Yes Environment Been Physically Hurt or No Threatened By a Person Tobacco & Substance use: Smoking Status Former smoker alcohol intake current Substance Use Type does not use Meds Home Medications and Allergies Home Medications Medication Instructions Recorded Confirmed Type cholecalciferol (vitamin D3) 25 1 tab PO QDAY #30 tabs 01/04/17 11/04/21 Rx mcg (1,000 unit) tablet (Vitamin D3) Disabled Parking Permit 1 ea miscellaneous DIRECTED 02/18/18 11/04/21 History prazosin 2 mg capsule 4 mg PO BEDTIME #60 caps 05/29/19 11/04/21 Rx sertraline 50 mg tablet 50 mg PO QDAY #90 tabs 09/08/19 11/04/21 Rx alfuzosin 10 mg tablet,extended 10 mg PO DAILY #90 tabs 01/21/20 11/04/21 Rx release 24 hr clotrimazole 1 % topical cream 1 applictn topical BID PRN Rash or 04/09/20 11/04/21 Rx Itching. #30 grams diclofenac sodium 1 % topical gel 2 gram topical TID PRN joint pain 04/12/20 11/04/21 Rx (Voltaren) #100 grams warfarin 1 mg tablet See Rx Instructions .Route 11/07/21 11/29/21 Rx .COMPLEX #200 tabs atorvastatin 40 mg tablet 40 mg PO HS #90 tabs 03/13/22 Rx Disabled Parking Permit: Permanent #1 ea 03/16/22 Rx amiodarone 200 mg tablet 200 mg PO AMCC #90 tabs 03/24/22 Rx amoxicillin 875 mg-potassium 1 tab PO BID #20 tabs 06/15/22 Rx clavulanate 125 mg tablet azithromycin 250 mg tablet See Rx Instructions PO .COMPLEX #6 06/15/22 Rx tabs Allergies Allergy/AdvReac Type Severity Reaction Status Date / Time No Known Drug Allergies Allergy Verified 11/04/21 15:57 Exam Vital Signs (past 8 hours): - 06/18/22 01:49 06/18/22 09:12 Temperature 101.3 F H 98.5 F Fraction of Inspired Oxygen 36 SaO2/FiO2 Ratio 261 Oxygen Delivery Method Nasal Cannula Oxygen Flow Rate 4 Narrative Exam Narrative: Gen.: Alert good historian HEENT: Pupils equal round and reactive or mucosa is moist neck is supple Cardio: S1-S2 irregular rate and rhythm Respiratory: Mild increased work of breathing with upper respiratory rhonchorous breath sounds Abdomen: Soft nontender no rebound or guarding Extremities: Full range of motion warm dry perfused Objective Labs Result Diagrams: 06/17/22 22:05 12/03/22 22:05 Labs: Laboratory Results - last 24 hr 06/17/22 06/17/22 06/17/22 22:05 22:05 22:05 WBC 6.1 RBC 4.22 L Hgb 13.6 Hct 40.4 L MCV 95.7 MCH 32.3 MCHC 33.8 RDW 13.7 Plt Count 158 Neut % (Auto) 74.7 Lymph % (Auto) 12.3 L [place] % (Auto) 11.9 Eos % (Auto) 0.8 L Baso % (Auto) 0.3 Neut # (Auto) 4500 Lymph # (Auto) 700 L [place] # (Auto) 700 Eos # (Auto) 0 Baso # (Auto) 0 PT 19.4 H INR 1.7 H Sodium Potassium Chloride Carbon Dioxide BUN Creatinine Estimated GFR BUN/Creatinine Ratio Glucose Lactate Calcium Total Bilirubin AST ALT Alkaline Phosphatase Troponin I NT-Pro-B Natriuret Pep Total Protein Albumin Globulin Albumin/Globulin Ratio Procalcitonin SARS-CoV-2 (PCR) Negative Influenza A (RT-PCR) Flu a negative Influenza B (RT-PCR) Flu b negative RSV (PCR) Positive A 06/17/22 06/17/22 06/17/22 22:05 22:05 22:05 WBC RBC Hgb Hct MCV MCH MCHC RDW Plt Count Neut % (Auto) Lymph % (Auto) [place] % (Auto) Eos % (Auto) Baso % (Auto) Neut # (Auto) Lymph # (Auto) [place] # (Auto) Eos # (Auto) Baso # (Auto) PT INR Sodium 137 Potassium 4.0 Chloride 103 Carbon Dioxide 26 BUN 17 Creatinine 1.07 Estimated GFR > 60 BUN/Creatinine Ratio 15.9 Glucose 142 H Lactate 1.5 Calcium 8.1 L Total Bilirubin 0.6 AST 49 ALT 56 H Alkaline Phosphatase 67 Troponin I 0.014 NT-Pro-B Natriuret Pep 180 Total Protein 6.9 Albumin 3.9 Globulin 3.0 Albumin/Globulin Ratio 1.3 Procalcitonin 0.21 SARS-CoV-2 (PCR) Influenza A (RT-PCR) Influenza B (RT-PCR) RSV (PCR) Assessment & Plan Assessment and plan (1) Pneumonia: Status: Acute Plan Pneumonia patient has a clinical diagnosis of pneumonia. White blood cell count lactic acid is normal. Viral panel positive for RSV. After his previous admission to the emergency department he was sent home with oral antibiotics. Has been taking those. Currently significantly weak and hypoxic and needs hospital admission. Will admit him with IV antibiotics oxygen and respiratory therapy per protocol. Pneumonia can be viral or bacterial in this case combination of both. Atrial fibrillation patient with history of atrial fibrillation his INR is subtherapeutic. Will be continued on his warfarin. Will monitor closely his heart rate during his hospital stay and vital signs restart warfarin and recheck PT INR. Cerebrovascular accident. Patient with a history of a stroke. He says he has some left-sided weakness this is worsened acutely with his illness. He will need help with physical therapy during the hospital stay. BPH. Patient with BPH current urination is going well. We will hold his prazosin at this time monitor closely his blood pressure and restart. DVT prophylaxis patient on anticoagulation Disposition and plan admit as inpatient. Anticipate patient to be hospitalized greater than 2 midnights. Time Spent With Patient Critical Care time: I spent a total of [] minutes of critical care time on this patient's care today; this time is exclusive of procedural time.
[2022-06-18] MEDS: cefTRIAXone 1,000 MG in SODIUM CHLORIDE 0.9% 100 ML 200 MG IV (09:48)
[2022-06-18] MEDS: DEXTROSE 5%-0.9% NS 1,000 ML 75 ML IV (09:50)
[2022-06-18] MEDS: AMIODARONE 200 MG TABLET PO (12:04)
[2022-06-18] MEDS: ONDANSETRON 4 MG/2 ML INJ IV (14:45)
[2022-06-18] MEDS: PANTOPRAZOLE 40 MG VIAL IV ×2 (14:45→21:24)
--- NOTE | 2022-06-18 16:20 | CM.DANOTE ---
DCP/Assessment: Pateint is a 86yr old male admitted to [facility] with RSV/Pneumonia. PCP is Dr. Xiong. Primary payor is 1)Medicare 2)[employer] Out of [facility]. Met with patient and spouse/Sylivia at bedside explained CM/SW role. Patient reports having a rough day. Patient currently requiring high flow 02. Spouse reports that they reside in [place] and that they are primarily I in ADL's. However, does report that they are enrolled with services through [facility]. Previously spouse had to have procedure and they came in during the night to assist with meals and stayed overnight. At this time it is too early to determine d/c planning needs. DOLPHIN RESEARCHER did discuss the possibility of patient going home with home health and home ascendent care during patient's recovery. Patient currently is inpatient status. Patient would benefit from PT/OT evaluations when medically appropriate to do so. P: Anticipate Home with HH and caregivers vs. SNF. NIKKO Duron Discharge Planning/Care Management CM Discharge Assessment Start: 06/18/22 16:15 Freq: Status: Active Protocol: Document 06/18/22 16:16 KJS (Rec: 06/18/22 16:20 KJS [id number]) Discharge Planning Assessment Assigned Logistician NIKKO Duron Contact Information Mey Herrera (spouse) # [phone] Advance Directives? Yes Advance Directives on File No History Provided By Patient,Family Member,Medical Record Prior Living Arrangements House Household Members spouse Type of transporation used prior to Relies on Others admit Independent with ADL's Yes Is patient alert and oriented? Yes Needs Assistance With Meal Prep,Home Chores / Shopping Comment Patient and spouse on service with [facility] on as needed basis. Caregiver for Another No DME Already Rented / Owned FWW / Walker,Cane Comment Patient uses both cane and FWW for ambulation. Barriers to Discharge No Discharge Plan Home Transportation Arrangement Family to provide transport. Referrals Initiated Home Health Additional Comment Anticipate that pateint would beneift from home health pending outcome of hospitalizaton. Patient has private paygivers and probably would do better at home if appropriate. Whiteboard Updated in Patient Room with Yes name and ext. # of Logistician Review Status In Process Next Review Type Continued Stay Review
[2022-06-18] MEDS: BENZONATATE 100 MG CAPSULE PO (17:40)
--- NOTE | 2022-06-18 20:05 | PC.NURSE ---
PATIENT ADMITTED TO ROOM 203 VIA STRETCHER FROM ED. PATIENT TRANSFERRED FROM STRETCHER TO BED VIA SLIDER BOARD AND 3PA. HE IS A/O, VOICES NEEDS. FULLCODE, DX: + Rsv / pneumonia. hx cva 6 years ago w/ left side impairment. able to move all extremities. but c/o pain to ribs r/t emt picking me up in a bear hug at home. patient transfered w/ 2pa (gait belt and cane) lots of verbal cues and attention to safety as patient is weak + wants to walk to the bathroom. assisted to BSC, last BM was today: large watery loose stool, red/brown. patient SOB at rest, coarse lung sounds, o2 at 4lpm via NC. HOB is up for comfort. patient's called for assistance in his room and reported at lunch he threw up everything and there is blood, he is coughing up blood. patient presented w/ liban blood dripping out of R nare, into his mouth. cold wet cloth applied to nares to wipe up the blood, patient then vomited about 1 cup of liban blood onto his nightgown, which also had emesis from his meal of scrambled eggs and yogurt. patient showing s/sx of aspiration, wet cough, eyes watering, nose dripping. o2 applied via SM at 5lpm. call to Dr huerta, orders received to given zofran 4mg IV x now and PPI (protonix 40mg IV x 1 now.) further orders: type and screen CBC, CMP, CKP, troponin. CBC / cmp + CXR in AM. hold coumadin today PT/INR in AM. mucinex and tessalon dea requested earlier in shift: orders received + meds given. 1999: call to Dr Huerta to update on patient, no further emesis noted. patient continues on o2 via SM at 4lpm. PRN apap helpful for immobility + rib pain. tele dcd per Dr Huerta. rita remains at bedside. patient states i am more comfortable now. declined dinner. report and tasks not completed given to INNA Pat.
[2022-06-18] MEDS: guaiFENesin ER 600 MG TAB 1200 MG PO (21:24)
[2022-06-18] MEDS: ATORVASTATIN 20 MG TABLET 40 MG PO (21:24)
--- NOTE | 2022-06-18 22:28 | PC.NURSE ---
Addendum entered by Adilia Esteves R.N. 06/19/22 01:48: Coughed up thick, bloody sputum. Increased wheezing noted but O2 sats remaining in high 90's. Original Note: Patient is alert and oriented. Breath sounds with expiratory rhonchi in right upper/middle lobes. On oxygen at 5L/min per NC with sat of 95%. HRR w/BP of 140/66. Denies nausea. BT present; abdomen is large and round but soft. Denies dysuria but states he has had some frequency but believes it is related to receiving IVF. Has left sided residual weakness related to hx of falls so is needing to be repositioned q2h. Gets out of bed with walker and 2 assists; gait not assessed at thit time. Denies pain. Bilateral calf SCD's applied. Fall risk score is high and bed alarm is activated. On droplet precautions as is positive for RSV.
[2022-06-19] VITALS (7 sets, daily range): BP systolic 123–160; BP diastolic 63–73; PULSE 63–82; RESP 18–24; TEMP 36.4–38; O2SAT 90–98
[2022-06-19] MEDS: DEXTROSE 5%-0.9% NS 1,000 ML 75 ML IV ×2 (00:01→15:02)
--- NOTE | 2022-06-19 05:00 | DI.RAD.S_ITS ---
PROCEDURE: XR CHEST 1V INDICATIONS: pneumonia TECHNIQUE: One view of the chest was acquired. COMPARISON: [facility], CR, XR CHEST 1V, 06/17/2022, 21:50. FINDINGS: Surgical changes and devices: None. Lungs and pleura: Ill-defined airspace opacities are seen in bilateral upper lung todd and possibly bilateral infrahilar region new since 06/17/2022 study. No pleural effusion or pneumothorax. No pleural effusions or pneumothorax. Mediastinum: Mediastinal contours appear normal. Heart size is normal. Bones and chest wall: No suspicious bony lesions. Overlying soft tissues appear unremarkable. IMPRESSION: Interval development of patchy infiltrate/atelectasis in bilateral upper lobes and bilateral infrahilar region. No pleural effusion or pneumothorax. Dictated by: Wil Gong M.D. on 06/19/2022 at 13:04 Approved by: Wil Gong M.D. on 06/19/2022 at 13:04
--- NOTE | 2022-06-19 07:29 | P.PN_ITS ---
Subjective Subjective Date Patient Seen: 06/19/22 Time Patient Seen: 07:29 Interval history: 86-year-old male well known to me admitted yesterday with increased weakness and least RSV pneumonia if not additional pneumonia. He is modestly hypoxic due to his acute respiratory failure secondary to the pneumonia. He is had increased number of falls at home although he does fall frequently after his CVA in 2017 Apparently after admission yesterday he also coughed up he there was some bloody sputum or had some nausea and vomiting with some bloody emesis. The nausea and vomiting has ceased and there was no hemodynamic change. Patient is chronically anticoagulated due to paroxysmal atrial fibrillation which is felt to be the etiology of his CVA. Patient continues to be quite weak modestly hypoxic requiring 5 L nasal cannula oxygen replacement therapy. 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) detention current use of anticoagulant therapy (12/14/16) Lung nodule (11/27/13) Paroxysmal atrial fibrillation (04/13/15) Pulmonary nodule Stroke (10/2016) Surgical History H/O vasectomy Family History Father Family history of diabetes mellitus (DM) Family hx of lung cancer Mother Colon cancer Social History marital status: number of children: 2 household members: spouse lives independently: Yes caregiver/support person: Yes housing: house pets and animals: No education level: other occupational status: other 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 RSV pneumonia with acute respiratory failure and hypoxia-continue with supportive therapies including oxygen nebulizers for evidence of obstructive lung disease etcetera. He also will continue on parental broad-spectrum anti biotics for possible bacterial superinfection and or infection with an atypical organism 2. Bloody emesis-patient's warfarin held and he started on Protonix. Most likely source of bleeding would be a Karla-Swanson type tear. Continue to monitor his INR and his output. Would want to restart warfarin when felt to be safe. Doubt there is anything more significant like an upper GI bleed etcetera given lack of hemodynamic change and the intermittent nature of the emesis etcetera. He was started on the proton pump inhibitor which I will continue for now 3. Hypertension-patient not normally on antihypertensive therapy. I am going to initiate that at this time using low-dose metoprolol which may help with his rhythm disturbance as well 4. Paroxysmal atrial fibrillation with chronic anticoagulation-as above his anticoagulation will be held until he can be more certain that he would not having a large volume GI bleed 5. History of CVA with left-sided weakness-physical therapy would be appropriate as patient improves with his pneumonia re-evaluate his physical status and hopefully determine that he is safe to return home. However his home situation is somewhat complicated by the fact that his spouse also has significant and serious medical issues ongoing although I believe they have hired significant help at home 6. Code status-discussed with patient again is code status. I think he would be unlikely to have a good outcome should he have a cardiopulmonary arrest even if he were successfully resuscitated however he is of the opinion that he would like ?a chance ?if something disastrous what happened. Therefore he should remain a full code at this time. Note: Greater than 30 minutes total time was spent on day of service, evaluating the patient on the floor, including examining the patient, discussing clinical course with clinical and nursing staff, reviewing clinical course in the computer, preparing documentation and writing orders for continued management of care, discussing status with family as appropriate, reviewing plans for the next 24 hours with both patient/family and nursing staff as appropriate. COVID-19 COVID-19 status: Negative Result date/Date tested (Pos, Neg/Pending): 06/17/22 Quality VTE Deep Vein Thrombosis/Pulmonary Embolism Present on Admission: No
[2022-06-19] MEDS: cefTRIAXone 1,000 MG in SODIUM CHLORIDE 0.9% 100 ML 200 MG IV (08:20)
[2022-06-19] MEDS: SERTRALINE 50 MG TABLET PO (08:20)
[2022-06-19] MEDS: AMIODARONE 200 MG TABLET PO (08:20)
[2022-06-19] MEDS: METOPROLOL IR 25 MG TABLET PO ×2 (08:20→20:57)
[2022-06-19] MEDS: guaiFENesin ER 600 MG TAB 1200 MG PO ×2 (08:20→20:56)
[2022-06-19] MEDS: PANTOPRAZOLE 40 MG VIAL IV ×2 (08:20→20:57)
[2022-06-19 08:33] LABS: INR 1.7 (0.9-1.3); Prothrombin Time 19.2 SECONDS (10.1-12.7)
[2022-06-19 09:20] LABS: Hematocrit 37.7 % (41-53); Hemoglobin 12.7 g/dL (13.5-17.5)
[2022-06-19 09:35] LABS: INR 1.6 (0.9-1.3); Prothrombin Time 18.6 SECONDS (10.1-12.7)
[2022-06-19] MEDS: AZITHROMYCIN 500 MG in DEXTROSE 5% IN WATER 250 ML 250 MG IV (10:06)
[2022-06-19] MEDS: ACETAMINOPHEN 325 MG TABLET 650 MG PO (14:12)
[2022-06-19] MEDS: ATORVASTATIN 20 MG TABLET 40 MG PO (20:56)
[2022-06-19] MEDS: ALBUTEROL/IPRATROPIUM 3 ML AMPUL INH (21:20)
[2022-06-20] VITALS (9 sets, daily range): BP systolic 105–155; BP diastolic 66–78; PULSE 61–76; RESP 17–20; TEMP 36.5–37.2; O2SAT 93–97
--- NOTE | 2022-06-20 01:21 | PC.NURSE ---
Addendum entered by Adilia Esteves R.N. 06/20/22 05:28: Earlier was having increased work of breathing and unable to speak in complete sentences. Reported he has been having weird dreams. Assisted onto bedpan and he had a liquid stool. After repositioning in bed appears to be breathing easier with sat of 94%. Original Note: Patient is alert and oriented. Breath sounds worsening from last noc. Initially patient on oxygen per NC with sat of 98% but with more prominent audible wheezing. Auscultating diminished with inspiratory, coarse crackles and expiratory wheezes/rhonchi. RT had been contacted earlier due to wheezing/SOB and provided neb Rx. At time of assessment he was having difficulty maintaining O2 sats > 90% due to mouth breathing so switched to simple mask and is not 96%. Complained of nasal congestion and when blowing nose discharge is bloody. HRR with improved BP at 132/73. Denies nausea. BT present but abdomen is looking more distended than previous noc and more firm to touch; denies abdominal pain or tenderness. Voiding per urinal and is sometimes incontinent. Needing assistance to reposition q2h due to weakness. Gait not assessed and therapy not ordered as yet. Does have left extremity residual weakness from previous CVA. Denied pain at time of assessment. Wearing bilateral calf SCD's. Noted pedal edema in left foot tonight. Light red, flat rash noted on chest and abdomen; denies itching. Fall risk score is high and bed alarm is activated. Remains on droplet precautions due to being positive for RSV.
[2022-06-20] MEDS: DEXTROSE 5%-0.9% NS 1,000 ML 75 ML IV (04:02)
--- NOTE | 2022-06-20 08:35 | PM.PN.1 ---
Subjective Subjective Date Patient Seen: 06/20/22 Time Patient Seen: 08:35 Interval history: Patient basically unchanged. Still wheezing quite a bit and having fair amount of coughing and at times need to sit straight upright to reduce coughing. Not currently true at the moment. Patient reports still coughing up blood-tinged material, and also some bloody discharge from his nose A bit more abdominal distention, did have a bowel movement each of the last 2 days Chest x-ray shows worsening of pneumonia infiltrate now bilateral (after hydration) Exam Vital Signs (past 8 hours): - 06/20/22 00:54 06/20/22 02:45 Temperature 98.1 F Pulse Rate 76 Respiratory Rate 20 Blood Pressure 146/78 H Pulse Oximetry 96 94 Oxygen Delivery Method Simple Mask Oxygen Flow Rate 5 5 Fraction of Inspired Oxygen 44 SaO2/FiO2 Ratio 220 Oxygen Delivery Method Simple Mask Oxygen Flow Rate 5 Objective Labs Result Diagrams: 06/19/22 08:49 06/17/22 22:05 Labs: Laboratory Results - last 24 hr 06/19/22 06/19/22 08:49 08:49 Hgb 12.7 L Hct 37.7 L PT 18.6 H INR 1.6 H PFSH Medical History Atrial fibrillation BPH w urinary obs/LUTS Erectile dysfunction 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) 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 (12/14/16) Lung nodule (11/27/13) Paroxysmal atrial fibrillation (04/13/15) Pulmonary nodule Stroke (10/2016) Surgical History H/O vasectomy Family History Father Family history of diabetes mellitus (DM) Family hx of lung cancer Mother Colon cancer Social History marital status: number of children: 2 household members: spouse lives independently: Yes caregiver/support person: Yes housing: house pets and animals: No education level: other occupational status: other 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 RSV pneumonia-patient's chest x-ray more consistent with a bacterial pneumonia as well. Also patient now demonstrating some reactive airways with wheezing etcetera. I think at this point he needs some IV steroids to help reduce the reactive airways component needs to continue on the parental antibiotics and continue supportive therapy for the RSV component. I am not overly surprised his chest x-ray was somewhat worse as he had been somewhat rehydrated and that is often the case in the first 24-48 hours after hospitalization 2. Bloody emesis/bloody discharge-patient remains off warfarin. Blood counts were stable yesterday. Vital signs remained stable. No evidence of large volume bleeding. Doubt there is any significant GI bleed likely related to his chronic anticoagulation and his infectious status 3. Hypertension-blood pressure better on current medication. No changes 4. Atrial fibrillation-no evidence of recurrent atrial fibrillation 5. Status post CVA-patient will need additional assistance with PT etcetera when appropriate Note: Greater than 30 minutes total time was spent on day of service, evaluating the patient on the floor, including examining the patient, discussing clinical course with clinical and nursing staff, reviewing clinical course in the computer, preparing documentation and writing orders for continued management of care, discussing status with family as appropriate, reviewing plans for the next 24 hours with both patient/family and nursing staff as appropriate. Quality VTE Deep Vein Thrombosis/Pulmonary Embolism Present on Admission: No
[2022-06-20 08:58] LABS: Hematocrit 36.5 % (41-53); Hemoglobin 12.5 g/dL (13.5-17.5)
[2022-06-20 09:09] LABS: BUN Creatinine Ratio 15.6 (6-22); Blood Urea Nitrogen 14 mg/dL (9-20); Calcium 7.7 mg/dL (8.4-10.2); Carbon Dioxide 24 mmol/L (22-32); Chloride 103 mmol/L (98-107); Estimated Glomerular Filt Rate > 60 mL/min (>60); Glucose 146 mg/dL (80-110); HEMOLYSIS < 15 (0-50); Potassium 3.8 mmol/L (3.4-5.1); Sodium 137 mmol/L (137-145)
[2022-06-20] MEDS: AMIODARONE 200 MG TABLET PO (09:11)
[2022-06-20] MEDS: cefTRIAXone 1,000 MG in SODIUM CHLORIDE 0.9% 100 ML 200 MG IV (09:11)
[2022-06-20] MEDS: PANTOPRAZOLE 40 MG VIAL IV ×2 (09:12→20:32)
[2022-06-20] MEDS: SERTRALINE 50 MG TABLET PO (09:12)
[2022-06-20] MEDS: guaiFENesin ER 600 MG TAB 1200 MG PO ×2 (09:12→20:32)
[2022-06-20] MEDS: methylPREDNISolone 125 MG/2 ML VIAL 60 MG IV ×2 (09:12→17:35)
[2022-06-20] MEDS: METOPROLOL IR 25 MG TABLET PO ×2 (09:12→20:32)
[2022-06-20] MEDS: AZITHROMYCIN 500 MG in DEXTROSE 5% IN WATER 250 ML 250 MG IV (10:05)
[2022-06-20] MEDS: ATORVASTATIN 20 MG TABLET 40 MG PO (20:32)
[2022-06-21] VITALS (7 sets, daily range): BP systolic 124–131; BP diastolic 66–72; PULSE 60–68; RESP 18–22; TEMP 36.2–36.9; O2SAT 93–96
[2022-06-21] MEDS: methylPREDNISolone 125 MG/2 ML VIAL 60 MG IV ×3 (00:54→17:55)
--- NOTE | 2022-06-21 07:52 | P.PN_ITS ---
Subjective Subjective Date Patient Seen: 06/21/22 Time Patient Seen: 07:52 Interval history: Patient's vital signs have been stable. Still has a modestly high oxygen requirement, although seemingly coming down slowly Seems to have somewhat increased appetite yesterday with increased oral intake Still with significant abdominal distention without pain or discomfort. Having small bowel movements on a daily basis since admission Exam Vital Signs (past 8 hours): - 06/21/22 04:00 Temperature 97.7 F Pulse Rate 68 Respiratory Rate 20 Blood Pressure 125/72 Pulse Oximetry 94 Oxygen Flow Rate 6 Fraction of Inspired Oxygen 44 SaO2/FiO2 Ratio 220 Oxygen Delivery Method Simple Mask Oxygen Flow Rate 6 Narrative Exam Narrative: Lungs-coarse crackles clear somewhat with a bit of a cough Heart-regular rate and rhythm Abdomen-distended kind of tympanitic with high-pitched bowel tones present no rebound guarding no tenderness whatsoever, no fluid wave Objective Labs Result Diagrams: 06/20/22 08:31 06/20/22 05:00 Labs: Laboratory Results - last 24 hr 06/20/22 06/20/22 05:00 08:31 Hgb 12.5 L Hct 36.5 L Sodium 137 Potassium 3.8 Chloride 103 Carbon Dioxide 24 BUN 14 Creatinine 0.90 Estimated GFR > 60 BUN/Creatinine Ratio 15.6 Glucose 146 H Calcium 7.7 L PFSH Medical History Atrial fibrillation BPH w urinary obs/LUTS Erectile dysfunction 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) prison current use of anticoagulant therapy (12/14/16) Lung nodule (11/27/13) Paroxysmal atrial fibrillation (04/13/15) Pulmonary nodule Stroke (10/2016) Surgical History H/O vasectomy Family History Father Family history of diabetes mellitus (DM) Family hx of lung cancer Mother Colon cancer Social History marital status: number of children: 2 household members: spouse lives independently: Yes caregiver/support person: Yes housing: house pets and animals: No education level: other occupational status: other 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 Pneumonia-probably combination of RSV and bacterial pneumonia. I think bacterial pneumonia based on appearance of infiltrates on chest x-ray. Seemingly somewhat improved with decreasing oxygen requirement and certainly less wheezing etcetera today probably secondary to the parental steroids. Continue with current interventions including IV antibiotics and parental steroi ds. Continue with oxygen replacement therapy. 2. Bloody emesis/bloody discharge-patient remains off warfarin. Blood counts remain relatively stable. Vital signs remained stable. Again no evidence of large volume bleeding but continue with proton pump inhibitor 3. Hypertension-blood pressure better on current medication, no hypotension. No change in plan today. 4. Atrial fibrillation-no evidence of recurrent atrial fibrillation 5. Status post CVA-patient will need additional assistance with PT etcetera when appropriate. Hopefully PT can begin to mobilize him to some degree today. 6. GI-patient with abdominal distention etcetera. Exam is consistent with some degree of ileus. Plan to check plain abdominal x-rays and if evidence of ileus probably try some prokinetic agent such as metoclopramide. Patient not really symptomatic other than the abdominal distention fortunately. Could also be some degree of obstipation and may need some assistance more completely evacuating his bowels etcetera. If persists and or has additional symptoms without improvement may consider CT scan imaging as well Note: Greater than 30 minutes total time was spent on day of service, evaluating the patient on the floor, including examining the patient, discussing clinical course with clinical and nursing staff, reviewing clinical course in the computer, preparing documentation and writing orders for continued management of care, discussing status with family as appropriate, reviewing plans for the next 24 hours with both patient/family and nursing staff as appropriate. Quality VTE Deep Vein Thrombosis/Pulmonary Embolism Present on Admission: No
--- NOTE | 2022-06-21 09:39 | DI.RAD.S_ITS ---
PROCEDURE: XR ABDOMEN MIN 2V INDICATIONS: abd distention TECHNIQUE: 2 views of the abdomen were acquired. COMPARISON: [facility], CR, XR CHEST 1V, 06/19/2022, 8:09. FINDINGS: Surgical changes and devices: None. Bowel: Abnormally prominent gas-filled loops of colon can be seen, which measure nearly 9 cm within the transverse colon. No definite dilated small bowel loops can be seen. Soft tissues: No masses; visualized solid organ contours appear normal in size. No suspicious abdominal calcifications. Bones: No suspicious bony abnormalities. Age-appropriate bony degenerative changes are seen. IMPRESSION: Abnormally dilated gas-filled loops of colon can be seen. Dictated by: Emiliano Whitehead M.D. on 06/21/2022 at 10:38 Approved by: Emiliano Whitehead M.D. on 06/21/2022 at 10:40
[2022-06-21] MEDS: guaiFENesin ER 600 MG TAB 1200 MG PO ×2 (09:46→21:00)
[2022-06-21] MEDS: cefTRIAXone 1,000 MG in SODIUM CHLORIDE 0.9% 100 ML 200 MG IV (09:47)
[2022-06-21] MEDS: SERTRALINE 50 MG TABLET PO (09:48)
[2022-06-21] MEDS: PANTOPRAZOLE 40 MG VIAL IV ×2 (09:48→21:00)
[2022-06-21] MEDS: METOPROLOL IR 25 MG TABLET PO ×2 (09:49→21:00)
[2022-06-21] MEDS: AMIODARONE 200 MG TABLET PO (09:54)
--- NOTE | 2022-06-21 10:05 | PT.IIE ---
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 stated that he mostly stays in his recliner. Caregiver/ spouse assists him with bed mobility, sit to stand and ambulate with a FWW with assist. Social History Household Members spouse Living Arrangements House Number of Floors (Floors) 3 or More Floors Number of Stairs To Enter/Railing? pt stays on the first level of the house 3 steps B rails to enter Additional Social History Comment caregiver comes in from 1030 pm to 1030am MWF M2 PT-IP Current Condition Start: 06/21/22 13:13 Freq: NEEDED Status: Active Protocol: Document 06/21/22 10:05 AB (Rec: 06/21/22 13:58 [email or web address]) Physical Therapy Current Condition Current Condition Evaluation Date 06/21/22 Treatment Diagnosis PNA; RSV infxn; difficulty in walking Onset Date 06/17/22 M3 PT-IP Subjective Start: 06/21/22 13:13 Freq: NEEDED Status: Active Protocol: Document 06/21/22 10:05 AB (Rec: 06/21/22 13:58 [email or web address]) Subjective Physical Therapy Visit Type Type Initial Evaluation Visit Start Time 10:05 Visit Stop Time 10:55 Total Visit Minutes 50 Number of BASEBALL INSPECTOR AND REPAIRER Visits 0 Physical Therapy Visit Comments Patient Comments agreeable to do PT M4 PT-IP Mobility and Gait Start: 06/21/22 13:13 Freq: NEEDED Status: Active Protocol: Document 06/21/22 10:05 AB (Rec: 06/21/22 13:58 AB [email or web address]) PT-Bed Mobility Assessment Supine to Sit Supine to Sit Maximum Assistance,1 Person Assistance,2 Person Assistance Scooting Scooting to Edge of Bed Maximum Assistance PT-Transfer Assessment Sit to and From Stand Sit to and from Stand Maximum Assistance,2 Person Assistance,Use of Upper Extremities Equipment Transfer Assistive Device Gait Belt,Front Wheeled Walker Orthotic/Prosthetic Devices or Brace: No Transfers Transfer Destination Chair Transfer Technique Stand Pivot Transfer Ability Level of Assist Maximum Assistance,2 Person Assistance,Use of Upper Extremities Comments Mobility Comments completed supine to sit max A x 1-2 and max cues with HOB elevated. max A for sitting on EOB with increas posterior trunk lean. pt with h/o CVA with L sided weakness and limited use of LUE/LE. max A for scooting to EOB. completed sit to stand x 3 attempts with max A x 2 and max cues. stand pivot transfer using FWW max A x 2 and max cues. required assist with weight shifting to be able to move LE. positioned pt on the chair. call light and table placed within reach. O2 sat maintained at 94-95 with 3 1/2L/min of O2 but with (+) SOB. Gait Assessment Comments Gait Comments unable at this time PT-Balance Assessment Sitting Balance and Reactions Static Sitting Balance Ability Poor Dynamic Sitting Balance Ability Poor Standing Balance and Reactions Static Standing Balance Ability Poor Dynamic Standing Balance Ability Poor Device Used FWW M5 PT-IP Objective Assessments Start: 06/21/22 13:13 Freq: NEEDED Status: Active Protocol: Document 06/21/22 10:05 AB (Rec: 06/21/22 13:58 AB [email or web address]) Orientation Orientation/Cognition Level of Alertness Alert Orientation Name,Place,Situation Language Function Ability Hard of Hearing Safety Awareness Decreased Safety Awareness Memory Description Short Term Impaired Strength Lower Extremity Strength Assessment Bilaterally Impaired Comments Strength Comments RLE: 3+/5 LLE: 3-/5 Coordination Assessment Gross Coordination Gross Coordination WNL Muscle Tone Muscle Tone WNL Yes M6 PT-IP Treatment Start: 06/21/22 13:13 Freq: NEEDED Status: Active Protocol: Document 06/21/22 10:05 AB (Rec: 06/21/22 13:58 AB [id number]) Physical Therapy Treatment Education Education Provided Safety M7 PT-IP Assessment and Plan Start: 06/21/22 13:13 Freq: NEEDED Status: Active Protocol: Document 06/21/22 10:05 (Rec: 06/21/22 13:58 [email or web address]) PT Summary Assessment and Plan Potential Rehabilitation Potential Fair Status of Condition at Evaluation Evolving Summary Impairments Pain,ROM,Strength,Balance, Coordination,Sensation,Tone, Cognition,Bed Mobility, Transfers,Gait,Activity Tolerance Assessment Summary Pt requiring max A x 2 with pivot transfer using FWW and unable to ambulate at this time. Recommending linus lift transfer with nursing staff at this time. pt will require SNF rehab to improve overall strength and mobility. Goals Bed Mobility Goal Minimal Assistance Transfer Goal Minimal Assistance,Front Wheeled Walker Gait Goal Minimal Assistance,Front Wheel Walker Gait Distance 50 Other Goals improve bed mobility, transfers using FWW and ambulation using FWW SBA 75 ft Days to Meet Goals 10 Frequency of Treatment Frequency Of Treatment Once a Day Treatment Plan Physical Therapy Treatment Plan Bed Mobility Training,Transfer Training,Gait Training, Therapeutic Exercise,Balance Retraining,Discharge Planning, Hot or Cold Pack,Neuromuscular Re-ed,Coordination Retraining ,Manual Therapy Precautions Other Precautions Droplet: RSV; falls Recommendations To Nursing Amount of Assist Needed Mechanical Lift Discharge Recommendations PT Discharge Recommendations SNF Rehab Transportation Needs at Discharge Wheelchair/Cabulance
[2022-06-21] MEDS: AZITHROMYCIN 500 MG in DEXTROSE 5% IN WATER 250 ML 250 MG IV (11:00)
[2022-06-21] MEDS: METOCLOPRAMIDE HCL 10 MG TABLET 5 MG PO ×2 (15:16→21:00)
[2022-06-21] MEDS: ATORVASTATIN 20 MG TABLET 40 MG PO (21:00)
[2022-06-22] VITALS (10 sets, daily range): BP systolic 115–135; BP diastolic 60–69; PULSE 58–87; RESP 20–24; TEMP 36.3–36.8; O2SAT 94–97
[2022-06-22] MEDS: methylPREDNISolone 125 MG/2 ML VIAL 60 MG IV ×3 (02:00→18:15)
[2022-06-22] MEDS: ALBUTEROL/IPRATROPIUM 3 ML AMPUL INH (02:25)
[2022-06-22] MEDS: ONDANSETRON 4 MG/2 ML INJ IV (04:03)
[2022-06-22 04:44] LABS: Add Manual Diff / Slide Review NO; Basophils Absolute Auto 0 /uL (0-100); Eosinophils Absolute Auto 0 /uL (0-450); Hematocrit 32.9 % (41-53); Hemoglobin 11.2 g/dL (13.5-17.5); Lymphocytes Absolute Auto 500 /uL (1100-4500); Lymphocytes Percent Auto 4.5 % (25-40); Mean Corpuscular HGB Conc 33.9 % (30-36); Mean Corpuscular Hemoglobin 31.7 PG (26-34); Mean Corpuscular Volume 93.5 fL (80-100); Monocytes Absolute Auto 700 /uL (0-900); Monocytes Percent Auto 6.4 % (3-14); Neutrophils Absolute Auto 10200 /uL (1500-7000); Neutrophils Percent Auto 89.1 % (50-75); Platelet Count 253 X10^3/uL (150-400); Red Blood Cell Count 3.52 X10^6/uL (4.5-5.9); Red Cell Distribution Width 13.5 % (11.6-14.8); White Blood Cell Count 11.5 X10^3/uL (4.5-11.0)
[2022-06-22 04:53] LABS: Alanine Aminotransferase 149 IU/L (<50); Albumin 3.1 g/dL (3.5-5.0); Albumin Globulin Ratio 1.1 (1.0-2.8); Alkaline Phosphatase 77 U/L (38-126); Aspartate Aminotransferase 134 IU/L (17-59); BUN Creatinine Ratio 31.8 (6-22); Bilirubin Total 0.6 mg/dL (0.2-1.3); Blood Urea Nitrogen 27 mg/dL (9-20); Calcium 7.9 mg/dL (8.4-10.2); Carbon Dioxide 24 mmol/L (22-32); Chloride 103 mmol/L (98-107); Estimated Glomerular Filt Rate > 60 mL/min (>60); Globulin 2.7 g/dL (1.7-4.1); Glucose 223 mg/dL (80-110); HEMOLYSIS < 15 (0-50); Potassium 3.5 mmol/L (3.4-5.1); Sodium 136 mmol/L (137-145); Total Protein 5.8 g/dL (6.3-8.2)
--- NOTE | 2022-06-22 08:11 | DI.CT.S_ITS ---
PROCEDURE: CT ABDOMEN PELVIS W CON INDICATIONS: Abdominal distention/abnormal LFTs TECHNIQUE: After the administration of intravenous contrast, axial sections acquired from the lung bases to the pubic symphysis. Coronal and sagittal reformats were performed. For radiation dose reduction, the following was used: automated exposure control, adjustment of mA and/or kV according to patient size. COMPARISON: [facility], CT, THORAX WITH CONTRAST, 10/25/2006, 11:06. FINDINGS: Image quality: Excellent. Lung bases: Unremarkable. Heart: No significant findings. ABDOMEN: Liver: Normal. Gallbladder: Unremarkable. Biliary ducts: No intrahepatic or extrahepatic biliary ductal dilatation. Pancreas: No peripancreatic inflammatory changes or ductal dilatation. Spleen: Unremarkable. Adrenal Glands: No nodule or mass. Kidneys and Ureters: No hydronephrosis or calculus. Ureters unremarkable. Stomach and Bowel: Gaseous and fluid distention of the colon with no evidence of mass or transition point. Normal size and appearance of the small bowel. Appendix unremarkable. Peritoneum: No abnormal intraperitoneal fluid. No free air. Ventral Wall: No hernias. Abdominal Nodes: No retroperitoneal or mesenteric adenopathy by size criteria. Vessels: Aorta and inferior vena cava are normal in size. PELVIS: Pelvic Organs: Unremarkable. Bladder: Unremarkable. Pelvic Nodes: No enlarged lymph nodes. Miscellaneous: No hernias are seen. Bones: No acute or suspicious osseous lesion. IMPRESSION: Gaseous and fluid distention of the colon without evidence of obstructing mass. Dictated by: Eduardo Arango M.D. on 06/22/2022 at 8:15 Approved by: Eduardo Arango M.D. on 06/22/2022 at 8:19
--- NOTE | 2022-06-22 08:13 | P.PN_ITS ---
Subjective Subjective Date Patient Seen: 06/22/22 Time Patient Seen: 08:13 Interval history: Patient has struggled overnight apparently with increasing cough still producing bloody mucus when he coughs. Oxygen requirement is essentially unchanged. Thinks his abdomen is a bit less distended feels a bit better. Did have large bowel movement yesterday. Was seen by Physical therapy and really too weak to even begin to stand on his own Plain film x-ray of the abdomen yesterday showed distention of colon Exam Vital Signs (past 8 hours): - 06/22/22 02:25 06/22/22 02:00 Temperature 98.2 F Pulse Rate 59 L 59 L Respiratory Rate 20 20 Blood Pressure 115/65 Pulse Oximetry 95 94 Oxygen Delivery Method Nasal Cannula Oxygen Flow Rate 6 2 Fraction of Inspired Oxygen 44 Fraction of Inspired Oxygen 44 SaO2/FiO2 Ratio 215 Oxygen Delivery Method Nasal Cannula Oxygen Flow Rate 6 Narrative Exam Narrative: Lungs-unchanged Heart-regular rate and rhythm Abdomen-a bit less distended than yesterday still somewhat tympanitic with bowel tones present Objective Labs Result Diagrams: 06/22/22 04:29 06/22/22 04:29 Labs: Laboratory Results - last 24 hr 06/22/22 06/22/22 04:29 04:29 WBC 11.5 H RBC 3.52 L Hgb 11.2 L Hct 32.9 L MCV 93.5 MCH 31.7 MCHC 33.9 RDW 13.5 Plt Count 253 Neut % (Auto) 89.1 H Lymph % (Auto) 4.5 L Giles % (Auto) 6.4 Eos % (Auto) 0.0 L Baso % (Auto) 0.0 Neut # (Auto) 62351 H Lymph # (Auto) 500 L Giles # (Auto) 700 Eos # (Auto) 0 Baso # (Auto) 0 Sodium 136 L Potassium 3.5 Chloride 103 Carbon Dioxide 24 BUN 27 H Creatinine 0.85 Estimated GFR > 60 BUN/Creatinine Ratio 31.8 H Glucose 223 H Calcium 7.9 L Total Bilirubin 0.6 AST 134 H ALT 149 H Alkaline Phosphatase 77 Total Protein 5.8 L Albumin 3.1 L Globulin 2.7 Albumin/Globulin Ratio 1.1 PFSH Medical History Atrial fibrillation BPH w urinary obs/LUTS Erectile dysfunction 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) senior care current use of anticoagulant therapy (12/14/16) Lung nodule (11/27/13) Paroxysmal atrial fibrillation (04/13/15) Pulmonary nodule Stroke (10/2016) Surgical History H/O vasectomy Family History Father Family history of diabetes mellitus (DM) Family hx of lung cancer Mother Colon cancer Social History marital status: number of children: 2 household members: spouse lives independently: Yes caregiver/support person: Yes housing: house pets and animals: No education level: other occupational status: other 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 Pneumonia-probably combination of RSV and bacterial pneumonia. I think lulú terial pneumonia based on appearance of infiltrates on chest x-ray. Seemingly somewhat improved with decreasing oxygen requirement and certainly less wheezing etcetera today probably secondary to the parental steroids. Continue with current interventions including IV antibiotics and parental meri roids. Continue with oxygen replacement therapy. No changes for today 2. Bloody emesis/bloody discharge-patient remains off warfarin. Blood counts remain relatively stable. Vital signs remained stable. Again no evidence of large volume bleeding but continue with proton pump inhibitor. I do believe this is more pulmonary source than GI source. Certainly if he had more of a GI source 1 would think that he would have some hyperactive GI response from the cathartic effect of blood. His blood count has drifted down slowly however need to continue monitor. Plan to recheck protime tomorrow 3. Hypertension-blood pressure better on current medication, no hypotension. No change in plan today. 4. Atrial fibrillation-no evidence of recurrent atrial fibrillation 5. Status post CVA-patient will need additional assistance with PT etcetera when appropriate. Hopefully PT can begin to mobilize him to some degree today. 6. GI-patient's imaging demonstrates enlargement of his large intestine consistent with something like a colonic pseudo-obstruction. His colonic diameter was less than 12 cm fortunately. Still having bowel movements and not having any pain or discomfort. He is afebrile but white count is minimally abnormal (although was also started on corticosteroids which is a more likely source of his leukocytosis). At this point I am going to obtain CT imaging of his abdomen given the findings on plain film imaging as well as minor abnormalities of his LFTs. His abnormal LFTs are likely secondary to his viral infection nevertheless I think we need more thorough evaluation of his abdominal status. If no evidence of significant improvement in the next 24 hours probably should be made NPO with IV fluid support etcetera. Continue with metoclopramide which was ordered yesterday and I am going to discontinue ondansetron which can have a negative affect on intestinal motility etcetera. Note: Greater than 30 minutes total time was spent on day of service, evaluating the patient on the floor, including examining the patient, discussing clinical course with clinical and nursing staff, reviewing clinical course in the computer, preparing documentation and writing orders for continued management of care, discussing status with family as appropriate, reviewing plans for the next 24 hours with both patient/family and nursing staff as appropriate. Quality VTE Deep Vein Thrombosis/Pulmonary Embolism Present on Admission: No
[2022-06-22] MEDS: cefTRIAXone 1,000 MG in SODIUM CHLORIDE 0.9% 100 ML 200 MG IV (09:09)
[2022-06-22] MEDS: guaiFENesin ER 600 MG TAB 1200 MG PO ×2 (09:09→20:46)
[2022-06-22] MEDS: PANTOPRAZOLE 40 MG VIAL IV ×2 (09:10→20:45)
[2022-06-22] MEDS: METOPROLOL IR 25 MG TABLET PO (09:10)
[2022-06-22] MEDS: AMIODARONE 200 MG TABLET PO (09:15)
[2022-06-22] MEDS: METOCLOPRAMIDE HCL 10 MG TABLET 5 MG PO ×3 (09:15→18:27)
[2022-06-22] MEDS: AZITHROMYCIN 500 MG in DEXTROSE 5% IN WATER 250 ML 250 MG IV (11:11)
--- NOTE | 2022-06-22 15:20 | PT.IPTN ---
Current Diagnoses Pneumonia, unspecified organism (06/17/22) Physical Therapy Treatment Note M2 PT-IP Current Condition Start: 06/21/22 13:13 Freq: NEEDED Status: Active Protocol: Document 06/21/22 10:05 AB (Rec: 06/21/22 13:58 AB [email or web address]) Physical Therapy Current Condition Current Condition Evaluation Date 06/21/22 Treatment Diagnosis PNA; RSV infxn; difficulty in walking Onset Date 06/17/22 M3 PT-IP Subjective Start: 06/21/22 13:13 Freq: NEEDED Status: Active Protocol: Document 06/22/22 14:57 [facility] (Rec: 06/22/22 15:20 [facility] [id number]) Subjective Physical Therapy Visit Type Type Treatment Note Visit Start Time 14:13 Visit Stop Time 14:36 Total Visit Minutes 23 Number of WAREHOUSE PULLER Visits 0 Physical Therapy Visit Comments Patient Comments Pt reports he has been more short of breath M4 PT-IP Mobility and Gait Start: 06/21/22 13:13 Freq: NEEDED Status: Active Protocol: Document 06/22/22 14:57 [facility] (Rec: 06/22/22 15:20 [facility] [id number]) PT-Bed Mobility Assessment Supine to Sit Supine to Sit Maximum Assistance,1 Person Assistance Scooting Scooting to Edge of Bed Moderate Assistance PT-Transfer Assessment Sit to and From Stand Sit to and from Stand Maximum Assistance,1 Person Assistance Equipment Transfer Assistive Device Gait Belt Orthotic/Prosthetic Devices or Brace: No Transfers Transfer Destination Chair Transfer Technique Stand Pivot Transfer Ability Level of Assist Maximum Assistance,1 Person Assistance,Use of Upper Extremities Comments Mobility Comments supine to sit max A x1 with cues to sequence legs and pt held PT's hand to help sit himself up as PT helped support his trunk. Pt was able to scoot himself small bits but needed Mod A to get to the edge of the bed. sit to stand w/Max A w/cues to breath & to stand tall. Upon standing, pt held PT brachium and cued small steps to turn and reach for chair and pivot self to sit max A. Scooted back small scoots indep but required max A to get all the way back in chair and left with call light in reach and informed ADOPTION COORDINATOR and RN of pt position and need to transfer pt back to R side to bed w/2 PA SPT. M5 PT-IP Objective Assessments Start: 06/21/22 13:13 Freq: NEEDED Status: Active Protocol: Document 06/21/22 10:05 AB (Rec: 06/21/22 13:58 AB [email or web address]) Orientation Orientation/Cognition Level of Alertness Alert Orientation Name,Place,Situation Language Function Ability Hard of Hearing Safety Awareness Decreased Safety Awareness Memory Description Short Term Impaired Strength Lower Extremity Strength Assessment Bilaterally Impaired Comments Strength Comments RLE: 3+/5 LLE: 3-/5 Coordination Assessment Gross Coordination Gross Coordination WNL Muscle Tone Muscle Tone WNL Yes M6 PT-IP Treatment Start: 06/21/22 13:13 Freq: NEEDED Status: Active Protocol: Document 06/21/22 10:05 AB (Rec: 06/21/22 13:58 AB [email or web address]) Physical Therapy Treatment Education Education Provided Safety M7 PT-IP Assessment and Plan Start: 06/21/22 13:13 Freq: NEEDED Status: Active Protocol: Document 06/22/22 14:57 [facility] (Rec: 06/22/22 15:20 [facility] [id number]) PT Summary Assessment and Plan Summary Impairments Pain,ROM,Strength,Balance, Coordination,Sensation,Tone, Cognition,Bed Mobility, Transfers,Gait,Activity Tolerance Assessment Summary Pt required max Ax1 today but is unable to amb at this time and requires cues for posture and breathing throughout session. He is able to assist with mobility but must go slow . His O2 at start was 97% and dropped to 92% with transfer. He had to sit EOB to catch his breath fro a couple min before progressing to transfer from bed mobility. Goals Bed Mobility Goal Minimal Assistance Transfer Goal Minimal Assistance,Front Wheeled Walker Gait Goal Minimal Assistance,Front Wheel Walker Gait Distance 50 Other Goals improve bed mobility, transfers using FWW and ambulation using FWW SBA 75 ft Days to Meet Goals 10 Frequency of Treatment Frequency Of Treatment Once a Day Treatment Plan Physical Therapy Treatment Plan Bed Mobility Training,Transfer Training,Gait Training, Therapeutic Exercise,Balance Retraining,Discharge Planning, Hot or Cold Pack,Neuromuscular Re-ed,Coordination Retraining ,Manual Therapy Precautions Other Precautions Droplet: RSV; falls Recommendations To Nursing Amount of Assist Needed 2 Person Assist Discharge Recommendations PT Discharge Recommendations SNF Rehab Transportation Needs at Discharge Wheelchair/Cabulance
[2022-06-22] MEDS: DEXTROSE 5%-0.45NS W/KCL 20MEQ 1,000 ML 100 MEQ IV (18:00)
[2022-06-22] MEDS: INSULIN LISPRO 100 UNIT/ML 3ML VIAL SUBCUT ×2 (18:10→20:46)
[2022-06-22] MEDS: ATORVASTATIN 20 MG TABLET 40 MG PO (20:46)
[2022-06-23] VITALS (10 sets, daily range): BP systolic 109–120; BP diastolic 44–69; PULSE 55–60; RESP 17–22; TEMP 36.2–36.7; O2SAT 93–99
[2022-06-23] MEDS: methylPREDNISolone 125 MG/2 ML VIAL 60 MG IV (00:21)
[2022-06-23 03:14] LABS: NT-proBNP (BNP-Adult 18+) 171 pg/mL (<450)
[2022-06-23 03:22] LABS: Add Manual Diff / Slide Review NO; Basophils Absolute Auto 0 /uL (0-100); Basophils Percent Auto 0.2 % (0-2); Eosinophils Absolute Auto 0 /uL (0-450); Hematocrit 34.3 % (41-53); Hemoglobin 11.5 g/dL (13.5-17.5); Lymphocytes Absolute Auto 500 /uL (1100-4500); Lymphocytes Percent Auto 5.2 % (25-40); Mean Corpuscular HGB Conc 33.6 % (30-36); Mean Corpuscular Hemoglobin 31.8 PG (26-34); Mean Corpuscular Volume 94.5 fL (80-100); Monocytes Absolute Auto 600 /uL (0-900); Monocytes Percent Auto 5.8 % (3-14); Neutrophils Absolute Auto 8700 /uL (1500-7000); Neutrophils Percent Auto 88.8 % (50-75); Platelet Count 285 X10^3/uL (150-400); Red Blood Cell Count 3.64 X10^6/uL (4.5-5.9); Red Cell Distribution Width 13.7 % (11.6-14.8); White Blood Cell Count 9.8 X10^3/uL (4.5-11.0)
--- NOTE | 2022-06-23 03:24 | PC.NURSE ---
Pt is AxOx4, needs max assistance and cooperative. VSS, pt is on 4L NC and sats 95-96%. Lungs sounds crackles everywhere and expiratory wheezy sometimes. Abdomen is hard and distended, BS and audible. Pt c/o chest pain around 0230 this morning so stat EKG was done; it read Bradycardia, prolonged QT and non speficif T wave. Doctor is Tyrese was called and got order for stat BNP and Troponin. Pt's VSS except HR-58 slightly catherine. BG-280/219 and pt has continuous D51/2NS +20K running 100 ml/hr. Otherwise, nothing remarkable. Lab result is pending right now. Continue monitor.
[2022-06-23 03:27] LABS: Alanine Aminotransferase 186 IU/L (<50); Albumin 3.1 g/dL (3.5-5.0); Albumin Globulin Ratio 1.1 (1.0-2.8); Alkaline Phosphatase 75 U/L (38-126); Aspartate Aminotransferase 115 IU/L (17-59); BUN Creatinine Ratio 33.7 (6-22); Bilirubin Total 0.6 mg/dL (0.2-1.3); Blood Urea Nitrogen 30 mg/dL (9-20); Calcium 7.8 mg/dL (8.4-10.2); Carbon Dioxide 26 mmol/L (22-32); Chloride 105 mmol/L (98-107); Estimated Glomerular Filt Rate > 60 mL/min (>60); Globulin 2.8 g/dL (1.7-4.1); Glucose 244 mg/dL (80-110); HEMOLYSIS < 15 (0-50); Potassium 3.7 mmol/L (3.4-5.1); Sodium 137 mmol/L (137-145); Total Protein 5.9 g/dL (6.3-8.2)
[2022-06-23 03:39] LABS: Troponin I < 0.012 ng/mL (0.01-0.034)
[2022-06-23] MEDS: BENZONATATE 100 MG CAPSULE PO ×2 (04:07→22:22)
[2022-06-23 07:36] LABS: INR 1.8 (0.9-1.3); Prothrombin Time 20.6 SECONDS (10.1-12.7)
--- NOTE | 2022-06-23 07:40 | PM.PN.1 ---
Subjective Subjective Date Patient Seen: 06/23/22 Time Patient Seen: 07:40 Interval history: Patient with some chest symptoms overnight. ECG was performed urgently and unchanged from previous and lab work also had normal troponin etcetera. He describes it as a pressure in his left anterior chest seem to occur after he was coughing and was uncomfortable to push down on the chest wall at the same time. It has resolved now. Oxygen requirements continue to go up and down, but overall requiring less oxygen than previously Of course was made NPO yesterday over concerns about work of breathing related to his abdominal distention with his colonic pseudo-obstruction Blood sugars have been 200+ likely secondary to both the IV fluids as well as the IV corticosteroids Blood counts remained stable as do vital signs. Again no active evidence of GI bleeding Frankly patient seems more comfortable overall this morning than he did yesterday or the day before. Subjectively he looks improved to me Exam Vital Signs (past 8 hours): - 06/23/22 01:00 06/23/22 02:27 Temperature 98.1 F Pulse Rate 59 L 58 L Respiratory Rate 20 22 Blood Pressure 114/62 120/66 Pulse Oximetry 94 94 Oxygen Flow Rate 2 4 Fraction of Inspired Oxygen 28 SaO2/FiO2 Ratio 335 Oxygen Delivery Method Nasal Cannula Oxygen Flow Rate 4 Objective ECG Impression: 12 lead ECG from last evening unchanged from previous Labs Result Diagrams: 06/23/22 03:03 06/23/22 03:03 Labs: Laboratory Results - last 24 hr 06/22/22 06/23/22 06/23/22 22:05 03:03 03:03 WBC 9.8 RBC 3.64 L Hgb 11.5 L Hct 34.3 L MCV 94.5 MCH 31.8 MCHC 33.6 RDW 13.7 Plt Count 285 Neut % (Auto) 88.8 H Lymph % (Auto) 5.2 L Morris % (Auto) 5.8 Eos % (Auto) 0.0 L Baso % (Auto) 0.2 Neut # (Auto) 8700 H Lymph # (Auto) 500 L Morris # (Auto) 600 Eos # (Auto) 0 Baso # (Auto) 0 Sodium 137 Potassium 3.7 Chloride 105 Carbon Dioxide 26 BUN 30 H Creatinine 0.89 Estimated GFR > 60 BUN/Creatinine Ratio 33.7 H Glucose 244 H Calcium 7.8 L Total Bilirubin 0.6 AST 115 H ALT 186 H Alkaline Phosphatase 75 Troponin I NT-Pro-B Natriuret Pep 171 Total Protein 5.9 L Albumin 3.1 L Globulin 2.8 Albumin/Globulin Ratio 1.1 06/23/22 03:03 WBC RBC Hgb Hct MCV MCH MCHC RDW Plt Count Neut % (Auto) Lymph % (Auto) Morris % (Auto) Eos % (Auto) Baso % (Auto) Neut # (Auto) Lymph # (Auto) Morris # (Auto) Eos # (Auto) Baso # (Auto) Sodium Potassium Chloride Carbon Dioxide BUN Creatinine Estimated GFR BUN/Creatinine Ratio Glucose Calcium Total Bilirubin AST ALT Alkaline Phosphatase Troponin I < 0.012 NT-Pro-B Natriuret Pep Total Protein Albumin Globulin Albumin/Globulin Ratio PFSH Medical History Atrial fibrillation BPH w urinary obs/LUTS Erectile dysfunction 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) long-term current use of anticoagulant therapy (12/14/16) Lung nodule (11/27/13) Paroxysmal atrial fibrillation (04/13/15) Pulmonary nodule Stroke (10/2016) Surgical History H/O vasectomy Family History Father Family history of diabetes mellitus (DM) Family hx of lung cancer Mother Colon cancer Social History marital status: number of children: 2 household members: spouse lives independently: Yes caregiver/support person: Yes housing: house pets and animals: No education level: other occupational status: other 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 Pneumonia-I think he is slowly but surely improving. Oxygen requirements are diminished. No fever etcetera. No evidence of complications such as effusion on limited view with CT scan done of the abdomen yesterday which did show his lung bases. Therefore continue current therapies. I think we can back off on the corticosteroids as he showing less unless evidence of reactive airways disease. I have reduced his dose of the methylprednisolone therefore this morning to 40 mg IV q.12 hours. This will help with his blood sugar as well. 2. GI-patient continues to show evidence of abdominal distention secondary to his colonic pseudo-obstruction. On exam there is really no change for me today versus yesterday. I am going to go ahead and repeat imaging with plain film for direct comparison to both the CT done yesterday and the plain film from the day before. I am looking for stability and hopefully improvement in overall size of his colonic distention. I am planning to keep him NPO today. He did have another small bowel movements so I think I will take that is a good sign. His white count is normalized and is not having any abdominal symptoms so at this point I think we continue with careful observation (not that there is a whole lot more that can be done) 3. Bloody emesis/sputum-this point I have come to believe that the bloody discharge he is expressing is more sputum than anything else. Does not appear to be coming from the GI tract least not any significant volumes. Blood counts and hemodynamics remained stable. His INR is 1.8 this morning. It appears that I failed to completely discontinue his warfarin he was still getting warfarin at least Sunday and Sunday. I fully discontinued it now. Will need to be re-initiated when clinically appropriate 4. Hypertension-patient's blood pressure okay if anything a bit hypotensive. I have reduced the dose of his metoprolol 50% so now he is taking 12.5 mg b.i.d. 5. Chest pain-very unlikely to be cardiac in origin in my opinion given lack of findings on ECG and lab work. Patient already on beta-christopher therapy. Would be high risk for any sort of intervention even if this were cardiac. More likely related to his abdominal distention and or pneumonia. Continue to monitor I do not believe he needs any further cardiac workup at this point 6. Weakness-patient needs to continue with physical therapy. He is globally weak. Does have tremendous amount of help with caregivers 24/ in the home so hopefully we will get him to a point where he can be discharged home only thing missing at home would be daily physical therapy but that probably also can be arranged. He is several days away from being able to be discharged home however and so today status does not define what we may or may not need upon discharge Note: Greater than 30 minutes total time was spent on day of service, evaluating the patient on the floor, including examining the patient, discussing clinical course with clinical and nursing staff, reviewing clinical course in the computer, preparing documentation and writing orders for continued management of care, discussing status with family as appropriate, reviewing plans for the next 24 hours with both patient/family and nursing staff as appropriate. Quality VTE Deep Vein Thrombosis/Pulmonary Embolism Present on Admission: No
--- NOTE | 2022-06-23 08:16 | CM.DPNOTE ---
DCP Note Reviewed chart; note by Dr Xiong this morning clearly outlines medical plan of care and discusses dispo planning: Weakness-patient needs to continue with physical therapy. He is globally weak. Does have tremendous amount of help with caregivers 24/ in the home so hopefully we will get him to a point where he can be discharged home only thing missing at home would be daily physical therapy but that probably also can be arranged. He is several days away from being able to be discharged home however and so today status does not define what we may or may not need upon discharge Patient's ideal option would be to discharge home w/spouse, resumption of in home caregivers and likely the addition of HH servies. CM team will plan to follow closely for coordination of DCP as medical POC unfolds NIKKO English
--- NOTE | 2022-06-23 08:33 | DI.RAD.S_ITS ---
PROCEDURE: XR ABDOMEN MIN 2V INDICATIONS: Colonic distention TECHNIQUE: 2 views of the abdomen were acquired. COMPARISON: [facility], CT, CT ABDOMEN PELVIS W CON, 06/22/2022, 8:53. [facility], CR, XR ABDOMEN MIN 2V, 06/21/2022, 9:45. FINDINGS: Surgical changes and devices: None. Bowel: There is a persistent appearance of marked colonic loop dilation relatively unchanged compared to prior exam on 06/21/2022. Soft tissues: No masses; visualized solid organ contours appear normal in size. No suspicious abdominal calcifications. Bones: No suspicious bony abnormalities. IMPRESSION: Persistent appearance of colonic dilation consistent with obstruction. No significant interval change. Dictated by: Danita Moreno M.D. on 06/23/2022 at 14:32 Approved by: Danita Moreno M.D. on 06/23/2022 at 14:33
[2022-06-23] MEDS: METOCLOPRAMIDE HCL 10 MG TABLET 5 MG PO ×4 (09:29→20:41)
[2022-06-23] MEDS: AMIODARONE 200 MG TABLET PO (09:29)
[2022-06-23] MEDS: INSULIN LISPRO 100 UNIT/ML 3ML VIAL SUBCUT ×4 (09:30→23:58)
[2022-06-23] MEDS: PANTOPRAZOLE 40 MG VIAL IV ×2 (09:30→20:41)
[2022-06-23] MEDS: guaiFENesin ER 600 MG TAB 1200 MG PO ×2 (09:30→20:41)
[2022-06-23] MEDS: TAMSULOSIN 0.4 MG CAPSULE PO (09:30)
[2022-06-23] MEDS: METOPROLOL IR 25 MG TABLET 12.5 MG PO (09:31)
[2022-06-23] MEDS: cefTRIAXone 1,000 MG in SODIUM CHLORIDE 0.9% 100 ML 200 MG IV (09:31)
[2022-06-23] MEDS: AZITHROMYCIN 500 MG in DEXTROSE 5% IN WATER 250 ML 250 MG IV (11:00)
--- NOTE | 2022-06-23 14:13 | PT.IPTN ---
Current Diagnoses Pneumonia, unspecified organism (06/17/22) Physical Therapy Treatment Note M2 PT-IP Current Condition Start: 06/21/22 13:13 Freq: NEEDED Status: Active Protocol: Document 06/21/22 10:05 AB (Rec: 06/21/22 13:58 AB [email or web address]) Physical Therapy Current Condition Current Condition Evaluation Date 06/21/22 Treatment Diagnosis PNA; RSV infxn; difficulty in walking Onset Date 06/17/22 M3 PT-IP Subjective Start: 06/21/22 13:13 Freq: NEEDED Status: Active Protocol: Document 06/23/22 09:00 AMB (Rec: 06/23/22 14:13 AMB [id number]) Subjective Physical Therapy Visit Type Type Treatment Note Visit Start Time 09:00 Visit Stop Time 09:40 Total Visit Minutes 40 Number of CABLE WORKER HELPER Visits 0 Physical Therapy Visit Comments Patient Comments Agreeable to PT, hoping to stand today, reports it was really hard to get back to the bed with nursing after yesterday's PT treatment M4 PT-IP Mobility and Gait Start: 06/21/22 13:13 Freq: NEEDED Status: Active Protocol: Document 06/23/22 09:00 AMB (Rec: 06/23/22 14:13 AMB [id number]) PT-Bed Mobility Assessment Supine to Sit Supine to Sit Maximum Assistance,1 Person Assistance Scooting Scooting to Edge of Bed Moderate Assistance PT-Transfer Assessment Sit to and From Stand Sit to and from Stand Maximum Assistance,1 Person Assistance,Use of Upper Extremities Comments Mobility Comments supine to sit MaxAx1 to assist with L LE and trunk. Pt able to scoot with much effort , did cue for form. Multiple attempts to perform sit to stand. Stand accomplished with pushing on armrest of chair with R UE and therapist providing assist to L LE to not slide forward as well as assist at gaitbelt for forward lean. Then once pt in semi standing position pt able to maintain for 30 seconds, cued breathing. on 2L throughout. 96 SpO2 at rest, did drop to 94 with standing. Then pt's arrived. Pt and nurse helped pt into bed and 2 person to scoot up in bed. Left pt with RN and in room. M5 PT-IP Objective Assessments Start: 06/21/22 13:13 Freq: NEEDED Status: Active Protocol: Document 06/21/22 10:05 AB (Rec: 06/21/22 13:58 AB [email or web address]) Orientation Orientation/Cognition Level of Alertness Alert Orientation Name,Place,Situation Language Function Ability Hard of Hearing Safety Awareness Decreased Safety Awareness Memory Description Short Term Impaired Strength Lower Extremity Strength Assessment Bilaterally Impaired Comments Strength Comments RLE: 3+/5 LLE: 3-/5 Coordination Assessment Gross Coordination Gross Coordination WNL Muscle Tone Muscle Tone WNL Yes M6 PT-IP Treatment Start: 06/21/22 13:13 Freq: NEEDED Status: Active Protocol: Document 06/21/22 10:05 AB (Rec: 06/21/22 13:58 AB [email or web address]) Physical Therapy Treatment Education Education Provided Safety M7 PT-IP Assessment and Plan Start: 06/21/22 13:13 Freq: NEEDED Status: Active Protocol: Document 06/23/22 09:00 AMB (Rec: 06/23/22 14:13 AMB [id number]) PT Summary Assessment and Plan Summary Impairments Pain,ROM,Strength,Balance, Coordination,Sensation,Tone, Cognition,Bed Mobility, Transfers,Gait,Activity Tolerance Assessment Summary Pt required max Ax1 today but is unable to amb at this time and requires cues for posture and breathing throughout session. Better O2 stats today with 2L nasal cannula. He did need multiple attempts to perform good sit to stand today. Goals Bed Mobility Goal Minimal Assistance Transfer Goal Minimal Assistance,Front Wheeled Walker Gait Goal Minimal Assistance,Front Wheel Walker Gait Distance 50 Other Goals improve bed mobility, transfers using FWW and ambulation using FWW SBA 75 ft Days to Meet Goals 10 Frequency of Treatment Frequency Of Treatment Once a Day Treatment Plan Physical Therapy Treatment Plan Bed Mobility Training,Transfer Training,Gait Training, Therapeutic Exercise,Balance Retraining,Discharge Planning, Hot or Cold Pack,Neuromuscular Re-ed,Coordination Retraining ,Manual Therapy Precautions Other Precautions Droplet: RSV; falls Recommendations To Nursing Amount of Assist Needed 2 Person Assist Discharge Recommendations PT Discharge Recommendations SNF Rehab Transportation Needs at Discharge Wheelchair/Cabulance
[2022-06-23] MEDS: ATORVASTATIN 20 MG TABLET 40 MG PO (20:41)
[2022-06-23] MEDS: ACETAMINOPHEN 325 MG TABLET 650 MG PO (22:22)
[2022-06-24] VITALS (9 sets, daily range): BP systolic 106–121; BP diastolic 50–70; PULSE 60–73; RESP 15–22; TEMP 35.7–36.3; O2SAT 93–98
--- NOTE | 2022-06-24 04:36 | PC.NURSE ---
Pt is AxOx4, needs max assistance and cooperative. VSS, pt c/o general pain and recieved PRN tylenol around 2300 with good effect. BG-214/184 respectively. Pt had L loose BM overnight. No other changes. Continued droplet precaution. Pt requested PRN Tessalon once with good effect. No other changes. Continue monitor.
[2022-06-24] MEDS: ALBUTEROL/IPRATROPIUM 3 ML AMPUL INH ×2 (05:06→19:49)
--- NOTE | 2022-06-24 09:25 | PT.IPTN ---
Current Diagnoses Pneumonia, unspecified organism (06/17/22) Physical Therapy Treatment Note M2 PT-IP Current Condition Start: 06/21/22 13:13 Freq: NEEDED Status: Active Protocol: Document 06/21/22 10:05 AB (Rec: 06/21/22 13:58 AB [email or web address]) Physical Therapy Current Condition Current Condition Evaluation Date 06/21/22 Treatment Diagnosis PNA; RSV infxn; difficulty in walking Onset Date 06/17/22 M3 PT-IP Subjective Start: 06/21/22 13:13 Freq: NEEDED Status: Active Protocol: Document 06/24/22 09:25 AB (Rec: 06/24/22 12:46 AB [email or web address]) Subjective Physical Therapy Visit Type Type Treatment Note Visit Start Time 09:25 Visit Stop Time 09:51 Total Visit Minutes 26 Number of COLLAR CLOSER LOCKSTITCH Visits 0 Physical Therapy Visit Comments Patient Comments stated that he has not eaten for 2 days and may not be able to do much but agreed to do PT M4 PT-IP Mobility and Gait Start: 06/21/22 13:13 Freq: NEEDED Status: Active Protocol: Document 06/24/22 09:25 AB (Rec: 06/24/22 12:46 AB [id number]) PT-Bed Mobility Assessment Supine to Sit Supine to Sit Maximum Assistance,2 Person Assistance,Head of Bed Elevated,Bedrails Sit to Supine Sit to Supine Maximum Assistance,2 Person Assistance,Bedrails Scooting Scooting to Edge of Bed Dependent PT-Transfer Assessment Comments Mobility Comments pt completed supine to sit max A x 2 and max cues with HOB elevated. Pt sat on EOB with initial max A and presents with increase posterior trunk lean. pt stated that he does not want to fall. cued pt for positioning and trunk control . total A for scooting to EOB . tolerated ~ 5 min of sitting on EOB and towards end of sitting was able to maintain static sitting balance requiring CGA. pt refused to stand and transfer. pt stated that he has not eaten for 2 does and is feeling tired. requested to go back to bed. max A x 2 and max cues. max A x 2 for positioning in bed. call light and table placed within reach. M5 PT-IP Objective Assessments Start: 06/21/22 13:13 Freq: NEEDED Status: Active Protocol: Document 06/21/22 10:05 AB (Rec: 06/21/22 13:58 AB [email or web address]) Orientation Orientation/Cognition Level of Alertness Alert Orientation Name,Place,Situation Language Function Ability Hard of Hearing Safety Awareness Decreased Safety Awareness Memory Description Short Term Impaired Strength Lower Extremity Strength Assessment Bilaterally Impaired Comments Strength Comments RLE: 3+/5 LLE: 3-/5 Coordination Assessment Gross Coordination Gross Coordination WNL Muscle Tone Muscle Tone WNL Yes M6 PT-IP Treatment Start: 06/21/22 13:13 Freq: NEEDED Status: Active Protocol: Document 06/24/22 09:25 AB (Rec: 06/24/22 12:46 AB [email or web address]) Physical Therapy Treatment Education Education Provided Safety M7 PT-IP Assessment and Plan Start: 06/21/22 13:13 Freq: NEEDED Status: Active Protocol: Document 06/24/22 09:25 AB (Rec: 06/24/22 12:46 AB [email or web address]) PT Summary Assessment and Plan Potential Rehabilitation Potential Fair Summary Impairments Pain,ROM,Strength,Balance, Coordination,Sensation,Tone, Cognition,Bed Mobility, Transfers,Gait,Activity Tolerance Progress Towards Goals Slow Progress due to Medical Issues,Slow Progress due to Activity Tolerance Assessment Summary pt requiring max A x 2 with mobility and unable to tolerate much activity. pt currently is NPO contributing to pt's current weakness level . pt will require SNF rehab to improve strength and function. Goals Bed Mobility Goal Minimal Assistance Transfer Goal Minimal Assistance,Front Wheeled Walker Gait Goal Minimal Assistance,Front Wheel Walker Gait Distance 50 Other Goals improve bed mobility, transfers using FWW and ambulation using FWW SBA 75 ft Days to Meet Goals 10 Frequency of Treatment Frequency Of Treatment Once a Day Treatment Plan Physical Therapy Treatment Plan Bed Mobility Training,Transfer Training,Gait Training, Therapeutic Exercise,Balance Retraining,Discharge Planning, Hot or Cold Pack,Neuromuscular Re-ed,Coordination Retraining ,Manual Therapy Precautions Other Precautions Droplet: RSV; falls Recommendations To Nursing Amount of Assist Needed Mechanical Lift Discharge Recommendations PT Discharge Recommendations SNF Rehab Transportation Needs at Discharge Wheelchair/Cabulance
[2022-06-24] MEDS: PANTOPRAZOLE 40 MG VIAL IV ×2 (09:38→20:26)
[2022-06-24] MEDS: cefTRIAXone 1,000 MG in SODIUM CHLORIDE 0.9% 100 ML 200 MG IV (09:39)
[2022-06-24] MEDS: TAMSULOSIN 0.4 MG CAPSULE PO (09:39)
[2022-06-24] MEDS: METOPROLOL IR 25 MG TABLET 12.5 MG PO ×2 (09:39→20:25)
[2022-06-24] MEDS: AMIODARONE 200 MG TABLET PO (09:40)
[2022-06-24] MEDS: BENZONATATE 100 MG CAPSULE PO ×2 (09:40→13:09)
[2022-06-24] MEDS: guaiFENesin ER 600 MG TAB 1200 MG PO ×2 (09:40→20:26)
[2022-06-24] MEDS: AZITHROMYCIN 500 MG in DEXTROSE 5% IN WATER 250 ML 250 MG IV (11:10)
--- NOTE | 2022-06-24 11:18 | P.PN_ITS ---
Subjective Subjective Date Patient Seen: 06/24/22 Time Patient Seen: 11:18 Interval history: Patient seen in follow-up of multiple issues. Primarily hypoxia abdominal distention. Super weak. Still not able to stand. Feeling this is his biggest issue. Feeling like not eating is making him weak. Still having some bowel movements every day but lives. No gas. No nausea or vomiting. Coughing a lot at night. Having some hallucinations at night. Wishes he could get better control. No other changes. Exam Vital Signs (past 8 hours): - 06/24/22 03:53 06/24/22 08:30 06/24/22 08:00 Temperature 97.2 F L 97.3 F L Pulse Rate 61 61 Respiratory Rate 22 16 Blood Pressure 118/63 110/62 Pulse Oximetry 96 95 98 Oxygen Delivery Method Nasal Cannula Oxygen Flow Rate 2.5 2.5 2.5 06/24/22 10:00 Temperature Pulse Rate Respiratory Rate Blood Pressure Pulse Oximetry 95 Oxygen Delivery Method Nasal Cannula Oxygen Flow Rate 3 Fraction of Inspired Oxygen 28 SaO2/FiO2 Ratio 335 Oxygen Delivery Method Nasal Cannula Oxygen Flow Rate 3 Narrative Exam Narrative: Alert fatigued-appearing male in no acute respiratory distress Mucous membranes moist. Neck supple without adenopathy. Lungs are clear. Heart regular rate and rhythm. 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) technician terminal and repeater current use of anticoagulant therapy (12/14/16) Lung nodule (11/27/13) Paroxysmal atrial fibrillation (04/13/15) Pulmonary nodule Stroke (10/2016) Surgical History H/O vasectomy Family History Father Family history of diabetes mellitus (DM) Family hx of lung cancer Mother Colon cancer Social History marital status: number of children: 2 household members: spouse lives independently: Yes caregiver/support person: Yes housing: house pets and animals: No education level: other occupational status: other 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 Workup has been negative otherwise. I think this is his main issue right now. Difficult to feed and get stronger if he can not pass anything. Certainly abdomen is nontender. And we will see how he does. Will try clear liquids today. See how he does. Maybe slightly better than he has been. Difficult to tell with exams. Will see about repeat x-ray tomorrow depending on how he does. Do not anticipate advancing diet anymore at this point. Pneumonia. Certainly O2 status hypoxemia acute is improved. 2 L. will continue current therapy. Yesterday had is methylprednisolone decreased. Still on antibiotics. Will continue. Cough continues to be present. Difficult to control. Would not want to use narcotics secondary to his abdominal issue and issues with hallucinations at night. Will continue Tessalon Perles. Really not much else to be done at this point. And will follow closely. Seems to be slowly improving. Bloody sputum. Still present. Patient is off his Coumadin now. And has been stable. Will see how things go. Hopefully this will improve as his INR comes down. Being treated for pneumonia. Probable cause. Hypertension. Pressure seems to be stable. Will continue. AFib. Currently not in atrial fibrillation. Due to his bloody emesis/sputum will continue off of Coumadin. Chest pain has resolved. Workup was negative yesterday. Type 2 diabetes. On sliding scale. Hopefully as we come down on his steroids and he improves with his strength will see better sugars will have to watch closely. May need to add treatment will follow at this point Generalized weakness. Poorly controlled at this point really combination of m ultiple issues. Will need extensive physical therapy. And will have to see how he does. I doubt he is going home any time soon will have to see how things go. Probably will need some type of placement on discharge if he can get his strength up a little bit he maybe able to go to acute rehab but certainly not going to be able to do 3 hours at this point. DVT prophylaxis. Due to his bloody sputum/hemoptysis will hold on treatment will continue with SCDs. Disposition. Appears to be some days off from discharge. Will have to see what strength does will dictate where we go from here. Need bowel function to return before he goes anywhere. Time Spent With Patient Critical Care time: I spent a total of [] minutes of critical care time on this patient's care today; this time is exclusive of procedural time. Quality VTE Deep Vein Thrombosis/Pulmonary Embolism Present on Admission: No
--- NOTE | 2022-06-24 11:25 | CM.DPC ---
DCP SNF vs HH Per MD, pt remains on IV abx, oxygen, and NPO and not yet medically stable to d/c home and likely here through the weekend. Per PT, recommending SNF at d/c before return home. SW met bedside with pt and spouse and explained role and they confirm that they have a PP CG that is available as needed and could be increased at d/c if needed. Pt denies any hx of HH for himself and has done outpt PT at [facility] and spouse recently had HH for her own hip repair surgery. Pt and spouse confirm that he is below baseline with ambulation and pt is aware and states he will need to be able to stand so he can ambulate prior to going home safely and they are hopeful to improve enough to d/c home but aware that pt may be medically stable to d/c before he is safely ambulating for safe home d/c. Pt states he has been to Acute Inpt Rehab about 5 yrs ago after a CVA and preference would be Acute Rehab at d/c if possible but aware he would need to meet criteria and tolerate 3 hrs therapy a day. Currently unlikely that pt would be able to participate in that but may progress enough over the weekend. Pt requests a referral to [facility] in [place] to see if they are an option as this would be his first preference. SW provided the SNF Choice list via Ipad and preference would then be [facility] due to location to their home and then agreeable with [facility] referrals for SNF as back up. ALEE called Cielo at [facility] Acute rehab and discussed referral and she is willing to review to see if pt meets criteria for Acute rehab and SW faxed clinicals to review. SW called [facility] and currently cannot accept another isolation pt (due to pt's RSV dx) and do not anticipate being able to accept iso this week. SW made referral to both [facility] and [facility] as they both anticipate open beds after the weekend. Plan: SW to follow closely for [facility] Acute Rehab review to see if pt meets criteria and [facility] and [facility] review to determine if they can accept as backup if pt not safe for d/c home with spouse, CG, and a new HH referral. NIKKO Cedeño
[2022-06-24] MEDS: INSULIN LISPRO 100 UNIT/ML 3ML VIAL SUBCUT ×3 (11:57→23:20)
[2022-06-24] MEDS: CODEINE/GUAIFENESIN LIQUID 5ML UDC 10 ML PO ×2 (14:27→23:39)
[2022-06-24] MEDS: METOCLOPRAMIDE HCL 10 MG TABLET 5 MG PO (20:25)
[2022-06-24] MEDS: ACETAMINOPHEN 325 MG TABLET 650 MG PO (20:25)
[2022-06-24] MEDS: ATORVASTATIN 20 MG TABLET 40 MG PO (20:26)
[2022-06-25] VITALS (9 sets, daily range): BP systolic 102–136; BP diastolic 60–69; PULSE 53–68; RESP 17–22; TEMP 35.6–36.3; O2SAT 94–98
--- NOTE | 2022-06-25 04:56 | PC.NURSE ---
Pt is AxOx4, bedbound and cooperative. VSS, except breathing. Pt was breathing very wheezy and congested at the beginning of the shift and RT was called for breathing Tx and it helped. BG-233 at midnight and pt recieved 2 units. Otherwise, pt is doing well. Pt is on clear liquid diet and drinking and eating some popsicle. Pt's BLE edema seems bigger than previous nights. No other changes. Continue monitor.
[2022-06-25] MEDS: INSULIN LISPRO 100 UNIT/ML 3ML VIAL SUBCUT ×3 (05:23→23:42)
[2022-06-25] MEDS: CODEINE/GUAIFENESIN LIQUID 5ML UDC 10 ML PO (05:36)
[2022-06-25 05:50] LABS: Alanine Aminotransferase 91 IU/L (<50); Albumin 2.9 g/dL (3.5-5.0); Albumin Globulin Ratio 1.2 (1.0-2.8); Alkaline Phosphatase 63 U/L (38-126); Aspartate Aminotransferase 33 IU/L (17-59); BUN Creatinine Ratio 31.9 (6-22); Bilirubin Total 0.6 mg/dL (0.2-1.3); Blood Urea Nitrogen 29 mg/dL (9-20); Calcium 7.6 mg/dL (8.4-10.2); Carbon Dioxide 28 mmol/L (22-32); Chloride 103 mmol/L (98-107); Estimated Glomerular Filt Rate > 60 mL/min (>60); Globulin 2.4 g/dL (1.7-4.1); Glucose 227 mg/dL (80-110); HEMOLYSIS < 15 (0-50); Potassium 3.8 mmol/L (3.4-5.1); Sodium 138 mmol/L (137-145); Total Protein 5.3 g/dL (6.3-8.2)
[2022-06-25 05:54] LABS: Add Manual Diff / Slide Review NO; Basophils Absolute Auto 0 /uL (0-100); Basophils Percent Auto 0.2 % (0-2); Eosinophils Absolute Auto 0 /uL (0-450); Hematocrit 33.7 % (41-53); Hemoglobin 11.5 g/dL (13.5-17.5); Lymphocytes Absolute Auto 500 /uL (1100-4500); Lymphocytes Percent Auto 4.3 % (25-40); Mean Corpuscular Hemoglobin 32.1 PG (26-34); Mean Corpuscular Volume 94.7 fL (80-100); Monocytes Absolute Auto 800 /uL (0-900); Monocytes Percent Auto 7.4 % (3-14); Neutrophils Absolute Auto 9500 /uL (1500-7000); Neutrophils Percent Auto 88.1 % (50-75); Platelet Count 312 X10^3/uL (150-400); Red Blood Cell Count 3.56 X10^6/uL (4.5-5.9); Red Cell Distribution Width 13.7 % (11.6-14.8); White Blood Cell Count 10.8 X10^3/uL (4.5-11.0)
[2022-06-25] MEDS: METOCLOPRAMIDE HCL 10 MG TABLET 5 MG PO ×3 (09:25→20:53)
[2022-06-25] MEDS: AMIODARONE 200 MG TABLET PO (09:27)
[2022-06-25] MEDS: guaiFENesin ER 600 MG TAB 1200 MG PO ×2 (09:28→20:51)
[2022-06-25] MEDS: METOPROLOL IR 25 MG TABLET 12.5 MG PO ×2 (09:28→20:50)
[2022-06-25] MEDS: TAMSULOSIN 0.4 MG CAPSULE PO (09:30)
[2022-06-25] MEDS: PANTOPRAZOLE 40 MG VIAL IV ×2 (09:30→20:50)
--- NOTE | 2022-06-25 10:42 | PT.IPTN ---
Current Diagnoses Pneumonia, unspecified organism (06/17/22) Physical Therapy Treatment Note M2 PT-IP Current Condition Start: 06/21/22 13:13 Freq: NEEDED Status: Active Protocol: Document 06/21/22 10:05 AB (Rec: 06/21/22 13:58 AB [id number]) Physical Therapy Current Condition Current Condition Evaluation Date 06/21/22 Treatment Diagnosis PNA; RSV infxn; difficulty in walking Onset Date 06/17/22 M3 PT-IP Subjective Start: 06/21/22 13:13 Freq: NEEDED Status: Active Protocol: Document 06/25/22 10:42 AW (Rec: 06/25/22 13:59 AW [id number]) Subjective Physical Therapy Visit Type Type Treatment Note Visit Start Time 10:14 Visit Stop Time 10:42 Total Visit Minutes 28 Notes Pt's spouse was present throughout Number of INVESTMENT BANKER Visits 0 Physical Therapy Visit Comments Patient Comments Pt states he is feeling somewhat better today but still quite weak M4 PT-IP Mobility and Gait Start: 06/21/22 13:13 Freq: NEEDED Status: Active Protocol: Document 06/25/22 10:42 AW (Rec: 06/25/22 13:59 AW [id number]) PT-Bed Mobility Assessment Supine to Sit Supine to Sit Maximum Assistance,1 Person Assistance,Head of Bed Elevated,Bedrails Sit to Supine Sit to Supine Moderate Assistance,1 Person Assistance,Bedrails PT-Transfer Assessment Sit to and From Stand Sit to and from Stand Maximum Assistance,1 Person Assistance,Use of Upper Extremities Equipment Transfer Assistive Device Gait Belt,Front Wheeled Walker Comments Mobility Comments Pt completed supine to sit max A x 1. Sitting EOB, PT assisted him to don his shoes in preparation for standing. Pt was able to stabilize himself with right hand on chair arm and stood max A. PT stood on left side and assisted left hand to walker handle. Pt tolerated standing for 3 minutes with intermittent cues for hip extension and to look forward. Pt fatigued and needed to sit . After rest break, pt stood again in similar fashion, needing assist for left hand to walker. He attempted to march in place but was unable to successfully elevate either LE. After one minute, he needed to sit and was too fatigued to continue. Mod A for return to supine and for repositioning on the bed. Pt was left with call light in reach. M5 PT-IP Objective Assessments Start: 06/21/22 13:13 Freq: NEEDED Status: Active Protocol: Document 06/21/22 10:05 AB (Rec: 06/21/22 13:58 AB [id number]) Orientation Orientation/Cognition Level of Alertness Alert Orientation Name,Place,Situation Language Function Ability Hard of Hearing Safety Awareness Decreased Safety Awareness Memory Description Short Term Impaired Strength Lower Extremity Strength Assessment Bilaterally Impaired Comments Strength Comments RLE: 3+/5 LLE: 3-/5 Coordination Assessment Gross Coordination Gross Coordination WNL Muscle Tone Muscle Tone WNL Yes M6 PT-IP Treatment Start: 06/21/22 13:13 Freq: NEEDED Status: Active Protocol: Document 06/25/22 10:42 AW (Rec: 06/25/22 13:59 AW [id number]) Physical Therapy Treatment Education Education Provided Safety M7 PT-IP Assessment and Plan Start: 06/21/22 13:13 Freq: NEEDED Status: Active Protocol: Document 06/25/22 10:42 AW (Rec: 06/25/22 13:59 AW [id number]) PT Summary Assessment and Plan Summary Impairments Pain,ROM,Strength,Balance, Coordination,Sensation,Tone, Cognition,Bed Mobility, Transfers,Gait,Activity Tolerance Progress Towards Goals Slow Progress due to Medical Issues,Slow Progress due to Activity Tolerance Assessment Summary Leeroy needed mod/max A with bed mobility and sit to stand using FWW today. Cough was most pronounced in sitting. Work of breathing was least pronounced in standing. Pt will require SNF rehab to improve strength and to assist in functional recovery. Goals Bed Mobility Goal Minimal Assistance Transfer Goal Minimal Assistance,Front Wheeled Walker Gait Goal Minimal Assistance,Front Wheel Walker Gait Distance 50 Other Goals improve bed mobility, transfers using FWW and ambulation using FWW SBA 75 ft Days to Meet Goals 10 Frequency of Treatment Frequency Of Treatment Once a Day Treatment Plan Physical Therapy Treatment Plan Bed Mobility Training,Transfer Training,Gait Training, Therapeutic Exercise,Balance Retraining,Discharge Planning, Hot or Cold Pack,Neuromuscular Re-ed,Coordination Retraining ,Manual Therapy Precautions Other Precautions Droplet: RSV; falls Recommendations To Nursing Amount of Assist Needed Mechanical Lift Discharge Recommendations PT Discharge Recommendations SNF Rehab Transportation Needs at Discharge Wheelchair/Cabulance
[2022-06-25] MEDS: cefTRIAXone 1,000 MG in SODIUM CHLORIDE 0.9% 100 ML 200 MG IV (11:12)
--- NOTE | 2022-06-25 12:04 | PM.PN.1 ---
Subjective Subjective Date Patient Seen: 06/25/22 Time Patient Seen: 12:05 Interval history: Patient seen in follow-up of fatigue, abdominal distention, pneumonia. Overall feeling better today. Tolerated clear liquids quite well. [place] like helped quite a bit. Slept better last night. Cough was better last night. Did not have any further hemoptysis after yesterday afternoon. No other significant change. Feeling slightly better this morning. Has had minimal bowel function. No real gas. But having no pain nausea or vomiting. Exam Vital Signs (past 8 hours): - 06/25/22 07:30 06/25/22 10:18 06/25/22 11:45 Temperature 97.3 F L 97.3 F L Pulse Rate 55 L 53 L Respiratory Rate 18 18 Blood Pressure 116/64 125/67 Pulse Oximetry 95 98 97 Oxygen Delivery Method Nasal Cannula Oxygen Flow Rate 2 2.5 2 Fraction of Inspired Oxygen 94 SaO2/FiO2 Ratio 335 Oxygen Delivery Method Nasal Cannula Oxygen Flow Rate 2 Narrative Exam Narrative: Alert male sitting up much less fatigued in appearance in no acute respiratory distress. Oxygen status down to 1-1/2 L per nasal cannula. HEENT mucous membranes moist. Neck supple without adenopathy JVD or bruits lungs few crackles heart regular rate and rhythm. Abdomen still distended with tympanic bowel sounds. But nontender. Extremities with trace to 1+ edema. Objective Labs Result Diagrams: 06/25/22 05:32 06/25/22 05:32 Labs: Laboratory Results - last 24 hr 06/25/22 06/25/22 05:32 05:32 WBC 10.8 RBC 3.56 L Hgb 11.5 L Hct 33.7 L MCV 94.7 MCH 32.1 MCHC 34.0 RDW 13.7 Plt Count 312 Neut % (Auto) 88.1 H Lymph % (Auto) 4.3 L [place] % (Auto) 7.4 Eos % (Auto) 0.0 L Baso % (Auto) 0.2 Neut # (Auto) 9500 H Lymph # (Auto) 500 L [place] # (Auto) 800 Eos # (Auto) 0 Baso # (Auto) 0 Sodium 138 Potassium 3.8 Chloride 103 Carbon Dioxide 28 BUN 29 H Creatinine 0.91 Estimated GFR > 60 BUN/Creatinine Ratio 31.9 H Glucose 227 H Calcium 7.6 L Total Bilirubin 0.6 AST 33 ALT 91 H Alkaline Phosphatase 63 Total Protein 5.3 L Albumin 2.9 L Globulin 2.4 Albumin/Globulin Ratio 1.2 PFSH Medical History Atrial fibrillation BPH w urinary obs/LUTS Erectile dysfunction 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) longterm current use of anticoagulant therapy (12/14/16) Lung nodule (11/27/13) Paroxysmal atrial fibrillation (04/13/15) Pulmonary nodule Stroke (10/2016) Surgical History H/O vasectomy Family History Father Family history of diabetes mellitus (DM) Family hx of lung cancer Mother Colon cancer Social History marital status: number of children: 2 household members: spouse lives independently: Yes caregiver/support person: Yes housing: house pets and animals: No education level: other occupational status: other 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 Patient is having minimal symptoms. Does not seem to be having much bowel function at this time. Question will be whether or not we can advance diet or not he certainly tolerated clear liquids and is feeling so much better today but I am uncomfortable increasing diet much beyond that. Question whether or not if this does not make any significant change whether or not we may need to consider TPN. Will have to see how this goes over the next few days. Hopefully he continues improved. But that seems to be doing well. Will follow. Recheck x-ray tomorrow. Hopefully things will be slowly improving and we can slowly increase diet. Pneumonia. O2 status seems to be improving. Patient has now been treated with adequate Zithromax. Tomorrow will be day 10 of Rocephin and will be discontinued. He has no fevers. His O2 status seems to be improving and his coughing seems better. No other changes. Seems to be cough is better. Hopefully as this improves his strength will improve and we can mobilize him. Which I think will help all situations. Edema. Seems to be a little bit edematous today. Will give Lasix and follow. Recheck BMP tomorrow. Bloody sputum. Seems to be improving off of his anticoagulation. Will continue to follow. This point no changes. Will have to look at when we restart possible anticoagulation. Hypertension. Stable. Atrial fibrillation patient has not been in AFib. Has been stable. Off his Coumadin secondary to sputum. Chest pain. Resolved since 2 nights ago. Overall doing well. Type 2 diabetes. Stable. On sliding scale. Hopefully as we come down on his steroids and we get his strength better sugars will improve will continue to follow. Certainly not getting much p.o. at this time. Generalized weakness. One of the biggest issues. Seems better today. Will need to follow closely. Hopefully we can get more aggressive with physical therapy as he strength improves. Do not expect that to happen anytime acutely. DVT prophylaxis. Patient has been off of anticoagulation doing concern for bleeding. Will continue with SCDs. Code status. Full. Disposition. It is going to be day-by-day but I would not expect him to be discharged over the next 3-5 days will have to have some semblance of bowel function being appropriate before he makes any move. That appears to be going to be a slow process. Discussed with patient. . Nursing staff. Greater than 35 minutes spent with nursing patient dictation and orders. Time Spent With Patient Critical Care time: I spent a total of [] minutes of critical care time on this patient's care today; this time is exclusive of procedural time. Quality VTE Deep Vein Thrombosis/Pulmonary Embolism Present on Admission: No
--- NOTE | 2022-06-25 13:33 | CM.DPC ---
DCP Ongoing SNF planning Per MD, pt no longer NPO but on clear liquids and another day or two for IV-Abx and remains on 2LO2 and not yet stable for d/c today. ALEE called Cielo at [facility] Acute rehab and she states their physician still needs to review but provided her with an update on pt and unfortunately they may not even have an open bed for another 4 days on 06/29. They will review though to determine if pt would meet criteria. ALEE called [facility] and [facility] admissions to inquire about their review and left msg asking for urgent review to determine if they can accept. [facility] already declined because they cannot take another isolation patient. SW made additional referral to [facility] in attempt at securing SNF prior to home. PASRR completed. Plan: SW to follow for SNF review to determine if any can accept and back up plan is home with spouse assist and established PP CGs and a new HH referral. NIKKO Cedeño
[2022-06-25] MEDS: FUROSEMIDE 20 MG/2 ML VIAL IV (13:51)
[2022-06-25] MEDS: ATORVASTATIN 20 MG TABLET 40 MG PO (20:50)
[2022-06-26] VITALS (7 sets, daily range): BP systolic 88–128; BP diastolic 53–76; PULSE 61–103; RESP 16–20; TEMP 35.7–36.7; O2SAT 92–98
[2022-06-26 06:21] LABS: Alanine Aminotransferase 76 IU/L (<50); Albumin Globulin Ratio 1.1 (1.0-2.8); Alkaline Phosphatase 65 U/L (38-126); Aspartate Aminotransferase 31 IU/L (17-59); BUN Creatinine Ratio 36.7 (6-22); Bilirubin Total 0.6 mg/dL (0.2-1.3); Blood Urea Nitrogen 29 mg/dL (9-20); Calcium 7.7 mg/dL (8.4-10.2); Carbon Dioxide 29 mmol/L (22-32); Chloride 102 mmol/L (98-107); Estimated Glomerular Filt Rate > 60 mL/min (>60); Globulin 2.7 g/dL (1.7-4.1); Glucose 211 mg/dL (80-110); HEMOLYSIS < 15 (0-50); Potassium 3.6 mmol/L (3.4-5.1); Sodium 139 mmol/L (137-145); Total Protein 5.7 g/dL (6.3-8.2)
[2022-06-26] MEDS: INSULIN LISPRO 100 UNIT/ML 3ML VIAL SUBCUT ×2 (06:26→17:31)
--- NOTE | 2022-06-26 08:14 | PM.PN.1 ---
Subjective Subjective Date Patient Seen: 06/26/22 Time Patient Seen: 08:14 Interval history: Patient had a good day yesterday. [place] pretty well in the morning. Had some further gas and bowel movement. Overnight had some hallucinations quite disturbing was also incontinent of liquid stool that was guaiac positive This morning has no real complaints feels kind of ?washed out?. No breathing difficulty. Was pleased he was able to stand at the bedside yesterday for the first time Still denies any abdominal pain whatsoever Exam Vital Signs (past 8 hours): - 06/26/22 03:55 06/26/22 06:20 Temperature 97.4 F L 97.5 F L Pulse Rate 103 H 61 Respiratory Rate 19 19 Blood Pressure 125/73 128/68 Pulse Oximetry 94 92 Oxygen Flow Rate 1 1 Fraction of Inspired Oxygen 97 SaO2/FiO2 Ratio 335 Oxygen Delivery Method Nasal Cannula Oxygen Flow Rate 1 Narrative Exam Narrative: Lungs-good breath sounds no wheezes, uncertain about crackles at the bases Heart-regular rate and rhythm Abdomen-distended but less so than previous, more normal bowel tones no rebound guarding tenderness whatsoever Objective Labs Result Diagrams: 06/25/22 05:32 06/26/22 05:53 Labs: Laboratory Results - last 24 hr 06/26/22 05:53 Sodium 139 Potassium 3.6 Chloride 102 Carbon Dioxide 29 BUN 29 H Creatinine 0.79 Estimated GFR > 60 BUN/Creatinine Ratio 36.7 H Glucose 211 H Calcium 7.7 L Total Bilirubin 0.6 AST 31 ALT 76 H Alkaline Phosphatase 65 Total Protein 5.7 L Albumin 3.0 L Globulin 2.7 Albumin/Globulin Ratio 1.1 PFSH Medical History Atrial fibrillation BPH w urinary obs/LUTS Erectile dysfunction 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) intermediate frame 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 current use of anticoagulant therapy (12/14/16) Lung nodule (11/27/13) Paroxysmal atrial fibrillation (04/13/15) Pulmonary nodule Stroke (10/2016) Surgical History H/O vasectomy Family History Father Family history of diabetes mellitus (DM) Family hx of lung cancer Mother Colon cancer Social History marital status: number of children: 2 household members: spouse lives independently: Yes caregiver/support person: Yes housing: house pets and animals: No education level: other occupational status: other 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 Pneumonia-patient receive his tenth day of antibiotic therapy today and will be discontinued at this point. I think his pneumonias much improved. Given the usual pathogenesis of RSV I think we can probably discontinue precautions at this point but will check with our Infectious Disease lead consultant 2. GI-patient persists with evidence colonic distension but seemingly somewhat improved. He was re fed liquids over the weekend and I think we can advance that. I think the dunn to getting his bowels moving again is going to be physical activity/physical therapy. No evidence of complicating factor. X-ray to be done later this morning for direct comparison in colonic size and appearance 3. Bleeding-patient guaiac-positive stool and some evidence frankly bloody either emesis or sputum probably sputum in my opinion. He is off warfarin at this point. Again no evidence of large volume bleeding. I would be hesitant to suggest endoscopic evaluation at this point unless there is more evidence of critical bleeding. That makes it harder to know when to or when not to reinstitute anticoagulation with warfarin. At this point I am going to have him remain off and re-evaluate this on a day-to-day basis. I am also going to discontinue his IV proton pump inhibitor in favor of an oral H2 christopher 4. Paroxysmal atrial fibrillation-patient appears to still be in sinus rhythm based on exam. As above is going to remain off warfarin at least today 5. History CVA-patient will need additional physical therapy because of his history. 6. Hyperglycemia-patient has been quite hyperglycemic with IV dextrose infusing as well as the IV corticosteroids. I am going to discontinue the corticosteroids given his improved respiratory status as above institute low-dose oral prednisone with plans to rapidly taper over the next several days. All this together should make his blood sugars much improved. Continue with insulin coverage Note: Greater than 30 minutes total time was spent on day of service, evaluating the patient on the floor, including examining the patient, discussing clinical course with clinical and nursing staff, reviewing clinical course in the computer, preparing documentation and writing orders for continued management of care, discussing status with family as appropriate, reviewing plans for the next 24 hours with both patient/family and nursing staff as appropriate. Quality VTE Deep Vein Thrombosis/Pulmonary Embolism Present on Admission: No
[2022-06-26] MEDS: cefTRIAXone 1,000 MG in SODIUM CHLORIDE 0.9% 100 ML 200 MG IV (08:17)
[2022-06-26] MEDS: METOCLOPRAMIDE HCL 10 MG TABLET 5 MG PO ×3 (08:17→21:01)
[2022-06-26] MEDS: TAMSULOSIN 0.4 MG CAPSULE PO (08:17)
[2022-06-26] MEDS: FAMOTIDINE 20 MG TABLET PO ×2 (08:17→20:49)
[2022-06-26] MEDS: AMIODARONE 200 MG TABLET PO (08:17)
[2022-06-26] MEDS: guaiFENesin ER 600 MG TAB 1200 MG PO ×2 (08:18→20:49)
[2022-06-26] MEDS: METOPROLOL IR 25 MG TABLET 12.5 MG PO (08:18)
--- NOTE | 2022-06-26 08:39 | PT.IPTN ---
Current Diagnoses Pneumonia, unspecified organism (06/17/22) Physical Therapy Treatment Note M2 PT-IP Current Condition Start: 06/21/22 13:13 Freq: NEEDED Status: Active Protocol: Document 06/26/22 11:45 SP (Rec: 06/26/22 11:58 SP [id number]) Physical Therapy Current Condition Current Condition Evaluation Date 06/21/22 Treatment Diagnosis PNA; RSV infxn; difficulty in walking Onset Date 06/17/22 M3 PT-IP Subjective Start: 06/21/22 13:13 Freq: NEEDED Status: Active Protocol: Document 06/26/22 11:45 SP (Rec: 06/26/22 11:58 SP [id number]) Subjective Physical Therapy Visit Type Type Treatment Note Visit Start Time 08:13 Visit Stop Time 08:39 Total Visit Minutes 26 Notes Vitals: supine 120/74 SaO2 93% on 1L Post mobility: 121/79 SaO2 Mid 90s 1L. Number of CAMPAIGN DIRECTOR Visits 1 Physical Therapy Visit Comments Patient Comments Pt agreeable to working with therapy getting up to chair. Patient Goals Get stronger to move around better. M4 PT-IP Mobility and Gait Start: 06/21/22 13:13 Freq: NEEDED Status: Active Protocol: Document 06/26/22 11:45 SP (Rec: 06/26/22 11:58 SP [id number]) PT-Bed Mobility Assessment Supine to Sit Supine to Sit Maximum Assistance,1 Person Assistance,Head of Bed Elevated,Bedrails Scooting Scooting to Edge of Bed Maximum Assistance PT-Transfer Assessment Transfers Transfer Destination Chair Transfer Technique Squat Pivot Transfer Ability Level of Assist Maximum Assistance,2 Person Assistance,Use of Upper Extremities Comments Mobility Comments Pt requested and CAMPAIGN DIRECTOR assisted pt use of urinal, notified nursing left in bathroom for measurement, complete elevated supine>sit w/use R bed rail, support each LE to EOB, scoot and trunk right to sit Max A x1. Heavy Max A x2 squat pivot transfer bed>chair, 45 deg pivot to R, instructed reach across opp chair arm. Pt was able to lateral scoot R>LLE little during pivot. Mod A to retro/lateral scoot center in chair. Pt had call light and all needs in reach. Nursing stated didn't need to provide chair alarm when suggested. Pt left with breakfast in front, good demonstration eat/ drinking. PRovided warm blankets, notified nursing pt requested decaf black hot black tea with 1 splenda. Recommending squat pivot x2 nursing vs Timothy. Gait Assessment Comments Gait Comments squat pivot only Max A x2. PT-Balance Assessment Sitting Balance and Reactions Static Sitting Balance Ability Good Dynamic Sitting Balance Ability Fair Standing Balance and Reactions Static Standing Balance Ability Poor Dynamic Standing Balance Ability Poor Device Used during squat pivot M5 PT-IP Objective Assessments Start: 06/21/22 13:13 Freq: NEEDED Status: Active Protocol: Document 06/21/22 10:05 AB (Rec: 06/21/22 13:58 AB [id number]) Orientation Orientation/Cognition Level of Alertness Alert Orientation Name,Place,Situation Language Function Ability Hard of Hearing Safety Awareness Decreased Safety Awareness Memory Description Short Term Impaired Strength Lower Extremity Strength Assessment Bilaterally Impaired Comments Strength Comments RLE: 3+/5 LLE: 3-/5 Coordination Assessment Gross Coordination Gross Coordination WNL Muscle Tone Muscle Tone WNL Yes M6 PT-IP Treatment Start: 06/21/22 13:13 Freq: NEEDED Status: Active Protocol: Document 06/26/22 11:45 SP (Rec: 06/26/22 11:58 SP [id number]) Physical Therapy Treatment Education Education Provided Safety M7 PT-IP Assessment and Plan Start: 06/21/22 13:13 Freq: NEEDED Status: Active Protocol: Document 06/26/22 11:45 SP (Rec: 06/26/22 11:58 SP [id number]) PT Summary Assessment and Plan Potential Rehabilitation Potential Fair Status of Condition at Evaluation Evolving Summary Impairments Pain,ROM,Strength,Balance, Coordination,Sensation,Tone, Cognition,Bed Mobility, Transfers,Gait,Activity Tolerance Progress Towards Goals Slow Progress due to Activity Tolerance Assessment Summary Pt required Max A bed mobility, Max A x2 squat pivot transfer. Future tx, reassess stationary standing tolerance w/ FWW. Pt declined further, breakfast arrived. Nursing recommend continue Timothy transfers for safety, inconsistant with 2 person heavy transfer. Goals Bed Mobility Goal Minimal Assistance Transfer Goal Minimal Assistance,Front Wheeled Walker Gait Goal Minimal Assistance,Front Wheel Walker Gait Distance 50 Other Goals improve bed mobility, transfers using FWW and ambulation using FWW SBA 75 ft Days to Meet Goals 10 Frequency of Treatment Frequency Of Treatment Once a Day Treatment Plan Physical Therapy Treatment Plan Bed Mobility Training,Transfer Training,Gait Training, Therapeutic Exercise,Balance Retraining,Discharge Planning, Hot or Cold Pack,Neuromuscular Re-ed,Coordination Retraining ,Manual Therapy Other Recommendations and Next Treatment bed mob, transfers, standing Focus tolerance. Precautions Other Precautions Droplet: RSV; falls Recommendations To Nursing Amount of Assist Needed Mechanical Lift Discharge Recommendations PT Discharge Recommendations SNF Rehab Transportation Needs at Discharge Wheelchair/Cabulance
--- NOTE | 2022-06-26 10:55 | OT.IP.EVAL ---
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 (12/14/16) Lung nodule (11/27/13) Paroxysmal atrial fibrillation (04/13/15) Pulmonary nodule Stroke (10/2016) Surgical History (Last Reviewed 06/18/22 @ 09:21 by Eduardo Novak MD) H/O vasectomy Occupational Therapy Inpatient Evaluation/Re-Eval M1 PT/OT-IP Prior Functional Status Start: 06/21/22 13:13 Freq: NEEDED Status: Active Protocol: Document 06/26/22 10:24 [facility] (Rec: 06/26/22 11:25 [facility] [id number]) Medical Review Prior Functional Status Medical History Reviewed Yes Communication able to make needs known Mobility and Gait pt stated that his caregiver or spouse assists him at home. stated that he mostly stays in his recliner. Caregiver/ spouse assists him with bed mobility, sit to stand and ambulate with a FWW with assist. Activities of Daily Living and IADL's Pt prior able to use the toilet on his own and needing assist for dressing and showering needs. Pt's did all the IADL needs. Social History Household Members spouse Living Arrangements House Number of Floors (Floors) 3 or More Floors Number of Stairs To Enter/Railing? pt stays on the first level of the house 3 steps B rails to enter Additional Social History Comment caregiver comes in from 1030 pm to 1030am MWF assisted pt to get dressed for night, use of the bathroom and at night if needing to get up to assist with the urinal while seated on the edge of the bed. M2 OT-IP Current Condition Start: 06/26/22 11:06 Freq: Status: Active Protocol: Document 06/26/22 10:24 [facility] (Rec: 06/26/22 11:25 [facility] [id number]) Occupational Therapy Current Condition Current Condition Evaluation Date 06/26/22 Treatment Diagnosis RSV,PNA M3 OT- IP Subjective and Pain Start: 06/26/22 11:06 Freq: Status: Active Protocol: Document 06/26/22 10:24 [facility] (Rec: 06/26/22 11:25 [facility] [id number]) OT- Subjective Occupational Therapy Visit Type Type Initial Evaluation Visit Start Time 10:24 Visit Stop Time 10:55 Total Visit Minutes 31 Occupational Therapy Visit Comments Patient Comments Pt wanting to get back to bed. Patient/Caregiver Goals Pt open to going to skilled rehab at this time. OT Pain Assessment Pain When Pain Assessed At Rest Pain Present Pain Present Denied Pain M4 OT- IP ADL's Start: 06/26/22 11:06 Freq: Status: Active Protocol: Document 06/26/22 10:24 [facility] (Rec: 06/26/22 11:25 [facility] [id number]) OT [id number] Comments OT Self-Feeding Comments Assist for set-up. OT ADL-Grooming Comments OT Grooming Comments Pt's states prior assist pt for grooming needs. OT ADL-Oral Care Comments Oral Care Comments Pt's states prior assist pt for grooming needs. OT ADL-Dressing General Eval Lower Body Dressing Ability Maximum Assistance,Total Assistance Comments OT Dressing Comments Pt needing from MAX/total assist for all LB dressing needs at this time. OT ADL-Toileting Comments OT Toileting Comments Pt not having to go at this time. OT ADL-Bathing Comments OT Bathing Comments Sponge bath more appropriate at this time due to decreased activity tolerance and mobility. M5 OT- IP IADL's Start: 06/26/22 11:06 Freq: Status: Active Protocol: Document 06/26/22 10:24 [facility] (Rec: 06/26/22 11:25 [facility] [id number]) OT-Instrumental Activities of Daily Living Deficits IADL Deficits Identified Deficits Home Safety Awareness Awareness of Need for Assistance at Home Good Awareness Home Safety Comments Pt realizes that he is very weak and that if going home home agrees would requires 2 person assist besides his who is elderly and not physically capable to assist the pt at this time. Medication Management Medication Management Caregiver Administers Money Management Money Management Caregiver Provides Assistance Meal Preparation Meal Preparation Caregiver Provides Assist Radiation Control Specialist Radiation Control Specialist Caregiver Provides Assist M6 OT- IP Functional Cognition Start: 06/26/22 11:06 Freq: Status: Active Protocol: Document 06/26/22 10:24 [facility] (Rec: 06/26/22 11:25 [facility] [id number]) Cognitive Factors Limiting Selfcare Function Cognitive Ability Level of Alertness Alert Patient Orientation Name,Place,Situation Attention Span Ability Capable of Focused Attention, Capable of Sustained Attention Ability to Follow Commands Able to Follow One Step Commands Memory Description Short Term Impaired Safety Awareness No Deficits Noted Cognitive Comments Cognitive Assessment Comments Pt able to follow commands for mobility needs. Pt's having to remind him to do bed exercises as pt forgets. OT- Vision and Hearing OT- Hearing Assessment OT- Hearing Assessment WFL OT- Vision Assessment Visual Acuity Glasses All The Time Visual Attentiveness WFL Occular Pursuits WFL M7 OT- IP Mobility and Balance Start: 06/26/22 11:06 Freq: Status: Active Protocol: Document 06/26/22 10:24 [facility] (Rec: 06/26/22 11:25 [facility] [id number]) OT- Bed Mobility Assessment Sit to Supine Sit to Supine Assist Maximum Assistance,2 Person Assistance OT-Transfer Assessment Sit to and From Stand Sit to and from Stand Maximum Assistance,2 Person Assistance Transfers Transfer Ability Maximum Assistance,2 Person Assistance Technique Transfer Destination Bed,Chair Transfer Technique Stand Pivot Devices Transfer Assistive Devices None,Gait Belt Comments Mobility Comments MAX AX 2 to stand and pivot to the right to the bed. Pt having difficulty to stand and assist as tired. At this time safer for nursing staff to use the linus lift. Pt needing MAXA x1 to help scoot pt to the edge of the recliner. OT- Balance Assessment Sitting Balance and Reactions Static Sitting Balance Ability Fair Standing Balance and Reactions Static Standing Balance Ability Poor Dynamic Standing Balance Ability Poor M8 OT- IP Objective Assessments Start: 06/26/22 11:06 Freq: Status: Active Protocol: Document 06/26/22 10:24 [facility] (Rec: 06/26/22 11:25 [facility] [id number]) OT Gross Range of Motion Upper Extremity Range of Motion Assessment Left Impaired OT Strength Upper Extremity Strength Assessment Left Impaired Comments Strength Comments RUE AROM 0-120 strength 4+/5 LUE increased time and minimal movements throughout. OT- Coordination Assessment Upper Extremity Finger to Nose Test Left UE Impaired Finger Tapping Test Left UE Impaired OT-Muscle Tone Assessment Muscle Tone WNL No M9 OT- IP Assessment and Plan Start: 06/26/22 11:06 Freq: Status: Active Protocol: Document 06/26/22 10:24 [facility] (Rec: 06/26/22 11:25 [facility] [id number]) OT Summary Assessment and Plan Potential Rehabilitation Potential Good Analytic Complexity at Evaluation Moderate Summary OT Impairments Strength,Balance,Functional Mobility,Grooming,Dressing, Toileting,Bathing,Toilet Transfers,Shower Transfers, Activity Tolerance Progress Towards Goals Slow Progress due to Medical Issues,Slow Progress due to Activity Tolerance Assessment Summary Pt MOD complexity and main barriers are steps, decreaased activity tolerance, and now needing two extensive person assist for bed mobility and transfers. Pt is far from his baseline and would greatly benefit from skilled rehab prior to going home. Otherwise pt will need to hire 2 caregivers 05/02 and have a linus lift to assist the pt and have home health. Pt is willing to go to skilled rehab . Goals Self-Feeding Goal Standby Assistance Grooming Goal Standby Assistance Dressing Goal Moderate Assistance Toileting Goal Minimal Assistance Bathing Goal Moderate Assistance Toilet Transfer Goal Minimal Assistance Shower Transfer Goal Moderate Assistance Days to Meet Goals 25 Frequency of Treatment Frequency Of Treatment Once a Day Treatment Plan OT Treatment Plan ADL Training,Functional Mobility,Patient/Family Education,Discharge Planning Discharge Recommendations OT Discharge Recommendations SNF Rehab Transportation Needs at Discharge Wheelchair/Cabulance
--- NOTE | 2022-06-26 12:11 | CM.DPNOTE ---
Discharge Planning Note: Patient is max assist per therapy notes and recommending SNF. Patient and spouse accepting of SNF placement. [facility] can accept now that he is off of droplet precautions. Plan: Discharge when medically cleared to [facility]. Anjali Morales RN/DCP
--- NOTE | 2022-06-26 12:13 | DI.RAD.S_ITS ---
PROCEDURE: XR ABDOMEN MIN 2V INDICATIONS: colon distention. TECHNIQUE: 2 views of the abdomen were acquired. COMPARISON: [facility], , XR ABDOMEN MIN 2V, 06/23/2022, 8:34. FINDINGS: Surgical changes and devices: None. Bowel: No pneumoperitoneum. Air distended small bowel and colon loops are again noted throughout abdomen not significantly changed from previous study. Soft tissues: No masses; visualized solid organ contours appear normal in size. No suspicious abdominal calcifications. Bones: No suspicious bony abnormalities. IMPRESSION: Persistent air distended small bowel and colon loops not significantly changed from previous study. No gross pneumoperitoneum. Dictated by: Wil Gong M.D. on 06/26/2022 at 13:04 Approved by: Wil Gong M.D. on 06/26/2022 at 13:05
[2022-06-26] MEDS: ATORVASTATIN 20 MG TABLET 40 MG PO (20:49)
[2022-06-27 04:20] VITALS: BP 125/59; PULSE 59; RESP 20; TEMP 36.6; O2SAT 95
[2022-06-27 08:00] VITALS: TEMP 36.3
[2022-06-27] MEDS: TAMSULOSIN 0.4 MG CAPSULE PO (08:45)
[2022-06-27] MEDS: METOCLOPRAMIDE HCL 10 MG TABLET 5 MG PO (08:45)
[2022-06-27] MEDS: FAMOTIDINE 20 MG TABLET PO ×2 (08:46→20:24)
[2022-06-27] MEDS: predniSONE 20 MG TABLET PO (08:46)
[2022-06-27] MEDS: guaiFENesin ER 600 MG TAB 1200 MG PO ×2 (08:46→20:23)
[2022-06-27] MEDS: AMIODARONE 200 MG TABLET PO (08:46)
--- NOTE | 2022-06-27 08:46 | PM.PN.1 ---
Subjective Subjective Date Patient Seen: 06/27/22 Time Patient Seen: 08:46 Interval history: Patient still struggling overnight with some hallucinations. He feels like he gets boxed in with pillows and the rails up on the bed and that does not do well Still having some intermittent loose stool. Did little better with physical therapy yesterday able to stand. Up with physical therapy more about to stand up and work with physical therapy as I see him this morning Still coughing some with a lot of ribcage kind of pain when he coughs Exam Vital Signs (past 8 hours): - 06/27/22 04:20 Temperature 97.9 F Pulse Rate 59 L Respiratory Rate 20 Blood Pressure 125/59 L Pulse Oximetry 95 Oxygen Flow Rate 2 Fraction of Inspired Oxygen 97 SaO2/FiO2 Ratio 335 Oxygen Delivery Method Nasal Cannula,Humidification Oxygen Flow Rate 2 Objective Labs Result Diagrams: 06/25/22 05:32 06/26/22 05:53 PFSH Medical History Atrial fibrillation BPH w urinary obs/LUTS Erectile dysfunction 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) care home current use of anticoagulant therapy (12/14/16) Lung nodule (11/27/13) Paroxysmal atrial fibrillation (04/13/15) Pulmonary nodule Stroke (10/2016) Surgical History H/O vasectomy Family History Father Family history of diabetes mellitus (DM) Family hx of lung cancer Mother Colon cancer Social History marital status: number of children: 2 household members: spouse lives independently: Yes caregiver/support person: Yes housing: house pets and animals: No education level: other occupational status: other 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 Pneumonia-patient now off of IV antibiotics. Still with a very small oxygen requirement. Continue to work on increased physical activity which I think will help resolve his persistent pulmonary issues. Did discuss with our infection control expert about patient's isolation/droplet precautions related to his RSV infection. Neither he nor I felt as though this needs to continue at this time as patient is well beyond the usual contagious time frame for this disease. Therefore droplet precautions were discontinued yesterday 2. GI-x-rays done yesterday showed essentially no change in patient's colonic distention. This been no additional symptoms he still asymptomatic other than the abdominal distention. I think were okay to advance diet which may well help with his diarrhea as well. I am assuming the diarrhea is more of a post antibiotic diarrhea. Does not have characteristics consistent with C diff so I am choosing not to test for that at this time. I think I will discontinue the metoclopramide which maybe having a negative affect in this regard. 3. Question bleeding-no evidence of active bleeding. Uncertain as to when would be appropriate time to reinstitute warfarin. Probably within the next couple of days. I would like to see him up just a bit more and more stability from GI tract etcetera. 4. Hypertension-patient if anything is been somewhat hypotensive and minimally bradycardic. I have cut back on his beta-christopher and finally discontinued yesterday. Will see how he does without any antihypertensives on board 5. Hyperglycemia-patient's blood sugars much better on lower dose corticosteroids. Plan to taper and discontinue corticosteroids over the next several days. 6. Disposition-patient's spouse are okay with discharge to [facility] for continued rehab and daily physical therapy. Probably within 24-48 hours of being stable from medical standpoint for discharge to halfway. Note: Greater than 30 minutes total time was spent on day of service, evaluating the patient on the floor, including examining the patient, discussing clinical course with clinical and nursing staff, reviewing clinical course in the computer, preparing documentation and writing orders for continued management of care, discussing status with family as appropriate, reviewing plans for the next 24 hours with both patient/family and nursing staff as appropriate. Quality VTE Deep Vein Thrombosis/Pulmonary Embolism Present on Admission: No
--- NOTE | 2022-06-27 09:16 | PT.IPTN ---
Current Diagnoses Pneumonia, unspecified organism (06/17/22) Physical Therapy Treatment Note M2 PT-IP Current Condition Start: 06/21/22 13:13 Freq: NEEDED Status: Active Protocol: Document 06/26/22 11:45 SP (Rec: 06/26/22 11:58 SP [id number]) Physical Therapy Current Condition Current Condition Evaluation Date 06/21/22 Treatment Diagnosis PNA; RSV infxn; difficulty in walking Onset Date 06/17/22 M3 PT-IP Subjective Start: 06/21/22 13:13 Freq: NEEDED Status: Active Protocol: Document 06/27/22 14:10 [facility] (Rec: 06/27/22 14:24 [facility] [id number]) Subjective Physical Therapy Visit Type Type Treatment Note Visit Start Time 08:24 Visit Stop Time 09:07 Total Visit Minutes 43 Notes Pt's spouse was present throughout Number of 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 EXPRESS CLERK Visits 0 Physical Therapy Visit Comments Patient Comments Pt happy to do PT as he wants to get stronger M4 PT-IP Mobility and Gait Start: 06/21/22 13:13 Freq: NEEDED Status: Active Protocol: Document 06/27/22 14:10 [facility] (Rec: 06/27/22 14:24 [facility] [id number]) PT-Bed Mobility Assessment Supine to Sit Supine to Sit Maximum Assistance,1 Person Assistance,Head of Bed Elevated,Bedrails Scooting Scooting to Edge of Bed Maximum Assistance PT-Transfer Assessment Sit to and From Stand Sit to and from Stand Moderate Assistance,Maximum Assistance,1 Person Assistance ,Use of Upper Extremities Equipment Transfer Assistive Device Gait Belt,Front Wheeled Walker Transfers Transfer Destination Chair Transfer Technique Squat Pivot Transfer Ability Level of Assist Maximum Assistance,1 Person Assistance,Use of Upper Extremities Comments Mobility Comments supine to sit max A w/cues to sequence LEs to EOB and use of RUE to hold PTs hand to help sit himself up. Max A for scoot to EOB. Pt's shoes donned for him by PT. sit to stand to FWW x mod A with cues for posture and stood for about 15 sec for brief to be secured. Sit to stand again mod A to FWW and cues for posture. Pt attemped but was unable to take steps w/FWW. He stood mod A then needed Max A at end for about 45 sec and max a to sit back down. Sit to stand again and stood for about 20 sec at FWW w/max A for last effort. Pt then did squat pivot w/pts arm on PT's arm as he stood partially up then reached for opp arm of chair to pivot and sit w/max A . pt left in chair w/call light in reach and in room. EXTRUDER OPERATOR informed pt wanted his oatmeal warmed up. M5 PT-IP Objective Assessments Start: 06/21/22 13:13 Freq: NEEDED Status: Active Protocol: Document 06/21/22 10:05 AB (Rec: 06/21/22 13:58 AB [id number]) Orientation Orientation/Cognition Level of Alertness Alert Orientation Name,Place,Situation Language Function Ability Hard of Hearing Safety Awareness Decreased Safety Awareness Memory Description Short Term Impaired Strength Lower Extremity Strength Assessment Bilaterally Impaired Comments Strength Comments RLE: 3+/5 LLE: 3-/5 Coordination Assessment Gross Coordination Gross Coordination WNL Muscle Tone Muscle Tone WNL Yes M6 PT-IP Treatment Start: 06/21/22 13:13 Freq: NEEDED Status: Active Protocol: Document 06/27/22 14:10 [facility] (Rec: 06/27/22 14:24 [facility] [id number]) Physical Therapy Treatment Education Education Provided Safety Other Treatments Other Treatment Performed discussed DC plan of SNF for rehab M7 PT-IP Assessment and Plan Start: 06/21/22 13:13 Freq: NEEDED Status: Active Protocol: Document 06/27/22 14:10 [facility] (Rec: 06/27/22 14:24 [facility] [id number]) PT Summary Assessment and Plan Potential Rehabilitation Potential Fair Status of Condition at Evaluation Evolving Summary Impairments Pain,ROM,Strength,Balance, Coordination,Sensation,Tone, Cognition,Bed Mobility, Transfers,Gait,Activity Tolerance Progress Towards Goals Slow Progress due to Activity Tolerance Assessment Summary Pt did well with PT today adn tolearted more activity and did really well with sit to stands with mod A to FWW w/max cues. He was unable to transfer w/FWW but did do transfer w/max A x1 w/max cues for hand placement and LEs. Goals Bed Mobility Goal Minimal Assistance Transfer Goal Minimal Assistance,Front Wheeled Walker Gait Goal Minimal Assistance,Front Wheel Walker Gait Distance 50 Other Goals improve bed mobility, transfers using FWW and ambulation using FWW SBA 75 ft Days to Meet Goals 10 Frequency of Treatment Frequency Of Treatment Once a Day Treatment Plan Physical Therapy Treatment Plan Bed Mobility Training,Transfer Training,Gait Training, Therapeutic Exercise,Balance Retraining,Discharge Planning, Hot or Cold Pack,Neuromuscular Re-ed,Coordination Retraining ,Manual Therapy Other Recommendations and Next Treatment bed mob, transfers, standing Focus tolerance. 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
[2022-06-27 10:01] VITALS: BP 94/41; PULSE 65; RESP 18; TEMP 36.4; O2SAT 98
--- NOTE | 2022-06-27 10:54 | OT.IP.TRT ---
Current Diagnoses Pneumonia, unspecified organism (06/17/22) Occupational Therapy Treatment Note M2 OT-IP Current Condition Start: 06/26/22 11:06 Freq: Status: Active Protocol: Document 06/26/22 10:24 [facility] (Rec: 06/26/22 11:25 [facility] [id number]) Occupational Therapy Current Condition Current Condition Evaluation Date 06/26/22 Treatment Diagnosis RSV,PNA M3 OT- IP Subjective and Pain Start: 06/26/22 11:06 Freq: Status: Active Protocol: Document 06/27/22 10:53 [facility] (Rec: 06/27/22 11:00 [facility] [id number]) OT- Subjective Occupational Therapy Visit Type Type Treatment Note Visit Start Time 10:40 Visit Stop Time 10:54 Total Visit Minutes 14 Occupational Therapy Visit Comments Patient Comments Pt very exhausted and wanting to get back to bed when OT arrived as sitting up in the recliner. Patient/Caregiver Goals TO get better. OT Pain Assessment Pain When Pain Assessed At Rest Pain Present Pain Present Denied Pain M7 OT- IP Mobility and Balance Start: 06/26/22 11:06 Freq: Status: Active Protocol: Document 06/27/22 10:53 [facility] (Rec: 06/27/22 11:00 [facility] [id number]) OT- Bed Mobility Assessment Sit to Supine Sit to Supine Assist Total Assistance,2 Person Assistance OT-Transfer Assessment Transfers Transfer Ability Total Assistance Technique Transfer Technique Mechanical Lift Comments Mobility Comments Pt very exhausted while sitting upright in the recliner and heavily leaning to the left at this time. Pt nurse and aid have been trying to get the pt up and too tired and opted best at this time for safety to use the mechanical lift at this time. Spoke to pt regarding when feeling better or in rehab may be good to try a platform walker for his left arm as usually his has to assist to hold left hand in place while he is using the FWW at home. Pt so exhausted today and was cooperative but only able to help minimally as trying to lean side to side so OT able to get the sling in place. Freq: Status: Active Protocol: Document 06/27/22 10:53 [facility] (Rec: 06/27/22 11:00 [facility] [id number]) OT Summary Assessment and Plan Potential Rehabilitation Potential Good Analytic Complexity at Evaluation Moderate Summary OT Impairments Strength,Balance,Functional Mobility,Grooming,Dressing, Toileting,Bathing,Toilet Transfers,Shower Transfers, Activity Tolerance Progress Towards Goals Slow Progress due to Medical Issues,Slow Progress due to Activity Tolerance Assessment Summary Pt too tired from sitting upright in the recliner and having had physical therapy earlier this AM. Pt dependent for mechanical lift and all positioning in the bed at this time. Pt will definitely need skilled rehab prior to going home. Goals Self-Feeding Goal Standby Assistance Grooming Goal Standby Assistance Dressing Goal Moderate Assistance Toileting Goal Minimal Assistance Bathing Goal Moderate Assistance Toilet Transfer Goal Minimal Assistance Shower Transfer Goal Moderate Assistance Days to Meet Goals 30 Frequency of Treatment Frequency Of Treatment Once a Day Treatment Plan OT Treatment Plan ADL Training,Functional Mobility,Patient/Family Education,Discharge Planning Discharge Recommendations OT Discharge Recommendations SNF Rehab Transportation Needs at Discharge Wheelchair/Cabulance
[2022-06-27] MEDS: INSULIN LISPRO 100 UNIT/ML 3ML VIAL SUBCUT ×2 (12:27→18:23)
[2022-06-27 12:53] VITALS: BP 114/50; PULSE 63; RESP 18; TEMP 36.6; O2SAT 98
[2022-06-27 16:00] VITALS: BP 119/67; PULSE 87; RESP 18; TEMP 36.7; O2SAT 93
[2022-06-27 20:00] VITALS: BP 130/66; PULSE 65; RESP 22; TEMP 36.7; O2SAT 95
[2022-06-27] MEDS: ATORVASTATIN 20 MG TABLET 40 MG PO (20:23)
[2022-06-28] VITALS: BP 151/65; PULSE 69; RESP 18; TEMP 36.4; O2SAT 97
[2022-06-28] MEDS: CODEINE/GUAIFENESIN LIQUID 5ML UDC 10 ML PO (03:05)
[2022-06-28 03:33] VITALS: BP 130/68; PULSE 63; RESP 20; TEMP 36.4; O2SAT 94
[2022-06-28] MEDS: INSULIN LISPRO 100 UNIT/ML 3ML VIAL SUBCUT ×2 (05:46→12:26)
--- NOTE | 2022-06-28 07:26 | P.DS_ITS ---
History of Present Illness History of Present Illness Date Patient Seen: 06/28/22 Time Patient Seen: 07:26 Chief complaint: SOB Narrative: 86-year-old male with a history of cerebrovascular accident paroxysmal atrial fibrillation on chronic anticoagulation BPH returns to the hospital with feeling weak and short of breath.? Patient states that he is never felt this sick.? He says he has been ill for about 1 week.? Has aches headaches chills decreased appetite and very weak.? He was seen and evaluated in the emergency department on 06/15/2022 diagnosed with pneumonia.? He was discharged home and returned back to the emergency department.? Says he was too weak to get out of bed and fell and had to have the ambulance come and help him get up.? They had to lift him off of the floor.? He was able to try to stay home and went back home.? Worse and weaker now.? He says his ribs hurt a little bit.? Short of breath he is coughing.? Has muscle aches and body aches.? No complaints of headache he is had no complaints of chest pain.? He says his bowel movements and urination are working well.? He says he is had a few sips of fluid over the last week or so and has not had much appetite. {from Dr. Novak's H&P 06/18/22} Discharge Providers Provider Date of admission: 06/17/22 23:38 Discharge Date: 06/28/22 Primary care physician: Mane Xiong MD Consults: 06/18/22 08:42 Consult to Discharge Planning Routine Comment: 06/21/22 09:46 Consult to Physical Therapy Evaluate & Treat Comment: Physician Instructions: Evaluate and Treat 06/24/22 11:11 Consult to Occupational Therapy Evaluate & Treat Comment: Physician Instructions: Evaluate and treat Discharge provider: Mane Xiong MD Summary Hospital Course Discharge Diagnosis: 1. RSV pneumonia 2. Probable bacterial pneumonia, organism not identified, community-acquired 3. Acute respiratory failure with hypoxia 4. Hemoptysis secondary to respiratory infection 5. Hypertension, resolved 6. Long-term anticoagulation with warfarin, on hold 7. Paroxysmal atrial fibrillation 8. BPH with lower urinary tract symptoms 9. Colonic pseudo-obstruction 10. Hyperglycemia secondary to corticosteroids Hospital Course: Patient was admitted to the hospital floor after presenting to the ER as noted above. He was diagnosed with RSV based on PCR testing but appearance of infiltrates on his chest x-ray specially after he was rehydrated with some IV fluids strongly suggest the presence of a community-acquired bacterial pneumonia as well. He was treated with broad-spectrum IV antibiotics and completed 10 days of parental antibiotics in addition to supportive therapy for his known RSV pneumonia. He was fairly wheezy with evidence of reactive airways which is very much consistent with an RSV presentation. Was treated with albuterol as well as IV corticosteroids with significant improvement in his wheezing. At time of di scharge he was tapering down to a low-dose of his corticosteroids. His oxygen requirement was also significantly improved with requirement of barely 1 L although averaging about 0-2 L via nasal cannula specially at night Patient did develop abdominal distention on upon evaluation showed dilatation of his colonic loops. CT imaging did not reveal evidence of actual mechanical obstruction. Patient continued to have bowel movements and denied any abdominal pain through any of this. Was felt as though he had a colonic pseudo- obstruction likely secondary to a combination of issues including his pneumonia his prior CVA as well as perhaps dosing with ondansetron for some presenting nausea early in his hospital course. The ondansetron was discontinued he was started metoclopramide in effort to promote forward GI function (in addition to the azithromycin which he was receiving for his community-acquired pneumonia). He is also made NPO in effort to help resolve this colonic pseudo-obstruction. However after several days there is no evidence of progression of the of the colonic distention no additional abdominal symptoms was slowly refilled first with liquids and with a regular diet. He continued to have bowel movements as noted above. 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 He has been functioning at home with the assistance of caregivers able to walk short distances in assist with transfers prior to hospitalization. However with his hospitalization he was basically bed-bound. Received daily physical therapy during the second half of his hospitalization and at the end was able to stand for brief periods of time and assist minimally with transfers. It was determined that he will need continued aggressive physical therapy to regain his function before being able to return home Patient was somewhat hypertensive during initial portion of his hospitalization he was started on metoprolol which controlled his blood pressure well. However as he improved overall clinically his blood pressure seem to decline he became minimally bradycardic and eventually metoprolol was discontinued with continued adequate control of blood pressure overall Early in patient's hospital course he also had clear hemoptysis and possibly some bloody emesis. Was unclear whether not the blood seen was coming from the GI respiratory tract. His warfarin was discontinued in effort to minimize further bleeding. This was held until discharge. However he never showed any evidence of large volume bleeding he was hemodynamically stable etcetera. Was felt in the end that he mostly had hemoptysis without evidence of any sort of GI bleeding Patient did develop liban liquidy diarrhea without evidence of odor or frequency to be concerning for C diff colitis. His diarrhea was weakly guaiac-positive at times. This was felt to be secondary to his aggressive antibiotic therapy without actually having C diff colitis. 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 Any event he was felt to be stable and improving upon discharge and expectation is that his GI tract will returned to normal over time Patient also developed significant hyperglycemia with the parental corticosteroids. He was treated with insulin to cover this. As his corticosteroid therapy was reduced and eventually switch to oral therapy his blood sugar numbers improved tremendously so that prior to discharge he did not have any blood sugars higher than 150, and is anticipated as he is tapered off of and eliminates corticosteroid therapy blood sugar metabolism will return entirely to normal Exam Vital Signs (past 8 hours): - 06/28/22 00:00 06/28/22 03:33 Temperature 97.6 F 97.5 F L Pulse Rate 69 63 Respiratory Rate 18 20 Blood Pressure 151/65 H 130/68 Pulse Oximetry 97 94 Oxygen Flow Rate 1 1 Fraction of Inspired Oxygen 95 SaO2/FiO2 Ratio 335 Oxygen Delivery Method Nasal Cannula Oxygen Flow Rate 1 Objective Labs Result Diagrams: 06/25/22 05:32 06/26/22 05:53 [facility] Medical History Atrial fibrillation BPH w urinary obs/LUTS Erectile dysfunction 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) care home current use of anticoagulant therapy (12/14/16) Lung nodule (11/27/13) Paroxysmal atrial fibrillation (04/13/15) Pulmonary nodule Stroke (10/2016) Surgical History H/O vasectomy Family History Father Family history of diabetes mellitus (DM) Family hx of lung cancer Mother Colon cancer Social History marital status: number of children: 2 household members: spouse lives independently: Yes caregiver/support person: Yes housing: house pets and animals: No education level: other occupational status: other 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 His discharge dosing is his home dose for his warfarin schedule. This is indicated because his paroxysmal atrial fibrillation and prior history of stroke Patient will need aggressive physical therapy to regain his strength and functional abilities lost during this illness so that he may return home Patient should be able to wean off of his oxygen therapy over the next several days I would believe Patient should continue to wean down and eventually discontinue his oral corticosteroid therapy. He is not chronically on corticosteroids these were merely initiated during this hospitalization because of the reactive airways component to his RSV infection. Expectation is probably 2 weeks plus-minus of aggressive rehabilitation/physical therapy before returning home with 05/02 caregivers Discharge Plan Discharge Plan Patient Disposition: SNF Transfer to: [facility] Discharge orders & Medications Prescriptions: New prednisone 20 mg Tablet 10 mg PO DAILY Qty: 5 0RF Rx Instructions: 10 mg daily for 5 days, then every other day for 5 days then stop alfuzosin 10 mg tablet extended release 24 hr 10 mg PO DAILY Qty: 90 3RF Rx Instructions: administer after the same meal each day warfarin 1 mg tablet See Rx Instructions .ROUTE .COMPLEX Qty: 200 0RF Rx Instructions: 3mg on Sunday and , 2mg all other days Continued cholecalciferol (vitamin D3) [Vitamin D3] 1,000 UNIT tablet 1 tab PO QDAY Qty: 30 11RF atorvastatin 40 mg tablet 40 mg PO HS Qty: 90 2RF amiodarone 200 mg tablet 200 mg PO [facility]CC Qty: 90 3RF acetaminophen [Tylenol Extra Strength] 500 mg Tablet 1,000 mg PO BEDTIME Rx Instructions: takes with benadryl (tylenol PM) diphenhydramine HCl [Benadryl] 25 mg Capsule 50 mg PO BEDTIME Rx Instructions: takes with tylenol Discontinued warfarin 1 mg tablet See Rx Instructions .ROUTE .COMPLEX Qty: 200 3RF Dose Instruction: TAKE 2 TABS BY MOUTH SUNDAY, SUNDAY, SUNDAY AND SUNDAY TAKE 3 TABS THE OTHER 3 DAYS OR DIRECTED Rx Instructions: 3mg Sunday and and 2mg all other days; or as directed. Follow up/Referrals: Mane Xiong MD [Primary Care Provider] - Discharge Health Status Multidrug resistant organism: No MDRO Precautions: Stites Diet/Activity/Treatments Diet: Diet as Tolerated Liquid consistency: Normal/Thin Food texture: Regular Oxygen: 1-2 l/min NC as required Special Rehabilitation Services Reason for rehabilitation: Recovery r/t decondition Rehab type: Physical therapy and Occupational therapy Discharge Data Primary Care Provider: Mane Xiong Quality VTE Deep Vein Thrombosis/Pulmonary Embolism Present on Admission: No
[2022-06-28 08:00] VITALS: BP 143/63; PULSE 62; RESP 15; TEMP 35.7; O2SAT 95
--- NOTE | 2022-06-28 09:00 | PT.IPTN ---
Current Diagnoses Pneumonia, unspecified organism (06/17/22) Physical Therapy Treatment Note M2 PT-IP Current Condition Start: 06/21/22 13:13 Freq: NEEDED Status: Active Protocol: Document 06/26/22 11:45 SP (Rec: 06/26/22 11:58 SP [id number]) Physical Therapy Current Condition Current Condition Evaluation Date 06/21/22 Treatment Diagnosis PNA; RSV infxn; difficulty in walking Onset Date 06/17/22 M3 PT-IP Subjective Start: 06/21/22 13:13 Freq: NEEDED Status: Active Protocol: Document 06/28/22 09:28 AMB (Rec: 06/28/22 09:46 AMB [id number]) Subjective Physical Therapy Visit Type Type Treatment Note Visit Start Time 08:30 Visit Stop Time 09:15 Total Visit Minutes 45 Notes on 1L SpO2 92-93. [place] with OT for platform walker trial. 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 M4 PT-IP Mobility and Gait Start: 06/21/22 13:13 Freq: NEEDED Status: Active Protocol: Document 06/28/22 09:28 AMB (Rec: 06/28/22 09:46 AMB [id number]) PT-Bed Mobility Assessment Rolling Type of Rolling Roll to Right Level of Assist Moderate Assistance Supine to Sit Supine to Sit Maximum Assistance,2 Person Assistance,Head of Bed Elevated,Bedrails Scooting Scooting to Edge of Bed Maximum Assistance PT-Transfer Assessment Sit to and From Stand Sit to and from Stand Moderate Assistance,2 Person Assistance,Use of Upper Extremities Equipment Transfer Assistive Device Gait Belt,Platform Walker Transfers Transfer Destination Chair Transfer Technique Squat Pivot Transfer Ability Level of Assist Maximum Assistance,2 Person Assistance,Use of Upper Extremities Comments Mobility Comments supine to sit max A w/cues to sequence LEs to EOB and use of RUE to push from bed, pt assist with LE and trunk control. Max A for scoot to EOB. Pt's shoes donned for him by PT. sit to stand to platform walker x mod A with cues for posture and stood for about 30 sec . Sit to stand again mod A x2 to platform walker and cues for posture stood for 1-2 min. Pt attemped but steps with plaform walker , needed heavy assit with weightshifting and forward propulsion of L LE. Sat back down, Pt then did squat pivot w/pts arm on PT's arm as he stood partially up then reached for opp arm of chair to pivot and sit w/max Ax2. pt left in chair w/call light in reach. M5 PT-IP Objective Assessments Start: 06/21/22 13:13 Freq: NEEDED Status: Active Protocol: Document 06/21/22 10:05 AB (Rec: 06/21/22 13:58 AB [id number]) Orientation Orientation/Cognition Level of Alertness Alert Orientation Name,Place,Situation Language Function Ability Hard of Hearing Safety Awareness Decreased Safety Awareness Memory Description Short Term Impaired Strength Lower Extremity Strength Assessment Bilaterally Impaired Comments Strength Comments RLE: 3+/5 LLE: 3-/5 Coordination Assessment Gross Coordination Gross Coordination WNL Muscle Tone Muscle Tone WNL Yes M6 PT-IP Treatment Start: 06/21/22 13:13 Freq: NEEDED Status: Active Protocol: Document 06/27/22 14:10 [facility] (Rec: 06/27/22 14:24 [facility] [id number]) Physical Therapy Treatment Education Education Provided Safety Other Treatments Other Treatment Performed discussed DC plan of SNF for rehab M7 PT-IP Assessment and Plan Start: 06/21/22 13:13 Freq: NEEDED Status: Active Protocol: Document 06/28/22 09:28 AMB (Rec: 06/28/22 09:46 AMB [id number]) PT Summary Assessment and Plan Potential Rehabilitation Potential Fair Status of Condition at Evaluation Evolving Summary Impairments Pain,ROM,Strength,Balance, Coordination,Sensation,Tone, Cognition,Bed Mobility, Transfers,Gait,Activity Tolerance Progress Towards Goals Slow Progress due to Activity Tolerance Assessment Summary Leeroy is going to SNF today. Tried platform walker with OT, improved pt's standing tolerace. Overall better tolerance to sit to stand today than previous days, but continues to have difficulty with any weightshifting/gait activities. Improving with transfer tolerance, but would be unable to return home at this point as he continues to need MaxA and tires very easily. Unable to ambulate , and PLOF was ambulating with FWW for short distances with caregiver. Goals Bed Mobility Goal Minimal Assistance Transfer Goal Minimal Assistance,Front Wheeled Walker Gait Goal Minimal Assistance,Front Wheel Walker Gait Distance 50 Other Goals improve bed mobility, transfers using FWW and ambulation using FWW SBA 75 ft Days to Meet Goals 10 Frequency of Treatment Frequency Of Treatment Once a Day Treatment Plan Physical Therapy Treatment Plan Bed Mobility Training,Transfer Training,Gait Training, Therapeutic Exercise,Balance Retraining,Discharge Planning, Hot or Cold Pack,Neuromuscular Re-ed,Coordination Retraining ,Manual Therapy Other Recommendations and Next Treatment bed mob, transfers, standing Focus tolerance. 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
--- NOTE | 2022-06-28 09:15 | OT.IP.TRT ---
Current Diagnoses Pneumonia, unspecified organism (06/17/22) Occupational Therapy Treatment Note M2 OT-IP Current Condition Start: 06/26/22 11:06 Freq: Status: Active Protocol: Document 06/26/22 10:24 [facility] (Rec: 06/26/22 11:25 [facility] [id number]) Occupational Therapy Current Condition Current Condition Evaluation Date 06/26/22 Treatment Diagnosis RSV,PNA M3 OT- IP Subjective and Pain Start: 06/26/22 11:06 Freq: Status: Active Protocol: Document 06/28/22 10:34 [facility] (Rec: 06/28/22 10:43 [facility] [id number]) OT- Subjective Occupational Therapy Visit Type Type Treatment Note Visit Start Time 08:30 Visit Stop Time 09:15 Total Visit Minutes 45 Occupational Therapy Visit Comments Patient Comments Pt wanting to get up, PT present during treatment as pt needing extensive assist for mobility needs. pt having itchy back and able to wash his back and place lotion on it, to notify his nurse. Patient/Caregiver Goals Pt agreeing to go to skilled rehab. OT Pain Assessment Pain When Pain Assessed At Rest Pain Present Pain Present Denied Pain M7 OT- IP Mobility and Balance Start: 06/26/22 11:06 Freq: Status: Active Protocol: Document 06/28/22 10:34 [facility] (Rec: 06/28/22 10:43 [facility] [id number]) OT- Bed Mobility Assessment Supine to Sit Supine to Sit Assist Maximum Assistance,2 Person Assistance Scooting Scooting to Edge of Bed Maximum Assistance,1 Person Assistance OT-Transfer Assessment Sit to and From Stand Sit to and from Stand Moderate Assistance,2 Person Assistance Transfers Transfer Ability Maximum Assistance,2 Person Assistance Technique Transfer Destination Bed,Chair Transfer Technique Squat Pivot Devices Transfer Assistive Devices None,Gait Belt,Platform Walker Comments Mobility Comments MAXAX2 to help get his LLE and trunk for bed mobility needs. MODA X2 to stand to FWW and assist to help place his LUE on the platform walker. Pt able to stand upright with the platform walker with CGA x2. Pt attempted to try to move but unable to weight shift at this time due to weakness and therefore just had pt stand for awhile. Pt then able to do squat pivot transfer MAXA x2 to the recliner. OT- Balance Assessment Sitting Balance and Reactions Static Sitting Balance Ability Fair M8 OT- IP Objective Assessments Start: 06/26/22 11:06 Freq: Status: Active Protocol: Document 06/26/22 10:24 [facility] (Rec: 06/26/22 11:25 [facility] [id number]) OT Gross Range of Motion Upper Extremity Range of Motion Assessment Left Impaired OT Strength Upper Extremity Strength Assessment Left Impaired Comments Strength Comments RUE AROM 0-120 strength 4+/5 LUE increased time and minimal movements throughout. OT- Coordination Assessment Upper Extremity Finger to Nose Test Left UE Impaired Finger Tapping Test Left UE Impaired OT-Muscle Tone Assessment Muscle Tone WNL No M9 OT- IP Assessment and Plan Start: 06/26/22 11:06 Freq: Status: Active Protocol: Document 06/28/22 10:34 [facility] (Rec: 06/28/22 10:43 [facility] [id number]) OT Summary Assessment and Plan Potential Rehabilitation Potential Good Analytic Complexity at Evaluation Moderate Summary OT Impairments Strength,Balance,Functional Mobility,Grooming,Dressing, Toileting,Bathing,Toilet Transfers,Shower Transfers, Activity Tolerance Progress Towards Goals Progressing Toward Goals Assessment Summary Pt now on 1L on O2 and at 92- 95% and able to tolerate standing to a platform walker. Pt unable to take any step at this time. Pt states feels that the platform walker will be more beneficial to him for walking in the near future and hope to have skilled rehab work on it with him. Pt to go to skilled rehab when medically stable. Goals Self-Feeding Goal Standby Assistance Grooming Goal Standby Assistance Dressing Goal Moderate Assistance Toileting Goal Minimal Assistance Bathing Goal Moderate Assistance Toilet Transfer Goal Minimal Assistance Shower Transfer Goal Moderate Assistance Days to Meet Goals 29 Frequency of Treatment Frequency Of Treatment Once a Day Treatment Plan OT Treatment Plan ADL Training,Functional Mobility,Patient/Family Education,Discharge Planning Discharge Recommendations OT Discharge Recommendations SNF Rehab Transportation Needs at Discharge Wheelchair/Cabulance
--- NOTE | 2022-06-28 09:38 | CM.DPC ---
Addendum entered by NIKKO Cedeño 06/28/22 10:48: ADD: SW met bedside with pt and spouse and answered additional questions regarding d/c to SNF today and that HH could be set up from SNF if needed and initial coverage from Medicare for SNF for the first 20 days. Pt and spouse very appreciative and pt motivated to try to be home by [place] time. BF Original Note: DCP Discharge SNF Per MD, pt is medically stable to d/c to SNF today and is off isolation precautions and no identified barriers to discharge. MD completed d/c summary and signed the med list and no scripts needed. SW called [facility] and they can provide transport around 1245 and RN notified of updated COVID swab needed and kindly will obtain this morning. SHIVANI Guido kindly faxing d/c packet and updated [employer], [facility]EL[facility], and RN. SW called pt's spouse Mey and updated on d/c to SNF today and spouse anticipated pt would remain in the hospital another couple days and was somewhat surprised and SW discussed acceptance at [facility] and transport via facility w/c van. Plan: Patient to d/c to [facility] SNF at 1245 via facility van prior to safe return home with spouse and PP CG on [facility]. NIKKO Cedeño
[2022-06-28] MEDS: TAMSULOSIN 0.4 MG CAPSULE PO (09:44)
[2022-06-28] MEDS: guaiFENesin ER 600 MG TAB 1200 MG PO (09:44)
[2022-06-28] MEDS: FAMOTIDINE 20 MG TABLET PO (09:44)
[2022-06-28] MEDS: AMIODARONE 200 MG TABLET PO (09:44)
[2022-06-28] MEDS: predniSONE 20 MG TABLET 10 MG PO (09:44)
[2022-06-28] MEDS: SERTRALINE 50 MG TABLET PO (09:44)
--- NOTE | 2022-06-28 10:03 | PC.NURSE ---
Addendum entered by Isabella Heaton R.N. 06/28/22 13:04: Patient discharged to [facility] and report given. Addendum entered by Isabella Heaton R.N. 06/28/22 12:35: Patients blood sugar 143, 1u of insulin given to patient. He is eating lunch and then will discharge over to [facility] soon. Original Note: Assess- Patient is alert and oriented x4, he is sitting up in the chair and comfortable. He is on oxygen, and occasionally coughs. is in room and attentive to patients needs and helpful with care.
[2022-06-28 10:20] LABS: COVID19 -Nasal RAPID Negative (Negative)
[2022-06-28 12:00] VITALS: BP 127/62; PULSE 69; RESP 17; TEMP 36.2; O2SAT 93
== END 2022-06-28 13:18 | DRG 193 ==
LOC: ED 22:13 → AC 23:39
PROVIDERS: Family Medicine; Admitting Provider Family Medicine; Emergency Provider Emergency Medicine; Family Provider Internal Medicine; PCP Internal Medicine; Referring Provider Emergency Medicine; Visit Provider Internal Medicine
DX: J12.1 Respiratory syncytial virus pneumonia (principal); J96.01 Acute respiratory failure with hypoxia; I69.954 Hemiplegia and hemiparesis following unspecified cerebrovascular disease affecting left non-dominant side; R04.2 Hemoptysis; S00.83XA Contusion of other part of head, initial encounter; W18.30XA Fall on same level, unspecified, initial encounter; I48.0 Paroxysmal atrial fibrillation; R07.81 Pleurodynia; I10 Essential (primary) hypertension; J15.9 Unspecified bacterial pneumonia; N40.1 Benign prostatic hyperplasia with lower urinary tract symptoms; K59.81 Ogilvie syndrome; R73.9 Hyperglycemia, unspecified; T38.0X5A Adverse effect of glucocorticoids and synthetic analogues, initial encounter; Z79.01 Long term (current) use of anticoagulants; Z87.891 Personal history of nicotine dependence; Z20.822 Contact with and (suspected) exposure to COVID-19
CPT/HCPCS: 0241U; 36415; 70450; 71045; 71101; 71260; 74019; 74177; 80048; 80053; 82962; 83605; 83690; 83880; 84145; 84484; 85014; 85018; 85025; 85610; 85730; 86850; 86900; 86901; 87635; 93005; 93010; 94150; 94640; 94760; 96374; 96375; 97163; 97166; 97530; 99223; 99233; 99238; 99284; 99285; C9803; A9270; C9113; J0696; J1815; J1940; J2405; J2920; J2930; Q9967

== ENCOUNTER → 2023-12-18 14:57 | Outpatient (CLI) | payer MEDICARE, BC, SELFPAY ==
[2022-11-06 16:39] VITALS: BMI 25.8
[2023-12-18 16:27] LABS: Alanine Aminotransferase 21 IU/L (<50); Albumin 4.3 g/dL (3.5-5.0); Alkaline Phosphatase 72 U/L (38-126); Aspartate Aminotransferase 29 IU/L (17-59); BUN Creatinine Ratio 15.2 (6-22); Bilirubin Total 0.8 mg/dL (0.2-1.3); Blood Urea Nitrogen 12 mg/dL (9-20); Calcium 8.8 mg/dL (8.4-10.2); Carbon Dioxide 30 mmol/L (22-32); Chloride 107 mmol/L (98-107); Estimated Glomerular Filt Rate > 60 mL/min (>60); Globulin 2.2 g/dL (1.7-4.1); Glucose 113 mg/dL (80-110); HEMOLYSIS < 15 (0-50); Potassium 4.3 mmol/L (3.4-5.1); Sodium 139 mmol/L (137-145); Total Protein 6.5 g/dL (6.3-8.2)
[2023-12-18 17:01] LABS: Free T4, Direct Thyroxine 1.56 ng/dL (0.78-2.19)
== END ==
PROVIDERS: Family Provider Internal Medicine; PCP Internal Medicine; Referring Provider Internal Medicine; Visit Provider Internal Medicine
DX: I48.0 Paroxysmal atrial fibrillation (principal); E03.9 Hypothyroidism, unspecified
CPT/HCPCS: 36415; 80053; 84439; 84443

== ENCOUNTER → 2024-03-05 16:33 | Outpatient (CLI) | payer MEDICARE, BC, SELFPAY ==
[2022-11-06 16:39] VITALS: BMI 25.8
[2024-03-05 19:04] LABS: Influenza A - CEPHEID Flu A NEGATIVE (NEGATIVE); Influenza B - CEPHEID Flu B NEGATIVE (NEGATIVE); Respiratory Syncytial Virus Negative (Negative)
[2024-03-05 19:13] LABS: COVID-19 CEPHEID 4-PLEX PCR Negative (Negative)
== END ==
PROVIDERS: Family Provider Internal Medicine; PCP Internal Medicine; Visit Provider Physician Assistant
DX: R05.1 Acute cough (principal)
CPT/HCPCS: 0241U

== ENCOUNTER → 2024-03-05 16:46 | Outpatient (CLI) | payer MEDICARE, BC, SELFPAY ==
[2022-11-06 16:39] VITALS: BMI 25.8
--- NOTE | 2024-03-05 16:48 | DI.RAD.S_ITS ---
PROCEDURE: XR CHEST 2V INDICATIONS: cough x 2 mos TECHNIQUE: 2 views of the chest were acquired. COMPARISON: [facility], , XR CHEST 1V, 06/19/2022, 8:09. FINDINGS: Surgical changes and devices: None. Lungs and pleura: Lungs are clear. No pleural effusions or pneumothorax. Mediastinum: Mediastinal contours are normal. Heart size is normal. Bones and chest wall: No suspicious bony abnormalities. Soft tissues appear unremarkable. IMPRESSION: No acute cardiopulmonary abnormality is seen. Approved by: Aramis Escudero M.D. on 03/06/2024 at 17:41
== END ==
PROVIDERS: Family Provider Internal Medicine; PCP Internal Medicine; Referring Provider Physician Assistant; Visit Provider Physician Assistant
DX: R05.3 Chronic cough (principal)
CPT/HCPCS: 0241U; 71046

== ENCOUNTER → 2024-05-22 14:54 | Outpatient (CLI) | payer MEDICARE, BC, SELFPAY ==
[2022-11-06 16:39] VITALS: BMI 25.8
--- NOTE | 2024-05-22 14:55 | DI.RAD.S_ITS ---
PROCEDURE: XR CHEST 2V INDICATIONS: hemoptysis TECHNIQUE: 2 views of the chest were acquired. COMPARISON: [facility], CR, XR CHEST 2V, 03/05/2024, 16:49. FINDINGS: Heart, mediastinum and pulmonary vascular: Heart is normal in size and configuration. Mediastinum is unremarkable. Pulmonary vascular is normal. Lungs: Clear Pleural spaces: Normal-no effusions or pneumothorax. Bones and soft tissues: Mild old compression fractures of the mid and lower thoracic spine again noted. There is mild syndesmophytes bridging the mid lower thoracic vertebral bodies. IMPRESSION: No cardiopulmonary disease. Dictated by: Mane Dobson M.D. on 05/23/2024 at 9:59 Approved by: Mane Dobson M.D. on 05/23/2024 at 10:00
== END ==
PROVIDERS: Family Provider Internal Medicine; PCP Internal Medicine; Referring Provider Internal Medicine; Visit Provider Internal Medicine
DX: R04.2 Hemoptysis (principal)
CPT/HCPCS: 71046

== ENCOUNTER → 2024-10-22 15:17 | Outpatient (CLI) | payer MEDICARE, BC, SELFPAY ==
[2022-11-06 16:39] VITALS: BMI 25.8
--- NOTE | 2024-10-22 15:19 | DI.CT.S_ITS ---
PROCEDURE: CT CHEST WO CON INDICATIONS: cough/pulm nodule TECHNIQUE: Noncontrast 5 mm thick sections acquired from the pulmonary apices to the posterior costophrenic angles. 1 mm lung window, 5 mm thick coronal and sagittal and 7 mm axial MIP reformats were then acquired. For radiation dose reduction, the following was used: automated exposure control, adjustment of mA and/or kV according to patient size. COMPARISON: None. FINDINGS: Image quality: Diagnostic. Moderate diffuse increased attenuation of the liver is nonspecific but may be an indication of iron deposition, hemochromatosis, Deep's disease or other process. 3 mm calcified granuloma in the left upper lobe anteriorly (axial series 3, image 138) unchanged. The previously noted ground-glass opacities throughout both lungs are markedly decreased with minimal residual in the inferior-medial lingula and left lower lobe posterior and anterior basal some of which may be related to subsegmental atelectasis or chronic changes. No pneumothorax, no pleural effusion, no pericardial effusion, no focal consolidation. Mild nonspecific peribronchial thickening and patchy opacities predominantly in the left lower lobe may be related to mild bronchitis, viral infection, asthma or other process. Moderate calcifications of the aortic valve, coronary arteries, aortic arch and descending aorta mildly progressed. Mild aneurysmal dilatation of the acid and in a aorta measures up to 3.5 cm diameter , unchanged. Heart size and pulmonary vasculature within normal limits. Moderate degenerative changes of the lower cervical, thoracic spine with decreased height of the superior endplate of L1 and L2 vertebral bodies. Lower Neck: No enlarged lymph nodes. Thyroid: No thyroid nodules which require sonographic follow up, per consensus guidelines. Mediastinum and Adriana: No enlarged lymph nodes. IMPRESSION: Previously noted ground-glass opacities markedly decreased or resolved. The previously noted 5 mm nodule right lower lobe is no longer evident. Mild peribronchial thickening predominantly in the left lower lobe may be related to mild bronchitis. Mild aneurysmal dilatation of the ascending aorta unchanged. Other findings as discussed above. Dictated by: Silvano Villalba M.D. on 10/22/2024 at 15:46 Approved by: Silvano Villalba M.D. on 10/22/2024 at 16:05
== END ==
PROVIDERS: Family Provider Internal Medicine; PCP Internal Medicine; Referring Provider Internal Medicine; Visit Provider Internal Medicine
DX: I77.810 Thoracic aortic ectasia (principal); I70.0 Atherosclerosis of aorta; I25.10 Atherosclerotic heart disease of native coronary artery without angina pectoris; R91.1 Solitary pulmonary nodule; R05.3 Chronic cough
CPT/HCPCS: 71250

== ENCOUNTER 2024-12-14 17:14 | Emergency (ER) | payer MEDICARE, BC, SELFPAY ==
[2022-11-06 16:39] VITALS: BMI 25.8
[2024-12-14 17:18] VITALS: PULSE 54; O2SAT 98
[2024-12-14 17:19] VITALS: BP 138/74; PULSE 49; O2SAT 97
--- NOTE | 2024-12-14 17:20 | DI.CT.S_ITS ---
PROCEDURE: CT HEAD/BRAIN WO CON INDICATIONS: fall on thinners TECHNIQUE: Noncontrast 4.5 mm thick angled axial sections acquired from the foramen magnum to the vertex, with coronal and sagittal reformats. For radiation dose reduction, the following was used: automated exposure control, adjustment of mA and/or kV according to patient size. COMPARISON: [facility], CT, CT HEAD/BRAIN WO CON, 06/15/2022, 9:04. FINDINGS: Image quality: Diagnostic. CSF spaces: Basal cisterns are patent. No extra-axial fluid collections. The ventricles are symmetric in size and shape. Brain: No intracranial bleeds or mass effect. There is cerebral volume loss, with resultant ventricular and sulcal prominence. There are periventricular and deep white matter chronic small vessel ischemic changes. There is intracranial internal carotid artery atherosclerosis. Skull and face: Calvarium and visualized facial bones appear intact, without suspicious lesions. Sinuses: Visualized sinuses and mastoids are clear. IMPRESSION: 1. No acute intracranial pathology. 2. Age related volume loss and mild white matter small vessel chronic ischemic changes. 3. No gross acute skull fracture. Dictated by: Wil Gong M.D. on 12/14/2024 at 17:44 Approved by: Wil Gong M.D. on 12/14/2024 at 17:44
[2024-12-14 17:24] VITALS: BP 138/74; PULSE 54; RESP 16; TEMP 36.4; O2SAT 97; BMI 52.0
[2024-12-14 17:30] VITALS: PULSE 53; RESP 16; O2SAT 95
--- NOTE | 2024-12-14 18:09 | ED.FALL ---
HPI - Fall General Chief Complaint: Fall Stated Complaint: fall Time Seen by Provider: 12/14/24 17:20 Source: patient Mode of arrival: EMS History of Present Illness HPI Narrative: Pt is a 89y/o m w/pmhx of CVA with residual left sided deficit, paroxysmal afib on anticoagulation, presenting with a fall. Patient endorses losing his balance while standing to use the urinal. States he fell onto his right side with HS but no LOC, remembers the full event. States he was told that he should be evaluated any time he has a fall with HS given his anticoagulated status. He denies any severe headache, no vision changes, nausea or vomiting. He similarly denies sustaining any further injury. Pt denies any symptoms prior to the fall itself and describes it as mechanical. No Chest pain, shortness of breath, dizziness. MD complaint: fall Fall from: standing Loss of consciousness: none Related Data Home Medications Medication Instructions Recorded Confirmed acetaminophen 500 mg tablet 1,000 mg PO BEDTIME pain 06/18/22 11/13/24 (Tylenol Extra Strength) diphenhydramine HCl 25 mg capsule 50 mg PO BEDTIME sleep 06/18/22 11/13/24 (Benadryl) Previous Rx's Medication Instructions Recorded cholecalciferol (vitamin D3) 25 1 tab PO QDAY #30 tabs 01/04/17 mcg (1,000 unit) tablet (Vitamin D3) alfuzosin 10 mg tablet,extended 10 mg PO DAILY #90 tabs 06/27/22 release 24 hr atorvastatin 40 mg tablet 40 mg PO HS #90 tabs 02/01/24 amiodarone 200 mg tablet 200 mg PO [facility] #90 tabs 04/04/24 rivaroxaban 20 mg tablet (Xarelto) 20 mg PO DAILY #90 tabs 04/18/24 azelastine 205.5 mcg (0.15 %) 2 spray intranasal BEDTIME #30 mL 05/22/24 nasal spray gabapentin 300 mg capsule 300 mg PO BEDTIME #90 caps 12/03/24 Allergies Allergy/AdvReac Type Severity Reaction Status Date / Time No Known Drug Allergies Allergy Verified 11/13/24 14:39 Review of Systems Review of Systems ROS Unobtainable: All systems reviewed & are unremarkable except as noted in HPI and below Constitutional Constitutional: Denies fatigue and Reports weakness (baseline left sided weakness) Eyes Eyes: Denies change in vision ENT Ears, Nose, Mouth, and Throat: Denies nasal trauma and Denies neck pain Cardiovascular Cardiovascular: Denies chest pain and Denies dyspnea Respiratory Respiratory: Denies dyspnea Gastrointestinal Gastrointestinal: Denies nausea and Denies vomiting Genitourinary Genitourinary: Denies oliguria Musculoskeletal Musculoskeletal: Denies back pain and Denies neck pain Neurologic Neurologic: Reports system reviewed and no additional complaints, except as documented, Denies confusion and Reports weakness (baseline left sided weakness) Psychiatric Psychiatric: Denies confusion and Denies suicidal ideation Endocrine Endocrine: Denies fatigue Hematologic/Lymphatic On Anticoagulants: Yes Patient History Medical History Chronic constipation Anticoagulation monitoring, INR range 2-3 Erectile dysfunction BPH w urinary obs/LUTS Pulmonary nodule Atrial fibrillation Stroke (10/2016) 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) 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 (12/14/16) Paroxysmal atrial fibrillation (04/13/15) Lung nodule (11/27/13) Surgical History H/O vasectomy Family History Father Family history of diabetes mellitus (DM) Family hx of lung cancer Mother Colon cancer Social History marital status: number of children: 2 household members: spouse lives independently: Yes caregiver/support person: Yes housing: house pets and animals: No education level: other occupational status: other 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: Shinto leisure activities: sports, fishing and other Smoking Status: Never smoker Tobacco: How many years used: 10 Smokeless tobacco user: other quit status: quit date established second hand exposure: No alcohol intake: current substance use type: does not use Smoking Status: Never smoker alcohol intake frequency: 0-2 drinks per day Exam Initial Vital Signs Initial Vital Signs: Vital Signs Pulse Rate 54 L 12/14/24 17:18 Pulse Oximetry 98 12/14/24 17:18 Const General: cooperative and well developed Nutritional Appearance: well nourished [facility] Head: normocephalic and contusion (over the parietal/occipital scalp) Ears: external ears normal Nose: external nose normal Face and sinus: face symmetric (baseline asymmetry per caregiver) Neck Neck: full ROM Chest Chest: normal inspection of the chest Resp Effort & Inspection: normal respiratory effort Cardio Rate: regular rate Skin Trauma: no lacerations Neuro General: patient alert Cognition: normal cognition Psych Mental Status: mental status grossly normal Course Orders Ordered: ED Orders 12/14/24 17:20 CT head/brain wo con Stat Vital Signs Vital signs: Vital Signs - 8 hr 12/14/24 17:18 12/14/24 17:19 12/14/24 17:19 Temperature Pulse Rate 54 L 49 L Respiratory Rate Blood Pressure 138/74 Pulse Oximetry 98 97 Oxygen Delivery Method 12/14/24 17:24 12/14/24 17:30 Temperature 97.5 F L Pulse Rate 54 L 53 L Respiratory Rate 16 16 Blood Pressure 138/74 Pulse Oximetry 97 95 Oxygen Delivery Method Room Air MDM - Fall Differential Diagnosis Differential diagnosis: Likely concussion without loss of consciousness and other (intracranial injury, ICH, hematoma, skull fracture) Medical Records Attestation: I reviewed the patient's medical records. [facility] Narrative Medical decision making narrative: History and exam as abive, patient is a 89 y/o m on anticoagulation presenting with mechanical fall, head strike without LOC. Imaging studies independently reviewed: CT imaging without evidence of acute intracranial pathology Re-evaluations: Patient denies sustaining further injury and has no other acute medical concerns, requesting discharge. Given overall reassuring exam and history without suspicion for medical etiology prompting today's fall, provided with return precautions, counseled regarding follow up. Discharged in stable condition. 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 Evaluation here including examination and CT imaging was overall reassuring and did not demonstrate any evidence of an acute injury that would require intervention or admission. Please follow-up closely with your primary care provider for re-evaluation and further management. If you develop severe headache, vision changes, nausea vomiting, new weakness, slurred speech, confusion or other symptoms that are concerning to you, please return to the emergency department for further evaluation. Prescriptions: No Action cholecalciferol (vitamin D3) [Vitamin D3] 1,000 UNIT tablet 1 tab PO QDAY Qty: 30 11RF atorvastatin 40 mg tablet 40 mg PO HS Qty: 90 3RF amiodarone 200 mg tablet 200 mg PO [facility] Qty: 90 3RF Xarelto 20 mg tablet 20 mg PO DAILY Qty: 90 3RF Rx Instructions: must administer with evening meal gabapentin 300 mg capsule 300 mg PO BEDTIME Qty: 90 3RF azelastine 205.5 mcg (0.15 %) spray,non-aerosol 2 spray intranasal BEDTIME Qty: 30 0RF Rx Instructions: administer into each nostril acetaminophen [Tylenol Extra Strength] 500 mg Tablet 1,000 mg PO BEDTIME Rx Instructions: takes with benadryl (tylenol PM) diphenhydramine HCl [Benadryl] 25 mg Capsule 50 mg PO BEDTIME Rx Instructions: takes with tylenol alfuzosin 10 mg tablet extended release 24 hr 10 mg PO DAILY Qty: 90 3RF Rx Instructions: administer after the same meal each day Referrals: Mane Xiong MD [Primary Care Provider] - Stand Alone Forms: Patient Portal/API/Survey
== END 2024-12-14 18:19 | disposition home or self-care (01) ==
PROVIDERS: Emergency Provider Student in an Organized Health Care Education/Training Program; Family Provider Internal Medicine; PCP Internal Medicine
DX: S09.90XA Unspecified injury of head, initial encounter (principal); W18.30XA Fall on same level, unspecified, initial encounter; Z79.01 Long term (current) use of anticoagulants
CPT/HCPCS: 70450; 99281; 99284

== ENCOUNTER → 2024-12-15 14:10 | Outpatient (CLI) | payer MEDICARE, BC, SELFPAY ==
[2022-11-06 16:39] VITALS: BMI 25.8
[2024-12-15 15:08] LABS: Add Manual Diff / Slide Review NO; Basophils Absolute Auto 0 /uL (0-100); Basophils Percent Auto 0.5 % (0-2); Eosinophils Absolute Auto 100 /uL (0-450); Eosinophils Percent Auto 1.3 % (2-4); Hematocrit 43.5 % (41-53); Hemoglobin 14.8 g/dL (13.5-17.5); Lymphocytes Absolute Auto 1900 /uL (1100-4500); Lymphocytes Percent Auto 29.9 % (25-40); Mean Corpuscular Hemoglobin 33.3 PG (26-34); Mean Corpuscular Volume 97.9 fL (80-100); Monocytes Absolute Auto 800 /uL (0-900); Monocytes Percent Auto 12.6 % (3-14); Neutrophils Absolute Auto 3600 /uL (1500-7000); Neutrophils Percent Auto 55.7 % (50-75); Platelet Count 173 X10^3/uL (150-400); Red Blood Cell Count 4.44 X10^6/uL (4.5-5.9); Red Cell Distribution Width 13.8 % (11.6-14.8); White Blood Cell Count 6.5 X10^3/uL (4.5-11.0)
[2024-12-15 15:37] LABS: Alanine Aminotransferase 68 IU/L (<50); Albumin 4.2 g/dL (3.5-5.0); Albumin Globulin Ratio 1.7 (1.0-2.8); Alkaline Phosphatase 86 U/L (38-126); Aspartate Aminotransferase 66 IU/L (17-59); BUN Creatinine Ratio 19.4 (6-22); Bilirubin Total 0.5 mg/dL (0.2-1.3); Blood Urea Nitrogen 14 mg/dL (9-20); Calcium 8.9 mg/dL (8.4-10.2); Carbon Dioxide 25 mmol/L (22-32); Chloride 102 mmol/L (98-107); Estimated Glomerular Filt Rate > 60 mL/min (>60); Globulin 2.5 g/dL (1.7-4.1); Glucose 116 mg/dL (70-99); HEMOLYSIS < 15 (0-50); Sodium 137 mmol/L (137-145); Total Protein 6.7 g/dL (6.3-8.2)
== END ==
PROVIDERS: Family Provider Internal Medicine; PCP Internal Medicine; Referring Provider Internal Medicine; Visit Provider Internal Medicine
DX: N13.8 Other obstructive and reflux uropathy (principal); N40.1 Benign prostatic hyperplasia with lower urinary tract symptoms; I48.0 Paroxysmal atrial fibrillation
CPT/HCPCS: 36415; 80053; 85025